=== PATIENT | female | born 1945 | race Caucasian/White ===

== ENCOUNTER → 2024-02-24 13:27 | Outpatient (REF) | payer MEDICARE, SELFPAY | LOC: RCS 13:27 | PROVIDERS: ATTENDING PHYSICIAN Internal Medicine Cardiovascular Disease | DX: I35.0 Nonrheumatic aortic (valve) stenosis (principal) | CPT/HCPCS: 93005; 93306 ==

== ENCOUNTER → 2024-02-24 15:52 | Outpatient (REF) | payer MEDICARE, SELFPAY ==
[2024-02-24 16:31] LABS: % Basophils 0.5 % (0-2); % Eosinophils 2.1 % (0-6); % Immature Granulocytes 0.3 % (0-0.5); % Lymphocytes 27.4 % (20.5-51.1); % Monocytes 7.3 % (1.7-9.3); % Neutrophils 62.4 % (42.2-75.2); Absolute Eosinophils 0.2 10^3/uL (0-0.7); Absolute Lymphocytes 2.1 10^3/uL (1.2-3.4); Absolute Monocytes 0.6 10^3/uL (0.1-0.6); Absolute Neutrophils 4.9 10^3/uL (1.4-6.5); Hematocrit 38.3 % (37.0-47.0); Hemoglobin 13.6 g/dL (12.0-16.0); Mean Corp Hgb Conc. 35.5 g/dL (33.0-37.0); Mean Corpuscular Hgb 34.7 pg (27.0-31.0); Mean Corpuscular Volume 97.7 fL (81.0-99.0); Mean Platelet Volume 11.4 fL (7.4-10.4); Nucleated Red Blood Cells % 0 %; Platelet Count 166 10^3/uL (130-400); Red Blood Cell Count 3.92 10^6/uL (4.20-5.40); Red Cell Dist. Width 12.4 % (11.5-14.5); White Blood Cell Count 7.8 10^3/uL (4.8-10.8)
[2024-02-24 16:46] LABS: Blood Urea Nitrogen 28 mg/dl (7-17); Calcium 10.5 mg/dl (8.4-10.2); Carbon Dioxide 25 mmol/L (22-30); Chloride 98 mmol/L (98-107); Glucose 109 mg/dl (70-99); Potassium 3.9 mmol/L (3.5-5.1); Sodium 135 mmol/L (135-145); eGFR 51.11
[2024-02-24 17:17] LABS: TSH Reflex To Free T4 2.92 uIU/ml (0.47-4.68)
== END ==
LOC: REG 15:52
PROVIDERS: ATTENDING PHYSICIAN Internal Medicine Cardiovascular Disease
DX: I49.9 Cardiac arrhythmia, unspecified (principal)
CPT/HCPCS: 80048; 84443; 85025

== ENCOUNTER → 2024-05-27 07:08 | Outpatient (REF) | payer MEDICARE, SELFPAY ==
[2024-05-27 09:55] LABS: Blood Urea Nitrogen 29 mg/dl (7-17); Calcium 9.7 mg/dl (8.4-10.2); Carbon Dioxide 29 mmol/L (22-30); Chloride 102 mmol/L (98-107); Glucose 92 mg/dl (70-99); HDL Cholesterol 84 mg/dl; LDL Cholesterol, Calculated 50 mg/dl; Potassium 3.7 mmol/L (3.5-5.1); Sodium 142 mmol/L (135-145); Total Cholesterol 157 mg/dl (50-199); Triglyceride 119 mg/dl (10-149); Very Low Density Lipoprotein 23 mg/dl (0-30); eGFR 51.11
== END ==
LOC: REG 07:08
PROVIDERS: ATTENDING PHYSICIAN Student in an Organized Health Care Education/Training Program; FAMILY PHYSICIAN Internal Medicine
DX: I25.10 Atherosclerotic heart disease of native coronary artery without angina pectoris (principal)
CPT/HCPCS: 36415; 80048; 80061

== ENCOUNTER 2025-01-24 17:16 | Inpatient (IN) | payer MEDICARE, SELFPAY ==
[2025-01-24] VITALS (12 sets, daily range): BP systolic 83–120; BP diastolic 59–90; BMI 20.2; BMI 22.1; BMI 21.9
[2025-01-24 14:35] LABS: COVID-19 Antigen Negative (Negative)
--- NOTE | 2025-01-24 15:32 | ED.GENMED ---
History of Present Illness
General
Chief Complaint: Breathing Problem
Source: patient and family
Exam Limitations: none
Time Seen by Provider: 01/24/25 15:16
Nursing documentation reviewed up to this point in time: agreed with
History of Present Illness
History of Present Illness:
Patient with history of paroxysmal atrial fibrillation on aspirin, presents to ED secondary to worsening shortness of breath, especially with exertion over the past 5 to 6 days. Denies chest pain. Denies nausea, vomiting, or diarrhea. Denies
headache. Denies dizziness. Denies recent change in medications or diet. Patient denies recent travel or surgery. However, patient does report increased leg swelling, L>R, without pain or discoloration. Patient unaware of any recent weight gain.
Past History
Past History
ED Past Medical History: HTN and Hypercholesterolemia
ED Past Surgical History: Orthopedic
Social History
Tobacco: Non-smoker
Alcohol: None
Drug: None
Living: alone
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
Review of Systems
Review of Systems
Allergies reviewed?: Yes
All Other Systems: ROS reviewed and negative except as documented in HPI and ROS
Constitutional: Reports no symptoms; Denies fever
EENT: Reports no symptoms
Respiratory: Reports trouble breathing; Denies cough
Cardiac: Reports no symptoms; Denies chest pain or palpitations
ABD/GI: Reports no symptoms; Denies vomiting or diarrhea
Musculoskeletal: Reports edema
Skin: Reports no symptoms
Neurological: Reports no symptoms; Denies dizzy or weakness
Phy Exam
Physical Exam
Physical Exam:
Physical Exam
General: mild respiratory distress, not acutely ill. afebrile
Head: nc/at. eomi
Neck: supple. normal range of motion. jvd present
Heart: irregular irregular, tachycardic. systolic ejection murmur
Lungs: mild respiratory distress. crackles bilaterally
Abdomen: normal bowel sounds. not tender.
Neuro: alert and oriented x 3. no focal neurological deficits
Skin: no rash
Psychiatric: well kept. interactive and cooperative
Extremities: LE b/l pitting edema, L>R. no calf tenderness.
Scores
Heart Failure Risk
Heart Failure Risk Score: Yes
History of Stroke or TIA: No
History of intubation for respiratory distress: No
Heart rate on ED arrival >/= 110: Yes
SaO2 <90% on arrival on room air: No
HR >/=110 during 3min walk test (or too ill to perform test): No
ECG has acute ischemic changes: No
Urea >/=12mmol/L (BUN 33.6mg/dL): No
Serum CO2>/=35mmol/L: No
Troponin I or T elevated to [place] Level (0.4mg/dL): No
NT-proBNP >/=5,000ng/L (5,000pg/ml): Yes
HF Risk Score: 1
Admission Status: MEDIUM RISK 5.1% Consider observation or discharge to home with homecare & f/u visit to PCP/Cephalometric Analyst, or SNF for treatment
Course
Orders/Labs/Results
Orders:
Orders
01/24/25 13:41
Electrocardiogram (*1) Urgent
Reason for Study: Chest Pain
EKG- Treatment ONCE
CXR2 [CR Chest - 2 Views ] Urgent
Comment:
Reason For Exam: cardiac
01/24/25 13:47
COVID-19 Antigen Urgent
Source: Nasal Swab
Influenza A+B Rapid Molecular Urgent
SHERRILL Source: Nasal Swab
Specimen Description:
01/24/25 Dinner
Cholesterol Lowering
At Your Request: Full Participation
Does patient need a safe tray?: No
Fluid Restriction: 1200 mL/day (40 oz)
Cholesterol Lowering: Sodium, 2 Gram
01/24/25 15:27
Add On- LAB Urgent
Tests Added?: magnesium, ProBNP, TSH to reflex free T4
01/24/25 15:28
Furosemide [Lasix] 20 mg IV NOW STA
US Legs, Left [US Periph Venous LOWER Ext LT] Urgent
Comment:
Reason For Exam: LLE swelling
01/24/25 15:31
Diltiazem HCl [Cardizem] 10 mg IV NOW STA
01/24/25 15:33
Complete Blood Count/With Diff Urgent
Comprehensive Metabolic Panel Urgent
Lactic Acid Urgent
Magnesium Urgent
Comment: ADD ON
NT-proBNP Urgent
Comment: ADD ON
Serum Osmolality Urgent
Comment: ADD ON
TSH Reflex To Free T4 Urgent
Comment: ADD ON
Troponin I Urgent
01/24/25 15:45
Diltiazem 125 mg/125 ml Nss [Cardizem] 125 mg in 125 ml IV PER PROTOCOL
Initial dose in mg/hr, then titrate:: 5
Titrate to keep:: Heart rate 80-100 bpm
Titrate by mg/hr:: 5 mg/hr
Frequency of titrations (minutes):: 15
Maximum dose in mg/hr:: 15
01/24/25 16:24
Add On- LAB Urgent
Tests Added?: serum osm
Urine Sodium Urgent
01/24/25 16:25
Osmolality, Random Urine Urgent
Diltiazem HCl [Cardizem] 5 mg IV NOW STA
Furosemide [Lasix] 20 mg IV NOW STA
Metoprolol [Lopressor] 5 mg IV Q6HPRN PRN
Nursing to Place Non Medication Order As Directed
Physician Order: PTT 6 hours after initial start of Heparin infusion
01/24/25 16:30
Heparin 03733 Units/250 ml 25,000 units in 250 ml IV PER PROTOCOL
Weight to be used for heparin protocol in kilograms (kg):: 58.513
Protocol:: DVT/PE
PTT Goal Range to be used:: PTT 73 to 111 seconds
Order type:: Initial
INITIAL Infusion Dose (UNITS/KG/hr) & then follow protocol:: 18 units/kg/hr
Infusion Dose in UNITS/hr & then follow protocol (UNITS/hr):: 1,100
INFUSION RATE in mL/hr & then follow protocol (mL/hr):: 11
For DVT/PE algorithm, re-bolus for low PTT?: Yes
PTT less than or equal to 64 seconds:: Re-bolus 80 units/kg (max 10,000units). Increase by 200 units/hr
(+ 2mL/hr)
PTT 64.1 to 72.9 seconds:: Re-bolus 40 units/kg (max 5,000 units). Increase by 100 units/hr
(+ 1mL/hr)
PTT 73 to 111 seconds:: Target Range. No change in rate.
PTT 111.1 to 130.9 seconds:: Decrease rate by 100 units/hr (- 1 mL/hr)
PTT 131 to 199.9 seconds:: HOLD for 1 hr. Then decrease by 200 units/hr (- 2mL/hr)
PTT greater than or equal to 200 seconds:: HOLD for 2 hrs & Notify Provider. Then decrease by 200 units/hr
(- 2mL/hr)
Lab follow-up:: Each change, PTT q6h until 2 consecutive are therapeutic. Then
PTT daily.
01/24/25 16:37
Admit/Transfer Patient As Directed
Co-Sign Provider:
Level of Care: Inpatient admission
Assign to:: IVU
Physician / Group: claudia chavez
Diagnosis: new onset CHf, rapid afib
Reason for Hospitalization: new onset CHf, rapid afib
Expected length of stay greater than two midnights?: Yes
ELOS- Estimated Length of Stay in days: 4
I certify the patient meets the requirements for IP care: Yes
Code Status As Directed
Resuscitation Status: Full Code
CARDIOLOGY CONSULT Routine
Consulting Provider: Curtis Bazan
Was physician already notified: Yes
Reason for consult: New CHF, rapid A-fib
01/24/25 16:44
PRN Pain Medication Management As Directed
May give lesser potent ordered pain med per pt: Yes
preference::
Protocol:: Medication orders for pain may be administered in a
manner that supports deferring to patient preference
when the pt is:
- Requesting an ordered lesser potent pain medication.
Least to most potent pain medications are defined
as: acetaminophen < NSAID < tramadol < opioids
(morphine, oxycodone, hydromorphone).
- Requesting a lesser dose of the same medication IF
ORDERED.
- Requesting a less intrusive route of administration
if both routes are prescribed by the provider (PO <
IV).
01/24/25 16:55
PTT Urgent
Comment: Obtain baseline before beginning heparin infusion if not already collected
01/24/25 16:58
Heparin 4,700 units IV PRN PRN
01/24/25 16:59
Heparin 2,300 units IV PRN PRN
01/24/25 18:08
Acetaminophen [Tylenol] 650 mg PO Q4HPRN PRN
Metoprolol Xl [Toprol Xl] 25 mg PO QPM
01/24/25 18:08
Add On- LAB Routine
Tests Added?: Body Fluid Triglycerides
IRAD CONSULT Routine
Consulting Provider: Tino Cowart
Was physician already notified: Yes
Procedure being ordered, including laterality if: mod left plueral eff needs THORACENTESIS LEFT SIDE
applicable:
Acknowledgement that appropriate orders are entered: Yes
VTE Contraindication Routine
VTE Mechanical Device Contraindication: Medical Contraindication
Pharmocologic Contraindication: Medical Contraindication
Comment: Patient on IV heparin drip
Acid Fast Culture & Smear Routine
SHERRILL Source: Pleural Fluid
Specimen Description:
Comment: post procedure
Body Fluid Amylase Routine
Fluid Source: Pleural
Body Fluid Cell Count Routine
What is the Body Fluid: pleural fluid
Comment: post procedure
Body Fluid Glucose Routine
Fluid Source: Pleural
Body Fluid LDH Routine
Fluid Source: Pleural
Body Fluid Protein Routine
Fluid Source: Pleural
Body Fluid Triglycerides Routine
Fluid Source: Pleural
Body Fluid pH Routine
Fluid Source: Pleural
Glucose Routine
Hematocrit Routine
LDH Routine
Comment: post procedure, add on to morning labs if already drawn
Total Protein Routine
Comment: post procedure, add on to morning labs if already drawn
Fluid Culture with Gram Stain Routine
SHERRILL Source: Pleural Fluid
Specimen Description:
Comment: post procedure
Fungus Culture Routine
SHERRILL Source: Pleural Fluid
Specimen Description:
Fungus Smear Routine
SHERRILL Source: Pleural Fluid
Specimen Description:
Gram Stain Routine
SHERRILL Source: Pleural Fluid
Specimen Description:
Comment: POST PROCEDURE
Activity As Directed
Activity Level: As Tolerated
Intake/ Output As Directed
Frequency: Per unit guidelines
Vital Signs As Directed
Frequency: Per unit guidelines
Weight As Directed
Frequency: Daily
IRAD Cytology Routine
Source: Pleural Fluid, Left
Clinical Impression: chf
O2 Therapy [RESP] Routine
Nasal Cannula Liter Flow: 2 LPM
Titrate/Wean O2 to maintain O2 sat greater than (%): 92
Pulse Ox/spot Check [RESP] Routine
Quantity: 1
Ot Eval And Treat Routine
Pt Eval And Treat Routine
Activity Level: As Tolerated
01/24/25 23:00
PTT Urgent
Comment: 6 hr repeat
01/25/25 06:00
Echo 2D MMode Color/Doppler IN AM
Reason for Study: CHF
Echo 2D MMode Color/Doppler IN AM
Reason for Study: chf
Cardiovascular Evaluation IN AM
Complete Blood Count/With Diff IN AM
Comprehensive Metabolic Panel IN AM
Magnesium IN AM
01/25/25 08:00
Aspirin Low Dose EC [Aspir Low (Enteric Coated)] 81 mg PO DAILY
Atorvastatin [Lipitor] 10 mg PO DAILY
Furosemide [Lasix] 40 mg IV DAILY
Multivitamin [Theragran] 1 tablet PO Q48H
01/26/25 06:00
Complete Blood Count/With Diff IN AM
Comprehensive Metabolic Panel IN AM
Magnesium IN AM
01/27/25 06:00
Complete Blood Count/With Diff IN AM
Comprehensive Metabolic Panel IN AM
Magnesium IN AM
01/28/25 06:00
Complete Blood Count/With Diff IN AM
Comprehensive Metabolic Panel IN AM
01/29/25 06:00
Complete Blood Count/With Diff IN AM
Comprehensive Metabolic Panel IN AM
Abnormal Lab Results
01/24/25
15:33
WBC 12.9 H 10^3/uL
(4.8-10.8)
MCH 34.1 H pg
(27.0-31.0)
MPV 11.3 H fL
(7.4-10.4)
Abs Immat Gran (auto) 0.1 H 10^3/uL
(0-0.05)
Absolute Neuts (auto) 9.9 H 10^3/uL
(1.4-6.5)
Absolute Monos (auto) 0.8 H 10^3/uL
(0.1-0.6)
Neutrophils % 76.4 H %
(42.2-75.2)
Lymphocytes % 16.4 L %
(20.5-51.1)
Sodium 130 L mmol/L
(135-145)
BUN 39 H mg/dl
(7-17)
Creatinine 1.1 H mg/dL
(0.6-1.0)
Glucose 118 H mg/dl
(70-99)
AST 43 H U/L
(14-36)
ALT 38 H U/L
(0-35)
Troponin I 0.072 H* ng/ml
01/24/25 15:33
01/24/25 15:33
Vital Signs
Initial and Last Documented VS:
Initial Vital Signs
Temp Pulse Resp BP Pulse Ox
97.6 F 131 22 112/68 96
01/24/25 13:39 01/24/25 13:39 01/24/25 13:39 01/24/25 13:39 01/24/25 13:39
Last Documented Vital Signs
Temp Pulse Resp BP Pulse Ox
97.6 F 95 20 104/64 97
01/24/25 19:56 01/24/25 19:42 01/24/25 19:56 01/24/25 19:42 01/24/25 19:56
MDM/Problems Addressed
MDM/Problems Addressed:
History and exam concerning for rapid atrial fibrillation with heart failure. Patient mildly hypoxic requiring supplemental oxygen. In light of patient's unknown duration of symptoms, off anticoagulation, along with evidence of heart failure,
patient will be admitted for further evaluation and treatment. Patient will be started on Cardizem infusion for rate control, along with Lasix and heparin protocol.
, cardiology, notified via [employer] text.
*Pulse Oximetry
SaO2: 91
Oxygen Mode of Delivery: Room air
Patient hypoxic: yes
*EKG
Interpreted by ED Provider?: Yes
EKG Intrepretation Date: 01/24/25
Heart Rate: 142
Rate: tachycardiac
Rhythm: a-fib
[place]: normal axis
Interval: normal interval
*Critical Care Note
Total Time (30-74mins, 75-104mins- exclusive of procedures): Not Applicable
ED Attending Note
-
Portions of this chart may have been created with voice recognition software.� Occasional wrong word or��sound alike� substitutions may have occurred due to the inherent limitations of voice recognition software.
Discharge Plan
Departure
Patient Disposition: Admit
Date of Disposition: 01/24/25
Time of Disposition: 16:26
Admit to: IMU
Presentation/result/management discussed w/ accepting MD/DO: Hospitalist
Discharge Problem:
Atrial fibrillation, rapid, Fluid overload
Interventions
Interventions:
*Risk Screen - Suicide Last Done: 01/24/25 13:39
*General Assessment Last Done: 01/24/25 17:28
*Neglect/Abuse Screening Last Done: 01/24/25 13:39
*ED- Fall Risk Assessment Last Done: 01/24/25 17:52
*ED COVID-19 Vaccine History Last Done: 01/24/25 17:28
*Nursing Disposition Last Done: 01/24/25 17:52
ED- Cardiac Assessment Last Done: 01/24/25 15:45
ED- Pulmonary Assessment Last Done: 01/24/25 15:45
Discharge Date and Time
Discharge Date/Time: 01/24/25 17:53
[2025-01-24 15:51] LABS: Hematocrit 42.9 % (37.0-47.0); Hemoglobin 15.0 g/dL (12.0-16.0); Mean Corp Hgb Conc. 35.0 g/dL (33.0-37.0); Mean Corpuscular Volume 97.5 fL (81.0-99.0); Nucleated Red Blood Cells % 0 %; Platelet Count 232 10^3/uL (130-400); Red Cell Dist. Width 13.2 % (11.5-14.5)
[2025-01-24 16:03] LABS: ALT (SGPT) 38 U/L (0-35); AST (SGOT) 43 U/L (14-36); Albumin 3.8 g/dl (3.5-5.0); Alkaline Phosphatase 115 U/L (38-126); Blood Urea Nitrogen 39 mg/dl (7-17); Calcium 9.4 mg/dl (8.4-10.2); Carbon Dioxide 22 mmol/L (22-30); Chloride 100 mmol/L (98-107); Estimated Creatinine Clearance 38 ml/min; Glucose 118 mg/dl (70-99); Magnesium 1.8 mg/dl (1.6-2.3); Potassium 3.6 mmol/L (3.5-5.1); Sodium 130 mmol/L (135-145); Total Protein 6.3 g/dl (6.3-8.2); eGFR 50.80
--- NOTE | 2025-01-24 16:06 | HPS.HSE ---
Family Physician
-
Family Physician: Analia Duron
Chief Complaint
-
Shortness of breath, dyspnea on exertion, bilateral leg edema
History of Present Illness
80-year-old female complaining of shortness of breath exacerbated with exertion over the past 5 to 6 days. She she has had bilateral leg edema to just above knee over the past week she feels her left leg is greater than right however it is
opposite. She denies any injury to the leg she has +2 edema bilateral lower legs with JVD and hypoxia 91% on room air. She takes hydrochlorothiazide had increased several months ago to 25 mg daily for lower extremity edema with no known history of
CHF. In the ER she was noted to be in rapid A-fib and CHF on ER presentation was given IV Lasix. Her current heart rate is 100 bpm manually we will give IV Cardizem 5 mg single dose and start IV heparin drip. She has history of A-fib currently
off anticoagulation Pradaxa due to vaginal bleeding 4 months ago she did not want to try any other anticoagulation therapy. She follows with [facility] cardiology. She denies recent travel, surgery, headache, blurred vision, fever, chills, sore throat,
chest pain, palpitations, cough, abdominal pain, nausea, vomiting, diarrhea, urinary symptoms. She has past medical history of Paroxysmal A-fib on current aspirin, HTN, HLD, valvular heart disease, peripheral edema, vaginal bleeding secondary to
Pradaxa.
Medical History
Past Medical History
Past Medical History: Reports Other
Additional Past Medical History:
Paroxysmal A-fib on current aspirin
HTN
HLD
valvular heart disease
peripheral edema
vaginal bleeding secondary to Pradaxa
Past Surgical History: Reports Other
Additional Past Surgical History:
Left wrist repair
Social History
Tobacco: Non-smoker
Alcohol: None
Drug: None
Personal: Single
Living: Alone
Employment: Retired
Family History
Family History: Not pertinent
Allergies / Home Medications
Allergies reflects when Allergies were last updated in [facility].
Home Medications with original date entered in [facility]
Allergy/Medication List:
Allergies
Allergy/AdvReac Type Severity Reaction Status Date / Time
No Known Allergies Allergy Verified 05/07/22 12:28
Home Medications
amlodipine 5 mg tablet 5 mg PO DAILY 01/24/25
aspirin 81 mg tablet,delayed release 81 mg PO DAILY 01/24/25
coenzyme Q10 100 mg capsule (CoQ-10) 200 mg PO DAILY 01/24/25
hydrochlorothiazide 25 mg tablet 25 mg PO DAILY 01/24/25
ibuprofen 200 mg tablet (Advil) 200 mg PO BIDPRN PRN mild pain 01/24/25
lisinopril 40 mg tablet 40 mg PO DAILY 01/24/25
lovastatin 40 mg tablet 40 mg PO QPM 01/24/25
metoprolol succinate 25 mg tablet,extended release 24 hr 25 mg PO QPM 01/24/25
therapeutic multivitamin 1 tab PO Q48H 01/24/25
Review of Systems
-
History Source: Patient and Family (Son at bedside)
A 12 point ROS was completed and negative except as noted: Yes
Constitutional: Reports Weight Gain; Denies Chills
EENT: Denies Sore Throat or Runny Nose
Respiratory: Reports Trouble Breathing (Dyspnea on exertion); Denies Cough
Cardiac: Denies Chest Pain, Diaphoresis, Palpitations or Syncope
Abdomen/GI: Denies Abdominal Pain, Nausea, Vomiting, Diarrhea, Constipated, Bloody Stools or Black Stools
: Denies Dysuria, Frequency, Flank Pain, Incontinence, Difficulty Voiding, Urgency or Bleeding
Musculoskeletal: Reports Edema (Bilateral legs +2 to just above knees); Denies Joint Pain
Skin: Denies Itching or Rash
Neurological: Denies Dizzy, Headache or Weakness
Endocrine: Reports No Symptoms
Hematologic/Lymphatic: Reports No Symptoms
Psych: Reports Calm
Physical Exam
Vital Signs
Vital Signs
Temp Pulse Resp BP Pulse Ox
97.6 F 145 21 119/90 91
01/24/25 13:39 01/24/25 15:30 01/24/25 15:30 01/24/25 15:14 01/24/25 15:42
Physical Exam
General: Comfortable and Conversant; No Pain, Fever or Chills
HEENT: NormoCephalic, Anicteric, Moist mucous membranes, PERRLA, [address] Conjunctivae, No Ptosis and Oxygen (2 L nasal cannula)
Respiratory: Other (Diminished breath sounds left lower lung to left mid base, diminished breath sounds right lower lung base); No Wheezes, Rales or Rhonchi
Cardiac: S1/S2, Irregular Rhythm (A-fib 100 bpm per palpation), Peripheral Edema (+2 bilateral lower leg edema to knee level) and JVD; No Murmur, Rub or Gallop
GI: Soft, Non Tender, Non Distended, Normal Bowel Sounds and No Hepatosplenomegaly
Rectal: Deferred by Provider
Genito-urinary: Deferred by me
Musculoskeletal: No Clubbing, No Cyanosis, Edema, Left Lower Extremity (+2 pitting leg edema to knee level) and Edema, Right Lower Extremity (+2 pitting leg edema to knee level); No Edema, Left Upper Extremity or Edema, Right Upper Extremity
Skin: Warm and Dry; No Rash
Neuro: AO x 3, No Motor Deficits, Nonfocal/grossly intact, Cranial Nerves Intact and No Sensory Deficits; No Slurred Speech, Facial Droop, Tremors or Sedated
Psych: Calm
Laboratory Results
-
01/24/25 15:33
01/24/25 15:33
Laboratory Results
Total Bilirubin 1.1 mg/dl (0.2-1.3) 01/24/25 15:33
AST 43 U/L (14-36) H 01/24/25 15:33
ALT 38 U/L (0-35) H 01/24/25 15:33
Alkaline Phosphatase 115 U/L (38-126) 01/24/25 15:33
Data Reviewed
-
Diagnostic Radiology: Report Reviewed by me
Ultrasound: Report Reviewed by me
Lab Data: Labs Reviewed by me
Impression/Plan
-
Impression/plan:
Admit to IVU
#Rapid A-fib/ Hx A-fib paroxysmal
History of vaginal bleeding on Pradaxa stopped 4 months ago did not want to try other AC therapy
- IV Cardizem 5 mg bolus now heart rate 100 bpm
-IV Lopressor 5 mg as needed HR> 120
- IV heparin drip
- Consult CBC cardiology
- Check TSH with free T4 reflex
- 2D echo
#Hypoxic respiratory insufficiency 2/2 Moderate left pleural effusion/new onset CHF
#Moderate left pleural effusion
+2 pitting leg edema to knee level with JVD
-Consult IR for thoracentesis with fluid analysis/cytology
- I/O, daily weight
- Lasix 20 mg given in ER will give additional IV Lasix 20 mg now
- Start IV Lasix 40 mg tomorrow, hold HCTZ, hold lisinopril
- Lipid-lowering, fluid restrict diet
- Check 2D echo
CXR:Mild pulmonary vascular congestion with a moderate left and small right pleural effusion with adjacent airspace opacities, likely compressive atelectasis
# Bilateral leg edema due to acute CHF
Ultrasound of left leg ordered in ER negative for DVT
#HTN�benign
BP 119/90
- Hold amlodipine due to leg edema
#HLD
Check lipid profile
- Continue lovastatin 10 mg daily
DVT prophylaxis
IV heparin drip
Full code
[2025-01-24 16:16] LABS: Troponin I 0.072 ng/ml
--- NOTE | 2025-01-24 16:36 | CON.CAR ---
Addendum entered and electronically signed by Curtis Bazan MD 01/24/25 19:17:
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 We are consulted for acute HF. Exam with irregular rhythm, III/ systolic murmur at RUSB, 1+ LE edema. EKG:
A fib with RVR.
Acute HF, suspect HFPEF. Severe. Continue IV lasix, which requires monitoring of labs/tele. Check echo.
A fib with RVR. Diltiazem drip.
Original Note:
Consultation
Consultation Request
Date/Time Consultation Requested: 01/24/258
Date/Time Consultation Performed: 01/24/25 1630
Requesting Provider: Dr. Herrera
Performing Provider: Margarita OLIVO for Dr. Bazan
Reason for Consultation: AFIB, CHF
Medical History
-
Chief Complaint: SOB
History of Present Illness:
80 y/o female (patient of Dr. Pinedo) with persistent AFIB (not on AC- had issues with dabigatran), CAD (LAD and RCA medically managed as she was asymptomatic at the time of [facility] in 2012), PAD (50-69% TRISTAN), hypertension, dyslipidemia, moderate MR,
moderate , and moderate to severe TR, and mod pulm HTN who is here for SOB since . She reports orthopnea and PND. She has had LE edema since 4 months ago. She is admitted for CHF. Her AFIB rates are elevated 120's in ER. She is in no
distress. Son at bedside.
Past Medical History
Past Medical History: Arrhythmias, CAD, HTN, Hypercholesterolemia and Valvular Disease
Social History
Tobacco: Non-Smoker
Family History
Family History: Reviewed & Not Pertinent
Allergies / Home Medications
Allergy/AdvReac Type Severity Reaction Status Date / Time
No Known Allergies Allergy Verified 05/07/22 12:28
also metoprolol 25 mg PO daily
�Medication �Instructions �Recorded �Confirmed �Type
amlodipine 5 mg tablet 5 mg PO DAILY 06/09/13 06/12/13 History
aspirin 81 mg tablet,delayed 81 mg PO DAILY 06/09/13 06/12/13 History
release (Aspir-Low)
hydrochlorothiazide 12.5 mg capsule 12.5 mg PO DAILY 06/09/13 06/12/13 History
lisinopril 40 mg tablet 40 mg PO DAILY 06/09/13 06/12/13 History
lovastatin 10 mg tablet 10 mg PO DAILY 06/09/13 06/12/13 History
iron 125 mg-iron 25 mg (asp 65 mg PO DAILY 06/12/13 06/12/13 History
gly)-folic acid 1 mg-mv-min no.38
tablet (iron)
ihmscctn-hzm-ufeap acid 0.4 1 ea PO DAILY 06/12/13 06/12/13 History
mg-lycopene 300 mcg-lutein 250 mcg
tablet (Centrum Silver)
Review of Systems
-
History Source: Patient
All other systems: Negative unless noted
Respiratory: Trouble Breathing
Musculoskeletal: Edema
Physical Exam
Vital Signs
Temp Pulse Resp BP Pulse Ox
97.6 F 145 21 119/90 91
01/24/25 13:39 01/24/25 15:30 01/24/25 15:30 01/24/25 15:14 01/24/25 15:42
Lab Results
01/24/25 15:33
01/24/25 15:33
Troponin I 0.072 ng/ml H* 01/24/25 15:33
Amm-U-Tmdhuegcbss Pept 03965 pg/ml 01/24/25 15:33
Physical Exam
General: Well Developed, Well Nourished and No Apparent Distress
HEENT: Normocephalic and Anicteric
Respiratory: Crackles (b/l bases) and Other (on O2 by NC)
Cardiac: Irregular Rhythm, Murmur (III/ sustolic) and Peripheral Edema (+1-2 BLE edema )
Musculoskeletal: Edema
Skin: Warm and Dry
Neuro: AO x 3
Psych: Calm
Impression / Plan
-
Acute HF (type unknown, last EF normal about 1 year ago):
-update echo
-valve disease with moderate MR, moderate , mod-severe TR
-agree with IV diuresis (40 IV BID), which requires intensive monitoring
-CHF consultation
-limit sodium/fluid
Persistent AFIB:
-continue her usual metoprolol
-IV diltiazem started in ER- okay to continue for now, requires intensive monitoring
-her [id number] score is 6 for age, female, HTN, CHF, and vascular disease. When I saw her last year, she declined OAC. However, since then she tells me she started Pradaxa, but then stopped when she noted vaginal bleeding. That is not normal
response to OAC, and will have to have w/u for that.
CAD:
-continue ASA, statin, BB
HTN:
-monitor with medicine adjustments
Abnormal troponin:
-trend to peak, obtain echo
-suspect acute, non-ischemic myocardial injury
Data Reviewed
-
EKG: Tracing Personally Visualized and interpreted (AFIB with RVR 142 BPM)
Radiology: Report Reviewed by me (CXR: Mild pulmonary vascular congestion with a moderate left and small right pleural effusion with adjacent airspace opacities, likely compressive atelectasis)
Ultrasound: Report Reviewed by me ( No evidence of deep venous thrombosis in the left lower extremity as described above.)
Medical Tests (Nuc Med, Echo etc): Report Reviewed by me (echoecho 02/24/24: Estimated ejection fraction 60 to 65%. Distal septal hypokinesis. Moderate aortic stenosis.Moderate aortic stenosis. Mild aortic regurgitation Without significant
stenosis based on half-time Moderate mitral regurgitation Moderate to severe tricuspid regurgitation.)
Labs: Labs Reviewed by me
[2025-01-24] MEDS: LASIX 20 MG IV ×2 (16:49→16:51)
[2025-01-24] MEDS: CARDIZEM 5 MG IV (16:53)
[2025-01-24] MEDS: CARDIZEM 125 IV (16:59)
--- NOTE | 2025-01-24 17:05 | W.PN.UPDATE ---
Update Note
Progress Note Update
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
She also c/o BL leg edema.
In the ER, she was noted to be in rapid A-fib and in acute CHF. She was given IV Lasix 20 mg and was started with IV heparin drip.
A/P:
# A-fib with RVR on admission
# H/o paroxysmal A-fib
Off Pradaxa 2/2 vaginal bleeding 4 months ago
IV Cardizem 5 mg x1 dose, IV Lopressor PRN for HR > 120
Agree with IV heparin drip
Follow TSH reflex FT4
Follow echo
Card consult
# Acute CHF, unknown type
# Moderate left pleural effusion likely due to above
# Acute hypoxic respiratory insufficiency, due to above
Cont IV Lasix 40 mg BID, follow I/O, daily weight
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
IR CS for L thoracentesis, follow fluid analysis/cytology
Card CS as above
# Bilateral leg edema due to acute CHF
Ultrasound of left leg from ER negative for DVT
# HTN�benign
BP 119/90
Hold amlodipine due to leg edema
Monitor BP, will likely add BB and ACEI with current CHF
# HLD
Check lipid profile
Continue lovastatin 10 mg daily
DVT prophylaxis: IV heparin drip
Full code
IVU
[2025-01-24] MEDS: HEPARIN 25000 UNITS/250 ML IV (17:09)
[2025-01-24 17:28] LABS: APTT 26.1 Sec (23.4-35.0)
--- NOTE | 2025-01-24 18:27 | PTCARENOTE ---
Rec'd pt from ED. Heparin gtt infusing at 11 ml/hr and Cardizem gtt infusing at 5 ml/hr. Tele- Afib. HR 100s. Pt states 'breathing feels much better.' Pt sating 91% on 2L O2 NC. BP 102/80. Oriented pt to room. Plan of care reviewed w/ pt and
verbalizes understanding. Currently in bed; call sánchez w/in reach.
[2025-01-24 23:12] LABS: Hematocrit 37.4 % (37.0-47.0)
[2025-01-24 23:14] LABS: APTT 96.7 Sec (23.4-35.0)
[2025-01-24 23:23] LABS: Glucose 108 mg/dl (70-99); LDH 305 U/L (120-246); Total Protein 5.6 g/dl (6.3-8.2)
[2025-01-24 23:33] LABS: Troponin I 0.104 ng/ml
[2025-01-25] VITALS (10 sets, daily range): BP systolic 98–124; BP diastolic 62–80; BMI 21.9
--- NOTE | 2025-01-25 00:55 | PTCARENOTE ---
Rec'd at change of shift. PT AAO*3, VSS, and Afib on TELE monitor. Cardizem and heparin infusing as ordered. Trending trops, however pt denies any chest pain or discomfort. See MAR and flowchart for full pt care and assessment. Pt resting with
call sánchez in reach.
[2025-01-25 05:31] LABS: Hematocrit 39.4 % (37.0-47.0); Hemoglobin 14.3 g/dL (12.0-16.0); Mean Corp Hgb Conc. 36.3 g/dL (33.0-37.0); Mean Corpuscular Volume 96.3 fL (81.0-99.0); Nucleated Red Blood Cells % 0 %; Platelet Count 202 10^3/uL (130-400); Red Cell Dist. Width 13.0 % (11.5-14.5)
[2025-01-25 05:53] LABS: APTT 167.4 Sec (23.4-35.0)
[2025-01-25 06:00] LABS: ALT (SGPT) 34 U/L (0-35); AST (SGOT) 40 U/L (14-36); Albumin 3.5 g/dl (3.5-5.0); Alkaline Phosphatase 95 U/L (38-126); Blood Urea Nitrogen 41 mg/dl (7-17); Calcium 9.1 mg/dl (8.4-10.2); Carbon Dioxide 21 mmol/L (22-30); Chloride 100 mmol/L (98-107); Estimated Creatinine Clearance 40 ml/min; Glucose 93 mg/dl (70-99); HDL Cholesterol 74 mg/dl; LDL Cholesterol, Calculated 75 mg/dl; Magnesium 1.6 mg/dl (1.6-2.3); Potassium 3.2 mmol/L (3.5-5.1); Sodium 129 mmol/L (135-145); Total Protein 5.8 g/dl (6.3-8.2); Very Low Density Lipoprotein 13 mg/dl (0-30); eGFR 50.80
[2025-01-25 06:28] LABS: Troponin I 0.094 ng/ml
--- NOTE | 2025-01-25 10:24 | W.PN.HOSP.TC ---
Today's Communication/Plan
-
see A/P
Assessment / Plan
Assessment / Plan
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
She also c/o BL leg edema.
In the ER, she was noted to be in rapid A-fib and in acute CHF. She was given IV Lasix 20 mg and was started with IV heparin drip.
A/P:
# A-fib with RVR on admission
# H/o paroxysmal A-fib
Off Pradaxa 2/2 vaginal bleeding 4 months PRINCIPAL SOLUTIONS ARCHITECT
Started Cardizem drip
Cont Toprol 25 mg changed to daily (not pm)
Cont heparin drip
Follow TSH reflex FT4
Follow echo
Card on board
# Acute CHF, unknown type
# Moderate left pleural effusion likely due to above
# Acute hypoxic respiratory insufficiency, due to above
Cont IV Lasix 40 mg daily, follow I/O, daily weight
Hold PRINCIPAL SOLUTIONS ARCHITECT ACEI with mildly elevated SCr and receiving IV lasix
IR CS for L thoracentesis, follow fluid analysis/cytology
Card on board
# Hypokalemia
# Hypomagnesemia
replete lytes
# Bilateral leg edema due to acute CHF
Ultrasound of left leg from ER negative for DVT
# HTN�benign
BP 119/90
Hold amlodipine due to leg edema
Cont PRINCIPAL SOLUTIONS ARCHITECT Toprol 25 mg changed to daily (not pm)
Monitor BP, will likely add BB and ACEI with current CHF
# HLD
LDL 75
Continue lovastatin 10 mg daily
DVT prophylaxis: IV heparin drip
Full code
DW RN
DW son at bedside
Anticipated Discharge: > 48 hours
Subjective/Interval History
-
Date of Service: January 25, 2025
Objective Data
-
Labs:
Laboratory Results
01/24/25 01/25/25 01/25/25
22:54 04:53 12:50
WBC 11.8 H
Hgb 14.3
Hct 37.4 39.4
Plt Count 202
APTT 96.7 H 167.4 H* Pending
Sodium 129 L
Potassium 3.2 L
Chloride 100
Carbon Dioxide 21 L
BUN 41 H
Creatinine 1.1 H
Glucose 108 H 93
Calcium 9.1
Total Bilirubin 1.2
AST 40 H
ALT 34
Alkaline Phosphatase 95
Vital Signs:
Vital Signs
Temp Pulse Resp BP Pulse Ox
36.6 C 75 20 105/63 93
01/25/25 09:05 01/25/25 09:42 01/25/25 09:42 01/25/25 09:42 01/25/25 09:42
I&O
01/24/25 01/25/25 01/26/25
06:59 06:59 06:59
Intake Total 480 / 480
Output Total 900 / 900
Balance -420 / -420
Review of Systems
-
History Source: Patient
All other systems: Reviewed and negative
Physical Exam
-
General: Well Developed, Well Nourished, No Apparent Distress, Comfortable and Conversant; Negative Respiratory Distress
HEENT: Normocephalic, Atraumatic, Nose Appears Normal and Ears Appear Normal; Negative Oxygen
Respiratory: Clear to Auscultation and Non Labored Respirations; Negative Accessory Resp Muscle Use
Cardiac: S1/S2 and Irregular Rhythm
GI: Soft, Nontender, Nondistended and Normal Bowel Sounds
Musculoskeletal: Edema, Right Lower Extrem and Edema, Left Lower Extrem
Skin: Warm and Dry
Neuro: Awake, Alert, Oriented and AO x 3
Psych: Calm and Intact Judgement/Insight
Data Reviewed
-
Diagnostic Radiology: Image personally visualized and interpreted and Report Reviewed by me
Labs: Labs Reviewed by me
[2025-01-25] MEDS: MAGNESIUM SULFATE 100 IV (10:59)
--- NOTE | 2025-01-25 11:27 | W.PN.CD ---
Addendum entered and electronically signed by Curtis Bazan MD 01/25/25 12:10:
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 Exam with irregular rhythm, III/ systolic murmur at RUSB, 1+ LE edema. Tele: A fib
70s-80s.
Acute HF, type unknown. Severe. Continue IV lasix, which requires monitoring of labs/tele. She she had thora today, and also hypokalemia, will do lasix once daily today, and assess for twice daily tomorrow. CKD3a is stable.
Echo today.
Pleural effusion s/p thoracentesis.
A fib with RVR. Stop diltiazem. Increase Toprol XL
We discussed AC, and she declines. Stop heparin.
Original Note:
Today's Communication / Plan
-
-echo from this AM with results pending
-s/p thoracentesis, so will leave Lasix as once daily for now
-replacement and monitoring of potassium
-increase metoprolol and stop diltiazem
-stop IV heparin- discussion as below
Impression / Plan
-
Acute HF (type unknown, last EF normal about 1 year ago):
-valve disease with moderate MR, moderate , mod-severe TR
-updated echo from today pending
-agree with IV diuresis, which requires intensive monitoring
-CHF consultation
-pleural effusion was noted and she is now s/p thoracentesis today (850 ml per RN)
Hyponatremia:
-management per primary team
Hypokalemia:
-she is in for replacement
-monitor
Persistent AFIB:
-increase metoprolol dose and come off of IV diltiazem- discussed with RN
-her [id number] score is 6 for age, female, HTN, CHF, and vascular disease. We reviewed stroke risk and anticoagulation. She had bleeding issue on anticoagulant and she does not want to retrial here, so we will stop heparin gtt.
CAD:
-continue ASA, statin, BB
HTN:
-stable
-monitor with medicine adjustments
Abnormal troponin:
-peak 0.1, echo pending
-suspect acute, non-ischemic myocardial injury in setting of CHF and tachycardia
She is feeling much better!
Physical Exam
Vital Signs/Labs
Vital Signs
Temp Pulse Resp BP Pulse Ox
97.8 F 75 20 105/63 93
01/25/25 09:05 01/25/25 09:42 01/25/25 09:42 01/25/25 09:42 01/25/25 09:42
01/24/25 01/25/25 01/26/25
06:59 06:59 06:59
Actual Weight 63.4 kg
01/25/25 04:53
01/25/25 04:53
APTT 167.4 Sec (23.4-35.0) H* 01/25/25 04:53
Magnesium 1.6 mg/dl (1.6-2.3) 01/25/25 04:53
Triglycerides 66 mg/dl (10-149) 01/25/25 04:53
LDL Cholesterol, Calc 75 mg/dl 01/25/25 04:53
VLDL Cholesterol, Calc 13 mg/dl (0-30) 01/25/25 04:53
HDL Cholesterol 74 mg/dl 01/25/25 04:53
01/24/25
15:33
Rjo-L-Rbjqowdwlyy Pept [id number]
LAB Results
01/24/25 01/24/25 01/25/25
15:33 22:54 04:53
Troponin I 0.072 H* 0.104 H* D 0.094 H*
01/25/25
11:00
Troponin I Cancelled
Physical Exam
Constitutional: No acute distress
EENT: Anicteric
Cardiovascular: Rhythm/rate is irregular
Respiratory: Respiratory effort normal and Crackles Present (left base)
Neuro/Psych: AO x 3
Data Reviewed
-
Date of Service: January 25, 2025
EKG: Other (AFIB, rate-controlled)
Labs: Labs Reviewed by me
[2025-01-25 12:01] LABS: Body Fluid Second Tech AMA
--- NOTE | 2025-01-25 12:32 | CM ---
Chart reviewed. Son at bedside, patient is independent of ADLS, lives in a apartment [address] floor , [address], ambulates occasional with a SPC, plan is for the patient to return home. CM to follow
[2025-01-25] MEDS: TOPROL XL 50 MG PO (13:11)
[2025-01-25] MEDS: KCL 40 MEQ PO (13:13)
[2025-01-25] MEDS: ASPIR LOW (ENTERIC COATED) 81 MG PO (13:13)
[2025-01-25] MEDS: LIPITOR 10 MG PO (13:13)
[2025-01-25] MEDS: THERAGRAN 1 TABLET PO (13:13)
[2025-01-25] MEDS: LASIX 40 MG IV (13:14)
[2025-01-25 14:33] LABS: APTT 44.9 Sec (23.4-35.0)
--- NOTE | 2025-01-25 15:38 | PTCARENOTE ---
Received pt post thorocentesis. VSS. Left posterior back w/ bandaide clean, dry and intact. Pt states that she is breathing alot better. Will monitor.
[2025-01-26] VITALS (19 sets, daily range): BP systolic 94–120; BP diastolic 54–83; PULSE 102–132; O2SAT 96; BMI 21.3
--- NOTE | 2025-01-26 01:03 | PTCARENOTE ---
assumed care of patient at the change of shift. AAOx3. patient states feeling much better. denies any cp/sob/palps. on assessment, patient noted to be 88% on RA- previously 93% on RA. unable to obtain above 90%- placed patient on 2L NC- 93%.
crackles noted LL base/diminished RL base. clear otherwise. edema noted/palpable pulse. Afib on tele 80s-90s. increased rates when oob-115s. patient denies symptoms with higher HR. reviewed plan of care and verbalized understanding. call sánchez within
reach. makes needs known.
[2025-01-26 04:16] LABS: Hematocrit 40.6 % (37.0-47.0); Hemoglobin 14.9 g/dL (12.0-16.0); Mean Corp Hgb Conc. 36.7 g/dL (33.0-37.0); Mean Corpuscular Volume 95.8 fL (81.0-99.0); Nucleated Red Blood Cells % 0 %; Platelet Count 209 10^3/uL (130-400); Red Cell Dist. Width 13.0 % (11.5-14.5)
--- NOTE | 2025-01-26 04:23 | PTCARENOTE ---
patient ambulated to the bathroom on her own. RNs heard a thud. went into room and patient was found sitting on the bathroom floor. two RNs assisted patient to standing. patient denies any lightheadedness/dizziness. denies hitting her head. states
only hitting her butt and she is not in any pain. patient was not wearing socks- took them off to sleep. patient was independent with ambulation prior to event. Fei LOMBARDO at the bedside. assessed patient. no new orders at this time. patient is
oriented. fall risk bracelet applied. socks placed on patient. educated patient to inform RN with assistance oob- verbalized understanding. Afib on tele 90s. bp 107/79. 93% on RA.
[2025-01-26 04:43] LABS: ALT (SGPT) 31 U/L (0-35); AST (SGOT) 37 U/L (14-36); Albumin 3.4 g/dl (3.5-5.0); Alkaline Phosphatase 91 U/L (38-126); Blood Urea Nitrogen 43 mg/dl (7-17); Calcium 9.6 mg/dl (8.4-10.2); Carbon Dioxide 22 mmol/L (22-30); Chloride 101 mmol/L (98-107); Estimated Creatinine Clearance 40 ml/min; Glucose 107 mg/dl (70-99); Magnesium 1.8 mg/dl (1.6-2.3); Potassium 3.7 mmol/L (3.5-5.1); Sodium 130 mmol/L (135-145); Total Protein 5.8 g/dl (6.3-8.2); eGFR 50.80
[2025-01-26] MEDS: LIPITOR 10 MG PO (08:41)
[2025-01-26] MEDS: ASPIR LOW (ENTERIC COATED) 81 MG PO (08:41)
[2025-01-26] MEDS: TOPROL XL 50 MG PO (08:42)
[2025-01-26] MEDS: LASIX 40 MG IV (08:42)
--- NOTE | 2025-01-26 09:19 | W.PN.CD ---
Today's Communication / Plan
-
- Transthoracic echocardiogram yesterday revealed a reduction in LVEF from 60-65% to 40-45% with more prominent septal wall motion abnormality, critical , moderate AR, and severe TR.
- A long discussion was had with the patient this morning regarding the severity of her cardiac condition and the need for cardiac intervention if she wants her condition to improve.
- The patient appears hesitant to want to undergo any cardiac procedures (R/LHC, TAVR, etc.), and it appears that she just wants to use medicines; however, it was expressed to the patient that medications will not cure her at this point.
- It was also expressed to the patient that she is fully functional, and her physical status will significantly decline over the next few months if she chooses to decline cardiac procedures.
- If the patient does not want to pursue aggressive cardiac intervention, it was expressed to her that we should have palliative care/hospice get involved now early in the process as the patient will otherwise have recurrent hospital admissions in
the next weeks/months due to her condition.
- Continue Lasix 40 mg IV daily.
- It will likely be difficult to perfectly regulate her heart rate given the severity of her valvular heart disease and blood pressure limitations.
- Continue current dose of Toprol-XL 50 mg daily.
Impression / Plan
-
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
- Transthoracic echocardiogram yesterday revealed a reduction in LVEF from 60-65% to 40-45% with more prominent septal wall motion abnormality, critical , moderate AR, and severe TR.
- A long discussion was had with the patient this morning regarding the severity of her cardiac condition and the need for cardiac intervention if she wants her condition to improve.
- The patient appears hesitant to want to undergo any cardiac procedures (R/LHC, TAVR, etc.), and it appears that she just wants to use medicines; however, it was expressed to the patient that medications will not cure her at this point.
- It was also expressed to the patient that she is fully functional, and her physical status will significantly decline over the next few months if she chooses to decline cardiac procedures.
- If the patient does not want to pursue aggressive cardiac interventions, it was expressed to her that we should have palliative care/hospice get involved now early in the process as the patient will otherwise have recurrent hospital admissions in
the next weeks/months due to her condition.
- The patient underwent a thoracentesis yesterday (850 ml per RN).
- Continue Lasix 40 mg IV daily.
- Further GDMT limited by renal dysfunction, blood pressure, and cost.
Hyponatremia:
- Likely secondary to a component of CHF.
- management per primary team
Persistent AFIB:
- It will likely be difficult to perfectly regulate her heart rate given the severity of her valvular heart disease and blood pressure limitations.
- Continue current dose of Toprol-XL 50 mg daily.
-her [id number] score is 6 for age, female, HTN, CHF, and vascular disease. We reviewed stroke risk and anticoagulation. She had bleeding issue on anticoagulant and she does not want to retrial here, so heparin drip discontinued.
CAD:
-continue ASA, statin, BB
HTN:
-stable
-monitor with diuresis.
Abnormal troponin:
-peak 0.1, echo pending
-suspect acute, non-ischemic myocardial injury in setting of CHF and tachycardia
Physical Exam
Vital Signs/Labs
Vital Signs
Temp Pulse Resp BP Pulse Ox
97.5 F 103 16 105/53 97
01/26/25 08:02 01/26/25 08:42 01/26/25 08:02 01/26/25 08:42 01/26/25 08:02
01/25/25 01/26/25 01/27/25
06:59 06:59 06:59
Actual Weight 63.4 kg 61.5 kg
01/26/25 04:05
01/26/25 04:05
APTT 44.9 Sec (23.4-35.0) H 01/25/25 13:59
Magnesium 1.8 mg/dl (1.6-2.3) 01/26/25 04:05
Triglycerides 66 mg/dl (10-149) 01/25/25 04:53
LDL Cholesterol, Calc 75 mg/dl 01/25/25 04:53
VLDL Cholesterol, Calc 13 mg/dl (0-30) 01/25/25 04:53
HDL Cholesterol 74 mg/dl 01/25/25 04:53
01/24/25
15:33
Inq-X-Cnodidrqreo Pept [id number]
LAB Results
01/24/25 01/24/25 01/25/25
15:33 22:54 04:53
Troponin I 0.072 H* 0.104 H* D 0.094 H*
01/25/25
11:00
Troponin I Cancelled
Physical Exam
Constitutional: No acute distress and Comfortable
EENT: Anicteric
Cardiovascular: Rhythm/rate is irregular, Pedal edema present (2-3+), Systolic murmur present (3/6) and S1S2 is normal (Soft, but present S2)
Respiratory: Respiratory effort normal and Crackles Present
GI: Soft
Neuro/Psych: AO x 3
Other: Skin (warm)
Data Reviewed
-
Date of Service: January 26, 2025
EKG: Tracing Personally Visualized and interpreted (Telemetry: A-fib)
Echo: Report Reviewed by me (40-45% with more prominent septal wall motion abnormality, critical , moderate AR, and severe TR. )
Medical Tests (PFT, Pathology etc): Discussed with Nurse and Discussed with Patient
Labs: Labs Reviewed by me
Total Time Spent with Patient (in minutes): 50
--- NOTE | 2025-01-26 10:18 | W.PN.HOSP.TC ---
Addendum entered and electronically signed by Nellie Maldonado MD 01/26/25 16:02:
Informed by tape machine tailer that patient is now willing to proceed with left heart cath
Addendum entered and electronically signed by Nellie Maldonado MD 01/26/25 10:48:
Addendum:
Per Card, TTE revealed a reduction in LVEF from 60-65% to 40-45% with more prominent septal wall motion abnormality, critical , moderate AR, and severe TR.
Cardiac intervention recc however pt reluctant for any cardiac procedures (R/LHC, TAVR, etc.), and it appears that she just wants to use medicines.
Card informed pt that medications will not cure her and that she will likely decline over the next few months.
Therapeutic approach TBD.
Original Note:
Today's Communication/Plan
-
see A/P
Assessment / Plan
Assessment / Plan
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
She also c/o BL leg edema.
In the ER, she was noted to be in rapid A-fib and in acute CHF. She was given IV Lasix 20 mg and was started with IV heparin drip.
A/P:
# A-fib with RVR on admission
# H/o paroxysmal A-fib
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
s/p Cardizem drip
Cont Toprol, increased to 50 mg daily
Off heparin drip (pt declined AC in setting of previous vaginal bleed)
TSH 3.05
echo noted EF 40-45%. Mid to apical septal hypokinesis. Mild mitral stenosis. Mild/moderate mitral regurgitation. Compared to 02/24/24: LVEF has declined from 60-65% to 40-45%, and septal wall motion abnormality is more prominent. AV mean gradient
has increased from 26 mmHg to 29 mmHg. AR has progressed from mild to moderate. TR has progressed from moderate/severe to severe, and PASP has increased from 35 mmHg to 41 mmHg.
Card on board
# Acute systolic CHF
# Moderate left pleural effusion due to above
# Acute hypoxic respiratory insufficiency, due to above, resolved
weaned back to RA
echo report as above
Cont IV Lasix 40 mg daily, follow I/O, daily weight
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
s/p IR L thora 01/25, result reviewed
Card on board
# Mild transaminitis due to hepatic congestion
LFT improving
cont to monitor LFT
# Hypokalemia
# Hypomagnesemia
repleted lytes
# ?leucocytosis 2/2 CAP
CXR 01/25 noted streaky opacity and peribronchial thickening within the left lower lobe, which may represent pneumonia or subsegmental atelectasis
Start empiric Abx ceftriaxone, Doxycycline
Check MRSA screen
monitor WBC
# Bilateral leg edema due to acute CHF
Ultrasound of left leg from ER negative for DVT
# HTN�benign
Hold amlodipine due to leg edema
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
# HLD
LDL 75
Continue lovastatin 10 mg daily
DVT prophylaxis: off heparin drip, cont Lovenox SQ ppx dose. Pt declined AC
Full code
DW RN
total time 51 min
Anticipated Discharge: > 48 hours
Subjective/Interval History
-
Date of Service: January 26, 2025
Objective Data
-
Labs:
Laboratory Results
01/26/25
04:05
WBC 12.8 H
Hgb 14.9
Hct 40.6
Plt Count 209
Sodium 130 L
Potassium 3.7
Chloride 101
Carbon Dioxide 22
BUN 43 H
Creatinine 1.1 H
Glucose 107 H
Calcium 9.6
Total Bilirubin 1.0
AST 37 H
ALT 31
Alkaline Phosphatase 91
Vital Signs:
Vital Signs
Temp Pulse Resp BP Pulse Ox
36.4 C 103 16 105/53 97
01/26/25 08:02 01/26/25 08:42 01/26/25 08:02 01/26/25 08:42 01/26/25 08:02
I&O
01/25/25 01/26/25 01/27/25
06:59 06:59 06:59
Intake Total 480 / 480 420 / 420
Output Total 900 / 900 850 / 850
Balance -420 / -420 -430 / -430
Review of Systems
-
History Source: Patient
All other systems: Reviewed and negative
Physical Exam
-
General: Well Developed, Well Nourished, No Apparent Distress, Comfortable and Conversant; Negative Respiratory Distress
HEENT: Normocephalic, Atraumatic, Nose Appears Normal and Ears Appear Normal; Negative Oxygen
Respiratory: Clear to Auscultation and Non Labored Respirations; Negative Accessory Resp Muscle Use
Cardiac: S1/S2 and Irregular Rhythm
GI: Soft, Nontender, Nondistended and Normal Bowel Sounds
Musculoskeletal: Edema, Right Lower Extrem and Edema, Left Lower Extrem
Skin: Warm and Dry
Neuro: Awake, Alert, Oriented and AO x 3
Psych: Calm and Intact Judgement/Insight
Data Reviewed
-
Diagnostic Radiology: Image personally visualized and interpreted and Report Reviewed by me
Ultrasound: Report Reviewed by me
Medical Tests (Nuc Med, Echo etc): Report Reviewed by me (echo)
Labs: Labs Reviewed by me
[2025-01-26] MEDS: VIBRAMYCIN 100 MG PO ×2 (11:33→20:08)
--- NOTE | 2025-01-26 12:22 | CM ---
Chart reviewed. Patient lives alone, 1st floor apartment, [address], occasionally ambulates with a SPC. PT evaluation recommending reassess depending on patient's decision on surgery. CM to follow.
[2025-01-26] MEDS: ROCEPHIN 1000 MG IV (12:45)
[2025-01-26] MEDS: STERILE WATER FOR INJECTION 10 ML IV (12:45)
--- NOTE | 2025-01-26 16:14 | PTCARENOTE ---
Received pt post cath. Right radial site w/ band intact, pt's hand dusky. Right brachial site w/ dressing clean and intact. VSS. Post cath orders noted. Will monitor.
[2025-01-26] MEDS: NSS 1000 IV (16:38)
--- NOTE | 2025-01-26 18:37 | PTCARENOTE ---
Pt remains in atrial fibrillation w/ heart rates up to 140 with ambulation. At rest, pt's heart rate 85-115. Will monitor
[2025-01-26] MEDS: LOVENOX SC (18:42)
--- NOTE | 2025-01-26 19:19 | ITS.CL.PN ---
Printed Circuit Boards Inspector - Procedure Note
Procedure
Procedure Note:
CARDIAC CATHETERIZATION REPORT
Date of Procedure: 01/26/2025
Referring: Dr. Pj Bazan MD
Indication: severe aortic stenosis, preoperative workup for consideration of TAVR/SAVR
PROCEDURE(S)
1. right heart catheterization
2. left heart catheterization
3. coronary angiography
ACCESS
1. 6F right radial artery (closure: radial band)
2. 5F right antecubital vein (closure: manual hemostasis)
CATHETERS
1. 5F [place]
2. 6F JR4
3. 6F JL3.5
4. 6F [place]
MODERATE SEDATION: 35 minutes of moderate sedation was utilized. An independent medical typist was present to assist with and help manage the patient's level of consciousness and physiologic status.
HEMODYNAMIC DATA
LV 120/12 (EDP 20) mmHg
AO 96/54 (mean 60) mmHg
RA 15 mmHg
RV 36/10 (EDP 16) mmHg
PA 41/27 (mean 33) mmHg
PCWP 23 mmHg
SaO2 92.2%
SvO2 55 point %
Hb 14.5 g/dL
CO/CI 2.97/1.73 L/min/m2
SVR 1887 dsc*-5
PVR 3.4 [place] units
Valve study: Mean gradient 19.35 with heart rate 81 (in A-fib) giving stroke-volume index of 21.4 mL/m2 and calculated valve area of 0.65 cm�.
CORONARY ANGIOGRAPHY
Dominance: Right
LM: Large with mild disease
LAD: Large vessel giving rise to a large S1, moderate caliber D1, and moderate caliber branching D2. There is an eccentric severe stenosis in the proximal vessel before S1. The D1 has a focal ostial stenosis. The vessel is totally occluded before
the takeoff of the D2 with a short segment, straight, non-calcified SALES ADVISOR with the proximal cap at the takeoff of a septal branch. The mid to distal LAD is fed via left to left collaterals. The D2 fills faintly and is an atretic vessel.
LCx: Moderate caliber vessel giving rise to a small OM1 and moderate caliber OM 2. There is mild disease.
RCA: Large vessel giving rise to an atretic chronically occluded RPDA fed via [id number] collaterals from septals and a large RPL branch. There is a calcified 80% ostial stenosis with mild pressure dampening and focal 90% stenosis in the distal
vessel at the RPDA RPL bifurcation.
RADIATION: dose 226 mGy; DAP 11.9 Gy*cm2; fluoroscopy time 5.0 min
CONCLUSIONS
1. 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
2. Severe low-flow low gradient aortic stenosis
3. Severe multivessel coronary artery disease as described
RECOMMENDATIONS
1. Diuresis and titration of GDMT for heart failure.
2. Outpatient workup for aortic valve replacement +/- coronary revascularization, surgical versus percutaneous. Patient needs TAVR CT protocol next and then heart team discussion to evaluate options. Percutaneous revascularization would involve
multisegment stenting of the RCA to address flow to the large RPL and multi segment stenting of the LAD including the proximal LAD, mid-LAD SALES ADVISOR, possibly necessitating rescue of D1. CABG would ideally involve grafts to the LAD, D1, and RPL. The D2
and RPDA are atretic and do not appear to be candidates for revascularization.
Copy to: Dr. Boo Pinedo MD (environmental protection forester); MUNIRA Oneill (PCP)
Signed: Sammy Daniel MD, PhD
[2025-01-26] MEDS: LOVENOX 40 MG SC (20:07)
[2025-01-27] VITALS (9 sets, daily range): BP systolic 99–109; BP diastolic 69–80; BMI 21.0
--- NOTE | 2025-01-27 02:06 | PTCARENOTE ---
Asuumed care on pt at 1900, pt aaox3 with some forgetfulness. Afib on the monitor, HR 90's, and 140's with ambulation. Denies cp, dizziness or SOB. R radial cath site CDI, no hematoma or swelling noted, slightly ecchymosis, good radial pulses. Pt
educated on right arm/site restrictions and does noted follw directions d/t forgetfulness. Poor safety awareness and weak/unsteady gait, does not call for assistance with ambulation, triggering bed alarm often, all fall precautions in place. Call
sánchez within reach, advised to christine for assistance.
[2025-01-27 04:01] LABS: Hematocrit 41.3 % (37.0-47.0); Hemoglobin 14.9 g/dL (12.0-16.0); Mean Corp Hgb Conc. 36.1 g/dL (33.0-37.0); Mean Corpuscular Volume 96.9 fL (81.0-99.0); Nucleated Red Blood Cells % 0 %; Platelet Count 190 10^3/uL (130-400); Red Cell Dist. Width 13.2 % (11.5-14.5)
[2025-01-27 04:27] LABS: ALT (SGPT) 28 U/L (0-35); AST (SGOT) 33 U/L (14-36); Albumin 3.2 g/dl (3.5-5.0); Alkaline Phosphatase 87 U/L (38-126); Blood Urea Nitrogen 41 mg/dl (7-17); Calcium 9.0 mg/dl (8.4-10.2); Carbon Dioxide 22 mmol/L (22-30); Chloride 103 mmol/L (98-107); Estimated Creatinine Clearance 40 ml/min; Glucose 88 mg/dl (70-99); Magnesium 1.6 mg/dl (1.6-2.3); Potassium 3.3 mmol/L (3.5-5.1); Sodium 132 mmol/L (135-145); Total Protein 5.5 g/dl (6.3-8.2); eGFR 50.80
[2025-01-27] MEDS: KCL 40 MEQ PO ×2 (05:32→11:55)
[2025-01-27] MEDS: TOPROL XL 50 MG PO (08:27)
[2025-01-27] MEDS: VIBRAMYCIN 100 MG PO ×2 (08:27→19:32)
[2025-01-27] MEDS: LASIX 40 MG IV ×2 (08:27→15:44)
[2025-01-27] MEDS: THERAGRAN 1 TABLET PO (08:27)
[2025-01-27] MEDS: LIPITOR 10 MG PO (08:27)
[2025-01-27] MEDS: ASPIR LOW (ENTERIC COATED) 81 MG PO (08:27)
--- NOTE | 2025-01-27 10:37 | PTCARENOTE ---
Pt is AOx3, no complaints of pain or discomfort. Afib on tele monitor, VSS. Assist x1 OOB, bed & chair alarm on and audible. Call sánchez within reach.
--- NOTE | 2025-01-27 10:55 | W.PN.HOSP.TC ---
Today's Communication/Plan
-
Stable. Replete K today. Check Mg levels in am.
Assessment / Plan
Assessment / Plan
HPI/initial presentation:
80-year-old female with PMH of:
Paroxysmal A-fib on aspirin,
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
HTN,
HLD,
valvular heart disease,
peripheral edema;
p/w shortness of breath, SOB for 5 to 6 days. She also c/o BL leg edema. In the ER, she was noted to be in rapid A-fib and in acute CHF. She was given IV Lasix 20 mg and was started with IV heparin drip.
A/P:
1. A-fib with RVR on admission
Complicated by
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
s/p Cardizem drip
She had a cath wich showed:
1. 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
2. Severe low-flow low gradient aortic stenosis
3. Severe multivessel coronary artery disease as described
RECOMMENDATIONS
1. Diuresis and titration of GDMT for heart failure.
2. Outpatient workup for aortic valve replacement +/- coronary revascularization, surgical versus percutaneous.
Patient needs TAVR CT protocol next and then heart team discussion to evaluate options.
Percutaneous revascularization would involve multisegment stenting of the RCA to address flow to the large RPL and multi segment stenting of the LAD,
including the proximal LAD, mid-LAD HAND ASSEMBLER, possibly necessitating rescue of D1.
CABG would ideally involve grafts to the LAD, D1, and RPL.
The D2 and RPDA are atretic and do not appear to be candidates for revascularization.
Adjust meds per cardiology recs today
Other notable info:
TSH 3.05
echo noted EF 40-45%. Mid to apical septal hypokinesis.
Mild mitral stenosis.
Mild/moderate mitral regurgitation. Compared to 02/24/24: LVEF has declined from 60-65% to 40-45%, and septal wall motion abnormality is more prominent.
AV mean gradient has increased from 26 mmHg to 29 mmHg.
AR has progressed from mild to moderate.
TR has progressed from moderate/severe to severe, and PASP has increased from 35 mmHg to 41 mmHg.
2. Acute systolic CHF - see above
3. Moderate left pleural effusion due to above
4. Acute hypoxic respiratory insufficiency, due to above, resolved
weaned back to RA
echo report as above
Cont IV Lasix 40 mg daily, follow I/O, daily weight and cardiology recs
Hold CASH TELLER ACEI with mildly elevated SCr and receiving IV lasix
s/p IR L thora 01/25, result reviewed
5. Mild transaminitis due to hepatic congestion
LFT improving
cont to monitor LFT
6. Hypokalemia - contiunes, replete daily as needed
7. Hypomagnesemia
Check again tomorrow
repleted lytes as needed
8. ?leucocytosis 2/2 CAP
CXR 01/25 noted streaky opacity and peribronchial thickening within the left lower lobe, which may represent pneumonia or subsegmental atelectasis
Started empiric Abx ceftriaxone, Doxycycline
Check MRSA screen
monitor WBC
9. Bilateral leg edema, likely due to acute CHF
Ultrasound of left leg from ER negative for DVT
10. HTN�benign
Hold amlodipine due to leg edema
Cont CASH TELLER Toprol increased to 50 mg daily
11. HLD, LDL 75
Continue lovastatin 10 mg daily
DVT prophylaxis: off heparin drip, cont Lovenox SQ ppx dose. Pt declined AC
Full code
DW RN, son at bedside
total time 51 min
Anticipated Discharge: 24 - 48 hours
Subjective/Interval History
-
Date of Service: January 27, 2025
Feels well this am. No complaints
Objective Data
-
Labs:
Laboratory Results
01/27/25
03:11
WBC 11.1 H
Hgb 14.9
Hct 41.3
Plt Count 190
Sodium 132 L
Potassium 3.3 L
Chloride 103
Carbon Dioxide 22
BUN 41 H
Creatinine 1.1 H
Glucose 88
Calcium 9.0
Total Bilirubin 0.8
AST 33
ALT 28
Alkaline Phosphatase 87
Vital Signs:
Vital Signs
Temp Pulse Resp BP Pulse Ox
97.8 F 88 16 109/77 98
01/27/25 07:46 01/27/25 10:00 01/27/25 07:46 01/27/25 08:27 01/27/25 07:47
I&O
01/26/25 01/27/25 01/28/25
06:59 06:59 06:59
Intake Total 420 / 420 994 / 994
Output Total 850 / 850 1450 / 1450 150 / 150
Balance -430 / -430 -456 / -456 -150 / -150
Review of Systems
-
History Source: Patient
All other systems: Reviewed and negative
Physical Exam
-
General: Well Developed, Well Nourished, No Apparent Distress and Comfortable
HEENT: Normocephalic, Atraumatic, Moist Mucous Membranes, Nose Appears Normal and Ears Appear Normal
Respiratory: Clear to Auscultation
Cardiac: Irregular Rhythm and Tachycardic
GI: Soft, Nontender and Nondistended
Musculoskeletal: No Clubbing, No Cyanosis, Edema, Right Lower Extrem and Edema, Left Lower Extrem
Skin: Warm and Dry; Negative Rash
Psych: Calm
Data Reviewed
-
Labs: Labs Reviewed by me
--- NOTE | 2025-01-27 11:50 | W.PN.CD ---
Today's Communication / Plan
-
increase IV lasix to 40mg bid; add aldactone 25mg daily for hypokalemia
Impression / Plan
-
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
- Transthoracic echocardiogram revealed a reduction in LVEF from 60-65% to 40-45% with more prominent septal wall motion abnormality, critical , moderate AR, and severe TR.
- increase IV lasix to 40mg bid; add aldactone 25mg daily for hypokalemia; close monitoring of labs/tele
- continue Toprol XL 50mg daily. Further GDMT limited by blood pressure, and cost.
CATH SHOWED:
1. 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
2. Severe low-flow low gradient aortic stenosis
3. Severe multivessel coronary artery disease as described
RECOMMENDATIONS
1. Diuresis and titration of GDMT for heart failure.
2. Outpatient workup for aortic valve replacement +/- coronary revascularization, surgical versus percutaneous. Patient needs TAVR CT protocol next and then heart team discussion to evaluate options. Percutaneous revascularization would involve
multisegment stenting of the RCA to address flow to the large RPL and multi segment stenting of the LAD including the proximal LAD, mid-LAD CERTIFIED ADAPTIVE PHYSICAL EDUCATOR, possibly necessitating rescue of D1. CABG would ideally involve grafts to the LAD, D1, and RPL. The D2
and RPDA are atretic and do not appear to be candidates for revascularization.
Pleural effusion
-s/p thoracentesis this admission
Hyponatremia:
- Likely secondary to a component of CHF.
- management per primary team
Persistent AFIB:
- It will likely be difficult to perfectly regulate her heart rate given the severity of her valvular heart disease and blood pressure limitations.
- Continue current dose of Toprol-XL 50 mg daily.
-her [id number] score is 6 for age, female, HTN, CHF, and vascular disease. We reviewed stroke risk and anticoagulation. She had bleeding issue on anticoagulant and she does not want to retrial here, so heparin drip discontinued.
CAD:
-continue ASA, statin, BB
HTN:
-stable
-monitor with diuresis.
Abnormal troponin:
-acute, non-ischemic myocardial injury in setting of CHF and tachycardia
Physical Exam
Vital Signs/Labs
Vital Signs
Temp Pulse Resp BP Pulse Ox
97.8 F 88 20 109/77 95
01/27/25 10:53 01/27/25 10:00 01/27/25 10:53 01/27/25 08:27 01/27/25 10:53
01/26/25 01/27/25 01/28/25
06:59 06:59 06:59
Actual Weight 61.5 kg 60.8 kg
01/27/25 03:11
01/27/25 03:11
APTT 44.9 Sec (23.4-35.0) H 01/25/25 13:59
Magnesium 1.6 mg/dl (1.6-2.3) 01/27/25 03:11
Triglycerides 66 mg/dl (10-149) 01/25/25 04:53
LDL Cholesterol, Calc 75 mg/dl 01/25/25 04:53
VLDL Cholesterol, Calc 13 mg/dl (0-30) 01/25/25 04:53
HDL Cholesterol 74 mg/dl 01/25/25 04:53
01/24/25
15:33
Cfz-X-Bfjmtfqliim Pept [id number]
LAB Results
01/24/25 01/24/25 01/25/25
15:33 22:54 04:53
Troponin I 0.072 H* 0.104 H* D 0.094 H*
01/25/25
11:00
Troponin I Cancelled
Physical Exam
Constitutional: No acute distress and Comfortable
EENT: Moist mucous membranes
Cardiovascular: Rhythm/rate is irregular, Pedal edema present, JVD present and Systolic murmur present
Respiratory: Respiratory effort normal and Lungs clear to auscul.
Neuro/Psych: AO x 3
Data Reviewed
-
Date of Service: January 27, 2025
EKG: Other (Tele: A fib 80s-90s)
Labs: Labs Reviewed by me
[2025-01-27] MEDS: ROCEPHIN 1000 MG IV (11:55)
[2025-01-27] MEDS: STERILE WATER FOR INJECTION 10 ML IV (11:55)
[2025-01-27] MEDS: ALDACTONE 25 MG PO (14:25)
[2025-01-27] MEDS: LOVENOX 40 MG SC (17:15)
--- NOTE | 2025-01-27 20:25 | PTCARENOTE ---
Received pt @ change of shift. AAOx3, but forgetful. VSS-- A-fib on monitor. Right radial and brachial sites both clean, dry, and intact. No swelling, little ecchymosis. Bed alarm in place. Discussed the need to call for assistance OOB, care plan
for evening. Pt verbalizes understanding. Call sánchez within reach.
--- NOTE | 2025-01-27 21:50 | PTCARENOTE ---
Pt continues to get OOB without calling for assistance. RN reinforced need to call care team, especially since pt has fallen since her admission. Pt verbalizes understanding. Bed alarm in place. Call sánchez within reach.
[2025-01-28] VITALS (9 sets, daily range): BP systolic 94–113; BP diastolic 64–87; PULSE 106–130; BMI 20.4
[2025-01-28 02:59] LABS: Hematocrit 42.2 % (37.0-47.0); Hemoglobin 15.0 g/dL (12.0-16.0); Mean Corp Hgb Conc. 35.5 g/dL (33.0-37.0); Mean Corpuscular Volume 97.7 fL (81.0-99.0); Nucleated Red Blood Cells % 0 %; Platelet Count 213 10^3/uL (130-400); Red Cell Dist. Width 13.2 % (11.5-14.5)
[2025-01-28 03:20] LABS: Albumin 3.4 g/dl (3.5-5.0); Alkaline Phosphatase 94 U/L (38-126); Blood Urea Nitrogen 38 mg/dl (7-17); Calcium 9.0 mg/dl (8.4-10.2); Carbon Dioxide 26 mmol/L (22-30); Chloride 102 mmol/L (98-107); Estimated Creatinine Clearance 38 ml/min; Glucose 90 mg/dl (70-99); Potassium 3.9 mmol/L (3.5-5.1); Sodium 134 mmol/L (135-145); Total Protein 5.8 g/dl (6.3-8.2); eGFR 50.80
[2025-01-28 03:21] LABS: ALT (SGPT) 30 U/L (0-35); AST (SGOT) 37 U/L (14-36); Magnesium 1.3 mg/dl (1.6-2.3)
[2025-01-28] MEDS: MAGNESIUM SULFATE 50 IV (03:36)
--- NOTE | 2025-01-28 03:46 | PTCARENOTE ---
Pt's magnesium came back 1.3 mg/dl. Informed Antonia Keith NP. Mag IV ordered and given-- see SEP.
[2025-01-28] MEDS: TOPROL XL 50 MG PO (08:07)
[2025-01-28] MEDS: VIBRAMYCIN 100 MG PO ×2 (08:07→19:37)
[2025-01-28] MEDS: ASPIR LOW (ENTERIC COATED) 81 MG PO (08:07)
[2025-01-28] MEDS: ALDACTONE 25 MG PO (08:08)
[2025-01-28] MEDS: LIPITOR 10 MG PO (08:08)
[2025-01-28] MEDS: LASIX 40 MG IV ×2 (08:08→15:57)
--- NOTE | 2025-01-28 08:59 | PTCARENOTE ---
Rec'd pt at handoff. Tele- afib. HR 100-120s. Assessment completed as documented. Pt has no complaints sob/discomfort/pain this morning. R radial and brachial site are c/d/i and slightly ecchymotic at both sites. Reviewed activity restrictions w/ pt
and verbalizes understanding but needs reinforcement d/t forgetfulness. Pt using call sánchez for assistance to ambulate. Bed/chair alarm activated for safety. Currently OOB in chair; call sánchez w/in reach.
[2025-01-28] MEDS: TYLENOL 650 MG PO (10:05)
--- NOTE | 2025-01-28 10:11 | W.PN.CD ---
Today's Communication / Plan
-
continue lasix 40mg IV bid
-she is responding well to twice daily dosing (increased yesterday)
Impression / Plan
-
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
- Transthoracic echocardiogram revealed a reduction in LVEF from 60-65% to 40-45% with more prominent septal wall motion abnormality, critical , moderate AR, and severe TR.
- increased IV lasix to 40mg bid 01/27; add aldactone 25mg daily for hypokalemia; close monitoring of labs/tele
- continue Toprol XL 50mg daily. Further GDMT limited by blood pressure, and cost.
CATH SHOWED:
1. 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
2. Severe low-flow low gradient aortic stenosis
3. Severe multivessel coronary artery disease as described
RECOMMENDATIONS
1. Diuresis and titration of GDMT for heart failure.
2. Outpatient workup for aortic valve replacement +/- coronary revascularization, surgical versus percutaneous. Patient needs TAVR CT protocol next and then heart team discussion to evaluate options. Percutaneous revascularization would involve
multisegment stenting of the RCA to address flow to the large RPL and multi segment stenting of the LAD including the proximal LAD, mid-LAD MATERIAL ASSEMBLER, possibly necessitating rescue of D1. CABG would ideally involve grafts to the LAD, D1, and RPL. The D2
and RPDA are atretic and do not appear to be candidates for revascularization.
Pleural effusion
-s/p thoracentesis this admission
Hyponatremia:
- Likely secondary to a component of CHF.
- management per primary team
Persistent AFIB:
- It will likely be difficult to perfectly regulate her heart rate given the severity of her valvular heart disease and blood pressure limitations.
- Continue current dose of Toprol-XL 50 mg daily.
-her [id number] score is 6 for age, female, HTN, CHF, and vascular disease. We reviewed stroke risk and anticoagulation. She had bleeding issue on anticoagulant and she does not want to retrial here, so heparin drip discontinued.
CAD:
-continue ASA, statin, BB
HTN:
-stable
-monitor with diuresis.
Abnormal troponin:
-acute, non-ischemic myocardial injury in setting of CHF and tachycardia
Physical Exam
Vital Signs/Labs
Vital Signs
Temp Pulse Resp BP Pulse Ox
97.7 F 129 20 104/72 97
01/28/25 07:54 01/28/25 08:00 01/28/25 07:54 01/28/25 07:55 01/28/25 07:54
01/27/25 01/28/25 01/29/25
06:59 06:59 06:59
Actual Weight 60.8 kg 59.1 kg
01/28/25 02:48
01/28/25 02:48
APTT 44.9 Sec (23.4-35.0) H 01/25/25 13:59
Magnesium 1.3 mg/dl (1.6-2.3) L 01/28/25 02:48
Triglycerides 66 mg/dl (10-149) 01/25/25 04:53
LDL Cholesterol, Calc 75 mg/dl 01/25/25 04:53
VLDL Cholesterol, Calc 13 mg/dl (0-30) 01/25/25 04:53
HDL Cholesterol 74 mg/dl 01/25/25 04:53
01/24/25
15:33
Zcp-R-Ixopbolfhwf Pept [id number]
LAB Results
01/25/25
11:00
Troponin I Cancelled
Physical Exam
Constitutional: No acute distress and Comfortable
EENT: Moist mucous membranes
Cardiovascular: Rhythm/rate is irregular, Pedal edema present, JVD present and Systolic murmur present
Respiratory: Respiratory effort normal and Lungs clear to auscul.
Neuro/Psych: AO x 3
Data Reviewed
-
Date of Service: January 28, 2025
EKG: Other (Tele: A fib s-100s)
Labs: Labs Reviewed by me
--- NOTE | 2025-01-28 10:37 | W.PN.HOSP.TC ---
Today's Communication/Plan
-
Continue diuresis. Replete mag.
Assessment / Plan
Assessment / Plan
HPI/initial presentation:
80-year-old female with PMH of:
Paroxysmal A-fib on aspirin,
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
HTN,
HLD,
valvular heart disease,
peripheral edema;
p/w shortness of breath, SOB for 5 to 6 days. She also c/o BL leg edema. In the ER, she was noted to be in rapid A-fib and in acute CHF. She was given IV Lasix 20 mg and was started with IV heparin drip.
A/P:
1. A-fib with RVR on admission
Complicated by
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
s/p Cardizem drip
She had a cath which showed:
1. 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
2. Severe low-flow low gradient aortic stenosis
3. Severe multivessel coronary artery disease as described
RECOMMENDATIONS
1. Diuresis and titration of GDMT for heart failure.
2. Outpatient workup for aortic valve replacement +/- coronary revascularization, surgical versus percutaneous.
Patient needs TAVR CT protocol next and then heart team discussion to evaluate options.
Percutaneous revascularization would involve multisegment stenting of the RCA to address flow to the large RPL and multi segment stenting of the LAD,
including the proximal LAD, mid-LAD PEDIATRIC NEPHROLOGIST, possibly necessitating rescue of D1.
CABG would ideally involve grafts to the LAD, D1, and RPL.
The D2 and RPDA are atretic and do not appear to be candidates for revascularization.
Adjust meds per cardiology recs today
IV lasix adjusted and diuresis underway.
Other notable info:
TSH 3.05
echo noted EF 40-45%. Mid to apical septal hypokinesis.
Mild mitral stenosis.
Mild/moderate mitral regurgitation. Compared to 02/24/24: LVEF has declined from 60-65% to 40-45%, and septal wall motion abnormality is more prominent.
AV mean gradient has increased from 26 mmHg to 29 mmHg.
AR has progressed from mild to moderate.
TR has progressed from moderate/severe to severe, and PASP has increased from 35 mmHg to 41 mmHg.
2. Acute systolic CHF - see above
3. Moderate left pleural effusion due to above
4. Acute hypoxic respiratory insufficiency, due to above, resolved
weaned back to RA
echo report as above
Cont IV Lasix, follow I/O, daily weight and cardiology recs
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
s/p IR L thora 01/25, result reviewed
5. Mild transaminitis due to hepatic congestion
LFT improving
cont to monitor LFT
6. Hypokalemia - continues, replete daily as needed
7. Hypomagnesemia - low today
Check again tomorrow
repleted lytes as needed
8. ?leucocytosis 2/2 CAP
CXR 01/25 noted streaky opacity and peribronchial thickening within the left lower lobe, which may represent pneumonia or subsegmental atelectasis
Started empiric Abx ceftriaxone, Doxycycline --> d/c after 3 days, on 01/29/25
Check MRSA screen
monitor WBC
9. Bilateral leg edema, likely due to acute CHF
Ultrasound of left leg from ER negative for DVT
10. HTN�benign
Hold amlodipine due to leg edema
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
11. HLD, LDL 75
Continue lovastatin 10 mg daily
DVT prophylaxis: off heparin drip, cont Lovenox SQ ppx dose. Pt declined AC
Full code
total time 51 min
Anticipated Discharge: 24 - 48 hours
Subjective/Interval History
-
Date of Service: January 28, 2025
Feels better
Objective Data
-
Labs:
Laboratory Results
01/28/25
02:48
WBC 11.0 H
Hgb 15.0
Hct 42.2
Plt Count 213
Sodium 134 L
Potassium 3.9
Chloride 102
Carbon Dioxide 26
BUN 38 H
Creatinine 1.1 H
Glucose 90
Calcium 9.0
Total Bilirubin 0.8
AST 37 H
ALT 30
Alkaline Phosphatase 94
Vital Signs:
Vital Signs
Temp Pulse Resp BP Pulse Ox
97.7 F 129 20 104/72 97
01/28/25 07:54 01/28/25 08:00 01/28/25 07:54 01/28/25 07:55 01/28/25 07:54
I&O
01/27/25 01/28/25 01/29/25
06:59 06:59 06:59
Intake Total 994 / 994 480 / 480 200 / 200
Output Total 1450 / 1450 150 / 150
Balance -456 / -456 330 / 330 200 / 200
Review of Systems
-
History Source: Patient
All other systems: Reviewed and negative
Physical Exam
-
General: Well Developed, Well Nourished, No Apparent Distress and Comfortable
HEENT: Normocephalic, Atraumatic, Nose Appears Normal and Ears Appear Normal
Respiratory: Clear to Auscultation and Decreased Breath Sounds
Cardiac: Irregular Rhythm and Tachycardic
GI: Soft, Nontender and Nondistended
Musculoskeletal: No Clubbing, Edema, Right Lower Extrem and Edema, Left Lower Extrem
Skin: Warm and Dry; Negative Rash
Neuro: Awake, Alert and Oriented
Psych: Calm
Data Reviewed
-
Labs: Labs Reviewed by me
[2025-01-28] MEDS: MAGNESIUM OXIDE 500 MG PO ×2 (10:59→19:37)
[2025-01-28] MEDS: ROCEPHIN 1000 MG IV (11:00)
[2025-01-28] MEDS: STERILE WATER FOR INJECTION 10 ML IV (11:00)
[2025-01-28] MEDS: LOVENOX 40 MG SC (17:08)
--- NOTE | 2025-01-28 23:59 | PTCARENOTE ---
Received pt @ change of shift. AAOx3, VSS-- A-fib on monitor. Rt radial and brachial sites are clean, dry, and intact. Ecchymotic @ both sites, soft to touch. Discussed activity restrictions with pt-- verbalizes understanding, but needs continued
reinforcement due to forgetfulness. Bed alarm in place for safety. Discussed plan of care for evening, understanding verbalized. Call sánchez within reach.
[2025-01-29] VITALS (7 sets, daily range): BP systolic 95–119; BP diastolic 64–82; BMI 19.9
[2025-01-29 04:37] LABS: Hematocrit 43.1 % (37.0-47.0); Hemoglobin 15.0 g/dL (12.0-16.0); Mean Corp Hgb Conc. 34.8 g/dL (33.0-37.0); Mean Corpuscular Volume 98.6 fL (81.0-99.0); Nucleated Red Blood Cells % 0 %; Platelet Count 211 10^3/uL (130-400); Red Cell Dist. Width 13.2 % (11.5-14.5)
[2025-01-29 05:04] LABS: ALT (SGPT) 28 U/L (0-35); AST (SGOT) 34 U/L (14-36); Albumin 3.4 g/dl (3.5-5.0); Alkaline Phosphatase 86 U/L (38-126); Blood Urea Nitrogen 37 mg/dl (7-17); Calcium 9.7 mg/dl (8.4-10.2); Carbon Dioxide 29 mmol/L (22-30); Chloride 101 mmol/L (98-107); Estimated Creatinine Clearance 37 ml/min; Glucose 86 mg/dl (70-99); Magnesium 1.7 mg/dl (1.6-2.3); Potassium 3.8 mmol/L (3.5-5.1); Sodium 136 mmol/L (135-145); Total Protein 5.8 g/dl (6.3-8.2); eGFR 50.80
--- NOTE | 2025-01-29 07:31 | W.PN.HOSP.TC ---
Today's Communication/Plan
-
Continue IV diuresis and GDMT as tolerated
Continue to monitor in IVU
Assessment / Plan
Assessment / Plan
Physical Exam
General: Well Developed, Well Nourished, No Apparent Distress and Comfortable
HEENT: Normocephalic, Atraumatic
Respiratory: Clear to Auscultation Bilaterally
Cardiac: Irregular Rhythm and Tachycardic
GI: Soft, Nontender and Nondistended. Positive bowel sounds.
Musculoskeletal: Edema, Right Lower Extremity. Edema, Left Lower Extremity.
Skin: Warm and Dry
Neuro: Awake, Alert and Oriented
Psych: Calm
Assessment/Plan
80-year-old female with PMH of:
Paroxysmal A-fib on aspirin,
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
HTN,
HLD,
valvular heart disease,
peripheral edema;
p/w shortness of breath, SOB for 5 to 6 days. She also c/o BL leg edema. In the ER, she was noted to be in rapid A-fib and in acute CHF. She was given IV Lasix 20 mg and was started with IV heparin drip.
1. A-fib with RVR on admission
Complicated by
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
s/p Cardizem drip
Continue beta jeannie -- likely will be difficult to perfectly regulate her heart rate given the severity of her valvular heart disease and blood pressure limitations
She had a cath which showed:
1. 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
2. Severe low-flow low gradient aortic stenosis
3. Severe multivessel coronary artery disease as described
RECOMMENDATIONS
1. Diuresis and titration of GDMT for heart failure.
2. Outpatient workup for aortic valve replacement +/- coronary revascularization, surgical versus percutaneous.
Patient needs TAVR CT protocol next and then heart team discussion to evaluate options.
Percutaneous revascularization would involve multisegment stenting of the RCA to address flow to the large RPL and multi segment stenting of the LAD,
including the proximal LAD, mid-LAD PAIRER ODDS, possibly necessitating rescue of D1.
CABG would ideally involve grafts to the LAD, D1, and RPL.
The D2 and RPDA are atretic and do not appear to be candidates for revascularization.
Other notable info:
TSH 3.05
echo noted EF 40-45%. Mid to apical septal hypokinesis.
Mild mitral stenosis.
Mild/moderate mitral regurgitation. Compared to 02/24/24: LVEF has declined from 60-65% to 40-45%, and septal wall motion abnormality is more prominent.
AV mean gradient has increased from 26 mmHg to 29 mmHg.
AR has progressed from mild to moderate.
TR has progressed from moderate/severe to severe, and PASP has increased from 35 mmHg to 41 mmHg.
2. ICM
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
-Continue Spironolactone 25 mg
-Continue Metoprolol succinate 50 mg daily
-Continue IV Lasix
3. Moderate left pleural effusion due to above
4. Acute hypoxic respiratory insufficiency, due to above, resolved
weaned back to RA
echo report as above
Cont IV Lasix, follow I/O, daily weight and cardiology recs
Hold HOOK PULLER ACEI with mildly elevated SCr and receiving IV lasix
s/p IR L thora 01/25/25 -- appears to be transudative
5. Mild transaminitis due to hepatic congestion
LFT improving
cont to monitor LFT
6. Hypokalemia - resolved
7. Hypomagnesemia
repleted lytes as needed
8. ?leucocytosis 2/2 CAP
CXR 01/25 noted streaky opacity and peribronchial thickening within the left lower lobe, which may represent pneumonia or subsegmental atelectasis
Started empiric Abx ceftriaxone, Doxycycline
MRSA screen negative
monitor WBC
9. Bilateral leg edema, likely due to acute CHF
Ultrasound of left leg from ER negative for DVT
10. HTN�benign
Hold amlodipine due to leg edema
Cont HOOK PULLER Toprol, increased to 50 mg daily
11. HLD, LDL 75
Continue high intensity statin
12. Critical Aortic Stenosis
-Outpatient TAVR evaluation
13. Aortic Regurgitation
14. Tricuspid Regurgitation
15. CAD
-Continue Aspirin and beta jeannie
DVT prophylaxis: off heparin drip, continue Lovenox SQ ppx dose. Pt declined AC
Code Status: Full code
Anticipated Discharge: > 48 hours
Subjective/Interval History
-
Date of Service: January 29, 2025
Patient was seen and examined. She reported feeling fine, denied any chest pain or shortness of breath.
Objective Data
-
Labs:
Laboratory Results
01/29/25
04:12
WBC 9.3
Hgb 15.0
Hct 43.1
Plt Count 211
Sodium 136
Potassium 3.8
Chloride 101
Carbon Dioxide 29
BUN 37 H
Creatinine 1.1 H
Glucose 86
Calcium 9.7
Total Bilirubin 0.7
AST 34
ALT 28
Alkaline Phosphatase 86
Vital Signs:
Vital Signs
Temp Pulse Resp BP Pulse Ox
97.8 F 95 20 113/76 98
01/29/25 07:14 01/29/25 05:00 01/29/25 07:14 01/29/25 04:05 01/29/25 07:14
I&O
01/28/25 01/29/25 01/30/25
06:59 06:59 06:59
Intake Total 480 / 480 350 / 350
Output Total 150 / 150
Balance 330 / 330 350 / 350
[2025-01-29] MEDS: LASIX 40 MG IV ×2 (08:05→16:30)
[2025-01-29] MEDS: MAGNESIUM OXIDE 500 MG PO ×2 (08:05→20:09)
[2025-01-29] MEDS: VIBRAMYCIN 100 MG PO ×2 (08:05→20:09)
[2025-01-29] MEDS: TOPROL XL 50 MG PO (08:05)
[2025-01-29] MEDS: ASPIR LOW (ENTERIC COATED) 81 MG PO (08:05)
[2025-01-29] MEDS: LIPITOR 10 MG PO (08:05)
[2025-01-29] MEDS: ALDACTONE 25 MG PO (08:05)
[2025-01-29] MEDS: THERAGRAN 1 TABLET PO (08:06)
[2025-01-29] MEDS: ROCEPHIN 1000 MG IV (11:08)
[2025-01-29] MEDS: STERILE WATER FOR INJECTION 10 ML IV (11:08)
--- NOTE | 2025-01-29 11:16 | CM ---
Chart reviewed. Patient is being worked up as outpatient for a TAVR. Patient is not interested in VN. Patient's son will be staying with her when she goes home. Patient is independent of ADLS, lives alone in a 1st floor apartment, [address],
ambulates with a SPC. Plan is for the patient to return home with son. CM to follow
--- NOTE | 2025-01-29 14:10 | W.PN.CD ---
Addendum entered and electronically signed by Av Landaverde MD 01/29/25 18:02:
Patient seen and examined with CASKET ASSEMBLER [employer]; agree with below.
- Patient with critical and multivessel CAD; has atrial fibrillation with difficult to control heart rates (RVR up to 170s with exertion).
- Unable to increase beta-jeannie secondary to blood pressure limitations.
- Amiodarone is not a great option as the patient declines systemic anticoagulation.
- Case discussed with Interventional Cardiology; it appears the patient should likely undergo SAVR/CABG vs TAVR/PCI as an inpatient this admission.
- Interventional Cardiology to discuss plan with CT Surgery.
- Continue IV diuresis.
Original Note:
Today's Communication / Plan
-
Continue diuresis with furosemide 40 mg IV twice daily
Impression / Plan
-
I/P: 80F with persistent atrial fibrillation (abnormal bleeding on dabigatran), CAD (LAD and RCA medically managed, 2012), PAD (50-60% R ICA), hypertension, dyslipidemia, moderate MR, moderate , moderate pulmonary hypertension, and moderate to
severe TR who presented with shortness of breath for several days.
Outpatient professor of vegetable science: Dr. Pinedo
ICM
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
- TTE: Reduction in LVEF from 60-65% to 40-45% with more prominent septal wall motion abnormality, critical , moderate AR, and severe TR.
- Dry weight to be determined, continue furosemide 40 mg IV twice daily
- LE edema on exam, she would benefit from compression, Tubigrips ordered
- GDMT as tolerated:
-LUCIA/ARB/ARNI: Limited by blood pressure
-SGLT2 inhibitor: No prescription coverage, cost prohibitive
-Aldosterone agonist: Spironolactone 25 mg
-Beta jeannie: Metoprolol succinate 50 mg daily
-Isosorbide/Hydralazine:�Not indicated
-ICD: Not indicated
- Trend daily weight, I/O, and BMP with diuresis
- Heart failure education
Aortic stenosis, critical
- The plan is for outpatient TAVR evaluation
- TAVR CT has already been arranged
- She will need dental clearance
Aortic regurgitation, moderate
Tricuspid regurgitation, severe
- Diuresis as above
Pleural effusion, left
- 850 mL clear yellow pleural fluid 01/25/2025
Hyponatremia:
- Likely secondary to a component of CHF.
- Management per primary team
Persistent atrial fibrillation
- It will likely be difficult to perfectly regulate her heart rate given the severity of her valvular heart disease and blood pressure limitations.
- Continue current dose of Toprol-XL 50 mg daily. May need to add digoxin.
- [id number] score is 6 for age, female, HTN, CHF, and vascular disease.
- Oral anticoagulation: We reviewed stroke risk and anticoagulation. She does not want to retrial here. She had vaginal bleeding on dabigatran.
CAD
- Stable without chest pain
- Continue ASA, BB
- Goal LDL <70, ideally < 55, transition lovastatin 40 mg to atorvastatin
CAP, on antibiotics per primary service, leukocytosis has resolved
HTN, chronic
- Stable, BP limiting furthering GDMT
Abnormal troponin, acute, non-ischemic myocardial injury in setting of CHF and tachycardia
- Peak troponin 0.104, no chest pain
DATA:
CARDIAC CATH 01/26/2025:
1. 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
2. Severe low-flow low gradient aortic stenosis
3. Severe multivessel coronary artery disease as described
RECOMMENDATIONS
1. Diuresis and titration of GDMT for heart failure.
2. Outpatient workup for aortic valve replacement +/- coronary revascularization, surgical versus percutaneous. Patient needs TAVR CT protocol next and then heart team discussion to evaluate options. Percutaneous revascularization would involve
multisegment stenting of the RCA to address flow to the large RPL and multi segment stenting of the LAD including the proximal LAD, mid-LAD COMMERCIAL CARPENTER, possibly necessitating rescue of D1. CABG would ideally involve grafts to the LAD, D1, and RPL. The D2
and RPDA are atretic and do not appear to be candidates for revascularization.
Physical Exam
Vital Signs/Labs
Vital Signs
Temp Pulse Resp BP Pulse Ox
97.9 F 107 16 99/67 94
01/29/25 11:21 01/29/25 13:00 01/29/25 11:21 01/29/25 11:23 01/29/25 11:21
01/28/25 01/29/25 01/30/25
06:59 06:59 06:59
Actual Weight 59.1 kg 57.6 kg
01/29/25 04:12
01/29/25 04:12
APTT 44.9 Sec (23.4-35.0) H 01/25/25 13:59
Magnesium 1.7 mg/dl (1.6-2.3) 01/29/25 04:12
Triglycerides 66 mg/dl (10-149) 01/25/25 04:53
LDL Cholesterol, Calc 75 mg/dl 01/25/25 04:53
VLDL Cholesterol, Calc 13 mg/dl (0-30) 01/25/25 04:53
HDL Cholesterol 74 mg/dl 01/25/25 04:53
01/24/25
15:33
Nad-L-Mbcvksoirmy Pept [id number]
Physical Exam
Constitutional: No acute distress and Comfortable
EENT: Anicteric and Moist mucous membranes
Cardiovascular: Rhythm/rate is irregular, Pedal edema present and Systolic murmur present
Respiratory: Respiratory effort normal and Lungs clear to auscul.
GI: Soft, Distention absent, Flat, Non tender and Normal bowel sounds
Neuro/Psych: AO x 3
Other: Skin (warm and dry)
Data Reviewed
-
Date of Service: January 29, 2025
Labs: Labs Reviewed by me
Old Records: Reviewed
--- NOTE | 2025-01-29 14:55 | CM ---
Pricing on Farxiga and Jardiance, patient does not have a prescription plan she only uses [facility]. Notified Zaira.
--- NOTE | 2025-01-29 17:08 | CONSULT.CT ---
Consultation
-
Date/Time Consultation Requested: 01/29/25
Date/Time Consultation Performed: 01/29/25
Requesting Provider: Curtis Bazan MD
Performing Provider: Erica OLIVO for Carson Crouch MD
Reason for Consultation: eval for staged PCI/TAVR
Patient History
Physicians
Family Physician: Analia Duron
Outpatient Short Filler Bunch Machine Operator: Curtis Bazan
Inpatient Short Filler Bunch Machine Operator: [facility] Cardiology
History of Present Illness
Marlin Witt is an 80-year-old female with past medical history significant for hypertension, bilateral carotid stenosis, atrial fibrillation off Pradaxa due to vaginal bleeding 4 months ago hyperlipidemia, coronary artery disease, peripheral
arterial disease, who presented to [facility] on 01/24/with exertional dyspnea x 5 to 6 days with lower extremity edema. Max troponin was 0.104. Patient was noted to have a pulse ox of 90% on room air and chest x-ray reported left pleural effusion with
increased vascular markings consistent with heart failure. Patient was aggressively diuresed with Lasix 40 mg twice daily and Aldactone 20.5 mg daily. Patient underwent a left thoracentesis on 01/25/2025 with resultant 850 cc of serous fluid a TTE
was completed on 01/25 which reported a newly reduced EF of 40-45% from 60-65% with critical aortic stenosis (AV gradients of 53/29 mmHg, CHARLY 0.5cm sq, LVOT of 1.8cm. , moderate AI, and severe TR. Patient underwent right and left heart cath on
01/26/2025 which reported severe LAD stenosis and chronic total occlusion of the RPDA. Cardiac surgery was consulted to evaluate patient for TAVR.
Past Medical History
Past Medical History: Arrhythmias, Atrial Fib (Atrial fibrillation off anticoagulation due to vaginal bleeding 4 months ago.), CAD, HTN, Hypercholesterolemia and Valvular Disease
Family History
Mother: N/A
Father: N/A
Social History
Alcohol: None
Drug: None
Tobacco: Non-Smoker
Personal: Single
Employment: Retired
Allergies
Allergy/AdvReac Type Severity Reaction Status Date / Time
No Known Allergies Allergy Verified 05/07/22 12:28
Home Medications
�Medication �Instructions �Recorded �Confirmed �Type
amlodipine 5 mg tablet 5 mg PO DAILY 01/24/25 01/24/25 History
aspirin 81 mg tablet,delayed 81 mg PO DAILY 01/24/25 01/24/25 History
release
coenzyme Q10 100 mg capsule 200 mg PO DAILY 01/24/25 01/24/25 History
(CoQ-10)
hydrochlorothiazide 25 mg tablet 25 mg PO DAILY 01/24/25 01/24/25 History
ibuprofen 200 mg tablet (Advil) 200 mg PO BIDPRN PRN mild pain 01/24/25 01/24/25 History
lisinopril 40 mg tablet 40 mg PO DAILY 01/24/25 01/24/25 History
lovastatin 40 mg tablet 40 mg PO QPM 01/24/25 01/24/25 History
metoprolol succinate 25 mg 25 mg PO QPM 01/24/25 01/24/25 History
tablet,extended release 24 hr
therapeutic multivitamin 1 tab PO Q48H 01/24/25 01/24/25 History
Review of Systems
-
History Source: Patient
General: Reports No Symptoms
HEENT: Reports No Symptoms
Respiratory: Reports JIMENEZ
Cardiac: Reports No Symptoms
Abdomen/GI: Reports No Symptoms
: Reports No Symptoms
Musculoskeletal: Reports No Symptoms
Skin: Reports No Symptoms
Neurological: Reports No Symptoms
Vascular: Reports PVD
Physical Exam
Vital Signs
Temp 97.8 F 01/29/25 15:05
Temp route: Oral 01/29/25 15:05
Pulse 124 01/29/25 16:32
Rhythm: Atrial fibrillation 01/29/25 07:30
With- Atrial flutter 01/25/25 00:21
Resp Rate 20 01/29/25 15:05
Blood pressure 100/69 01/29/25 16:32
Blood pressure extremity used: Left upper arm 01/29/25 15:05
Position: Lying 01/29/25 15:05
MAP (cuff-Per Monitor) 79 01/29/25 16:32
SaO2 97 01/29/25 15:05
Nasal Cannula flow liters per minute 2 01/25/25 23:05
Oxygen Mode of Delivery Room air 01/29/25 15:05
Pulse Ox at Rest 96 01/26/25 10:32
Can the patient verbally communicate their pain? Yes 01/28/25 11:05
Pain scale ratin 01/28/25 11:05
Actual Weight 57.6 kg 01/29/25 04:17
Body Mass Index (BMI) 19.9 01/29/25 04:17
Supine- Blood Pressure 101/78 01/28/25 16:19
Supine- Pulse 106 01/28/25 16:19
Sitting- Blood Pressure 100/62 01/26/25 10:32
Sitting- Pulse 107 01/26/25 10:32
Standing- Pulse 130 01/28/25 16:19
Labs
01/29/25 04:12
01/29/25 04:12
APTT 44.9 Sec (23.4-35.0) H 01/25/25 13:59
Troponin I Cancelled 01/25/25 11:00
Tif-L-Dzplchkjydg Pept 64990 pg/ml 01/24/25 15:33
Diagnostic Studies
TTE 01/25/25:
Newly reduced EF of 40-45% from 60-65% with critical aortic stenosis (AV gradients of 53/29 mmHg, CHARLY 0.5cm sq, LVOT of 1.8cm. , moderate AI, and severe TR
R/L Heart Cath 01/26/25:
RA 15; PA 41/, (33): PCW 23
LM: Large with mild disease
LAD: Large vessel giving rise to a large S1, moderate caliber D1, and moderate caliber branching D2. There is an eccentric severe stenosis in the proximal vessel before S1. The D1 has a focal ostial stenosis. The vessel is totally occluded before
the takeoff of the D2 with a short segment, straight, non-calcified DIRECTOR OF FINANCIAL PLANNING with the proximal cap at the takeoff of a septal branch. The mid to distal LAD is fed via left to left collaterals. The D2 fills faintly and is an atretic vessel.
LCx: Moderate caliber vessel giving rise to a small OM1 and moderate caliber OM 2. There is mild disease.
RCA: Large vessel giving rise to an atretic chronically occluded RPDA fed via eerk-mm-cskqw collaterals from septals and a large RPL branch. There is a calcified 80% ostial stenosis with mild pressure dampening and focal 90% stenosis in the distal
vessel at the RPDA RPL bifurcation.
Exam
General: Well Developed and Good Appetite
HEENT: Normocephalic, Anicteric and PERRLA
Neck: Trachea Midline
Respiratory: Clear
Cardiac: Irregular Rhythm and Murmur (II/ creschendo-decreshendo murmur right sternal border 2nd ICS>radiates throughout precordium)
GI: Soft, Non Tender and Non Distended
Rectal: Deferred by Provider
Skin: Warm and Dry
Neuro: AO x 3
Extremities: Lower Level Edema (+1 B/L tibial)
Lymph: No Lymphadenopathy
Psych: Calm
Assessment / Plan
-
80-year-old female admitted with new onset heart failure (HFrEF), chronic atrial fibrillation not on anticoagulation d/t vaginal bleeding, severe aortic stenosis (with moderate AI, mild to moderate MR, and severe TR) and two-vessel coronary disease
(severe LAD and DIRECTOR OF FINANCIAL PLANNING of RPDA)
- Surgeon to review imaging
� TAVR CT ordered
� Preop diagnostics ordered including Panelipse and cardotid US
Data Reviewed
-
EKG: Report Reviewed by me and Discussed with Physician
Community Health Specialist: Report Reviewed by me and Discussed with Physician
Radiology: Report Reviewed by me and Discussed with Physician
Labs: Labs Reviewed by me and Discussed with Physician
--- NOTE | 2025-01-29 17:21 | PTCARENOTE ---
Tele remains afib. HR 100-120s at rest and 140-160s on ambulation. Pt reports no sob/discomfort/pain. Assessment completed as documented. Plan of care reviewed w/ pt and son and verbalizes understanding.
[2025-01-29] MEDS: LOVENOX 40 MG SC (18:21)
[2025-01-29 18:36] LABS: Urine Character Clear (Clear)
--- NOTE | 2025-01-29 21:39 | PTCARENOTE ---
Received pt @ change of shift. AAOx3, HR 130s-110s, other VSS. A-Fib on monitor. Right radial site clean, dry, and intact-- little ecchymosis. Right brachial site open to air, little ecchymotic. Bed alarm in place for pt safety; reinforced
importance of calling when getting OOB-- pt verbalizes understanding, but still not calling when wanting to get up. Discussed the importance of safety, drew with fall during this admission. States she 'has it under control.' Discussed plan of care
for evening and US tomorrow-- understanding verbalized. Call sánchez within reach.
[2025-01-30] VITALS (7 sets, daily range): BP systolic 98–111; BP diastolic 56–83; BMI 19.5
[2025-01-30 02:14] LABS: INR 1.24; PT 15.9 Sec (11.4-14.6)
[2025-01-30 02:15] LABS: APTT 32.3 Sec (23.4-35.0)
[2025-01-30 02:30] LABS: ALT (SGPT) 28 U/L (0-35); AST (SGOT) 34 U/L (14-36); Albumin 3.4 g/dl (3.5-5.0); Alkaline Phosphatase 87 U/L (38-126); Blood Urea Nitrogen 35 mg/dl (7-17); Calcium 9.5 mg/dl (8.4-10.2); Carbon Dioxide 30 mmol/L (22-30); Chloride 101 mmol/L (98-107); Estimated Creatinine Clearance 36 ml/min; Glucose 96 mg/dl (70-99); Magnesium 1.6 mg/dl (1.6-2.3); Potassium 3.7 mmol/L (3.5-5.1); Sodium 137 mmol/L (135-145); Total Protein 5.7 g/dl (6.3-8.2); eGFR 50.80
[2025-01-30] MEDS: TOPROL XL 50 MG PO (07:33)
[2025-01-30] MEDS: ASPIR LOW (ENTERIC COATED) 81 MG PO (07:34)
[2025-01-30] MEDS: MAGNESIUM OXIDE 500 MG PO ×2 (07:34→20:33)
[2025-01-30] MEDS: LIPITOR 80 MG PO (07:34)
[2025-01-30] MEDS: ALDACTONE 25 MG PO (07:35)
[2025-01-30] MEDS: LASIX 40 MG IV ×2 (07:35→16:53)
[2025-01-30] MEDS: VIBRAMYCIN 100 MG PO ×2 (07:35→20:33)
[2025-01-30] MEDS: KCL 40 MEQ PO (07:43)
[2025-01-30 09:03] LABS: Glycohemoglobin (HgbA1c) 5.8 % (4.0-5.6)
--- NOTE | 2025-01-30 09:40 | W.PN.CD ---
Today's Communication / Plan
-
Patient being evaluated by CT surgery for CABG, SAVR and posssbile tricuspid repair. plan for surgery tomorrow
continue efforts to rate control afib.
Note patient had some issues with vaginal bleeding when on pradaxa and for this reason has not been on anticoagulation. will need to monitor for bleeding post op
Impression / Plan
-
I/P: 80F with persistent atrial fibrillation (abnormal bleeding on dabigatran), CAD (LAD and RCA medically managed, 2012), PAD (50-60% R ICA), hypertension, dyslipidemia, moderate MR, , moderate pulmonary hypertension, and moderate to severe TR
who presented with shortness of breath for several days.
Outpatient trencher driver: Dr. Pinedo. Jacki noted to have reduced LVF, severe . mod AR and severe TR and multivessel CAD
ICM
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
- TTE: Reduction in LVEF from 60-65% to 40-45% with more prominent septal wall motion abnormality, critical , moderate AR, and severe TR.
- Dry weight to be determined, continue furosemide 40 mg IV twice daily
- LE edema on exam, she would benefit from compression, Tubigrips ordered
- GDMT as tolerated:
-LUCIA/ARB/ARNI: Limited by blood pressure
-SGLT2 inhibitor: No prescription coverage, cost prohibitive
-Aldosterone agonist: Spironolactone 25 mg
-Beta jeannie: Metoprolol succinate 50 mg daily
-Isosorbide/Hydralazine:�Not indicated
-ICD: Not indicated
- Trend daily weight, I/O, and BMP with diuresis
- Heart failure education
- Pleural effusion, left
- 850 mL clear yellow pleural fluid 01/25/2025
Aortic valve disease - Severer Aortic stenosis, moderate AR
- The plan is for SAVR/CABG
CAD - multivessel CAD
-CATH - LAD severe proximal stenosis and mid vessel OIL DISTRIBUTOR TENDER with more distal vessel filling via left to left collaterals. Diagonal ostial stenosis.
RCA ostial 80% and distal 90%
= plan for CABG and SAVR
Tricuspid regurgitation, severe
Persistent atrial fibrillation
- suboptimal rate control. periodic accelerted rates > 150
- Continue current dose of Toprol-XL 50 mg daily.
- Digoxin doses ordered today. will reassess need post op.
- [id number] score is 6 for age, female, HTN, CHF, and vascular disease.
- Oral anticoagulation: We reviewed stroke risk and anticoagulation. She does not want to retrial here. She had vaginal bleeding on dabigatran.
Hyponatremia:improved
CAP, on antibiotics per primary service, leukocytosis has resolved
CARDIAC CATH 01/26/2025:
1. 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
2. Severe low-flow low gradient aortic stenosis
3. Severe multivessel coronary artery disease as described
RECOMMENDATIONS
1. Diuresis and titration of GDMT for heart failure.
2. Outpatient workup for aortic valve replacement +/- coronary revascularization, surgical versus percutaneous. Patient needs TAVR CT protocol next and then heart team discussion to evaluate options. Percutaneous revascularization would involve
multisegment stenting of the RCA to address flow to the large RPL and multi segment stenting of the LAD including the proximal LAD, mid-LAD OIL DISTRIBUTOR TENDER, possibly necessitating rescue of D1. CABG would ideally involve grafts to the LAD, D1, and RPL. The D2
and RPDA are atretic and do not appear to be candidates for revascularization.
Physical Exam
Vital Signs/Labs
Vital Signs
Temp Pulse Resp BP Pulse Ox
97.9 F 136 16 108/56 95
01/30/25 07:30 01/30/25 07:31 01/30/25 07:30 01/30/25 07:31 01/30/25 07:47
01/29/25 01/30/25 01/31/25
06:59 06:59 06:59
Actual Weight 57.6 kg 56.4 kg
01/29/25 04:12
01/30/25 01:55
PT 15.9 Sec (11.4-14.6) H 01/30/25 01:55
INR 1.24 01/30/25 01:55
APTT 32.3 Sec (23.4-35.0) 01/30/25 01:55
Magnesium 1.6 mg/dl (1.6-2.3) 01/30/25 01:55
Triglycerides 66 mg/dl (10-149) 01/25/25 04:53
LDL Cholesterol, Calc 75 mg/dl 01/25/25 04:53
VLDL Cholesterol, Calc 13 mg/dl (0-30) 01/25/25 04:53
HDL Cholesterol 74 mg/dl 01/25/25 04:53
01/24/25
15:33
Gja-K-Jqsrfefmqhp Pept [id number]
Physical Exam
Constitutional: No acute distress
EENT: Anicteric
Cardiovascular: Rhythm/rate is irregular and Systolic murmur present
Respiratory: Wheeze Absent and Rhonchi Absent
GI: Soft and Non tender
Neuro/Psych: Alert
Data Reviewed
-
Date of Service: January 30, 2025
Medical Decision Making: Reviewed Test Results
Echo: Report Reviewed by me
X-Ray/CT/US/MRI/NUC/PET: Report Reviewed by me
Medical Tests (PFT, Pathology etc): Report Reviewed by me
Labs: Labs Reviewed by me
[2025-01-30] MEDS: LANOXIN 250 MCG PO (10:22)
--- NOTE | 2025-01-30 10:40 | CM ---
Addendum entered by Tami Waddell RN 01/30/25 15:03:
Reviewed preoperative and postoperative instructions and restrictions, along with showering guidelines with the patient and son. Gave patient cardiac surgery book. Patients son is visiting from [place] and will stay for 1 month. Patient is
agreeable to CT Transitional RN. Patient will need PT/OT evaluation after surgery to determine plan of care. Plan is for patient to return home with son and CT Transitional RN vs Rehab.
Original Note:
Chart reviewed. Patient schedule for a SAVR/CABG tomorrow. Patient is independent of ADLS, lives alone in a apartment, 1st floor, [address], ambulates occasionally with a SPC. Plan is for the patient to return home with CT Transitional RN vs Rehab.
CM to follow
--- NOTE | 2025-01-30 11:06 | W.PN.UPDATE ---
Update Note
Progress Note Update
STS RISK SCORE (calculated for AVR/CABG)
Procedure Type:�CABG + AVR
Perioperative Outcome Estimate %
Operative Mortality 20.3%
Morbidity & Mortality 31.6%
Stroke 4.49%
Renal Failure 6.47%
Reoperation 7.22%
Prolonged Ventilation 20.7%
Deep Sternal Wound Infection 0.094%
Long Hospital Stay (>14 days) 30.7%
Short Hospital Stay (<6 days)* 8.09%
Clinical Summary
Planned Surgery: CABG + AVR, Urgent, First cardiovascular surgery
Demographics: 80 year old, female, 57.6kg, 170cm, BMI: 19.9 kg/m�
Lab Values: Creatinine: 1.1 mg/dL, Hematocrit: 43.1%, WBC Count: 9.3 10�/�L, Platelet Count: 759437 cells/�L
Substance Abuse: Never smoker
Risk Factors / Comorbidities: Hypertension
Cardiac Status: Acute heart failure, NYHA Class III, Ejection Fraction = 43%
Coronary Artery Disease: 2 vessels diseased, Proximal LAD Stenosis >=70%, Angina equivalent
Valve Disease: Aortic Stenosis, Moderate AR, Mitral Stenosis, Moderate MR, Severe TR
Arrhythmia: Recent A-fib
[2025-01-30] MEDS: ROCEPHIN 1000 MG IV (11:22)
[2025-01-30] MEDS: STERILE WATER FOR INJECTION 10 ML IV (11:22)
--- NOTE | 2025-01-30 12:21 | PTCARENOTE ---
Tele remains afib. HR 100-120s at rest and 140-160s on ambulation. Plan of care reviewed w/ pt and son and verbalizes understanding. Pt aware that she is NPO at midnight for surgery tomorrow. Pt has no complaints pain/discomfort/sob. Currently OOB
in chair. Bed/chair alarm activated for pt safety. Call sánchez is w/in reach.
--- NOTE | 2025-01-30 12:49 | W.PN.HOSP.TC ---
Today's Communication/Plan
-
CABG, SAVR and possible tricuspid repair with cardiothoracic surgery service tomorrow
Transfer from hospitalist service to Dr. Crouch's (cardiothoracic surgery service) tomorrow
Continue IV Lasix
See plan
Assessment / Plan
Assessment / Plan
Physical Exam
General: Well Developed, Well Nourished, No Apparent Distress and Comfortable
HEENT: Normocephalic, Atraumatic
Respiratory: Clear to Auscultation Bilaterally
Cardiac: Irregular Rhythm and Tachycardic
GI: Soft, Nontender and Nondistended. Positive bowel sounds.
Musculoskeletal: Edema, Right Lower Extremity. Edema, Left Lower Extremity.
Skin: Warm and Dry
Neuro: Awake, Alert and Oriented
Psych: Calm
Assessment/Plan
80-year-old female with PMH of:
Paroxysmal A-fib on aspirin,
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
HTN,
HLD,
valvular heart disease,
peripheral edema;
p/w shortness of breath, SOB for 5 to 6 days. She also c/o BL leg edema. In the ER, she was noted to be in rapid A-fib and in acute CHF. She was given IV Lasix 20 mg and was started with IV heparin drip.
1. A-fib with RVR on admission
Complicated by
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
s/p Cardizem drip
Continue beta jeannie -- likely will be difficult to perfectly regulate her heart rate given the severity of her valvular heart disease and blood pressure limitations
Digoxin given on 01/30/25
She had a cath which showed:
1. 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
2. Severe low-flow low gradient aortic stenosis
3. Severe multivessel coronary artery disease as described
RECOMMENDATIONS
1. Diuresis and titration of GDMT for heart failure.
2. Outpatient workup for aortic valve replacement +/- coronary revascularization, surgical versus percutaneous.
Patient needs TAVR CT protocol next and then heart team discussion to evaluate options.
Percutaneous revascularization would involve multisegment stenting of the RCA to address flow to the large RPL and multi segment stenting of the LAD,
including the proximal LAD, mid-LAD USED [employer], possibly necessitating rescue of D1.
CABG would ideally involve grafts to the LAD, D1, and RPL.
The D2 and RPDA are atretic and do not appear to be candidates for revascularization.
Other notable info:
TSH 3.05
echo noted EF 40-45%. Mid to apical septal hypokinesis.
Mild mitral stenosis.
Mild/moderate mitral regurgitation. Compared to 02/24/24: LVEF has declined from 60-65% to 40-45%, and septal wall motion abnormality is more prominent.
AV mean gradient has increased from 26 mmHg to 29 mmHg.
AR has progressed from mild to moderate.
TR has progressed from moderate/severe to severe, and PASP has increased from 35 mmHg to 41 mmHg.
2. ICM
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
-Continue Spironolactone 25 mg
-Continue Metoprolol succinate 50 mg daily
-Continue IV Lasix 40 mg twice daily
3. Moderate left pleural effusion due to above
4. Acute hypoxic respiratory insufficiency, due to above, resolved
weaned back to RA
echo report as above
Cont IV Lasix, follow I/O, daily weight and cardiology recs
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
s/p IR L thora 01/25/25 -- appears to be transudative
5. Mild transaminitis due to hepatic congestion
LFT improving
cont to monitor LFT
6. Hypokalemia - resolved
7. Hypomagnesemia
repleted lytes as needed
8. ?leucocytosis 2/2 CAP
CXR 01/25 noted streaky opacity and peribronchial thickening within the left lower lobe, which may represent pneumonia or subsegmental atelectasis
Started empiric Abx ceftriaxone, Doxycycline
MRSA screen negative
monitor WBC
9. Bilateral leg edema, likely due to acute CHF
Ultrasound of left leg from ER negative for DVT
10. HTN�benign
Hold amlodipine due to leg edema
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
11. HLD, LDL 75
Continue high intensity statin
12. Critical Aortic Stenosis
-Patient being evaluated by CT surgery for CABG, SAVR and posssbile tricuspid repair -- plan for surgery tomorrow
13. Aortic Regurgitation
14. Tricuspid Regurgitation
15. CAD
-Continue Aspirin and beta jeannie
DVT prophylaxis: off heparin drip, continue Lovenox SQ ppx dose. Pt declined AC
Code Status: Full code
Anticipated Discharge: > 48 hours
Subjective/Interval History
-
Date of Service: January 30, 2025
Patient was seen and examined. She denied any chest pain or shortness of breath.
Objective Data
-
Labs:
Laboratory Results
01/30/25
01:55
PT 15.9 H
INR 1.24
APTT 32.3
Sodium 137
Potassium 3.7
Chloride 101
Carbon Dioxide 30
BUN 35 H
Creatinine 1.1 H
Glucose 96
Calcium 9.5
Total Bilirubin 0.7
AST 34
ALT 28
Alkaline Phosphatase 87
Vital Signs:
Vital Signs
Temp Pulse Resp BP Pulse Ox
97.7 F 106 18 111/83 98
01/30/25 11:25 01/30/25 11:26 01/30/25 11:25 01/30/25 11:26 01/30/25 11:26
I&O
01/29/25 01/30/25 01/31/25
06:59 06:59 06:59
Intake Total 350 / 350 300 / 300 200 / 200
Output Total 350 / 350
Balance 350 / 350 -50 / -50 200 / 200
[2025-01-30] MEDS: LOVENOX 40 MG SC (16:53)
--- NOTE | 2025-01-30 20:08 | PTCARENOTE ---
received pt from previous rn. pt AAOx4. VSS, A fib per tele monitor HR 130s. +1 LE edema, weak DP pulses, +murmur, pox 98% on RA lungs diminished at the bases, +bs, voids appropriately in the bathroom. R radial puncture site intact. piv intact. plan
of care discussed questions encouraged. call sánchez within reach
--- NOTE | 2025-01-30 21:38 | PTCARENOTE ---
pt clipped, CHG shower completed.
[2025-01-31] VITALS (10 sets, daily range): BP systolic 60–119; BP diastolic 46–90; BMI 18.8
--- NOTE | 2025-01-31 00:13 | PTCARENOTE ---
pt resting comfortably in bed, VSS, A-fib per tele monitor, pt ambulating to bathroom, assessment remains unchanged.
--- NOTE | 2025-01-31 03:30 | PTCARENOTE ---
pt wiped w/ CHG wipes, VS obtained,
[2025-01-31 04:16] LABS: Blood Urea Nitrogen 35 mg/dl (7-17); Calcium 9.7 mg/dl (8.4-10.2); Carbon Dioxide 33 mmol/L (22-30); Chloride 100 mmol/L (98-107); Estimated Creatinine Clearance 35 ml/min; Glucose 100 mg/dl (70-99); Magnesium 1.6 mg/dl (1.6-2.3); Potassium 4.0 mmol/L (3.5-5.1); Sodium 137 mmol/L (135-145); eGFR 50.80
[2025-01-31] MEDS: ALDACTONE PO (08:50)
[2025-01-31] MEDS: LASIX IV (08:50)
[2025-01-31] MEDS: TOPROL XL PO (08:51)
[2025-01-31] MEDS: LOPRESSOR 25 MG PO (09:10)
[2025-01-31] MEDS: MAGNESIUM OXIDE 500 MG PO (09:10)
[2025-01-31] MEDS: ASPIR LOW (ENTERIC COATED) 81 MG PO (09:10)
[2025-01-31] MEDS: THERAGRAN 1 TABLET PO (09:10)
[2025-01-31] MEDS: VIBRAMYCIN 100 MG PO (09:10)
[2025-01-31] MEDS: LIPITOR 80 MG PO (09:10)
[2025-01-31] MEDS: PROTONIX 40 MG PO (09:10)
--- NOTE | 2025-01-31 09:31 | W.PN.UPDATE ---
Update Note
Progress Note Update
Radial arterial line placement
A time-out was completed verifying correct patient, procedure, site, patient positioning, and special equipment. Patient was monitored with continuous bedside EKG, blood pressure, pulse ox readings.
Jacoby's test was performed to ensure adequate perfusion. The patient's right wrist was prepped and draped in sterile fashion.
1% Lidocaine was used to anesthetize the area. Ultrasound was used in real time to localize the radial artery and guide introducer needle into the arterial lumen. The catheter was threaded over the guide wire and the needle was removed with
appropriate pulsatile blood return. The catheter was then secured in place to the skin and a biopatch and sterile dressing applied.
Perfusion to the extremity distal to the point of catheter insertion was checked and found to be unchanged.
Estimated Blood Loss: 0 mL
The patient tolerated the procedure well and there were no complications.
[2025-01-31] MEDS: BACTROBAN 2% OINTMENT 1 APPLIC NASAL ×2 (09:32→21:28)
[2025-01-31] MEDS: MAGNESIUM OXIDE PO (09:32)
[2025-01-31] MEDS: XYLOCAINE 1% 3 ML INFIL (09:32)
--- NOTE | 2025-01-31 09:40 | PTCARENOTE ---
Assumed care of patient at 0700. Pt is awake, alert, and oriented. Pt prepped for OR overnight. Pt remains Afib with HR 107. BP 119/76 MAP 91. Pulse oximetry 93% on room air. Pt NPO since midnight. Pre-op medications administered. CT LATRICE, Erica,
placed Barby at bedside. Pt sent to [facility].
--- NOTE | 2025-01-31 09:49 | W.[facility]OR.SURPR ---
[facility] Surgeon Immed Pre Op
-
I have examined this patient prior to performance of the scheduled procedure.
The patient's condition is unchanged from the time of the dictated/written History and
Physical and the patient is able to undergo the scheduled procedure.
Complex and high risk AVR TVr CABG MAZE LAAE
[2025-01-31 10:27] LABS: Urine Character Clear (Clear)
--- NOTE | 2025-01-31 10:41 | CM ---
Reviewed chart. Mrs. Witt is in the operating room today. Prior to admission she resides alone in a first floor apartment with two steps to enter. Prior to admission she ambulates with a single point cane. She has a single point cane at home.
He son from [place] is here for a month. Will need to see her current functional level to see if she will have any skilled care needs. May benefit from Physical Therapy and Occupational Therapy evaluations when medically indicated. Medical
work-up in progress. The discharge plan is for some level of inpatient rehab. acute versus SNF pending on her functional level when medically stable.
[2025-01-31 10:50] LABS: ACT+ - POC 115 Seconds (82-134)
[2025-01-31 10:55] LABS: Urine Squamous Cell 0-2 /LPF (Few)
[2025-01-31 10:56] LABS: Urine Urothelial Cell 0-2 /LPF (FEW)
[2025-01-31 10:57] LABS: Urine Red Blood Cell 0-2 /HPF (0-2)
[2025-01-31 11:31] LABS: ACT+ - POC 527 Seconds (82-134)
[2025-01-31 12:03] LABS: B.E. - POC 0.7 mmol/L; Glucose - POC 71 mg/dl (70-99); HCO3 - POC 23 mmol/L (21-28); Hematocrit - POC 29 % PCV (37-47); Hemodilution- POC No; Hemoglobin Calculated - POC 9.8; Ionized Calcium - POC 1.02 mmol/L (1.15-1.33); Lactate - POC 0.65 mmol/L (0.36-0.75); O2 Saturation %Calculated-POC 99.8 % (94-98); PCO2 - POC 29 mmHg (35-48); PO2 - POC 202 mmHg (83-108); POC Comment PRE; Potassium - POC 2.8 mmol/L (3.5-5.1); Sodium - POC 140 mmol/L (136-145); Specimen Type - POC Arterial; pH - POC 7.51 (7.35-7.45)
[2025-01-31 12:16] LABS: ACT+ - POC 827 Seconds (82-134)
[2025-01-31 12:51] LABS: ACT+ - POC 593 Seconds (82-134)
[2025-01-31 13:12] LABS: B.E. - POC 9.1 mmol/L; Glucose - POC 99 mg/dl (70-99); HCO3 - POC 32 mmol/L (21-28); Hematocrit - POC 30 % PCV (37-47); Hemodilution- POC Yes; Hemoglobin Calculated - POC 10.2; Ionized Calcium - POC 0.99 mmol/L (1.15-1.33); Lactate - POC < 0.30 mmol/L (0.36-0.75); O2 Saturation %Calculated-POC 100.0 % (94-98); PCO2 - POC 36 mmHg (35-48); PO2 - POC 516 mmHg (83-108); POC Comment CPB; Potassium - POC 4.9 mmol/L (3.5-5.1); Sodium - POC 138 mmol/L (136-145); Specimen Type - POC Arterial; pH - POC 7.56 (7.35-7.45)
[2025-01-31 13:31] LABS: ACT+ - POC 523 Seconds (82-134)
[2025-01-31 13:49] LABS: B.E. - POC 8.8 mmol/L; Glucose - POC 127 mg/dl (70-99); HCO3 - POC 30 mmol/L (21-28); Hematocrit - POC 26 % PCV (37-47); Hemodilution- POC Yes; Hemoglobin Calculated - POC 8.8; Ionized Calcium - POC 1.01 mmol/L (1.15-1.33); Lactate - POC 0.52 mmol/L (0.36-0.75); O2 Saturation %Calculated-POC 100.0 % (94-98); PCO2 - POC 30 mmHg (35-48); PO2 - POC 387 mmHg (83-108); POC Comment CPB; Potassium - POC 4.5 mmol/L (3.5-5.1); Sodium - POC 139 mmol/L (136-145); Specimen Type - POC Arterial; pH - POC 7.62 (7.35-7.45)
[2025-01-31] MEDS: ANCEF 10 IV ×2 (13:54)
[2025-01-31 14:00] LABS: ACT+ - POC 504 Seconds (82-134)
[2025-01-31 14:27] LABS: B.E. - POC 5.7 mmol/L; Glucose - POC 143 mg/dl (70-99); HCO3 - POC 28 mmol/L (21-28); Hematocrit - POC 27 % PCV (37-47); Hemodilution- POC Yes; Hemoglobin Calculated - POC 9.1; Ionized Calcium - POC 0.94 mmol/L (1.15-1.33); Lactate - POC 1.13 mmol/L (0.36-0.75); O2 Saturation %Calculated-POC 100.0 % (94-98); PCO2 - POC 31 mmHg (35-48); PO2 - POC 445 mmHg (83-108); POC Comment WARM; Potassium - POC 4.6 mmol/L (3.5-5.1); Sodium - POC 141 mmol/L (136-145); Specimen Type - POC Arterial; pH - POC 7.57 (7.35-7.45)
--- NOTE | 2025-01-31 14:38 | CON.INTV ---
Consultation
Consultation Request
Date/Time Consultation Requested: 02/01/2025-7 PM
Date/Time Consultation Performed: 02/01/2025-8 PM
Requesting Provider: cardiothoracic surgery
Performing Provider: Dr. Valentine
Reason for Consultation: postop ventilator/critical care management
Medical History
-
Chief Complaint: shortness of breath/CAD
History of Present Illness:
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 The
patient was sedated on the ventilator and successfully extubated at 4 AM. Operative records were reviewed. Pressors, chest tube output, pulmonary artery catheter parameters were all reviewed.. The patient is somewhat groggy but denies any
shortness of breath, pain controlled, no abdominal pain, or focal weakness
Past Medical History
Past Medical History: None ( Hypertension. Hyperlipidemia. Carotid stenosis. PAD.PAF on aspirin. Vaginal bleeding on Pradaxa. Left wrist repair.)
Social History
Tobacco: Non-smoker
Alcohol: None
Drug: None
Personal: Single
Living: With Family
Employment: Retired
Occupational Exposures: No known asbestos exposure
Environmental Exposures: no known tuberculosis exposure
Family History
Family History: Reviewed & Not Pertinent
Allergies / Home Medications
Allergies
Allergy/AdvReac Type Severity Reaction Status Date / Time
No Known Allergies Allergy Verified 05/07/22 12:28
Home Medications
�Medication �Instructions �Recorded �Confirmed �Last Taken �Type
amlodipine 5 mg tablet 5 mg PO DAILY 01/24/25 01/24/25 01/24/25 History
aspirin 81 mg tablet,delayed 81 mg PO DAILY 01/24/25 01/24/25 01/24/25 History
release
coenzyme Q10 100 mg capsule 200 mg PO DAILY 01/24/25 01/24/25 01/24/25 History
(CoQ-10)
hydrochlorothiazide 25 mg tablet 25 mg PO DAILY 01/24/25 01/24/25 01/24/25 History
ibuprofen 200 mg tablet (Advil) 200 mg PO BIDPRN PRN mild pain 01/24/25 01/24/25 01/24/25 History
lisinopril 40 mg tablet 40 mg PO DAILY 01/24/25 01/24/25 01/24/25 History
lovastatin 40 mg tablet 40 mg PO QPM 01/24/25 01/24/25 01/23/25 History
metoprolol succinate 25 mg 25 mg PO QPM 01/24/25 01/24/25 01/23/25 History
tablet,extended release 24 hr
therapeutic multivitamin 1 tab PO Q48H 01/24/25 01/24/25 01/23/25 History
Review of Systems
-
Unable to Obtain full review of systems at this time due to: Other ( per HPI)
Vitals / Labs / Diagnostic Testing
Vital Signs
Temp Pulse Resp BP Pulse Ox
98.0 F 132 18 119/76 93
01/31/25 09:10 01/31/25 09:07 01/31/25 09:10 01/31/25 09:07 01/31/25 09:10
Lab Data
01/29/25 04:12
01/31/25 03:25
Microbiology
01/25/25 09:33 Pleural Fluid Fungal Culture - Preliminary
Culture in progress.
Positive cultures are reported as soon as detected.
Final report to follow in four to five weeks.
01/25/25 09:33 Pleural Fluid Body Fluid Culture - Final
No Growth After 72 Hours
01/25/25 09:33 Pleural Fluid Gram Stain - Final
Diagnostic Testing:
Physical Exam
-
Exam:
Well-nourished and well-developed in no apparent distress
HEENT-atraumatic, normocephalic, oral tracheal intubation
Heart-regular rate and rhythm-no murmurs, rubs or gallops
Chest-clear to auscultation, no wheezes, crackles, median sternotomy bandage is not removed
Abdomen soft nondistended
Extremities-no cyanosis, clubbing, edema and good peripheral pulses
Integument-intact, no rashes, lesions or ecchymosis
Neurologically not alert, not oriented, not moving any of his extremities sedated on a ventilator
Assessment
-
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
Valvular disease and CAD
Status post AVR--23 mm bioprosthesis, CABG times x 2--ALMANZAR-LAD, RSVG - RPDA, tricuspid valve repair, maze procedure, reopening sternotomy-Impella device placement-Dr. Crouch 01/31/2025
CHF reduced EF
Left greater than right pleural effusion
Status post left thoracentesis 01/25/25--850 mL of clear pleural fluid
Atrial fibrillation with rapid ventricular response
Brief nonsustained ventricular tachycardia postop
Postop anemia status post 4 units PRBC
Postop coagulopathy/thrombocytopenia-status post 3 units platelets, 2 units FFP, 2 units cryoprecipitate's, vitamin K and DDAVP
Postoperative cardiogenic shock requiring inotropes and pressors as well as left ventricular assist device
Mild transaminitis
Hypokalemia
Hypomagnesemia
Leukocytosis
Conditions present prior to admission:
Hypertension.
Hyperlipidemia.
Carotid stenosis.
PAD.
PAF on aspirin.
Vaginal bleeding on Pradaxa.
Left wrist repair.
Plan
Ventilator settings reviewed-successfully extubated at 4 AM
FiO2 will be weaned
Nebulizers if needed-currently not bronchospastic
Pulmonary artery catheter parameters will be followed
Pressors/antihypertensive/inotropes/diuretics will be provided as needed
Impella continues-P4
Monitor chest tube output
Monitor hemoglobin-received a total of 4 units packed red blood cells
Monitor platelet count and coags
Transfuse blood product if needed
CT surgery following chest tubes
Cardiology following-correspondence reviewed
Atrial fibrillation rate control
Amiodarone drip briefly for NSVT and subsequently stopped due to hypotension
Preoperative echocardiogram and cardiac catheterization summarized below
Diuresis as tolerated
Monitor renal function, electrolytes, intake/output, lower extremity edema and weight
Replace electrolytes as needed
Monitor blood sugar
Insulin drip per protocol
DVT prophylaxis
Early nutrition
Early mobilization after Impella removed
Critical care statement: A total of 55 minutes of critical care time was provided for this patient today. This includes management of ventilator, spontaneous breathing trial, arterial blood gases, pressors, of unstable vital signs, evaluation of the
patient at bedside, reviewing the patient's pertinent medical records including radiographs, microbiology, laboratory evaluations, and discussion with primary team and critical care nursing.
Diagnostic data:
Chest x-ray 01/24/2025-mild pulmonary vascular congestion and moderate left
Lower extremity ultrasound 01/24/2025-no evidence for left lower extremity DVT
Thoracentesis-left side 01/25/01/25/2025-01/25/25-850 mL liter Clear pleural fluid
CT chest TAVR 01/29/2025-small bilateral pleural effusions, thyroid gland unremarkable, compressive atelectasis pulm basilar segments, no focal consolidation or pneumothorax, no pulmonary mass or nodule
Echocardiogram 01/25/2025-EF 40-45%, apical septal hypokinesis, mild mitral stenosis, moderate mitral regurgitation, severe aortic stenosis with CHARLY 0.5 cm, moderate aortic regurgitation, severe tricuspid regurgitation estimated PA systolic 41
Cardiac catheterization right and left 01/24/2025-RA 15, RV 36/10, PA 41/27, PCWP-23, cardiac output 2.97, cardiac index 1.7, SVR 1887, severe multivessel CAD noted as well
Data Reviewed
-
EKG: Report reviewed by me
Radiology: Image personally visualized and interpreted and Report reviewed by me
CT Scan: Report reviewed by me
Ultrasound: Report reviewed by me
Medical Tests (Nuc Med, Echo etc): Report reviewed by me
Labs: Labs reviewed by me
Old Records: Reviewed
Critical Care Time (in minutes): 55
[2025-01-31 14:39] LABS: ACT+ - POC 285 Seconds (82-134)
[2025-01-31 14:49] LABS: B.E. - POC 7.4 mmol/L; Glucose - POC 129 mg/dl (70-99); HCO3 - POC 31 mmol/L (21-28); Hematocrit - POC 26 % PCV (37-47); Hemodilution- POC Yes; Hemoglobin Calculated - POC 8.9; Ionized Calcium - POC 1.30 mmol/L (1.15-1.33); Lactate - POC 1.55 mmol/L (0.36-0.75); O2 Saturation %Calculated-POC 99.9 % (94-98); PCO2 - POC 37 mmHg (35-48); PO2 - POC 293 mmHg (83-108); POC Comment POST; Potassium - POC 3.8 mmol/L (3.5-5.1); Sodium - POC 140 mmol/L (136-145); Specimen Type - POC Arterial; pH - POC 7.53 (7.35-7.45)
[2025-01-31 14:53] LABS: ACT+ - POC 148 Seconds (82-134)
[2025-01-31 14:54] LABS: B.E. - POC 9.5 mmol/L; Glucose - POC 110 mg/dl (70-99); HCO3 - POC 31 mmol/L (21-28); Hematocrit - POC 26 % PCV (37-47); Hemodilution- POC Yes; Hemoglobin Calculated - POC 8.7; Ionized Calcium - POC 1.00 mmol/L (1.15-1.33); Lactate - POC < 0.30 mmol/L (0.36-0.75); O2 Saturation %Calculated-POC 100.0 % (94-98); PCO2 - POC 31 mmHg (35-48); PO2 - POC 352 mmHg (83-108); POC Comment CPB; Potassium - POC 4.5 mmol/L (3.5-5.1); Sodium - POC 139 mmol/L (136-145); Specimen Type - POC Arterial; pH - POC 7.61 (7.35-7.45)
[2025-01-31 15:23] LABS: B.E. - POC 3.8 mmol/L; Glucose - POC 122 mg/dl (70-99); HCO3 - POC 27 mmol/L (21-28); Hematocrit - POC 24 % PCV (37-47); Hemodilution- POC Yes; Hemoglobin Calculated - POC 8.1; Ionized Calcium - POC 1.08 mmol/L (1.15-1.33); Lactate - POC 1.72 mmol/L (0.36-0.75); O2 Saturation %Calculated-POC 99.9 % (94-98); PCO2 - POC 33 mmHg (35-48); PO2 - POC 283 mmHg (83-108); POC Comment POST; Potassium - POC 3.4 mmol/L (3.5-5.1); Sodium - POC 142 mmol/L (136-145); Specimen Type - POC Arterial; pH - POC 7.52 (7.35-7.45)
--- NOTE | 2025-01-31 15:33 | W.PN.CT.SURG ---
CT Surgery Operative Note
-
CARDIAC SURGERY OPERATIVE REPORT
Preoperative Diagnosis: Acute heart failure with cardiogenic shock, aortic valve stenosis and insufficiency, severe tricuspid valve insufficiency, A-fib with RVR and multivessel coronary disease
Postoperative Diagnosis: Same
Procedure(s) Performed:
1. Standard sternotomy with aortic and bicaval cannulation
2. Surgical aortic valve replacement [23 mm bioprosthesis]
3. Coronary artery bypass grafting x 2 [ALMANZAR to LAD, RSVG to RPDA]
4. Simple tricuspid valve repair [32 mm band annuloplasty]
5. Full left and right atrial maze [combination of RF and cryoablation] plus left atrial appendage exclusion [40 mm device]
6. Placement of temporary atrial and ventricular pacing wires
7. Transesophageal echocardiography
8. Modifier 22, dense pulmonary lesions requiring adhesiolysis adding approximately 30 minutes to the case
9. Drainage of bilateral pleural effusions, approximately 250 cc in each chest
Date of Surgery: 01/31/2025
Comorbidities:
1. Severe aortic valve stenosis
2. 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
3. Atrial fibrillation with rapid ventricular response
4. Acute respiratory insufficiency
5. Significant volume overload requiring diuresis
Attending Surgeon: Carson Crouch MD, MS
Assistants: Alma Rosa Pride PA-C (present and necessary to nurse first assist, retraction, suction, exposure, suture management, and wound closure under my direction), Johanna Maldonado PA-C (endo vein harvest) and Lv Gibson, PGY 2 Cardiac Surgery Resident
Anesthesiology: Edd Constantino MD and Analia Snyder CRNA
Scrub and Circulating RNs: Kenneth Sandoval, JESSICA, Sandhya Juarez, JESSICA
Clinical Esthetician: Rudi Dos Santos CCP
Anesthesia: GETA
EBL: per perfusion records
Products: 2 prbcs 2 plts
CPB Time: 144 minutes
Aortic Cross Clamp Time: 117 minutes
Indication(s) for Procedures: This is an 80-year-old female who is being worked up initially for TAVR given her aortic valve stenosis. She ultimately was admitted to the hospital in heart failure with A-fib and RVR and hemodynamically was not
tolerant of medication loading. She underwent left heart cath which found multivessel coronary artery disease that was difficult for PCI intervention given the MANAGER SYSTEMS of the proximal to mid LAD. With this in mind, surgical consultation was requested
and I discussed this with her and her son at the bedside. She understood that her risk for surgery for mortality was higher than the average patient given her age of 80 and that she needed multiple things done. Ultimately after thinking about the
risks and benefits she opted to move forward I felt it was reasonable. She was ultimately offered AVR, TV repair, maze, clip, CABG x 2.
Aortic Valve Description: Heavily calcified with partial fusion of the right left coronary cusp, most of the calcification was on the noncoronary cusp. Left and right coronary ostia in the normal anatomic positions. Large boulders of calcium above
the right and left coronary ostia.
Tricuspid Valve Description: Thickened leaflets, dilated annulus, large right atrium with thickened right atrial tissue.
Findings: Left ventricular ejection fraction starting at the surgery was approximately 40% with some regional wall motion abnormalities toward the inferior septal and anterior septal portions of the wall. Following surgery EF did struggle to
approximately 20 to 25% and she was loaded on 5 dobutamine but had escalating requirements for Levophed. RV function was normal as was RV size and there was only a trace residual amount of tricuspid valve insufficiency. Her aortic valve was
replaced with a 23 mm bioprosthesis (BSA of 1.6 and BMI of 18) using a total of 12 nonpledgeted 2 Ethibond sutures secured with core knots. The tricuspid valve was repaired with a 32 mm band annuloplasty secured to place using eleven 2-0 Ethibond
nonpledgeted sutures and tied. A full left and right atrial maze was performed, see the ablation lines listed below. The left atrial appendage was verified to be free of any thrombus or debris preoperatively and found to be totally occlusive
postoperatively. There is no paravalvular leak of the aortic valve prosthesis and the mean gradient across the valve was 3 mmHg. There is essentially no mean gradient across the tricuspid valve. At the conclusion of the case, she did respond to
volume loading with blood however given her depressed EF, depressed index and high systemic vascular resistance, I did discuss with interventional cardiology about preemptively placing a Impella CP from the groins as her LV appeared to be dilated
and likely would benefit from decompression especially in the setting of arrhythmias. Cardiac index did improve from 1.4 initially coming off cardiopulmonary bypass to 1.78 again on dobutamine at 5 and some Levophed at 12. She was initially in
A-fib rhythm with RVR which sagged her hemodynamics significantly. I did shock her twice using synchronized cardioversion and at that point loaded her with amiodarone x 2 as well as lidocaine intraoperatively. I was able to achieve a sinus
bradycardic rhythm and so we started to pace her at DDD and ultimately switched her over to DDI at which point she regained a sinus rhythm and looked much better. Despite this, I have concerns that she will decompensate overnight if she were to
progress into an arrhythmia. Of note she was coagulopathic postoperatively with an elevated ACT despite giving almost double her protamine dose. I opted to stop giving additional protamine when her ACT reached 140 and allowed to drift down.
Ablation Lines:
1. Box lesion to posterior LA wall
2. ANNETTE lesion + ANNETTE Exclusion + Division of Ligament of Yakov
3. Connection of ANNETTE base to the posterior box lesions
4. Box lesion to the anterolateral trigone at the base aortic atrial junction
5. Tricuspid annular line
6. RAA line
7. SVC and IVC lines
Specimen(s): Aortic valve leaflet.
Prosthesis:
1. 23 mm Andrews Inspira's Resilia aortic valve, serial #[id number]
2. 32 mm Medtronic triad band, serial number [id number]
3. 40 mm left atrial appendage clip, serial #[id number]
Description of Procedure: The patient was taken to the operating room. Their identity and procedure to be performed were verified and they were positioned supine on the operating table. Induction via general anesthesia with endotracheal intubation
was performed and central venous access and arterial monitoring were inserted. A preoperative transesophageal echocardiogram was performed to assess cardiac function and valvular function. The patient was then prepped and draped from chin to feet in
a sterile fashion. A preoperative time-out was performed with all members of the team present. A midline chest incision was performed along with median sternotomy. Simultaneous access to the right lower extremity for vein harvesting was performed
and Rultract was placed in order to elevate the left hemisternum. 5000 heparin was given at this time. The left internal mammary artery was harvested in the usual fashion in a skeletonized method double clipped at the end and placed back the left
hemithorax. She did have a significant degree of pulmonary lesions on the left chest that required adhesiolysis. There was an intermittent lung injury that required sealant placed over top in order to prevent any air leak. There is excellent flow
in the mammary artery. Once satisfied, exchanged will check retractor for median sternotomy retractor. The innominate vein was isolated. Full heparinization was given (a total of 25,000 units). We created a pericardial well. The aortic cannulation
site was chosen where it was soft, pliable, and free of calcium. Cannulation was performed with an arterial cannula in the ascending aorta, angled metal tip cannular in the superior vena cava and straight bendable cannula in the inferior vena cava.
The arterial cannula line had an appropriate bounce and correlating pressures. Next, a root vent/antegrade cannula was inserted into the ascending aorta. The ACT was confirmed to be over 400 and retrograde autologous priming was performed before
commencing cardiopulmonary bypass. The SVC was then away from the RPA and the oblique sinus was developed. The encompass ablation clamp was then placed underneath the SVC IVC across the transverse and oblique sinuses respectively and 3
successful pairs ablation were performed. At this point volume was given into the chest and a retrograde coronary sinus catheter was placed under both manual and FRANCISCO JAVIER guidance. The pulmonary artery was away from the aorta to facilitate a
clamp site. The aortic cross-clamp was placed after decreasing the flow on the bypass and mean arterial pressure. A total of 1.2L initial dose of antegrade Del-Nido cardioplegia solution was given and planned for re-dosing every 45-60 minutes as
necessary. There was rapid electro-mechanical arrest of the heart at 250-300 cc of cardioplegia. The left ventricle was observed for distention on echocardiogram and manual palpation. Cold slush was placed into a lap on the RV and we systemically
cooled to 34 degrees centigrade. Once the heart was fully arrested and rotated medially and the tip the left atrial appendage was excised, the encompass clamp is then placed down this left atrial appendage opening into the left superior pulmonary
vein completing the box lesion to left atrial appendage line. An additional cryo line was then performed from the base left atrial appendage to the isthmus at the anterior lateral trigone at the base of the aorta mitral junction externally. The
appendage was then clipped with a 40 mm device flush to the base.
Since I had the heart ready rotated medially, the LAD was then identified and prepared using a [place] blade and a small coronary tree artery was created. This was large with Long scissors and the mammary artery was brought back into the chest and
the underbelly of it was incised. There is excellent flow down the mammary artery. A [id number] anastomosis was created with the ALMANZAR to LAD using 7-0 Prolene and secured with hand tied sutures. The bulldog was then released demonstrating
excellent flow into the LAD down towards the apex and back towards the diagonal vessels. The heart had a visual pinking up and warming up the touch. The bulldog was then replaced back on the mammary. Next the RPDA was identified and found to be
heavily calcified. A small coronary teary-eyed was created the vein was grafted to this distal with 7-0 Prolene in a running fashion. Test dosing of antegrade cardioplegia down the vein graft revealed a mean flow approximately 30 cc a minute at a
pressure 80 mmHg. There was good hemostasis here. I then transected the vein graft and headed towards performing my aortic valve replacement.
Carbon dioxide was used to flood the field. We manually identified the location of the right coronary take off. An aortotomy was made approximately 2cm above the sinotubular junction. The location of both left and right coronary vessels were
visualized in the root.The leaflets were excised and sent for pathological assessment. The annulus was debrided of any calcium being mindful of the annulus and membranous septum. The root and left ventricular outflow tract were thoroughly irrigated
to remove any debris. A total of 12 Non-pledgeted 2-0 ethibond inverted annular sutures were placed [id number] circumferentially. These were brought through the sewing cuff of the prosthetic valve which as then parachuted into place. The left and
right coronary ostia were visualized and were unobstructed by the valve. A Cor-Knot device was used to secure the annular sutures. The valve was inspected and was well seated. The aortotomy was approximated with 4-0 prolene in two layers. The
proximal anastomosis of the vein graft then performed with 6-0 Prolene after creating a small aortotomy and punching it a 4.0 mm punch.
While the heart was still arrested, I opened the right atrium vertically and cut down towards the lindsay terminalis. Stay sutures were placed and then using cryo I performed the tricuspid annular line followed by the right atrial appendage and SVC
IVC lines using RF ablation. Annular sutures were placed starting at the mid-portion of the septal leaflet avoiding the AV node and working counter-clockwise toward the anteroseptal leaflet commissure. The tricuspid valve was repaired as described
above and the swan was manually replaced into the RVOT. At this point with the heart snared at the SVC and IVC, we lowered the head down to a steep Trendelenburg position and pump flows were lowered and the clamp was removed. The pump flows then
slowly brought back up again. While the heart was reperfusing the RA suture line was closed in two layers with 5-0 prolene in a running fashion. The snares were then removed sequentially.
De-airing maneuvers were performed and temporary atrial and ventricular pacing wires were placed at the SVC/RA junction and base of the right ventricle, respectively. The AV prosthesis was well seated without PVL or AI. Once de-airing was
satisfactory the root vent were removed. After verifying acceptable parameters, we initiated weaning from cardiopulmonary bypass. Once we were off cardiopulmonary bypass, the venous cannulas was clamped and removed sequentially. A test dose of
protamine was administered and the patient was monitored for any adverse reaction before resuming protamine. Once half of the protamine dose was delivered, pump suckers were turned off and the systolic blood pressure was lowered for aortic
decannulation. The aortic cannula was removed and purse strings were tied down. All cannulation sites were oversewn with a 4-0 prolene. The left atrial suture line was inspected and hemostasis was confirmed. Mediastinal hemostasis was obtained. Two
#24 Harsha drains were placed within the pericardium with 2 #19 Harsha drains placed into each hemithorax. The sternum was approximated with 4 #7 single and 3 #8 double stainless steel wires. Fascia was approximated with #1 vicryl suture. The
subcutaneous, dermis and epidermis were closed in layers in a running fashion. The skin wound was cleansed and dressed.
All instrument, sponge, and needle counts were confirmed to be correct x 2 at the end of the operation. The patient was transferred to the cardiac intensive care unit in critical but stable condition.
I, Dr. Carson Crouch, was present, scrubbed for, and performed all critical elements of this procedure.
Carson Crouch MD, MS
Cardiothoracic Surgeon
[facility]
This dictation was created using the [employer] dictation system. Please excuse any grammatical, typographical, or 'sound alike' errors
[2025-01-31] MEDS: PACERONE PO ×2 (15:42→20:06)
[2025-01-31] MEDS: TYLENOL PO ×2 (15:42→20:06)
[2025-01-31] MEDS: NEURONTIN PO ×2 (15:42→20:06)
[2025-01-31] MEDS: NSS 500 IV (15:42)
--- NOTE | 2025-01-31 16:46 | ITS.CL.CATH ---
[employer] - Catheterization
Cardiac Catheterization
Procedure Report:
PERIPHERAL ANGIOGRAPHY AND ANGIOPLASTY REPORT
DATE OF PROCEDURE: January 31, 2025
REFERRING: Dr. Carson Crouch
PROCEDURES PERFORMED:
1. Abdominal aortography with iliofemoral runoff
INDICATIONS: Postop CABG, AVR, tricuspid valve repair and left atrial appendage clip with hypotension. The initial plan was to insert a Impella CP.
ACCESS: Left common femoral, 5 Vietnamese sheath
DETAILS OF THE PROCEDURE: Arterial access was obtained using ultrasound guidance and micropuncture technique. Significant plaque was noted in the right common femoral artery and femoral pulse was reduced. The pulse in the left femoral artery was
better than that noted on the right and ultrasound showed moderate plaque. Arterial access was obtained using ultrasound guidance with placement of a 5 Vietnamese sheath. Angiography was in the appropriate spot for preclosure with 2 Perclose devices.
Plaque was noted in the left proximal external iliac. The decision was made to perform abdominal aortography with iliofemoral runoff
ABDOMINAL AORTOGRAPHY: Abdominal aortography with iliofemoral runoff was performed. There was mild plaque noted in the distal abdominal aorta
RIGHT LOWER EXTREMITY: The right common iliac artery is widely patent. The proximal right external iliac artery has a focal 40% stenosis with diffuse luminal irregularities through the common femoral artery. There is a calcified plaque in the
distal right common femoral artery extending into the profundus and superficial femoral artery with poor flow noted in the SFA distally.
LEFT LOWER EXTREMITY: The left common femoral artery is widely patent. The external iliac artery has a 50% stenosis near its origin. There is diffuse noncritical luminal irregularities noted throughout the common femoral artery.
After review of the angiogram with Dr. Carson Crouch the decision was made not to place an Impella. The patient will return to the operating suite and undergo minithoracotomy with placement of a 5.5 Impella via direct aortic puncture
Fluoroscopy time: 3.1 minutes, Dose: 337 mGy, DAP: 25.3 Gy.cm2
CONCLUSIONS
1. Post operative hypotension with moderate peripheral vascular disease. Peripheral vessels are of small caliber with significant atherosclerosis in the right distal common femoral artery and left external iliac artery.
RECOMMENDATIONS:
1. Discussed with Dr. Crouch. The left external iliac is small with risk of possible limb ischemia with placement of Impella. After discussion it was decided that the patient would go back to the OR for direct aortic placement of an Impella 5.5
device
[2025-01-31 17:22] LABS: ACT+ - POC 145 Seconds (82-134)
[2025-01-31 18:30] LABS: B.E. - POC 2.7 mmol/L; Glucose - POC 147 mg/dl (70-99); HCO3 - POC 27 mmol/L (21-28); Hematocrit - POC 32 % PCV (37-47); Hemodilution- POC Yes; Hemoglobin Calculated - POC 11.0; Ionized Calcium - POC 1.10 mmol/L (1.15-1.33); Lactate - POC 1.71 mmol/L (0.36-0.75); O2 Saturation %Calculated-POC 99.9 % (94-98); PCO2 - POC 37 mmHg (35-48); PO2 - POC 318 mmHg (83-108); POC Comment PRE; Potassium - POC 3.5 mmol/L (3.5-5.1); Sodium - POC 140 mmol/L (136-145); Specimen Type - POC Arterial; pH - POC 7.46 (7.35-7.45)
--- NOTE | 2025-01-31 18:48 | W.PN.CT.SURG ---
CT Surgery Operative Note
-
CARDIAC SURGERY OPERATIVE REPORT
Preoperative Diagnosis: Post cardiotomy cardiogenic shock with escalating inotropic support and vasoactive medication
Postoperative Diagnosis: Same
Procedure(s) Performed:
1. Reopening of sternotomy
2. Hemostasis
3. Anastomosis of a 10 mm direct aortic graft from the distal ascending aorta tunneled to the left supraclavicular fossa
4. Placement of a direct aortic 5.5 Impella left ventricular assist device
5. Positioning and management of the 5.5 Impella left ventricular assist device
6. Closure of chest
Date of Surgery: 01/31/2025
Comorbidities:
1. Post cardiotomy cardiogenic shock
Attending Surgeon: Carson Crouch MD, MS
Assistants: Alma Rosa Pride PA-C (present and necessary to ophthalmology assistant, retraction, suction, exposure, suture management, and wound closure under my direction)
Anesthesiology: Talha Santana MD and Caesar Calderon CRNA
Scrub and Circulating RNs: Kenneth Sandoval, RN, Sandyha Juarez RN
Apartment House Manager: Rudi Dos Santos CCP
Anesthesia: GETA
EBL: 200cc
Products: 1 plt
Implants: 5.5 direct aortic Impella, ventricular assist device, serial #[id number]
Indication(s) for Procedures: This is an 80-year-old female who is status post complex cardiothoracic surgery. She was initially brought to the Publication Editor 1 with the intention of placing a CP Impella via the groin. Angiogram demonstrated unusable
peripheral vessels and so she was brought back to the operating room for direct aortic 5.5 Impella implantation.
Findings & Description: Her left ventricular ejection fraction was approximately 20 to 25%. She was requiring multiple epi boluses essentially chemically coding. The sternotomy was reopened and all wires extracted. I sewed a 10 mm beveled graft
onto the ascending thoracic aorta using a side-biting clamp. BioGlue was used to reinforce the suture line. I then tunneled this graft to the left supraclavicular fossa and placed a temporary sheath. Under echo guidance I reflexed a pigtail
catheter across the bioprosthetic valve under FRANCISCO JAVIER guidance. I then placed the steel core wire through the pigtail and removed the pigtail. Then under FRANCISCO JAVIER, I wired the impella and guided it across the aortic valve and rotated the Impella until it
was pointing toward the LV apex. I did have to pull back approximately 2cm under FRANCISCO JAVIER guidance for positioning. We initially started at P5 and then slowly decreased it to P3 where she had appropriate LV decompression and still some pulsatility. The
device was care approximate 33 cm. At this point he seemed to be more hemodynamically stable and so we performed hemostasis of the mediastinum and closed the chest in the usual fashion using 4 #7 single and 3 #8 double stainless steel wires. The
same drains were used as previous but the pleural vacs were exchanged for new ones. Fascia was approximated with #1 vicryl suture. The subcutaneous, dermis and epidermis were closed in layers in a running fashion. The skin wound was cleansed and
dressed. A Biopatch was placed across the graft exposed at the left supraclavicular fossa and the area was dressed sterilely. Additional securing devices were placed along the driveline.
All instrument, sponge, and needle counts were confirmed to be correct x 2 at the end of the operation. The patient was transferred to the cardiac intensive care unit in critical but stable condition.
I, Dr. Carson Crouch, was present, scrubbed for, and performed all critical elements of this procedure.
Carson Crouch MD, MS
Cardiothoracic Surgeon
[facility]
This operative dictation was created using the [email or web address] dictation system. Please excuse any grammatical, typographical, or 'sound alike' errors
[2025-01-31] MEDS: CALCIUM CHLORIDE 10% SYRINGE 500 MG IV ×2 (18:53→18:59)
--- NOTE | 2025-01-31 19:00 | PTCARENOTE ---
Addendum entered by Hilary Willams RN 02/01/25 04:29:
Robert castellanos applied for hypothermia, core temp 92.2 on admit to CVICU, see worklist.
Original Note:
Received patient from [facility] at 1845. Patient intubated and sedated, RASS -5. SR on CM, rates 80's, no edema appreciated, heart tones audible, rub auscultated, Impella 5.[address] set to P3 then P4 via LCW ascending aorta @ 33, dressing intact but
site bleeding; AV wires in place, see work list for settings - no pacing noted on telemetry; radial pulses palpable, DP pulses present via Doppler; patient initially hypotensive, CaCl IVP given x2. CTx4 to -20 cm wall suction; L/R pleural CT
initially dumped 160 in 15 minutes - CT team aware; no air leak, tidaling, or crepitus noted, dressing CDI, lungs dim at the bases, SIMV vent settings available via worklist; 8.0 ETT 22 @ the R lip, SpO2 100%. Hypoactive B/S, abdomen SNT. Chery
catheter in place draining clear, yellow urine. MS red, SHAAN CDI, R groin SHAAN CDI with Dermabond, RSVG CDI ecchymotic SHAAN with kimi wrap on her RLE. RIJ Cordis/swan at 48, R radial art line, RAC PIV INT; all applicable lines leveled and calibrated. On
Levo, Dobutamine, Precedex, insulin. See nursing worklist and paper chart for additional nursing interventions, med titrations, and care.
--- NOTE | 2025-01-31 19:00 | PTCARENOTE ---
Receieved patient from [facility] at 1845. Patient intubated and sedated, RASS -5. SR on CM, rates 80's, no edema appreciated, heart tones audible, rub auscultated, Impella 5.[address] set to P3 via LCW ascending aorta @ 3, dressing intact but site
bleeding; AV wires in place, see work list for settings - no pacing noted on telemetry; radial pulses palpable, DP pulses present via Doppler; patient initially hypotensive, CaCl IVP given x2. CTx4 to -20 cm wall suction; L/R pleural CT initially
dumped 160 in 15 minutes - CT team aware; no air leak, tidaling, or crepitus noted, dressing CDI, lungs dim at the bases, SIMV vent settings available via worklist; 8.0 ETT 22 @ the R lip, SpO2 100%. Hypoactive B/S, abdomen SNT. Chery catheter in
place draining clear, yellow urine. MS red, CAMP HEAD COUNSELOR CDI, R groin SHAAN CDI with dermabond, RSVG CDI CAMP HEAD COUNSELOR with kimi wrap on her RLE. RIJ Cordis/swan at 48, R radial art line, RAC PIV INT; all applicable lines leveled and calibrated. See nursing worklist and
paper chart for additional nursing interventions and care.
[2025-01-31 19:04] LABS: Glucose - Point of Care 178 mg/dl (70-99)
[2025-01-31] MEDS: KCL 50 IV ×2 (19:06→21:42)
[2025-01-31 19:10] LABS: B.E. 1.1 mmol/L; HCO3 25.0 mmol/L (21-28); O2 Saturation % 100.0 % (94-98); PCO2 36 mmHg (32-35); PO2 141 mmHg (83-108); Potassium 3.1 mMOL/L (3.5-5.1); Sodium 135 mMOL/L (136-145)
[2025-01-31 19:14] LABS: Hematocrit 25.6 % (37.0-47.0); Hemoglobin 9.2 g/dL (12.0-16.0); Platelet Count 137 10^3/uL (130-400)
[2025-01-31 19:23] LABS: Fibrinogen 154 MG/DL (199-459)
[2025-01-31 19:24] LABS: LDH 455 U/L (120-246)
[2025-01-31 19:24] LABS: INR 2.43; PT 26.8 Sec (11.4-14.6)
[2025-01-31 19:25] LABS: APTT 41.4 Sec (23.4-35.0)
[2025-01-31 19:26] LABS: Blood Urea Nitrogen 23 mg/dl (7-17); D-Dimer 1.48 ug/mlFEU (0.00-0.50); Estimated Creatinine Clearance 48 ml/min; Glucose 159 mg/dl (70-99); Magnesium 2.4 mg/dl (1.6-2.3)
--- NOTE | 2025-01-31 19:26 | W.PN.UPDATE ---
Update Note
Progress Note Update
8-year-old female was admitted on 01/24/2025 with a 4 to 5-day history of exertional dyspnea and lower extremity edema. She underwent a left thoracentesis with 850 cc bloody fluid. She was treated with empiric doxycycline and Rocephin for patchy
x-ray. A left heart catheterization revealed two-vessel coronary disease. She had severe aortic stenosis and tricuspid regurgitation. Preoperatively she was in atrial fibrillation not on anticoagulant due to history of vaginal bleeding
approximately 4 months prior to admission. She had new HF R EF (40-45% from 60-65%).
IV fluids: 1500
U.O.:� 500
Blood:� 3Plts/2PRBC
Wires:� 2 atrial and 1 bipolar ventricular wire
Drips: Levo @ 16, Dobut @ 5, Precedex @ 0.3, Insulin
�
NEURO: sedated, pupils pinpoint B/L
RESP: #8OT @23cm> 450/40%/12/5. Lungs clear B/L. 2 mediastinal (40cc on arrival) and R/L pleural (160cc on arrival) chest tubes to -20cm suction. Sanguineous drainage
CV: RRR +S1, S2, no S3, no�rub, no murmur. Dermabond to median sternotomy. RIJ w/Brainard locked @ XXcm. PA 24/7; CVP 3; C.O XX/CI XX . Central Impella @ P3, Flow 1.6, NICKEL OPERATOR 0.2
ABD: round, soft, no BS
EXT: no edema, +1/4 DP pulses B/L, no femoral bruit, right radial A-line intact
: Chery with clear yellow urine
�
A/P: POD #0 s/p AVR #23mm Resilia, TV repair #32 mm band, CABG x 2 (ALMANZAR to LAD, SVG to RPDA), RF/cryo maze, ANNETTE #40 mm clip, drainage of bilateral pleural effusions.
FRANCISCO JAVIER: EF�25-30%
Brought to chemical laboratory tester for attempted Impella CP placement. Stenosis of femoral vessels precluded insertion. Patient brought back to operating room for insertion of Impella 5.5
# Acute cardiogenic shock requiring MCS with central Impella 5.5
- trend ACT
- q6h labs per protocol
- wean Levophed to maintain MAP>70TORR
- keep Dobutamine
- Calcium 150mg to support BP
# CAD
- will require ASA, plavix, statin, beta-jeannie when off MCS/inotropes
# AVR/TV repair
- will need instruction regarding antibiotic prophylaxis for dental and invasive procedures
�
# acute surgical blood loss anemia w/coagulopathy
- transfuse 2FFP/1PRBC in CVICU
- 2 cryo/Vit K+ IV 0.5mg for elevated INR/low fibrinogen
- trend CBC
�
�# Atrial fibrillation s/p ANNETTE clip
- currently SR
�
# PAD
- vasc checks during high dose pressors
[2025-01-31] MEDS: SENOKOT-S PO (20:06)
[2025-01-31 20:16] LABS: Glucose - Point of Care 186 mg/dl (70-99)
[2025-01-31 20:23] LABS: ALT (SGPT) 18 U/L (0-35); AST (SGOT) 100 U/L (14-36); Albumin 1.9 g/dl (3.5-5.0); Alkaline Phosphatase 37 U/L (38-126); Total Protein 3.4 g/dl (6.3-8.2)
[2025-01-31] MEDS: AQUAMEPHYTON 50.25 MG IV (20:25)
[2025-01-31] MEDS: STERILE WATER FOR INJECTION IV (20:28)
[2025-01-31] MEDS: ROCEPHIN IV (20:28)
[2025-01-31 21:12] LABS: Glucose - Point of Care 188 mg/dl (70-99)
[2025-01-31 21:16] LABS: B.E. -1.7 mmol/L; HCO3 22.9 mmol/L (21-28); O2 Saturation % 99.5 % (94-98); PCO2 37 mmHg (32-35); PO2 156 mmHg (83-108)
[2025-01-31 21:28] LABS: Hematocrit 23.9 % (37.0-47.0); Hemoglobin 8.5 g/dL (12.0-16.0); Platelet Count 119 10^3/uL (130-400)
[2025-01-31 21:31] LABS: APTT 39.0 Sec (23.4-35.0); Fibrinogen 307 MG/DL (199-459); INR 1.68; PT 20.3 Sec (11.4-14.6)
[2025-01-31 21:39] LABS: LDH 409 U/L (120-246)
[2025-01-31] MEDS: LEVOPHED 250 IV (21:43)
[2025-01-31] MEDS: CALCIUM GLUCONATE 100 IV (21:51)
[2025-01-31 22:08] LABS: Glucose - Point of Care 170 mg/dl (70-99)
[2025-01-31 23:06] LABS: Glucose - Point of Care 169 mg/dl (70-99)
[2025-01-31] MEDS: DDAVP 54.075 MCG IV (23:25)
[2025-01-31] MEDS: FLEXBUMIN 100 IV (23:56)
[2025-01-31 23:57] LABS: Glucose - Point of Care 143 mg/dl (70-99)
[2025-02-01] VITALS (44 sets, daily range): BP systolic 81–111; BP diastolic 60–80; PULSE 83; O2SAT 100; BMI 20.9
--- NOTE | 2025-02-01 | PTCARENOTE ---
Please see MAR and paper chart for the timing of the administration of the following medication/blood products. Patient received Vitamin K, 2 u PRBCs, 2u FFP, 2 Cryo, 2 K+ 20 mEq IV, Amio restarted at 2140 for ectopy after a nonsustained run of
vtach, calcium gluconate x1, DDAVP, Albumin 25% per orders. Patient's pressure mostly 90-100's systolic with sufficient MAP, however around 2355, pressure dropped to 70-80's systolic with a MAP in the lower 60's. Levo titrated, CVPA at bedside to
assess, Vasopressin added and pending initiation on receipt from pharmacy. CVPA adjusted pacer to A pace at a rate of 80. Patient awake, following commands, RASS -2, denies pain, therapeutic communication utilized. Care plan ongoing.
[2025-02-01 00:27] LABS: B.E. -2.7 mmol/L; HCO3 21.8 mmol/L (21-28); O2 Saturation % 100.0 % (94-98); PCO2 36 mmHg (32-35); PO2 161 mmHg (83-108); Potassium 4.3 mMOL/L (3.5-5.1)
[2025-02-01 00:31] LABS: INR 1.44; PT 18.0 Sec (11.4-14.6)
[2025-02-01 00:32] LABS: APTT 34.9 Sec (23.4-35.0); Fibrinogen 305 MG/DL (199-459)
[2025-02-01 00:40] LABS: LDH 416 U/L (120-246); Magnesium 2.2 mg/dl (1.6-2.3)
[2025-02-01] MEDS: PITRESSIN 100 IV ×2 (00:49→12:53)
[2025-02-01 01:08] LABS: Hematocrit 29.7 % (37.0-47.0); Hemoglobin 10.6 g/dL (12.0-16.0); Platelet Count 144 10^3/uL (130-400)
[2025-02-01] MEDS: ASPIRIN 300 MG RECTAL (01:27)
[2025-02-01] MEDS: ANCEF 5 IV ×3 (01:27→17:54)
[2025-02-01 02:05] LABS: Glucose - Point of Care 141 mg/dl (70-99)
[2025-02-01] MEDS: LEVOPHED 258 MG IV ×2 (02:15→12:58)
[2025-02-01] MEDS: DOBUTREX 250 MG IV (02:19)
[2025-02-01] MEDS: TYLENOL PO (02:36)
[2025-02-01] MEDS: NITRO-BID 1 INCH TOPICAL ×4 (02:53→17:53)
[2025-02-01] MEDS: ALBUMIN 5% 250 IV ×2 (03:36→05:42)
[2025-02-01 03:52] LABS: B.E. -0.1 mmol/L; HCO3 23.8 mmol/L (21-28); O2 Saturation % 100.0 % (94-98); PCO2 35 mmHg (32-35); PO2 165 mmHg (83-108); Potassium 4.1 mMOL/L (3.5-5.1)
[2025-02-01 04:05] LABS: Hematocrit 25.5 % (37.0-47.0); Hemoglobin 9.2 g/dL (12.0-16.0); Mean Corp Hgb Conc. 36.1 g/dL (33.0-37.0); Mean Corpuscular Volume 88.2 fL (81.0-99.0); Platelet Count 117 10^3/uL (130-400); Red Cell Dist. Width 17.0 % (11.5-14.5)
[2025-02-01 04:09] LABS: Fibrinogen 292 MG/DL (199-459)
--- NOTE | 2025-02-01 04:10 | PTCARENOTE ---
Patient CPAPed at 0300, had previously been spontaneously initiating breaths. Albumin 5% administered after patient became hypotensive, amio held at 0345 per CVPA. A pacing on the monitor continues. The patient was suctioned for moderate amounts of
bloody respiratory secretions prior to extubation. CXR performed just before ETT removal. Patient extubated to 6LNC at 0409 without incident. Answered questions appropriately after ETT removal. Patient denies pain at this time. Levo titrated per
protocol, CVPA at bedside to assess.
[2025-02-01 04:12] LABS: D-Dimer 0.93 ug/mlFEU (0.00-0.50)
[2025-02-01 04:13] LABS: Glucose - Point of Care 116 mg/dl (70-99)
[2025-02-01 04:25] LABS: ALT (SGPT) 17 U/L (0-35); AST (SGOT) 75 U/L (14-36); Albumin 2.9 g/dl (3.5-5.0); Alkaline Phosphatase 37 U/L (38-126); Blood Urea Nitrogen 23 mg/dl (7-17); Calcium 9.5 mg/dl (8.4-10.2); Carbon Dioxide 25 mmol/L (22-30); Chloride 108 mmol/L (98-107); Estimated Creatinine Clearance 43 ml/min; Glucose 111 mg/dl (70-99); LDH 370 U/L (120-246); Magnesium 2.2 mg/dl (1.6-2.3); Potassium 4.1 mmol/L (3.5-5.1); Sodium 138 mmol/L (135-145); Total Protein 4.5 g/dl (6.3-8.2); eGFR > 60.00
[2025-02-01 05:07] LABS: Glucose - Point of Care 98 mg/dl (70-99)
[2025-02-01 06:03] LABS: Glucose - Point of Care 89 mg/dl (70-99)
--- NOTE | 2025-02-01 06:12 | W.PN.CT ---
Today's Communication / Plan
-
-pod #1
-extubated uneventfully @ 4:10 am
-mVO2 68.9. CI 1.86, CO 3.03, SVR 1557. Drips: Dobut 5, Levo 7, Vaso 0.02, Insulin
-was on Amio drip overnight for brief NSVT, stopped Amio d/t hypotension
-got 500 Albumin and started on 25% Albumin x3
-paced AAI @ 80 (underlying rhythm is nsr with PACs, PVCs)
-Impella is at P4
-CT outputs: 2 meds 305/360, 2 pleur 750/840 (serosang) in 12/24 hrs
-maintain swan, pw, a-line, Cordis, Chery
-encourage IS
Assessment / Plan
-
- Acute heart failure with cardiogenic shock, aortic valve stenosis and insufficiency, severe tricuspid valve insufficiency, A-fib with RVR and multivessel coronary disease- s/p Surgical aortic valve replacement [23 mm Andrews Inspira's Resilia
bioprosthesis]; CABG x 2 [ALMANZAR to LAD, RSVG to RPDA]; Simple tricuspid valve repair [32 mm band annuloplasty]; Full left and right atrial maze [combination of RF and cryoablation] plus left atrial appendage exclusion [40 mm device]; Drainage of
bilateral pleural effusions, approximately 250 cc in each chest by Dr. Crouch on 01/31/25, pod #1
- Post cardiotomy cardiogenic shock with escalating inotropic support and vasoactive medication- s/p Reopening of sternotomy; Placement of a direct aortic 5.5 Impella left ventricular assist device
by Dr. Crouch on 01/31/25
- Intraop FRANCISCO JAVIER: LVEF at the start of the surgery was approximately 40% with some regional wall motion abnormalities toward the inferior septal and anterior septal portions of the wall. Following surgery, EF did struggle to approximately 20 to 25%
and she was loaded on 5 dobutamine but had escalating requirements for Levophed. RV function was normal as was RV size and there was only a trace residual amount of tricuspid valve insufficiency.
The left atrial appendage was verified to be free of any thrombus or debris preoperatively and found to be totally occlusive postoperatively. There is no paravalvular leak of the aortic valve prosthesis and the mean gradient across the valve was 3
mmHg. There is essentially no mean gradient across the tricuspid valve. At the conclusion of the case, she did respond to volume loading with blood. Of note she was coagulopathic postoperatively with an elevated ACT despite giving almost double
her protamine dose.
- Severe aortic valve stenosis
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
- Atrial fibrillation with rapid ventricular response- didn't tolerate Pradaxa in the past d/t vaginal bleed
- Acute respiratory insufficiency
- Significant volume overload requiring diuresis
- HTN/HLD
- PAD
- Nonsmoker
- Acute postop blood loss anemia - s/p total 4 pRBCs
- Acute postop coagulopathy/ thrombocytopenia - s/p 3 unit platelets, 2 FFPs, 2 cryo, 0.5 iv Vit K, DDAVP
- Acute postop 10 beat NSVT on 01/31
- Acute postop atelectasis
- Acute postop cardiogenic shock, requiring inotrops and pressors
- Acute postop hypovolemia with subsequent hypervolemia
Discussed patient care with: Nursing and Care Team
Subjective
-
Date of Service: February 01, 2025
Objective Data
-
Lab Results
02/01/25 03:42
02/01/25 03:42
PT 18.0 Sec (11.4-14.6) H 02/01/25 00:06
INR 1.44 02/01/25 00:06
APTT 34.9 Sec (23.4-35.0) 02/01/25 00:06
Vital Signs
Vital Signs
Temp Pulse Resp BP Pulse Ox
97.5 F 80 14 102/76 100
02/01/25 05:00 02/01/25 04:50 02/01/25 04:40 02/01/25 04:11 02/01/25 04:50
CT Intake/Output/Weight
01/31/25 01/31/25 02/01/25
06:59 18:59 06:59
Intake Total 3142.9 / 3142.9
Output Total 145 / 1665 1520 / 1665
Balance -145 / 1477.9 1622.9 / 1477.9
SaO2: 100
Physical Exam
-
General: Awake and AOx3
Cardiovascular: Regular rate & rhythm, No Murmurs and No Rub
Respiratory: Decreased Breath Sounds
Sternum: Stable
Incision: Clean, Dry and Dressing Intact
Extremities: No Edema (DPs are by Doppler only, L is easier to find than R)
Abdomen: soft, nontender, nondistended, + decreased bowel sounds
Data Reviewed
-
Lab Results: Results Reviewed
Medications: Active Meds Reviewed
Chest X-Ray: Report Reviewed and Image Reviewed
ECG: Report Reviewed and Image Reviewed
[2025-02-01 07:04] LABS: Glucose - Point of Care 105 mg/dl (70-99)
--- NOTE | 2025-02-01 07:45 | W.PN.ANS.POP ---
Anesthesia Post Operative
- Anesthesia Post Op Note
Vital Signs Stable-See Nursing Note: Yes (Patient is on vasoactive support with Impella in place. )
Airway Patent: Yes (Extubated this am to 5LNC)
Adequate Pain Control: Yes
Change in Mental Status: No
Current Postoperative Nausea & Vomiting: No
Anesthesia Complications: No
General Anesthetic Recall: No
Unplanned Admission: No
Post Op Hydration Adequate: Yes
[2025-02-01 08:01] LABS: Glucose - Point of Care 89 mg/dl (70-99)
[2025-02-01] MEDS: LIDOCAINE 4% PATCH TOPICAL (08:13)
[2025-02-01] MEDS: FLEXBUMIN 100 IV ×2 (08:45→16:07)
[2025-02-01] MEDS: LOW STRENGTH ASPIRIN 81 MG PO (08:45)
[2025-02-01] MEDS: BACTROBAN 2% OINTMENT 1 APPLIC NASAL ×2 (08:45→20:59)
[2025-02-01] MEDS: PACERONE 200 MG PO (08:46)
[2025-02-01] MEDS: PROTONIX 40 MG PO (08:46)
[2025-02-01] MEDS: ZOFRAN 4 MG IV (09:47)
[2025-02-01 10:07] LABS: Glucose - Point of Care 109 mg/dl (70-99)
[2025-02-01] MEDS: LIPITOR PO (10:19)
[2025-02-01] MEDS: MAGNESIUM OXIDE PO (10:19)
[2025-02-01] MEDS: VITAMIN C PO (10:26)
[2025-02-01] MEDS: NEURONTIN PO ×2 (10:26→15:53)
[2025-02-01] MEDS: SENOKOT-S PO (10:26)
--- NOTE | 2025-02-01 10:30 | W.PN.CD ---
Today's Communication / Plan
-
Continue Impella and vasoactive support. Wean as tolerated.
Postoperative care per CT surgery.
We will continue to follow along and add GDMT as tolerated.
Impression / Plan
-
I/P: 80F with persistent atrial fibrillation (abnormal bleeding on dabigatran), CAD (LAD and RCA medically managed, 2012), PAD (50-60% R ICA), hypertension, dyslipidemia, moderate MR, , moderate pulmonary hypertension, and moderate to severe TR
who presented with shortness of breath for several days found to have reduced LVEF, severe . mod AR and severe TR and multivessel CAD.
Outpatient cable television installer: Dr. Pinedo
Acute heart failure with cardiogenic shock
-Likely due to CAD and mixed valvular disease
-s/p Surgical aortic valve replacement [23 mm Andrews Inspira's Resilia bioprosthesis]; CABG x 2 [ALMANZAR to LAD, RSVG to RPDA]; Simple tricuspid valve repair [32 mm band annuloplasty]; Full left and right atrial maze [combination of RF and
cryoablation] plus left atrial appendage exclusion ()
-Post cardiotomy cardiogenic shock with escalating inotropic support and vasoactive medication- s/p Reopening of sternotomy; Placement of a direct aortic 5.5 Impella left ventricular assist device
-Continue Impella at P4, wean as tolerated
-Continue Levo, dobutamine, and Vaso for goal MAP >65, CI >2
ICM
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
- TTE: Reduction in LVEF from 60-65% to 40-45% with more prominent septal wall motion abnormality, critical , moderate AR, and severe TR.
- Dry weight to be determined, Lasix currently held for cardiogenic shock
- LE edema on exam, she would benefit from compression, Tubigrips ordered
- GDMT as tolerated:
-LUCIA/ARB/ARNI: Limited by blood pressure
-SGLT2 inhibitor: No prescription coverage, cost prohibitive
-Aldosterone agonist: Spironolactone 25 mg held
-Beta jeannie: Metoprolol succinate 50 mg daily held
-Isosorbide/Hydralazine:�Not indicated
-ICD: Not indicated
- Trend daily weight, I/O, and BMP
- Heart failure education
- Pleural effusion, left
- 850 mL clear yellow pleural fluid 01/25/2025
Persistent atrial fibrillation
- currently paced
- BB held due to shock
- Continue amiodarone
- [id number] score is 6 for age, female, HTN, CHF, and vascular disease.
- Oral anticoagulation: We reviewed stroke risk and anticoagulation. She does not want to retrial here. She had vaginal bleeding on dabigatran.
Aortic valve disease - Severe Aortic stenosis, moderate AR
-s/p Surgical aortic valve replacement [23 mm Andrews Inspira's Resilia bioprosthesis]; CABG x 2 [ALMANZAR to LAD, RSVG to RPDA]; Simple tricuspid valve repair [32 mm band annuloplasty]; Full left and right atrial maze [combination of RF and
cryoablation] plus left atrial appendage exclusion (01/31, Tra
CAD - multivessel CAD
-CATH - LAD severe proximal stenosis and mid vessel MANAGEMENT COORDINATOR with more distal vessel filling via left to left collaterals. Diagonal ostial stenosis. RCA ostial 80% and distal 90%
-s/p revascularization as above
-continue ASA and statin
Tricuspid regurgitation, severe
-s/p repair
Hyponatremia:improved
CAP, on antibiotics per primary service, leukocytosis has resolved
Subjective: Patient awake and talking to me. Says she feels fine and denies any pain.
CARDIAC CATH 01/26/2025:
1. 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
2. Severe low-flow low gradient aortic stenosis
3. Severe multivessel coronary artery disease as described
RECOMMENDATIONS
1. Diuresis and titration of GDMT for heart failure.
2. Outpatient workup for aortic valve replacement +/- coronary revascularization, surgical versus percutaneous. Patient needs TAVR CT protocol next and then heart team discussion to evaluate options. Percutaneous revascularization would involve
multisegment stenting of the RCA to address flow to the large RPL and multi segment stenting of the LAD including the proximal LAD, mid-LAD MANAGEMENT COORDINATOR, possibly necessitating rescue of D1. CABG would ideally involve grafts to the LAD, D1, and RPL. The D2
and RPDA are atretic and do not appear to be candidates for revascularization.
Physical Exam
Vital Signs/Labs
Vital Signs
Temp Pulse Resp BP Pulse Ox
95.9 F L 83 13 108/77 100
02/01/25 10:00 02/01/25 10:10 02/01/25 10:10 02/01/25 10:00 02/01/25 10:10
01/31/25 02/01/25 02/02/25
06:59 06:59 06:59
Actual Weight 120 lb 2.431 oz 133 lb 9.602 oz
02/01/25 03:42
02/01/25 03:42
PT 18.0 Sec (11.4-14.6) H 02/01/25 00:06
INR 1.44 02/01/25 00:06
APTT 34.9 Sec (23.4-35.0) 02/01/25 00:06
Magnesium 2.2 mg/dl (1.6-2.3) 02/01/25 03:42
Triglycerides 66 mg/dl (10-149) 01/25/25 04:53
LDL Cholesterol, Calc 75 mg/dl 01/25/25 04:53
VLDL Cholesterol, Calc 13 mg/dl (0-30) 01/25/25 04:53
HDL Cholesterol 74 mg/dl 01/25/25 04:53
01/24/25
15:33
[id number] Pept [id number]
Physical Exam
Constitutional: No acute distress and Comfortable
Cardiovascular: Pedal edema is absent and Other (Impella hum heard over precordium)
Respiratory: Respiratory effort normal and Lungs clear to auscul.
Neuro/Psych: AO x 3
Other: Cardiac Device Site (Impella in L supraclavicular fossa, sternal wound)
Data Reviewed
-
Date of Service: February 01, 2025
Medical Decision Making: Reviewed Test Results, Independent Historian Assessment, Test Interpretation and Review of Case with other Provider
EKG: Tracing Personally Visualized and interpreted
Echo: Report Reviewed by me
Labs: Labs Reviewed by me
Critical Care Time (in minutes): 41
[2025-02-01] MEDS: PLAVIX PO (10:38)
--- NOTE | 2025-02-01 10:45 | PTCARENOTE ---
Patient received from field automobile adjuster resting in bed, sleepy but AAO x 3. RIJ Cordis w/[place] catheter, R radial arterial lines present - leveled, flushed, and calibrated w/good waveforms returned.NSR via cm, SaO2 @ 100% on 6lnc, titrating as able.
Epicardial A+V wires to pulse generator - A-wire connected w/intermittent pacing noted, V-wire tied to box. MUNIRA Maldonado to bedside, pacer settings adjusted. Impella 5.5 @ P4 setting via LCW @ 33cm - dressing w/old drainage noted, stable. Radial
pulses palp, DP pulses obtainable via doppler. Mediastinal chest tubes x 2 to pleurevac, L and R pleural chest tubes to separate pleurevac - both placed to -20cm suction w/no air leaks noted. Chery catheter to gravity. Surgical procedural sites
stable. See work list for full assessment, interventions performed, and intravenous infusions and titrations.
[2025-02-01 11:08] LABS: LDH 314 U/L (120-246)
[2025-02-01] MEDS: HEPARIN 25000 UNITS/250 ML IV (11:23)
[2025-02-01 11:35] LABS: APTT 37.1 Sec (23.4-35.0)
--- NOTE | 2025-02-01 12:00 | PTCARENOTE ---
VS, hemodynamics remain stable. Weaning pressors as able. Patient tolerating clear liquid diet. Denies pain. Heparin gtt initiated as ordered, chest tube drainage and procedural sites remain stable. MUNIRA Maldonado updated t/o shift.
--- NOTE | 2025-02-01 12:03 | CM ---
Reviewed chart. Met with Mrs. Witt and her son to review discharge plans. She states prior to admission she resides alone in a first floor apartment with two steps to enter. Prior to admission she ambulates with a single point cane. Her son is
in from [place] and is planning on staying a month. Will need to she her functional level to see if she will have any skilled care needs. Will need physical and occupational therapy evaluation when medically indicated. Medical work-up in
progress. The discharge plan is some level of inpatient rehab. Acute versus SNF when medically stable.
[2025-02-01 12:11] LABS: Glucose - Point of Care 100 mg/dl (70-99)
[2025-02-01] MEDS: PLAVIX 75 MG PO (13:17)
[2025-02-01] MEDS: TYLENOL 1000 MG PO ×2 (14:00→20:58)
[2025-02-01] MEDS: FERRLECIT 110 MG IV (14:00)
[2025-02-01] MEDS: NSS IV (14:15)
[2025-02-01] MEDS: SODIUM BICARBONATE 1025 MEQ INF CATH (14:23)
[2025-02-01 16:37] LABS: APTT > 200 Sec (23.4-35.0)
[2025-02-01 16:41] LABS: LDH 307 U/L (120-246)
[2025-02-01 17:03] LABS: Glucose - Point of Care 101 mg/dl (70-99)
[2025-02-01 17:03] LABS: Glucose - Point of Care 106 mg/dl (70-99)
[2025-02-01 17:03] LABS: Glucose - Point of Care 108 mg/dl (70-99)
[2025-02-01 17:05] LABS: Glucose - Point of Care 97 mg/dl (70-99)
[2025-02-01 18:02] LABS: Glucose - Point of Care 98 mg/dl (70-99)
[2025-02-01 18:50] LABS: APTT 68.5 Sec (23.4-35.0)
[2025-02-01 19:07] LABS: Glucose - Point of Care 109 mg/dl (70-99)
--- NOTE | 2025-02-01 20:21 | PTCARENOTE ---
assumed care of patient @ 1900. received pt laying in bed, Aox3. flat affect but appropriate. SR with occasional pvcs, occasional A pacing. AV wires set to AAI 70,10,.7. + 1 edema to uppers and lowers. BP 110s/60s, PAP 30s/10s, cvp ~12. C.I >2. 5.5
impella present at 33 through left chest wall in the ascending aorta, on p4 no issues. impella waveform good. Lungs clear, diminished on 2L satting high 90s. taking shallow breaths. 2 meds and L and R pleural CTs to wall suction, no air leak,
tidaling or crepitus noted. Belly round, hypoactive, poor appetite reportedly. CTPA notified of low UO ~ 15 /hr, will give 20 IV lasix. Urine clear anita. Sternum LACROSSE PLAYER CDI, impella secured with 3 points of fixation however left chest wall dressing
saturated with old blood, recommended by dayshift ctpa to not change and just observe if any extra drainage, none noted so far. R groin site wrapped with pressure dressing, was apparently very swollen but soft still. R lower leg wrapped with kimi. R
IJ cordis with swan at 48, R radial a line, R ac, L wrist PIV all intact. central lines flushed and zeroed. received on levo at 3, vaso at .02, heparin off for an additional 2 hours untill 2100 per ctpa, and dobut at 5. pt resting comfortably
without complaints with call sánchez within reach.
[2025-02-01] MEDS: MAGNESIUM OXIDE 500 MG PO (20:58)
[2025-02-01] MEDS: SENOKOT-S 1 TABLET PO (20:59)
[2025-02-01] MEDS: NEURONTIN 100 MG PO (20:59)
[2025-02-01] MEDS: LASIX 20 MG IV (20:59)
[2025-02-01] MEDS: REMOVE LIDOCAINE PATCH 1 PATCH REMOVE (20:59)
[2025-02-01 22:35] LABS: LDH 285 U/L (120-246)
[2025-02-02] VITALS (33 sets, daily range): BP systolic 92–129; BP diastolic 54–91; BMI 21.3
--- NOTE | 2025-02-02 | PTCARENOTE ---
pt resting comfortably, no change in assessment .
[2025-02-02] MEDS: NITRO-BID 1 INCH TOPICAL ×4 (02:02→23:54)
[2025-02-02 03:36] LABS: Hematocrit 21.3 % (37.0-47.0); Hemoglobin 7.4 g/dL (12.0-16.0); Mean Corp Hgb Conc. 34.7 g/dL (33.0-37.0); Mean Corpuscular Volume 90.6 fL (81.0-99.0); Platelet Count 65 10^3/uL (130-400); Red Cell Dist. Width 17.4 % (11.5-14.5)
--- NOTE | 2025-02-02 03:39 | W.PN.CT ---
Today's Communication / Plan
-
pod#2
- Levophed off last night, Vasopressin @ 0.01>wean as BP tolerates
- continue Dobutamine
- Impella @ P4 w/systemic Heparin (goal PTT 40-60)
- SR w/ occasional atrial pacing (back-up AAI @ 70)
- low dose diuretic as tolerated
- plan for bedside removal of Impella 24-48h
Assessment / Plan
-
- Acute heart failure with cardiogenic shock, aortic valve stenosis and insufficiency, severe tricuspid valve insufficiency, A-fib with RVR and multivessel coronary disease- s/p Surgical aortic valve replacement [23 mm Andrews Inspira's Resilia
bioprosthesis]; CABG x 2 [ALMANZAR to LAD, RSVG to RPDA]; Simple tricuspid valve repair [32 mm band annuloplasty]; Full left and right atrial maze [combination of RF and cryoablation] plus left atrial appendage exclusion [40 mm device]; Drainage of
bilateral pleural effusions, approximately 250 cc in each chest by Dr. Crouch on 01/31/25, pod #2
- Post cardiotomy cardiogenic shock with escalating inotropic support and vasoactive medication- s/p Reopening of sternotomy; Placement of a direct aortic 5.5 Impella left ventricular assist device
by Dr. Crouch on 01/31/25
- Intraop FRANCISCO JAVIER: LVEF at the start of the surgery was approximately 40% with some regional wall motion abnormalities toward the inferior septal and anterior septal portions of the wall. Following surgery, EF did struggle to approximately 20 to 25%
and she was loaded on 5 dobutamine but had escalating requirements for Levophed. RV function was normal as was RV size and there was only a trace residual amount of tricuspid valve insufficiency.
The left atrial appendage was verified to be free of any thrombus or debris preoperatively and found to be totally occlusive postoperatively. There is no paravalvular leak of the aortic valve prosthesis and the mean gradient across the valve was 3
mmHg. There is essentially no mean gradient across the tricuspid valve. At the conclusion of the case, she did respond to volume loading with blood. Of note she was coagulopathic postoperatively with an elevated ACT despite giving almost double
her protamine dose.
- Severe aortic valve stenosis
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
- Atrial fibrillation with rapid ventricular response- didn't tolerate Pradaxa in the past d/t vaginal bleed
- Acute respiratory insufficiency
- Significant volume overload requiring diuresis
- HTN/HLD
- PAD
- Nonsmoker
- Acute postop blood loss anemia - s/p total 4 pRBCs
- Acute postop coagulopathy/ thrombocytopenia - s/p 3 unit platelets, 2 FFPs, 2 cryo, 0.5 iv Vit K, DDAVP
- Acute postop 10 beat NSVT on 01/31
- Acute postop atelectasis
- Acute postop cardiogenic shock, requiring mechanical cardiac support (Impella 5.5), inotrops and pressors
- Acute postop hypovolemia with subsequent hypervolemia
Discussed patient care with: Nursing and Care Team
Subjective
Procedure
Aortic valve replacement [23 mm Andrews Inspira's Resilia bioprosthesis]; CABG x 2 [ALMANZAR to LAD, RSVG to RPDA]; Simple tricuspid valve repair [32 mm band annuloplasty]; Full left and right atrial maze [combination of RF and cryoablation] plus left
atrial appendage exclusion [40 mm device]; Drainage of bilateral pleural effusions, approximately 250 cc in each chest by Dr. Crouch on 01/31/25
-
Date of Service: February 02, 2025
Objective Data
-
Lab Results
02/02/25 03:07
PT 18.0 Sec (11.4-14.6) H 02/01/25 00:06
INR 1.44 02/01/25 00:06
APTT 68.5 Sec (23.4-35.0) H 02/01/25 18:32
Vital Signs
Vital Signs
Temp Pulse Resp BP Pulse Ox
97.8 F 84 14 98/63 100
02/02/25 03:00 02/02/25 03:10 02/02/25 03:10 02/02/25 03:00 02/02/25 03:10
CT Intake/Output/Weight
02/01/25 02/01/25 02/02/25
06:59 18:59 06:59
Intake Total 3465.0 / 3513.1 1017.0 / 1370.1 353.1 / 1370.1
Output Total 1600 / 1790 670 / 1135 465 / 1135
Balance 1865.0 / 1723.1 347.0 / 235.1 -111.9 / 235.1
SaO2: 100
Physical Exam
-
General: AOx3
Cardiovascular: Regular rate & rhythm
Respiratory: Clear and Equal
Sternum: Stable
Incision: Dressing Intact and Other (central Impella @ P4, Flow 2.4, EXHAUST WORKER 0.6-no suction events. RIJ w/[place] )
Extremities: Edema +1 (generalized), No Erythema and Other (RLE SVG intact)
Data Reviewed
-
Lab Results: Results Reviewed
Medications: Active Meds Reviewed
Chest X-Ray: Image Reviewed
ECG: Image Reviewed
[2025-02-02 03:42] LABS: Fibrinogen 267 MG/DL (199-459)
[2025-02-02 03:43] LABS: APTT 60.2 Sec (23.4-35.0)
[2025-02-02 03:45] LABS: D-Dimer 0.42 ug/mlFEU (0.00-0.50)
[2025-02-02 03:54] LABS: ALT (SGPT) < 10 U/L (0-35); AST (SGOT) 55 U/L (14-36); Albumin 3.4 g/dl (3.5-5.0); Alkaline Phosphatase 38 U/L (38-126); Blood Urea Nitrogen 30 mg/dl (7-17); Calcium 9.3 mg/dl (8.4-10.2); Carbon Dioxide 25 mmol/L (22-30); Chloride 106 mmol/L (98-107); Estimated Creatinine Clearance 33 ml/min; Glucose 121 mg/dl (70-99); LDH 276 U/L (120-246); Magnesium 2.1 mg/dl (1.6-2.3); Potassium 4.1 mmol/L (3.5-5.1); Sodium 138 mmol/L (135-145); Total Protein 4.7 g/dl (6.3-8.2); eGFR 41.57
--- NOTE | 2025-02-02 04:00 | PTCARENOTE ---
labs resulted, ptt 60.2, will keep heparin at 300 per ctnp. no other change in assessment .
--- NOTE | 2025-02-02 05:12 | PTCARENOTE ---
levo titrated off, BP stable, pt resting comfortably, no change in assessment .
[2025-02-02] MEDS: TYLENOL 1000 MG PO ×3 (06:10→23:25)
[2025-02-02] MEDS: NOVOLOG FLEXPEN-LOW RESISTANCE SC (07:38)
--- NOTE | 2025-02-02 07:46 | W.PN.INTV ---
Today's Communication / Plan
Recommendations
Impella and inotropes-dobutamine continues
Gentle diuresis
Wean FiO2
Wean pressors
Assessment
-
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
Valvular disease and CAD
Status post AVR--23 mm bioprosthesis, CABG times x 2--ALMANZAR-LAD, RSVG - RPDA, tricuspid valve repair, maze procedure, reopening sternotomy-Impella device placement-Dr. Crouch 01/31/2025
CHF reduced EF
Left greater than right pleural effusion
Status post left thoracentesis 01/25/25--850 mL of clear pleural fluid
Atrial fibrillation with rapid ventricular response
Brief nonsustained ventricular tachycardia postop
Postop anemia status post 4 units PRBC
Postop coagulopathy/thrombocytopenia-status post 3 units platelets, 2 units FFP, 2 units cryoprecipitate's, vitamin K and DDAVP
Postoperative cardiogenic shock requiring inotropes and pressors as well as left ventricular assist device
Mild transaminitis
Hypokalemia
Hypomagnesemia
Leukocytosis
Conditions present prior to admission:
Hypertension.
Hyperlipidemia.
Carotid stenosis.
PAD.
PAF on aspirin.
Vaginal bleeding on Pradaxa.
Left wrist repair.
Plan
Tolerated extubation
Wean FiO2
Incentive spirometry
Aspiration precautions
Nebulizers if needed-currently not bronchospastic
Pulmonary artery catheter parameters will continue to be followed
Pressors/antihypertensive/inotropes/diuretics will be provided as needed
Dobutamine continues
Impella [id number] 24-48 hours
Diuretics as tolerated
Diuretic note
Monitor chest tube output
Monitor hemoglobin-received a total of 4 units packed red blood cells
Monitor platelet count and coags
Transfuse blood product if needed
CT surgery following chest tubes
Cardiology following-correspondence reviewed
Atrial fibrillation rate control
Amiodarone drip briefly for NSVT and subsequently stopped due to hypotension
Preoperative echocardiogram and cardiac catheterization summarized below
Monitor blood sugar
Insulin drip per protocol
DVT prophylaxis
Early nutrition
Early mobilization after Impella removed
Critical care statement: A total of 40 minutes of critical care time was provided for this patient today. This includes management of ventilator, spontaneous breathing trial, arterial blood gases, pressors, of unstable vital signs, evaluation of the
patient at bedside, reviewing the patient's pertinent medical records including radiographs, microbiology, laboratory evaluations, and discussion with primary team and critical care nursing.
Diagnostic data:
Chest x-ray 01/24/2025-mild pulmonary vascular congestion and moderate left
Lower extremity ultrasound 01/24/2025-no evidence for left lower extremity DVT
Thoracentesis-left side 01/25/01/25/2025-01/25/25-850 mL liter Clear pleural fluid
CT chest TAVR 01/29/2025-small bilateral pleural effusions, thyroid gland unremarkable, compressive atelectasis pulm basilar segments, no focal consolidation or pneumothorax, no pulmonary mass or nodule
Echocardiogram 01/25/2025-EF 40-45%, apical septal hypokinesis, mild mitral stenosis, moderate mitral regurgitation, severe aortic stenosis with CHARLY 0.5 cm, moderate aortic regurgitation, severe tricuspid regurgitation estimated PA systolic 41
Cardiac catheterization right and left 01/24/2025-RA 15, RV 36/10, PA 41/27, PCWP-23, cardiac output 2.97, cardiac index 1.7, SVR 1887, severe multivessel CAD noted as well
Subjective Dataa
Subjective Data
Date of Service:
Date of Service: February 02, 2025
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
Subjective:
tolerated extubation, Impella still in place, FiO2 weaned, no complaints of shortness of breath, chest congestion, abdominal pain
Review of Systems
General: Other ( Per HPI)
Objective Data
Data Reviewed
Vital Signs / I&O / Oxygen:
Vital Signs
Temp Pulse Resp BP Pulse Ox
97.7 F 88 13 104/68 100
02/02/25 07:00 02/02/25 07:00 02/02/25 07:00 02/02/25 07:00 02/02/25 07:00
Intake and Output
02/01/25 02/02/25 02/03/25
06:59 06:59 06:59
Intake Total 3465.0 / 3513.1 1442.4 / 1466.5 24.1 / 24.1
Output Total 1745 / 1790 1310 / 1365 55 / 55
Balance 1720.0 / 1723.1 132.4 / 101.5 -30.9 / -30.9
SaO2 [CPAP/PSV] 100
SaO2 [SIMV] 100
SaO2 100
Nasal Cannula flow liters per 2
minute
Physical Exam
General: Respiratory Distress (n) and Comfortable
HEENT: Normocephalic, Anicteric and Moist Mucous Membranes
Cardiovascular: Regular Rhythm and Murmur
Respiratory: Wheeze (n), Crackles, Rhonchi (n), Non-Labored Respirations, Accessory Resp Muscle Use (n) and Stridor (n)
GI: Soft, Non Distended and Non Tender
Neurology: Awake, Alert and No Motor Deficits
Skin: Warm, Good Color, Cyanosis (n) and Jaundice (n)
Labs/Micro/Reports
Lab Data
02/02/25 03:07
02/02/25 03:07
Laboratory Results
02/01/25 02/01/25 02/01/25
11:16 16:01 18:32
APTT 37.1 H > 200 H* 68.5 H
02/02/25
03:07
APTT 60.2 H
Microbiology
01/31/25 10:05 Urine Urine Culture - Final
NO GROWTH
--- NOTE | 2025-02-02 08:00 | PTCARENOTE ---
resumed care of patient from previous RN. Walking rounds completed. Laying in bed at time of assessment. AAOx3. very flat. NSR with PACS and A pacing. AV wires set to AAI 70/10/.7. + 2 edema to uppers and lowers. VSS. 5.5 impella present left chest
wall. p4. tolerating well. Lungs diminished 98% on RA. CTx4 2 meds and L and R pleural CTs to suction. no air leak or crepitus noted. poor appetite. Urine clear anita draining from dozier. All surgical sites CDI, impella secured x3 points. left chest
wall dressing saturated with old blood. stable. R groin site wrapped with pressure dressing, stable. R lower leg wrapped with kimi. R IJ cordis with swan. R radial a line. PIV x2. vaso at .01, heparin gtt infusing per glycemic protocol. dobut at 5.
will continue to monitor.
[2025-02-02] MEDS: BACTROBAN 2% OINTMENT 1 APPLIC NASAL ×2 (08:14→21:22)
[2025-02-02] MEDS: LIDOCAINE 4% PATCH TOPICAL (08:16)
[2025-02-02] MEDS: SENOKOT-S 1 TABLET PO (08:51)
[2025-02-02] MEDS: PLAVIX 75 MG PO (08:51)
[2025-02-02] MEDS: PROTONIX 40 MG PO (08:51)
[2025-02-02] MEDS: LOW STRENGTH ASPIRIN 81 MG PO (08:51)
[2025-02-02] MEDS: LIPITOR 80 MG PO (08:51)
[2025-02-02] MEDS: VITAMIN C 500 MG PO (08:51)
[2025-02-02] MEDS: NEURONTIN 100 MG PO ×2 (08:51→23:25)
[2025-02-02] MEDS: MAGNESIUM OXIDE 500 MG PO (08:51)
--- NOTE | 2025-02-02 10:00 | PTCARENOTE ---
1 unit PRBCs infused as well as 1 unit plts as ordered.
[2025-02-02] MEDS: LASIX 40 MG IV (10:01)
[2025-02-02 10:13] LABS: APTT 47.5 Sec (23.4-35.0)
[2025-02-02 10:52] LABS: LDH 292 U/L (120-246)
[2025-02-02] MEDS: NSS 500 IV (12:20)
[2025-02-02] MEDS: ALBUMIN 5% 250 IV (12:34)
[2025-02-02 13:06] LABS: Glucose - Point of Care 174 mg/dl (70-99)
[2025-02-02] MEDS: FERRLECIT 110 MG IV (14:04)
[2025-02-02] MEDS: NOVOLOG FLEXPEN-LOW RESISTANCE 1 UNITS SC (14:04)
[2025-02-02 14:42] LABS: LDH 284 U/L (120-246)
[2025-02-02] MEDS: NEURONTIN PO (15:11)
[2025-02-02 15:33] LABS: B.E. -2.0 mmol/L; HCO3 21.7 mmol/L (21-28); O2 Saturation % 99.8 % (94-98); PCO2 32 mmHg (32-35); PO2 137 mmHg (83-108)
[2025-02-02] MEDS: LR 1000 IV (15:34)
[2025-02-02] MEDS: PITRESSIN 100 IV (15:40)
[2025-02-02 15:46] LABS: APTT 86.7 Sec (23.4-35.0)
--- NOTE | 2025-02-02 16:40 | PTCARENOTE ---
2nd unit PRBCs infused without issue.
[2025-02-02] MEDS: NITRO-BID TOPICAL (17:23)
[2025-02-02 17:28] LABS: Glucose - Point of Care 218 mg/dl (70-99)
[2025-02-02] MEDS: NOVOLOG FLEXPEN-LOW RESISTANCE 2 UNITS SC (17:28)
[2025-02-02 17:31] LABS: Hematocrit 27.6 % (37.0-47.0); Hemoglobin 9.8 g/dL (12.0-16.0); Mean Corp Hgb Conc. 35.5 g/dL (33.0-37.0); Mean Corpuscular Volume 87.3 fL (81.0-99.0); Platelet Count 76 10^3/uL (130-400); Red Cell Dist. Width 17.1 % (11.5-14.5)
[2025-02-02 17:38] LABS: INR 2.17; PT 24.3 Sec (11.4-14.6)
[2025-02-02 17:40] LABS: APTT 72.5 Sec (23.4-35.0)
[2025-02-02] MEDS: CORDARONE 518 MG IV (18:19)
[2025-02-02] MEDS: CORDARONE 103 MG IV (18:19)
[2025-02-02] MEDS: MAGNESIUM SULFATE 50 IV (18:19)
[2025-02-02] MEDS: MEPHYTON 10 MG PO (18:39)
[2025-02-02 18:44] LABS: ALT (SGPT) 11 U/L (0-35); AST (SGOT) 50 U/L (14-36); Albumin 3.7 g/dl (3.5-5.0); Alkaline Phosphatase 43 U/L (38-126); Blood Urea Nitrogen 39 mg/dl (7-17); Calcium 9.1 mg/dl (8.4-10.2); Carbon Dioxide 21 mmol/L (22-30); Chloride 103 mmol/L (98-107); Estimated Creatinine Clearance 29 ml/min; Glucose 200 mg/dl (70-99); Potassium 4.1 mmol/L (3.5-5.1); Sodium 132 mmol/L (135-145); Total Protein 5.3 g/dl (6.3-8.2); eGFR 35.01
[2025-02-02] MEDS: SODIUM BICARBONATE 50 MEQ IV (20:08)
--- NOTE | 2025-02-02 21:00 | PTCARENOTE ---
Report received from JESSICA Peña. Walking rounds done. During walking rounds, pt converted from AF to a junctional rhythm, rate 58-60's. BP 87-90's/50's, MAP 60's. Amio gtt turned off. Pt A paced at 74 with good capture (mA 10, sens 0.4) with
subsequent increase in BP. BP 90-100's/50's. V wire remains insulated. CI done: 2.11. Impella at P4. Vasopressin gtt at 0.02 units/min. Dobutamine gtt at 5 mcg/kg/min. LR at 75 mls/hr, Heparin at 300 units/hr. Amio gtt remains off. Ed, PA notified
and aware of all gtts and hemodynamics. Pt noted to have more sinus beats. PA at bedside at ~ 2100. Back up rate to A pacing decreased to 50, mA 10, sens. 0.4. PA aware of Pleural CT output and R groin site. R groin site with increased bruising.
Firm to site. marked via PA and monitored. R DP and PT pulse found via doppler. L DP and PT pulse also found via doppler.
Pt oriented to person, place, purpose, time. Speech clear. Follows simple commands with equal strength. Flat affect. Pt on room air. Moist, nonproductive cough. BBS present. Shallow breathing at times. Denies dyspnea. CDB and IS encouraged. IS peak
500 mls. Bilateral pleural and mediastinal CTs to -20 cm suction. Q1h and prn CT outputs monitored. Belly soft, nontender. Normoactive bs x 4. Chery to drain, anita urine. Q1 hr UO monitored. Accuchecks ACHS. Turned q 2 hr. Ongoing plan of care.
[2025-02-02] MEDS: REMOVE LIDOCAINE PATCH 1 PATCH REMOVE (21:22)
[2025-02-02] MEDS: SENOKOT-S PO (21:22)
[2025-02-02 22:27] LABS: Glucose - Point of Care 222 mg/dl (70-99)
[2025-02-02 22:35] LABS: Hematocrit 29.2 % (37.0-47.0); Hemoglobin 10.3 g/dL (12.0-16.0); Mean Corp Hgb Conc. 35.3 g/dL (33.0-37.0); Mean Corpuscular Volume 86.4 fL (81.0-99.0); Platelet Count 77 10^3/uL (130-400); Red Cell Dist. Width 17.8 % (11.5-14.5)
[2025-02-02 22:36] LABS: INR 2.12; PT 23.8 Sec (11.4-14.6)
[2025-02-02 22:53] LABS: Blood Urea Nitrogen 43 mg/dl (7-17); Calcium 8.8 mg/dl (8.4-10.2); Carbon Dioxide 24 mmol/L (22-30); Chloride 102 mmol/L (98-107); Estimated Creatinine Clearance 29 ml/min; Glucose 193 mg/dl (70-99); LDH 310 U/L (120-246); Magnesium 3.0 mg/dl (1.6-2.3); Potassium 3.7 mmol/L (3.5-5.1); Sodium 133 mmol/L (135-145); eGFR 35.01
[2025-02-02] MEDS: PACERONE PO (23:24)
[2025-02-02] MEDS: MAGNESIUM OXIDE PO (23:24)
[2025-02-02] MEDS: KCL PO (23:53)
[2025-02-02] MEDS: CALCIUM GLUCONATE 130 MG IV (23:53)
[2025-02-03] VITALS (51 sets, daily range): BP systolic 83–130; BP diastolic 47–89; PULSE 80; O2SAT 96; BMI 22.6
--- NOTE | 2025-02-03 00:15 | PTCARENOTE ---
Labs drawn and sent per order. PA aware of results. Ca and K repleted as ordered. Repeat CI 1.94. Dobut at 5 mcg. Impella remains at P4. Pt in SR with PVCs at times. PA aware. Vaso off at 2054, then restarted at 2154 for MAP 60's. UO 10-30/hr. PA
aware.
[2025-02-03] MEDS: KCL 10 MEQ PO (00:28)
[2025-02-03] MEDS: NOVOLOG FLEXPEN 6 UNITS SC (00:44)
[2025-02-03] MEDS: KCL ELIXIR 40 MEQ PO (00:55)
--- NOTE | 2025-02-03 02:46 | PTCARENOTE ---
CI done while pt mainly in junctional rhythm, rate 60's, occasional sinus beats. CI 1.66. BP with MAPs >70. Dobutamine 5 mcg/kg/min. Vasopressin 0.02 units/min. UO for 0200 30 mls. Sats 96% on room air. PA called and notified.
--- NOTE | 2025-02-03 02:50 | PTCARENOTE ---
Pt noted to be in junctional rhythm, rate 60's. MAP 70 +. CI down to 1.6 at 0230. PA called and notified. Dobut at 5, Vaso at 0.02. Impella at P4. Repeat CI done at 0315 as pt having more sinus beats. CI 1.8. Will obtain am labs. Ongoing plan of
care.
--- NOTE | 2025-02-03 04:15 | W.PN.CT ---
Today's Communication / Plan
-
Plan:
-No major issues overnight. Neurologically intact
-Requiring Dobutamine @ 5, did not tolerate decrease to 4 yesterday. Also noted to be on Heparin gtt and Vasopressin 0.01. Amiodarone d/c'd, 1LR @ 75 ml/hr completed
-Went into A-fib with RVR requiring Amiodarone gtt, converted to junctional rhythm 50's requiring temporary pacing @ 70 bpm
-Intrinsic rhythm of NSR returned last night @ 1923. Currently NSR with intermittent PAC's @ 60 to 70's
-BP dropped last night with attempts to wean off Vasopressin
-Impella @ P4 w/systemic Heparin (goal PTT 40-60)
-Last CI 1.97, MVO2 63.7%, 24hr U/O 530 mL
-Lactic acidosis has resolved with fluids
-Transfused 2u PRBC's yesterday 02/02, h/h 10.4/29.2 today
-Transfuses 1{5 pks} plts yesterday 02/02, plts 72 today, was 76/77 yesterday
-Chest tube output: 2meds 50/145, R/L pleurals 335/465. CxR looks clear on my assessment, f/u official report
-INR noted to be elevated @ 2.15, consider 2u FFP
-Liver enzymes are normalizing, only elevated AST @ 47
-Monitor TALIB, 1.5, cr 0.8-1.1 preop
-Holding Mag oxide, mg 2.6
-Maintain dozier catheter for accurate I/O's
-Maintain swan and a-line
-Maintain temporary A/V wires, currently @ backup AAI of 50 bpm
-Will discuss oral anticoagulation in the future for hx A-fib, pt did not tolerate Pradaxa in the past d/t vaginal bleed
-Eventual repeat echo
Assessment / Plan
-
- Acute heart failure with cardiogenic shock, aortic valve stenosis and insufficiency, severe tricuspid valve insufficiency, A-fib with RVR and multivessel coronary disease- s/p Surgical aortic valve replacement [23 mm [employer] Inspira's Resilia
bioprosthesis]; CABG x 2 [ALMANZAR to LAD, RSVG to RPDA]; Simple tricuspid valve repair [32 mm band annuloplasty]; Full left and right atrial maze [combination of RF and cryoablation] plus left atrial appendage exclusion [40 mm device]; Drainage of
bilateral pleural effusions, approximately 250 cc in each chest by Dr. Crouch on 01/31/25, pod #3
- Post cardiotomy cardiogenic shock with escalating inotropic support and vasoactive medication- s/p Reopening of sternotomy; Placement of a direct aortic 5.5 Impella left ventricular assist device
by Dr. Crouch on 01/31/25
- Intraop FRANCISCO JAVIER: LVEF at the start of the surgery was approximately 40% with some regional wall motion abnormalities toward the inferior septal and anterior septal portions of the wall. Following surgery, EF did struggle to approximately 20 to 25%
and she was loaded on 5 dobutamine but had escalating requirements for Levophed. RV function was normal as was RV size and there was only a trace residual amount of tricuspid valve insufficiency.
The left atrial appendage was verified to be free of any thrombus or debris preoperatively and found to be totally occlusive postoperatively. There is no paravalvular leak of the aortic valve prosthesis and the mean gradient across the valve was 3
mmHg. There is essentially no mean gradient across the tricuspid valve. At the conclusion of the case, she did respond to volume loading with blood. Of note she was coagulopathic postoperatively with an elevated ACT despite giving almost double
her protamine dose.
- Severe aortic valve stenosis
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
- Atrial fibrillation with rapid ventricular response- didn't tolerate Pradaxa in the past d/t vaginal bleed
- Acute respiratory insufficiency
- Significant volume overload requiring diuresis
- HTN/HLD
- PAD
- Nonsmoker
- Acute postop blood loss anemia - s/p total 4 pRBCs
- Acute postop coagulopathy/ thrombocytopenia - s/p 3 unit platelets, 2 FFPs, 2 cryo, 0.5 iv Vit K, DDAVP
- Acute postop 10 beat NSVT on 01/31
- Acute postop atelectasis
- Acute postop cardiogenic shock, requiring mechanical cardiac support (Impella 5.5), inotrops and pressors
- Acute postop hypovolemia with subsequent hypervolemia
- Acute postop hypokalemia
- Acute postop Lactic acidosis
- Acute postop TALIB
Discussed patient care with: Cardiology, Nursing, Respiratory Therapy, Pharmacy and Care Team
Subjective
Procedure
Aortic valve replacement [23 mm Andrews Inspira's Resilia bioprosthesis]; CABG x 2 [ALMANZAR to LAD, RSVG to RPDA]; Simple tricuspid valve repair [32 mm band annuloplasty]; Full left and right atrial maze [combination of RF and cryoablation] plus left
atrial appendage exclusion [40 mm device]; Drainage of bilateral pleural effusions, approximately 250 cc in each chest by Dr. Crouch on 01/31/25
-
Date of Service: February 03, 2025
Pt c/o mild incisional pain, otherwise feels well
Objective Data
-
PT 23.8 Sec (11.4-14.6) H 02/02/25 21:54
INR 2.12 02/02/25 21:54
APTT 72.5 Sec (23.4-35.0) H 02/02/25 17:18
Vital Signs
Vital Signs
Temp Pulse Resp BP Pulse Ox
97.5 F 65 11 130/80 97
02/03/25 03:00 02/03/25 04:05 02/03/25 04:05 02/03/25 04:00 02/03/25 04:05
CT Intake/Output/Weight
02/02/25 02/02/25 02/03/25
06:59 18:59 06:59
Intake Total 425.4 / 1466.5 1801.3 / 3048.9 1247.6 / 3048.9
Output Total 640 / 1365 510 / 1065 555 / 1065
Balance -214.6 / 101.5 1291.3 / 1982.9 692.6 / 1982.9
SaO2: 97 (RA)
Physical Exam
-
General: Awake, Oriented and AOx3
Cardiovascular: Regular rate & rhythm, No Murmurs, No Rub and No Gallop
Respiratory: Decreased Breath Sounds (at bases, otherwise clear)
Sternum: Stable
Incision: Clean, Dry, Intact and Dressing Intact
Extremities: Other (+trace edema, dopplerable DP pulses bilaterally, not palpable)
Data Reviewed
-
Lab Results: Results Reviewed
Medications: Active Meds Reviewed
Chest X-Ray: Report Reviewed and Image Reviewed
ECG: Report Reviewed and Image Reviewed
[2025-02-03 05:11] LABS: Hematocrit 29.2 % (37.0-47.0); Hemoglobin 10.4 g/dL (12.0-16.0); Mean Corp Hgb Conc. 35.6 g/dL (33.0-37.0); Mean Corpuscular Volume 87.2 fL (81.0-99.0); Platelet Count 72 10^3/uL (130-400); Red Cell Dist. Width 18.0 % (11.5-14.5)
[2025-02-03 05:20] LABS: Fibrinogen 283 MG/DL (199-459); INR 2.15; PT 24.1 Sec (11.4-14.6)
[2025-02-03 05:21] LABS: APTT 56.6 Sec (23.4-35.0)
[2025-02-03 05:23] LABS: D-Dimer 0.95 ug/mlFEU (0.00-0.50)
[2025-02-03 05:37] LABS: ALT (SGPT) < 10 U/L (0-35); AST (SGOT) 47 U/L (14-36); Albumin 3.3 g/dl (3.5-5.0); Alkaline Phosphatase 57 U/L (38-126); Blood Urea Nitrogen 45 mg/dl (7-17); Calcium 9.8 mg/dl (8.4-10.2); Carbon Dioxide 25 mmol/L (22-30); Chloride 104 mmol/L (98-107); Estimated Creatinine Clearance 29 ml/min; Glucose 125 mg/dl (70-99); Magnesium 2.6 mg/dl (1.6-2.3); Potassium 4.7 mmol/L (3.5-5.1); Sodium 132 mmol/L (135-145); Total Protein 4.9 g/dl (6.3-8.2); eGFR 35.01
[2025-02-03] MEDS: LR IV (05:44)
[2025-02-03] MEDS: SOLU-CORTEF 100 MG IV (06:00)
[2025-02-03 06:01] LABS: LDH 315 U/L (120-246)
[2025-02-03] MEDS: TYLENOL 1000 MG PO ×3 (06:01→21:52)
[2025-02-03] MEDS: NITRO-BID 1 INCH TOPICAL (06:01)
[2025-02-03] MEDS: DOBUTREX 500 MG 250 IV (06:02)
[2025-02-03] MEDS: SODIUM BICARBONATE 1025 MEQ INF CATH (06:02)
[2025-02-03] MEDS: HEPARIN 25000 UNITS/250 ML IV (06:05)
--- NOTE | 2025-02-03 06:15 | PTCARENOTE ---
Labs drawn and sent this am. EKG done and given to PA. CXR done. Repeat CI at 0600 was 1.97. Order for Solucortef 100 mg IV placed via PA and given. (see MAR). AM bed weight done. Vasopressin down to 0.01 units/hr at 0615 per provider order. Heparin
gtt increased to 350 units/hr per provider order. PA aware of all labs this am. Pt slept overnight. Awake at present time. Remains neuro intact (no change from prior assessments).
[2025-02-03 06:20] LABS: Prealbumin (Transthyretin) 10.2 mg/dl (17.6-36.0)
--- NOTE | 2025-02-03 07:15 | PTCARENOTE ---
Report to JESSICA Peña. Walking rounds done.
--- NOTE | 2025-02-03 07:50 | W.PN.INTV ---
Today's Communication / Plan
Recommendations
Continue Impella
Heparin continues
Transfuse as needed
Monitor chest tube output
LFTs normalizing
Follow renal function
Assessment
-
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
Valvular disease and CAD
Status post AVR--23 mm bioprosthesis, CABG times x 2--ALMANZAR-LAD, RSVG - RPDA, tricuspid valve repair, maze procedure, reopening sternotomy-Impella device placement-Dr. Crouch 01/31/2025
CHF reduced EF
Left greater than right pleural effusion
Status post left thoracentesis 01/25/25--850 mL of clear pleural fluid
Atrial fibrillation with rapid ventricular response
Brief nonsustained ventricular tachycardia postop
Postop anemia status post 4 units PRBC
Postop coagulopathy/thrombocytopenia-status post 3 units platelets, 2 units FFP, 2 units cryoprecipitate's, vitamin K and DDAVP
Postoperative cardiogenic shock requiring inotropes and pressors as well as left ventricular assist device
Mild transaminitis
Hypokalemia
Hypomagnesemia
Leukocytosis
Conditions present prior to admission:
Hypertension.
Hyperlipidemia.
Carotid stenosis.
PAD.
PAF on aspirin.
Vaginal bleeding on Pradaxa.
Left wrist repair.
Plan
Respiratory status stable
Wean FiO2
Incentive spirometry encouraged
Aspiration precautions continues
Nebulizers if needed-currently not bronchospastic
Pulmonary artery catheter parameters will continue to be followed
Pressors/antihypertensive/inotropes/diuretics will be provided as needed
Dobutamine continues
Impella continues-P4- through the weekend-probably discontinue Wednesday
Diuretics as tolerated
Monitor renal function, electrolytes, intake/output, lower extremity edema and weight
Replace electrolytes as needed
Monitor chest tube output
Monitor hemoglobin-received a total of 4 units packed red blood cells
Monitor platelet count and coags
Transfuse blood product if needed
CT surgery following chest tubes
Albumin infusion
Follow LFTs-improved
Low-grade hemolysis suspected
Cardiology following-correspondence reviewed
Atrial fibrillation rate control
Amiodarone drip briefly for NSVT and subsequently stopped due to hypotension
Preoperative echocardiogram and cardiac catheterization summarized below
Monitor blood sugar
Insulin drip per protocol
DVT prophylaxis
Continue nutrition
Eventual physical therapy
Early mobilization after Impella removed
Critical care statement: A total of 35 minutes of critical care time was provided for this patient today. This includes management of ventilator, spontaneous breathing trial, arterial blood gases, pressors, of unstable vital signs, evaluation of
the patient at bedside, reviewing the patient's pertinent medical records including radiographs, microbiology, laboratory evaluations, and discussion with primary team and critical care nursing.
Diagnostic data:
Chest x-ray 01/24/2025-mild pulmonary vascular congestion and moderate left
Lower extremity ultrasound 01/24/2025-no evidence for left lower extremity DVT
Thoracentesis-left side 01/25/01/25/2025-01/25/25-850 mL liter Clear pleural fluid
CT chest TAVR 01/29/2025-small bilateral pleural effusions, thyroid gland unremarkable, compressive atelectasis pulm basilar segments, no focal consolidation or pneumothorax, no pulmonary mass or nodule
Echocardiogram 01/25/2025-EF 40-45%, apical septal hypokinesis, mild mitral stenosis, moderate mitral regurgitation, severe aortic stenosis with CHARLY 0.5 cm, moderate aortic regurgitation, severe tricuspid regurgitation estimated PA systolic 41
Cardiac catheterization right and left 01/24/2025-RA 15, RV 36/10, PA 41/27, PCWP-23, cardiac output 2.97, cardiac index 1.7, SVR 1887, severe multivessel CAD noted as well
Subjective Dataa
Subjective Data
Date of Service:
Date of Service: February 03, 2025
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
Subjective:
denies any shortness of breath, pain controlled, no abdominal pain
Review of Systems
General: Other ( Per HPI)
Objective Data
Data Reviewed
Vital Signs / I&O / Oxygen:
Vital Signs
Temp Pulse Resp BP Pulse Ox
96.9 F L 66 15 125/63 96
02/03/25 07:00 02/03/25 07:20 02/03/25 07:20 02/03/25 07:00 02/03/25 07:20
Intake and Output
02/02/25 02/03/25 02/04/25
06:59 06:59 06:59
Intake Total 1442.4 / 1466.5 3260.7 / 3297.0 36.3 / 36.3
Output Total 1310 / 1365 1175 / 1245 70 / 70
Balance 132.4 / 101.5 2085.7 / 2052.0 -33.7 / -33.7
SaO2 [CPAP/PSV] 100
SaO2 [SIMV] 100
SaO2 96
Nasal Cannula flow liters per 2
minute
Physical Exam
General: Respiratory Distress (n) and Comfortable
HEENT: Normocephalic, Anicteric and Moist Mucous Membranes
Cardiovascular: Regular Rhythm and Murmur
Respiratory: Wheeze (n), Crackles, Rhonchi (n), Non-Labored Respirations, Accessory Resp Muscle Use (n) and Stridor (n)
GI: Soft, Non Distended and Non Tender
Neurology: Awake, Alert and No Motor Deficits
Skin: Warm, Good Color, Cyanosis (n) and Jaundice (n)
Labs/Micro/Reports
Lab Data
02/03/25 04:36
02/03/25 04:36
Laboratory Results
02/02/25 02/02/2525
09:50 15:17 17:18
PT 24.3 H
INR 2.17
APTT 47.5 H 86.7 H 72.5 H
pH 7.44
pCO2 32
pO2 137 H
HCO3 21.7
O2 Delivery Level
02/02/25 02/03/25 02/03/25
21:54 04:36 04:36
PT 23.8 H 24.1 H
INR 2.12 2.15
APTT 56.6 H Cancelled
pH
pCO2
pO2
HCO3
O2 Delivery Level
Microbiology
01/31/25 10:05 Urine Urine Culture - Final
NO GROWTH
[2025-02-03] MEDS: PLAVIX PO (07:52)
[2025-02-03] MEDS: SENOKOT-S PO (07:52)
--- NOTE | 2025-02-03 08:00 | PTCARENOTE ---
Assumed care of patient. Walking rounds completed with previous RN. Pt assessed while she was lying in bed. Pt alert and oriented x4. Denies pain, shortness of breath, nausea. ASTORGA with equal strength, weak throughout. NSR on tele with occasional
PACs and PVCs with rates in the 70s. BP 136/68, supported with vaso gtt at 0.01. Bilateral radial pulses palpable. Bilateral DPPT pulses present via doppler. Bilateral hand +2 edema. Epicardial AV wires to box AAI 50/10/0.4 no pacing noted. Heart
tones audible. CI 2.19. PA pressures 43/17, CVP 12. Impella at P4. POX 96% on RA. Lungs diminished in the bases. IS encouraged-750mL achieved. Frequent moist nonproductive cough, CDB encouraged. Right and Left pleural chest tubes y-sited to 1 atrium
to -20cm suction draining dark red fluid. Mediastinal chest tubes x2 y-sited to 1 atrium to -20cm suction draining dark red fluid. No air leaks, tidaling, crepitus noted. Abdomen soft, nontender. +BS. Last BM yesterday. Tolerating diet, encouraging
Ensure. Chery intact draining clear anita urine. Sternal incision approximated, SHAAN, ecchymotic. 4 chest tube sites covered, drainage, dressing changed. Right groin ecchymotic, firm, area outlined, not increased any. Left groin puncture site with
4x4, CDI. Right SVG harvest site approximated with skin glue, SHAAN. Left chest impella site bloody, orders per Dr. Crouch not to change, no active bleeding noted. Right IJ cordis with swan floated 48cm. Right radial steve intact with appropriate
waveform. All lines flushed, leveled, zeroed. Right AC PIV, Left wrist PIV intact. Gtts: Dobutamine 5mcg/kg/min, vaso 0.01units/min. Heparin 350units/hour. NSS KVO. See MAR for medication administration. See worklist for complete nursing assessment.
Plan of care reviewed and patient in agreement.
[2025-02-03] MEDS: NOVOLOG FLEXPEN-MODERATE RESISTANCE SC (08:10)
[2025-02-03 08:15] LABS: Glucose - Point of Care 121 mg/dl (70-99)
[2025-02-03] MEDS: LIPITOR 80 MG PO (08:22)
[2025-02-03] MEDS: PROTONIX 40 MG PO (08:22)
[2025-02-03] MEDS: VITAMIN C 500 MG PO (08:22)
[2025-02-03] MEDS: LIDOCAINE 4% PATCH 1 PATCH TOPICAL (08:22)
[2025-02-03] MEDS: LOW STRENGTH ASPIRIN 81 MG PO (08:22)
[2025-02-03] MEDS: BACTROBAN 2% OINTMENT 1 APPLIC NASAL ×2 (08:22→19:46)
[2025-02-03] MEDS: NEURONTIN 100 MG PO ×3 (08:22→21:51)
[2025-02-03] MEDS: FLEXBUMIN 50 IV ×2 (08:23→16:06)
[2025-02-03] MEDS: PITRESSIN 100 IV (08:23)
[2025-02-03] MEDS: PACERONE 200 MG PO ×3 (08:45→21:52)
[2025-02-03] MEDS: MUCINEX 600 MG PO ×2 (09:24→19:46)
--- NOTE | 2025-02-03 10:00 | PTCARENOTE ---
CT PA notified of continued decreased UO.
[2025-02-03] MEDS: NSS IV (10:39)
[2025-02-03 10:52] LABS: LDH 307 U/L (120-246)
[2025-02-03] MEDS: LASIX 60 MG IV (11:10)
[2025-02-03] MEDS: KCL ELIXIR 20 MEQ TUBE (11:10)
--- NOTE | 2025-02-03 11:42 | W.PN.CD ---
Today's Communication / Plan
-
-Continue Impella at P4 throughout the weekend.
-Continue dobutamine, goal MAP >65, CI >2.
-Went into A-fib overnight; now back in sinus rhythm.
Impression / Plan
-
I/P: 80F with persistent atrial fibrillation (abnormal bleeding on dabigatran), CAD (LAD and RCA medically managed, 2012), PAD (50-60% R ICA), hypertension, dyslipidemia, moderate MR, , moderate pulmonary hypertension, and moderate to severe TR
who presented with shortness of breath for several days found to have reduced LVEF, severe . mod AR and severe TR and multivessel CAD.
Outpatient x ray electronics wireman: Dr. Pinedo
Acute heart failure with cardiogenic shock
-Likely due to CAD and mixed valvular disease
-s/p Surgical aortic valve replacement [23 mm [employer]'s Resilia bioprosthesis]; CABG x 2 [ALMANZAR to LAD, RSVG to RPDA]; Simple tricuspid valve repair [32 mm band annuloplasty]; Full left and right atrial maze [combination of RF and
cryoablation] plus left atrial appendage exclusion ()
-Post cardiotomy cardiogenic shock with escalating inotropic support and vasoactive medication- s/p Reopening of sternotomy; Placement of a direct aortic 5.5 Impella left ventricular assist device
-Continue aspirin and you can see him at all high-dose atorvastatin.
-Continue Impella at P4 throughout the weekend.
-Continue dobutamine, goal MAP >65, CI >2.
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
- TTE: Reduction in LVEF from 60-65% to 40-45% with more prominent septal wall motion abnormality, critical , moderate AR, and severe TR.
- Dry weight to be determined, Lasix currently held for cardiogenic shock
- LE edema on exam, she would benefit from compression, Tubigrips ordered
- GDMT as tolerated:
-LUCIA/ARB/ARNI: Limited by blood pressure
-SGLT2 inhibitor: No prescription coverage, cost prohibitive
-Aldosterone agonist: Spironolactone 25 mg held
-Beta jeannie: Metoprolol succinate 50 mg daily held
-Isosorbide/Hydralazine:�Not indicated
-ICD: Not indicated
- Continue to trend daily weight, I/O, and BMP
- Pleural effusion, left status-post thoracentesis of 850 mL clear yellow pleural fluid on 01/25/2025
Paroxysmal atrial fibrillation
- Went into A-fib overnight; now back in sinus rhythm.
- BB held due to shock
- Continue amiodarone
- [id number] score is 6 for age, female, HTN, CHF, and vascular disease.
- Oral anticoagulation: We reviewed stroke risk and anticoagulation. She does not want to retrial here. She had vaginal bleeding on dabigatran.
Aortic valve disease - Severe Aortic stenosis, moderate AR
-s/p Surgical aortic valve replacement [23 mm [employer]'s Resilia bioprosthesis]; CABG x 2 [ALMANZAR to LAD, RSVG to RPDA]; Simple tricuspid valve repair [32 mm band annuloplasty]; Full left and right atrial maze [combination of RF and
cryoablation] plus left atrial appendage exclusion (01/31, Tra
Tricuspid regurgitation, severe
-s/p repair
Hyponatremia:improved
CAP, on antibiotics per primary service, leukocytosis has resolved
CARDIAC CATH 01/26/2025:
1. 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
2. Severe low-flow low gradient aortic stenosis
3. Severe multivessel coronary artery disease as described
RECOMMENDATIONS
1. Diuresis and titration of GDMT for heart failure.
2. Outpatient workup for aortic valve replacement +/- coronary revascularization, surgical versus percutaneous. Patient needs TAVR CT protocol next and then heart team discussion to evaluate options. Percutaneous revascularization would involve
multisegment stenting of the RCA to address flow to the large RPL and multi segment stenting of the LAD including the proximal LAD, mid-LAD FBI FIELD AGENT, possibly necessitating rescue of D1. CABG would ideally involve grafts to the LAD, D1, and RPL. The D2
and RPDA are atretic and do not appear to be candidates for revascularization.
Physical Exam
Vital Signs/Labs
Vital Signs
Temp Pulse Resp BP Pulse Ox
97.2 F 82 17 113/58 96
02/03/25 11:00 02/03/25 11:15 02/03/25 11:15 02/03/25 11:00 02/03/25 11:15
02/02/25 02/03/25 02/04/25
06:59 06:59 06:59
Actual Weight 61.6 kg 65.5 kg
02/03/25 04:36
02/03/25 04:36
PT 24.1 Sec (11.4-14.6) H 02/03/25 04:36
INR 2.15 02/03/25 04:36
APTT 56.6 Sec (23.4-35.0) H 02/03/25 04:36
APTT Cancelled 02/03/25 04:36
Magnesium 2.6 mg/dl (1.6-2.3) H 02/03/25 04:36
Triglycerides 66 mg/dl (10-149) 01/25/25 04:53
LDL Cholesterol, Calc 75 mg/dl 01/25/25 04:53
VLDL Cholesterol, Calc 13 mg/dl (0-30) 01/25/25 04:53
HDL Cholesterol 74 mg/dl 01/25/25 04:53
01/24/25
15:33
[id number] Pept [id number]
Physical Exam
Constitutional: No acute distress and Comfortable
EENT: Anicteric
Cardiovascular: Rhythm & rate is regular, Pedal edema present (trace; SCDs in place), Systolic murmur present (soft 2/6 (Impella)) and S1S2 is normal
Respiratory: Respiratory effort normal, Wheeze Absent and Crackles Absent
GI: Soft
Neuro/Psych: AO x 3
Other: Skin
Data Reviewed
-
Date of Service: February 03, 2025
EKG: Tracing Personally Visualized and interpreted (Telemetry: PAF/sinus rhythm)
Labs: Labs Reviewed by me
Critical Care Time (in minutes): 38
--- NOTE | 2025-02-03 12:00 | PTCARENOTE ---
Pt reassessed. SR with PAC and PVCs with rates in the 80s. BP 110/50-60s. POX 97% on RA. Surgical sites stable. Impella remains at P4. UO up from lasix administration. CT output WNL. PT/OT at bedside to assist pt to get OOB. Pt tolerated. CI 2.9. No
other acute changes from previous assessment.
[2025-02-03] MEDS: NOVOLOG FLEXPEN-MODERATE RESISTANCE 3 UNITS SC ×2 (12:29→17:03)
[2025-02-03 12:31] LABS: Glucose - Point of Care 240 mg/dl (70-99)
[2025-02-03 12:51] LABS: APTT 55.5 Sec (23.4-35.0)
[2025-02-03] MEDS: FERRLECIT 110 MG IV (14:05)
[2025-02-03] MEDS: SOLU-CORTEF 50 MG IV ×2 (14:06→21:52)
[2025-02-03 14:11] LABS: LDH 315 U/L (120-246)
--- NOTE | 2025-02-03 16:00 | PTCARENOTE ---
Pt reassessed. Tolerating sitting in the chair. CT PA notified of MAPs 65-70, orders not to restart vaso at this time and continue to monitor. UO dipped to 25ml last hour, CT PA notified. CI 2.8. Surgical sites stable. Impella remains at P4. CT
output WNL. Pt tolerating sitting up in the chair. Family at bedside.
[2025-02-03 16:43] LABS: LDH 326 U/L (120-246)
--- NOTE | 2025-02-03 17:00 | PTCARENOTE ---
Pt had small nosebleed. CT PA notified. Orders to send PTT early as well as other labs. Notified of UO last hour and BP with MAPs 62-65. Midodrine ordered and administered.
[2025-02-03 17:05] LABS: Glucose - Point of Care 226 mg/dl (70-99)
[2025-02-03 17:30] LABS: Hematocrit 26.4 % (37.0-47.0); Hemoglobin 9.3 g/dL (12.0-16.0); Mean Corp Hgb Conc. 35.2 g/dL (33.0-37.0); Mean Corpuscular Volume 89.2 fL (81.0-99.0); Platelet Count 65 10^3/uL (130-400); Red Cell Dist. Width 17.9 % (11.5-14.5)
[2025-02-03 17:41] LABS: INR 2.38; PT 26.0 Sec (11.4-14.6)
[2025-02-03 17:43] LABS: APTT 101.3 Sec (23.4-35.0)
[2025-02-03 17:46] LABS: ALT (SGPT) 11 U/L (0-35); AST (SGOT) 47 U/L (14-36); Albumin 3.7 g/dl (3.5-5.0); Alkaline Phosphatase 83 U/L (38-126); Blood Urea Nitrogen 52 mg/dl (7-17); Calcium 9.5 mg/dl (8.4-10.2); Carbon Dioxide 21 mmol/L (22-30); Chloride 102 mmol/L (98-107); Estimated Creatinine Clearance 26 ml/min; Glucose 230 mg/dl (70-99); Potassium 4.5 mmol/L (3.5-5.1); Sodium 130 mmol/L (135-145); Total Protein 5.2 g/dl (6.3-8.2); eGFR 30.13
--- NOTE | 2025-02-03 18:00 | PTCARENOTE ---
Pt assisted back to bed with 2 assist. Pt tolerated. Orders for 2 FFP, 1 plt. Per blood bank, platelets need to be ordered and will not be here for a few hours and FFP needs at least [address] PA notified of PTT, orders to hold for 1
hour and drop heparin to 350units/hour. Surgical sites stable.
[2025-02-03 18:42] LABS: B.E. -3.1 mmol/L; HCO3 20.6 mmol/L (21-28); O2 Saturation % 99.3 % (94-98); PCO2 31 mmHg (32-35); PO2 100 mmHg (83-108)
[2025-02-03] MEDS: SODIUM BICARBONATE 50 MEQ IV (19:12)
[2025-02-03] MEDS: SENOKOT-S 1 TABLET PO (19:46)
[2025-02-03] MEDS: REMOVE LIDOCAINE PATCH 1 PATCH REMOVE (19:46)
--- NOTE | 2025-02-03 20:25 | PTCARENOTE ---
Assumed care of pt from dayshift RN. Walking rounds completed. Pt is AAOx3. Follows commands appropriately. SR w/ occasional PVCs/PACs. HR 80-90s. Temporary A/V wires intact. Pacer set to backup AAI 50/10/0.4. Impella 5.[address] and set to P-4.
Impella secured at 3 points. See worklist for full Impella intervention. BP 90-100s/50-60s. MAP goal >70. CVP ~ 19. PAPs 40-50s/20s. Last CI: 3.28. B/L radial pulses palpable. B/L DP pulses present via Doppler. B/L UE edema +2. B/L LE edema +1. Pt
on RA. POX 96%. Lung sounds diminished and coarse B/L. Deep breathing and IS encouraged. Mediastinal CTx2 and R/L pleural CT to -20 suction, no airleaks noted at this time, and output WNL. R/L pleural CT chamber changed at shift change because it
was almost full. Abdomen soft/nontender. +BSx4. No nausea. Chery catheter intact and draining yellow urine. UO slightly low - PAs aware. Sternal incision approximated and SHAAN. Right groin / SVG site ENVIRONMENTAL SCIENTIST and ecchymotic. Left groin site intact w/ 4x4
dressing. Left upper chest Impella site intact - old bloody drainage on the dressing present. Right IJ cordis w/ SWAN @ 48 intact. Right radial a-line intact. R AC and L wrist PIV intact. All lines leveled, zeroed, and flushed. 1 unit FFP infusion
complete at shift change. Second unit FFP hung ~1914. Heparin infusion restarted @1914. Dobutamine infusing. Pt denies pain at this time. See worklist for full nursing assessment and interventions. Call sánchez within reach.
[2025-02-03] MEDS: BUMEX 2 MG IV (20:59)
--- NOTE | 2025-02-03 22:44 | PTCARENOTE ---
Second unit of FFP complete. 1 unit of platelets infused w/o issue. VSS.
[2025-02-03 23:03] LABS: Glucose - Point of Care 168 mg/dl (70-99)
[2025-02-03 23:19] LABS: Hematocrit 23.8 % (37.0-47.0); Hemoglobin 8.4 g/dL (12.0-16.0); Mean Corp Hgb Conc. 35.3 g/dL (33.0-37.0); Mean Corpuscular Volume 87.8 fL (81.0-99.0); Platelet Count 70 10^3/uL (130-400); Red Cell Dist. Width 17.9 % (11.5-14.5)
[2025-02-03 23:25] LABS: Blood Urea Nitrogen 55 mg/dl (7-17); Calcium 9.0 mg/dl (8.4-10.2); Carbon Dioxide 25 mmol/L (22-30); Chloride 101 mmol/L (98-107); Estimated Creatinine Clearance 27 ml/min; Glucose 142 mg/dl (70-99); LDH 351 U/L (120-246); Magnesium 2.4 mg/dl (1.6-2.3); Potassium 4.1 mmol/L (3.5-5.1); Sodium 131 mmol/L (135-145); eGFR 32.40
[2025-02-04] VITALS (25 sets, daily range): BP systolic 91–127; BP diastolic 52–73; BMI 24.2
[2025-02-04] MEDS: FLEXBUMIN 50 IV (00:17)
[2025-02-04] MEDS: CALCIUM GLUCONATE 130 MG IV (00:24)
--- NOTE | 2025-02-04 00:41 | PTCARENOTE ---
Pt reassessed. No acute changes in assessment. Pt remains SR w/ occasional PVCs/PACs on the tele monitor. HR 70-80s. Temporary pacing wires unchanged. No pacing spikes. BP 100s/60s. CVP~18. PAPs 40s/20s. Last CI: 2.56. Impella remains at P-4, see
worklist. Pt on 2 L NC. POX 98%. CTx4 assessment unchanged. Chery catheter intact and draining clear/yellow urine. UO remains low. 2 g bumex given. All surgical sites stable. [place] and a-line maintained. All lines leveled, zeroed, and flushed.
Dobutamine infusing as ordered. Heparin infusing. 3g calcium gluconate. Ordered lab work sent. Call sánchez within reach.
[2025-02-04 00:55] LABS: INR 1.97; PT 22.6 Sec (11.4-14.6)
[2025-02-04 00:56] LABS: APTT 60.9 Sec (23.4-35.0)
[2025-02-04] MEDS: DOBUTREX 500 MG 250 IV (04:13)
--- NOTE | 2025-02-04 04:25 | W.PN.CT ---
Today's Communication / Plan
-
Plan:
-No major issues overnight. Neurologically intact
-Requiring Dobutamine @ 5, did not tolerate decrease to 4 on 02/02. Also on Heparin gtt, Vasopressin and Amiodarone gtt have been weaned off
-Impella @ P4 w/systemic Heparin (goal PTT 40-60)
-Last CI 2.86, MVO2 75.2%, 24hr U/O 695 mL
-Had some epistaxis yesterday which has since resolved
-Monitor h/h 8.0/23.3, was 10.4/29.2 in the AM yesterday. Received Albumin yesterday
-Transfused 2u FFPs for INR 2.38, down to 1.97 this AM
-Transfuses 1{5 pks} plts yesterday 02/03, plts 61 today, was 70/65/72 yesterday. Will discuss d/c of Heparin given elevated INR, epistaxis
-No further a-fib since POD#2
-Currently NSR with intermittent PAC's @ 82
-Chest tube output: 2meds 40/120, R/L pleurals 175/575. CxR looks clear on my assessment, f/u official report
-Monitor TALIB, 1.7, was 1.6/1.7 yesterday. Cr 0.8-1.1 preop
-Holding Mag oxide, mg 2.4
-Maintain dozier catheter for accurate I/O's
-Maintain swan and a-line
-Maintain temporary A/V wires, currently @ backup AAI of 50 bpm
-Will discuss oral anticoagulation in the future for hx A-fib, pt did not tolerate Pradaxa in the past d/t vaginal bleed
-Eventual repeat echo
Assessment / Plan
-
- Acute heart failure with cardiogenic shock, aortic valve stenosis and insufficiency, severe tricuspid valve insufficiency, A-fib with RVR and multivessel coronary disease- s/p Surgical aortic valve replacement [23 mm [employer]'s Resilia
bioprosthesis]; CABG x 2 [ALMANZAR to LAD, RSVG to RPDA]; Simple tricuspid valve repair [32 mm band annuloplasty]; Full left and right atrial maze [combination of RF and cryoablation] plus left atrial appendage exclusion [40 mm device]; Drainage of
bilateral pleural effusions, approximately 250 cc in each chest by Dr. Crouch on 01/31/25, pod #4
- Post cardiotomy cardiogenic shock with escalating inotropic support and vasoactive medication- s/p Reopening of sternotomy; Placement of a direct aortic 5.5 Impella left ventricular assist device
by Dr. Crouch on 01/31/25
- Intraop FRANCISCO JAVIER: LVEF at the start of the surgery was approximately 40% with some regional wall motion abnormalities toward the inferior septal and anterior septal portions of the wall. Following surgery, EF did struggle to approximately 20 to 25%
and she was loaded on 5 dobutamine but had escalating requirements for Levophed. RV function was normal as was RV size and there was only a trace residual amount of tricuspid valve insufficiency.
The left atrial appendage was verified to be free of any thrombus or debris preoperatively and found to be totally occlusive postoperatively. There is no paravalvular leak of the aortic valve prosthesis and the mean gradient across the valve was 3
mmHg. There is essentially no mean gradient across the tricuspid valve. At the conclusion of the case, she did respond to volume loading with blood. Of note she was coagulopathic postoperatively with an elevated ACT despite giving almost double
her protamine dose.
- Severe aortic valve stenosis
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
- Atrial fibrillation with rapid ventricular response- didn't tolerate Pradaxa in the past d/t vaginal bleed
- Acute respiratory insufficiency
- Significant volume overload requiring diuresis
- HTN/HLD
- PAD
- Nonsmoker
- Acute postop blood loss anemia - s/p total 4 pRBCs
- Acute postop coagulopathy/ thrombocytopenia - s/p 3 unit platelets, 2 FFPs, 2 cryo, 0.5 iv Vit K, DDAVP
- Acute postop 10 beat NSVT on 01/31
- Acute postop junctional rhythm/bradycardia
- Acute postop atelectasis
- Acute postop cardiogenic shock, requiring mechanical cardiac support (Impella 5.5), inotrops and pressors
- Acute postop hypovolemia with subsequent hypervolemia
- Acute postop hypokalemia
- Acute postop Lactic acidosis
- Acute postop TALIB
- Acute postop Epistaxis
- Acute postop hyponatremia
Discussed patient care with: Cardiology, Nursing, Respiratory Therapy, Pharmacy and Care Team
Subjective
Procedure
Aortic valve replacement [23 mm [employer]'s Resilia bioprosthesis]; CABG x 2 [ALMANZAR to LAD, RSVG to RPDA]; Simple tricuspid valve repair [32 mm band annuloplasty]; Full left and right atrial maze [combination of RF and cryoablation] plus left
atrial appendage exclusion [40 mm device]; Drainage of bilateral pleural effusions, approximately 250 cc in each chest by Dr. Crouch on 01/31/25
-
Date of Service: February 04, 2025
Pt c/o mild incisional pain, epistaxis from yesterday has resolved
Objective Data
-
PT 22.6 Sec (11.4-14.6) H 02/04/25 00:37
INR 1.97 02/04/25 00:37
APTT 60.9 Sec (23.4-35.0) H 02/04/25 00:37
Vital Signs
Vital Signs
Temp Pulse Resp BP Pulse Ox
98.1 F 87 15 113/60 95
02/04/25 04:00 02/04/25 04:10 02/04/25 04:10 02/04/25 04:00 02/04/25 04:10
CT Intake/Output/Weight
02/03/25 02/03/25 02/04/25
06:59 18:59 06:59
Intake Total 1459.4 / 3297.0 801.1 / 2257.6 1456.5 / 2257.6
Output Total 665 / 1245 795 / 1250 455 / 1250
Balance 794.4 / 2052.0 6.1 / 1007.6 1001.5 / 1007.6
SaO2: 95 (RA)
Physical Exam
-
General: Awake, Oriented and AOx3
Cardiovascular: Regular rate & rhythm, No Murmurs, No Rub and No Gallop
Respiratory: Decreased Breath Sounds (at bases, otherwise clear)
Sternum: Stable
Incision: Clean, Dry, Intact and Dressing Intact
Extremities: Edema +1
Data Reviewed
-
Lab Results: Results Reviewed
Medications: Active Meds Reviewed
Chest X-Ray: Report Reviewed and Image Reviewed
ECG: Report Reviewed and Image Reviewed
--- NOTE | 2025-02-04 04:51 | PTCARENOTE ---
Pt reassessed. No change in assessment. Pt SR w/ PACs and PVCs on the monitor. HR 80s. Pacing wires unchanged. BP 100s/50s. CVP~17. PAPs 40s/teens-20s. Last CI: 2.86. Impella secured at 3 points and at P-4. Pt remains on 2 L NC. POX 97%. CTx4
assessment unchanged. All surgical sites stable. [place] and a-line intact. All lines leveled, zeroed, and flushed. Heparin and dobutamine infusing as ordered. Pt repositioned in bed. Ordered labs drawn and sent. Call sánchez within reach.
[2025-02-04] MEDS: TYLENOL 1000 MG PO ×2 (05:20→22:00)
[2025-02-04] MEDS: SOLU-CORTEF 50 MG IV (05:21)
[2025-02-04 05:26] LABS: Hematocrit 23.3 % (37.0-47.0); Hemoglobin 8.0 g/dL (12.0-16.0); Mean Corp Hgb Conc. 34.3 g/dL (33.0-37.0); Mean Corpuscular Volume 89.3 fL (81.0-99.0); Platelet Count 61 10^3/uL (130-400); Red Cell Dist. Width 17.9 % (11.5-14.5)
[2025-02-04 05:32] LABS: LDH 320 U/L (120-246)
[2025-02-04 05:33] LABS: ALT (SGPT) 15 U/L (0-35); AST (SGOT) 52 U/L (14-36); Albumin 3.6 g/dl (3.5-5.0); Alkaline Phosphatase 79 U/L (38-126); Blood Urea Nitrogen 54 mg/dl (7-17); Calcium 9.6 mg/dl (8.4-10.2); Carbon Dioxide 25 mmol/L (22-30); Chloride 101 mmol/L (98-107); Estimated Creatinine Clearance 26 ml/min; Glucose 125 mg/dl (70-99); Magnesium 2.4 mg/dl (1.6-2.3); Potassium 4.2 mmol/L (3.5-5.1); Sodium 132 mmol/L (135-145); Total Protein 5.3 g/dl (6.3-8.2); eGFR 30.13
[2025-02-04] MEDS: BUMEX 2 MG IV ×2 (06:03→17:46)
[2025-02-04 07:00] LABS: INR 1.89; PT 21.9 Sec (11.4-14.6)
[2025-02-04 07:01] LABS: APTT 65.2 Sec (23.4-35.0)
[2025-02-04] MEDS: NOVOLOG FLEXPEN-MODERATE RESISTANCE SC ×3 (07:28→16:20)
[2025-02-04] MEDS: LIDOCAINE 4% PATCH TOPICAL (07:35)
--- NOTE | 2025-02-04 07:55 | W.PN.INTV ---
Today's Communication / Plan
Recommendations
Reduce Impella and possible removal later
Consumptive coagulopathy-transfuse as needed
Pressors and inotropes as needed
Assessment
-
80-year-old non-smoking female with history of hypertension, hyperlipidemia, PAF and CAD/valvular disease underwent valve replacement and bypass surgery-reimbursement coordinator consulted for postoperative ventilator/critical care management 01/31/2025.
Valvular disease and CAD
Status post AVR--23 mm bioprosthesis, CABG times x 2--ALMANZAR-LAD, RSVG - RPDA, tricuspid valve repair, maze procedure, reopening sternotomy-Impella device placement-Dr. Crouch 01/31/2025
Consumptive coagulopathy postop from Impella device
CHF reduced EF
Left greater than right pleural effusion
Status post left thoracentesis 01/25/25--850 mL of clear pleural fluid
Atrial fibrillation with rapid ventricular response
Brief nonsustained ventricular tachycardia postop
Postop anemia status post 4 units PRBC
Postop coagulopathy/thrombocytopenia-status post 3 units platelets, 2 units FFP, 2 units cryoprecipitate's, vitamin K and DDAVP
Postoperative cardiogenic shock requiring inotropes and pressors as well as left ventricular assist device
Mild transaminitis
Hypokalemia
Hypomagnesemia
Leukocytosis
Conditions present prior to admission:
Hypertension.
Hyperlipidemia.
Carotid stenosis.
PAD.
PAF on aspirin.
Vaginal bleeding on Pradaxa.
Left wrist repair.
Plan
Respiratory status continues to be stable
Wean FiO2
Incentive spirometry encouraged
Aspiration precautions continues
Nebulizers if needed-currently not bronchospastic
Pulmonary artery catheter parameters will continue to be followed
Pressors/antihypertensive/inotropes/diuretics will be provided as needed
Dobutamine continues
Impella continues-P4- -reduced this morning to P3 with possible removal later due to consumptive coagulopathy
Diuretics as tolerated
Monitor renal function, electrolytes, intake/output, lower extremity edema and weight
Replace electrolytes as needed
Monitor chest tube output
Monitor hemoglobin-received a total of 4 units packed red blood cells
Monitor platelet count and coags
Transfuse blood product if needed-receiving vitamin K and FFP for consumptive coagulopathy
CT surgery following chest tubes
Albumin infusion
Follow LFTs-improved
Low-grade hemolysis suspected
Cardiology following-correspondence reviewed
Atrial fibrillation rate control
Amiodarone drip briefly for NSVT and subsequently stopped due to hypotension
Preoperative echocardiogram and cardiac catheterization summarized below
Monitor blood sugar
Insulin drip per protocol
DVT prophylaxis
Continue nutrition
Eventual physical therapy
Early mobilization after Impella removed
Critical care statement: A total of 36 minutes of critical care time was provided for this patient today. This includes management of ventilator, spontaneous breathing trial, arterial blood gases, pressors, of unstable vital signs, evaluation of
the patient at bedside, reviewing the patient's pertinent medical records including radiographs, microbiology, laboratory evaluations, and discussion with primary team and critical care nursing.
Diagnostic data:
Chest x-ray 01/24/2025-mild pulmonary vascular congestion and moderate left
Lower extremity ultrasound 01/24/2025-no evidence for left lower extremity DVT
Thoracentesis-left side 01/25/01/25/2025-01/25/25-850 mL liter Clear pleural fluid
CT chest TAVR 01/29/2025-small bilateral pleural effusions, thyroid gland unremarkable, compressive atelectasis pulm basilar segments, no focal consolidation or pneumothorax, no pulmonary mass or nodule
Echocardiogram 01/25/2025-EF 40-45%, apical septal hypokinesis, mild mitral stenosis, moderate mitral regurgitation, severe aortic stenosis with CHARLY 0.5 cm, moderate aortic regurgitation, severe tricuspid regurgitation estimated PA systolic 41
Cardiac catheterization right and left 01/24/2025-RA 15, RV 36/10, PA 41/27, PCWP-23, cardiac output 2.97, cardiac index 1.7, SVR 1887, severe multivessel CAD noted as well
Subjective Dataa
Subjective Data
Date of Service:
Date of Service: February 04, 2025
Chief Complaint: Big Data Developer Follow Up and Pulmonary Follow Up
Subjective:
Feels well, no complaints of shortness of breath, pain controlled, no abdominal pain
Review of Systems
General: Other ( Per HPI)
Objective Data
Data Reviewed
Vital Signs / I&O / Oxygen:
Vital Signs
Temp Pulse Resp BP Pulse Ox
97.4 F 84 18 96/63 93
02/04/25 07:00 02/04/25 07:10 02/04/25 07:10 02/04/25 07:00 02/04/25 07:33
Intake and Output
02/03/25 02/04/25 02/05/25
06:59 06:59 06:59
Intake Total 3260.7 / 3297.0 2354.2 / 2387.5 33.3 / 33.3
Output Total 1175 / 1245 1390 / 1560 170 / 170
Balance 2085.7 / 2052.0 964.2 / 827.5 -136.7 / -136.7
SaO2 [CPAP/PSV] 100
SaO2 [SIMV] 100
SaO2 93
Nasal Cannula flow liters per 2
minute
Physical Exam
General: Respiratory Distress (n) and Comfortable
HEENT: Normocephalic, Anicteric and Moist Mucous Membranes
Cardiovascular: Regular Rhythm and Murmur
Respiratory: Wheeze (n), Crackles, Rhonchi (n), Non-Labored Respirations, Accessory Resp Muscle Use (n) and Stridor (n)
GI: Soft, Non Distended and Non Tender
Neurology: Awake, Alert and No Motor Deficits
Skin: Warm, Good Color, Cyanosis (n) and Jaundice (n)
Labs/Micro/Reports
Lab Data
02/04/25 04:45
02/04/25 04:45
Laboratory Results
02/03/25 02/03/25 02/03/25
12:03 17:21 18:16
PT 26.0 H
INR 2.38
APTT 55.5 H 101.3 H
pH Cancelled
pCO2 Cancelled
pO2 Cancelled
HCO3 Cancelled
O2 Delivery Level Cancelled
02/03/25 02/04/25 02/04/25
18:30 00:37 06:45
PT 22.6 H 21.9 H
INR 1.97 1.89
APTT 60.9 H 65.2 H
pH 7.43
pCO2 31 L
pO2 100
HCO3 20.6 L
O2 Delivery Level
Microbiology
01/31/25 10:05 Urine Urine Culture - Final
NO GROWTH
--- NOTE | 2025-02-04 08:00 | PTCARENOTE ---
Patient received from principal ios developer resting in bed, sleepy but arousable and AAO x 3, denies pain, ASTORGA. NSR via cm w/PAC/PVC's noted, SaO2 @ 94% on RA. RIJ Cordis/[place] catheter, R radial arterial lines present - leveled, flushed, and calibrated
w/good waveforms returned. Impella 5.5 w/LCW aortic implantation @ P4 - Dr. Crouch to bedside, reduced to P3. Epicardial A+V wires to pulse generator set to back up rate 50bpm, no spikes noted. Radial pulses weakly palp, DP obtainable via doppler. +2
edema t/o. Mediastinal chest tubes x 2 to pleurevac, L and R pleural chest tubes to separate pleurevac chamber - both placed to -20cm suction w/no air leaks noted. Surgeon updated to recent drainage. Chery catheter to gravity. All procedural sites
stable. Patient updated to plan of care for the shift, in agreement. See work list for full assessment, interventions performed, and intravenous infusion rates and titrations.
[2025-02-04] MEDS: MUCINEX 600 MG PO ×2 (08:21→20:11)
[2025-02-04] MEDS: LOW STRENGTH ASPIRIN 81 MG PO (08:21)
[2025-02-04] MEDS: PROTONIX 40 MG PO (08:21)
[2025-02-04] MEDS: NEURONTIN 100 MG PO ×3 (08:21→22:02)
[2025-02-04] MEDS: SENOKOT-S 1 TABLET PO ×2 (08:21→20:11)
[2025-02-04] MEDS: VITAMIN C 500 MG PO (08:21)
[2025-02-04] MEDS: LIPITOR 80 MG PO (08:21)
[2025-02-04] MEDS: FEOSOL 325 MG PO (08:21)
[2025-02-04] MEDS: PACERONE 200 MG PO ×3 (08:21→22:00)
[2025-02-04] MEDS: BACTROBAN 2% OINTMENT 1 APPLIC NASAL (08:22)
[2025-02-04] MEDS: DOBUTREX 250 MG IV (08:25)
[2025-02-04] MEDS: FLEXBUMIN IV (08:57)
[2025-02-04 10:22] LABS: LDH 360 U/L (120-246)
[2025-02-04 10:55] LABS: B.E. 1.2 mmol/L; HCO3 24.9 mmol/L (21-28); O2 Saturation % 99.2 % (94-98); PCO2 35 mmHg (32-35); PO2 101 mmHg (83-108)
[2025-02-04 11:10] LABS: ALT (SGPT) 15 U/L (0-35); AST (SGOT) 51 U/L (14-36); Albumin 3.7 g/dl (3.5-5.0); Alkaline Phosphatase 72 U/L (38-126); Blood Urea Nitrogen 55 mg/dl (7-17); Calcium 9.4 mg/dl (8.4-10.2); Carbon Dioxide 25 mmol/L (22-30); Chloride 102 mmol/L (98-107); Estimated Creatinine Clearance 27 ml/min; Glucose 115 mg/dl (70-99); Potassium 4.0 mmol/L (3.5-5.1); Sodium 132 mmol/L (135-145); Total Protein 5.5 g/dl (6.3-8.2); eGFR 32.40
[2025-02-04 11:12] LABS: Hematocrit 27.3 % (37.0-47.0); Hemoglobin 9.6 g/dL (12.0-16.0); Mean Corp Hgb Conc. 35.2 g/dL (33.0-37.0); Mean Corpuscular Volume 88.1 fL (81.0-99.0); Platelet Count 75 10^3/uL (130-400); Red Cell Dist. Width 17.4 % (11.5-14.5)
[2025-02-04] MEDS: VERSED 0.5 MG IV (12:23)
[2025-02-04] MEDS: SUBLIMAZE 25 MCG IV (12:24)
[2025-02-04] MEDS: XYLOCAINE 1% WITH EPINEPHRINE 10 ML INFIL (12:27)
--- NOTE | 2025-02-04 12:41 | W.PN.CT.SURG ---
CT Surgery Operative Note
-
CARDIAC SURGERY OPERATIVE REPORT
Preoperative Diagnosis: Status post placement of direct aortic 5.5 Impella ventricular assist device for cardiogenic shock
Postoperative Diagnosis: Improvement of left ventricular function me
Procedure(s) Performed:
1. Stepwise weaning of 5.5 Impella ventricular assist device
2. Extraction/removal of 5.5 Impella ventricular assist device
3. Ligation of sterile portion of 10 mm Hemashield graft using 8 large clips with coverage of the remaining graft with overlying strap muscles
4. Local analgesia for pain control
Date of Surgery: 02/04/2025
Comorbidities:
1. Status post cardiotomy cardiogenic shock requiring emergent 5.5 Impella ventricular assist device
2. Aortic valve stenosis and regurgitation with mixed pathology cardiomyopathy
3. NSVT and atrial relation
4. Acute kidney injury
5. Low-grade hemolysis
6. Hypertension
7. Hyperlipidemia
8. Consumptive coagulopathy with normal cytopenia and elevated INR
Attending Surgeon: Carson Crouch MD, MS
Assistants: Raul Eagle PA-C (present and necessary to carpenter's assistant, retraction, suction, exposure, suture management, and wound closure under my direction)
Anesthesiology: None, very light sedation/pain management performed under my direction
EBL: 50cc, graft allowed to bleed to remove clot
Products: 2FFP and 2Plts pre-emptively
Indication(s) for Procedures: This is an 80-year-old female who underwent an AVR, TV repair, maze, clip, CABG x 2 who had post cardiotomy cardiogenic shock. She required emergent placement of direct aortic 5.5 Impella ventricular assist device. Is
been approximately 6 days with ventricular assist device in place. She has developed some low-grade hemolysis but fortunately today her cardiac output power had increased to above 0.7 and her [place] cardiac output also increased. Indices also
improved overall. In order to avoid further endorgan damage from hemolysis, plan was to remove the Impella at bedside.
Findings: Early this morning we had commenced weaning on the Impella device down to P3, she tolerated this well with no significant rise in lactates or drop in mixed venous gases. Her indices also remained above 2.5. There was no escalation or
requirement of additional inotropic support. She is also mentating appropriately and clinically appears to be well. I do not wean any further down to P2 as this would likely cause some retrograde flow/aortic valve insufficiency. Blood products
were ordered preemptively as she is thrombocytopenic at baseline with an elevated INR which is likely iatrogenic from the device. The area was prepped in a sterile fashion and draped out accordingly. A preoperative timeout was performed by the
team with a 'incision time ' of 12:35 PM. Local analgesia was injected around the graft site for pain control and additional 25 mcg of fentanyl was given. Given that there is no worsening hemodynamics or clinical markers, I then began to pull the
device until I met resistance, this indicated that the Impella housing was at the level of the cuff, as my assistant dean turned the device down to P0. We sat here for approximately 30 seconds to 1 minute and she appeared to be clinically unchanged with
no shift in blood pressures or PA pressures. There was no significant bleeding from her drains or through the graft insertion site. A new cardiac index was 2.02 at this point which was down from 2.8 (understandable as the device provided 1.5 L of
flow support. I then cut the sutures around the cuff of the device after placing 2 hemostatic clips on the graft at the level of the skin. The device was then pulled out of the graft and the graft was allowed to bleed forward extracting any clots.
Another hemostat was then placed below the 2 hemostats that I initially placed at the level of the skin after pulling the graft out a little bit further to expose the sterile portion. Multiple clips were then placed, total of 8 large clips
alternating from either side, the graft was then trimmed accordingly to the sterile portion and then buried below the strap muscle. A 2-0 Vicryl was placed over the strap muscle in an interrupted fashion in order to provide muscle coverage over the
graft. Skin was then closed over top in an interrupted fashion. The skin was also cleansed 1 more time. At this point she remained hemodynamically stable. Dermabond was then placed over top of the suture line. The device itself was extracted in
once piece with no missing parts on my inspection. End time was 12:42 PM.
All instrument, sponge, and needle counts were confirmed to be correct x 2 at the end of the operation. The patient remained in cardiac intensive care unit in critical but stable condition.
I, Dr. Carson Crouch, was present, scrubbed for, and performed all critical elements of this procedure.
Carson Crouch MD, MS
Cardiothoracic Surgeon
[facility]
This operative dictation was created using the [employer] dictation system. Please excuse any grammatical, typographical, or 'sound alike' errors
--- NOTE | 2025-02-04 13:00 | PTCARENOTE ---
Dr. Crouch to bedside for Impella extraction. Blood products infusing as ordered. After weaning and removal, patient hemodynamics unchanged and patient resting comfortably.
[2025-02-04] MEDS: ANCEF 10 IV ×2 (13:18→22:00)
[2025-02-04] MEDS: BUMEX 50 IV (13:21)
[2025-02-04] MEDS: TYLENOL PO (13:42)
--- NOTE | 2025-02-04 15:10 | PTCARENOTE ---
Patient assisted oob to chair x 2 assist. Tolerated well. Son at bedside.
[2025-02-04 15:26] LABS: APTT 36.4 Sec (23.4-35.0)
[2025-02-04 16:04] LABS: Glucose - Point of Care 145 mg/dl (70-99)
[2025-02-04] MEDS: NSS 500 IV (16:11)
[2025-02-04] MEDS: HEPARIN 25000 UNITS/250 ML IV (16:14)
--- NOTE | 2025-02-04 16:48 | W.PN.CD ---
Today's Communication / Plan
-
-Patient weaned off of Impella; removed today.
-Remains on dobutamine @5.
-Patient with recurrent PAF; continue amiodarone.
Impression / Plan
-
I/P: 80F with persistent atrial fibrillation (abnormal bleeding on dabigatran), CAD (LAD and RCA medically managed, 2012), PAD (50-60% R ICA), hypertension, dyslipidemia, moderate MR, , moderate pulmonary hypertension, and moderate to severe TR
who presented with shortness of breath for several days found to have reduced LVEF, severe . mod AR and severe TR and multivessel CAD.
Outpatient tuberculosis specialist: Dr. Pinedo
Acute heart failure with cardiogenic shock
-Likely due to CAD and mixed valvular disease
-s/p Surgical aortic valve replacement [23 mm Andrews Inspira's Resilia bioprosthesis]; CABG x 2 [ALMANZAR to LAD, RSVG to RPDA]; Simple tricuspid valve repair [32 mm band annuloplasty]; Full left and right atrial maze [combination of RF and
cryoablation] plus left atrial appendage exclusion ()
-Post cardiotomy cardiogenic shock with escalating inotropic support and vasoactive medication- s/p Reopening of sternotomy; Placement of a direct aortic 5.5 Impella left ventricular assist device
-Continue aspirin and high-dose atorvastatin.
-Patient weaned off of Impella; removed today.
-Remains on dobutamine @5.
Aortic valve disease - Severe Aortic stenosis, moderate AR
-s/p Surgical aortic valve replacement [23 mm Andrews Inspira's Resilia bioprosthesis]; CABG x 2 [ALMANZAR to LAD, RSVG to RPDA]; Simple tricuspid valve repair [32 mm band annuloplasty]; Full left and right atrial maze [combination of RF and
cryoablation] plus left atrial appendage exclusion
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
- TTE: Reduction in LVEF from 60-65% to 40-45% with more prominent septal wall motion abnormality, critical , moderate AR, and severe TR.
- Dry weight to be determined, Lasix currently held for cardiogenic shock
- LE edema on exam, she would benefit from compression, Tubigrips ordered
- GDMT as tolerated:
-LUCIA/ARB/ARNI: Limited by blood pressure
-SGLT2 inhibitor: No prescription coverage, cost prohibitive
-Aldosterone agonist: Spironolactone 25 mg held
-Beta jeannie: Metoprolol succinate 50 mg daily held
-Isosorbide/Hydralazine:�Not indicated
-ICD: Not indicated
- Continue to trend daily weight, I/O, and BMP
- Pleural effusion, left status-post thoracentesis of 850 mL clear yellow pleural fluid on 01/25/2025
Paroxysmal atrial fibrillation
- Patient with recurrent PAF; continue amiodarone.
- BB held due to shock
- [id number] score is 6 for age, female, HTN, CHF, and vascular disease.
- Oral anticoagulation: We reviewed stroke risk and anticoagulation. She does not want to retrial here. She had vaginal bleeding on dabigatran.
Tricuspid regurgitation, severe
-s/p surgical repair
Hyponatremia:improved
CARDIAC CATH 01/26/2025:
1. 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
2. Severe low-flow low gradient aortic stenosis
3. Severe multivessel coronary artery disease as described
RECOMMENDATIONS
1. Diuresis and titration of GDMT for heart failure.
2. Outpatient workup for aortic valve replacement +/- coronary revascularization, surgical versus percutaneous. Patient needs TAVR CT protocol next and then heart team discussion to evaluate options. Percutaneous revascularization would involve
multisegment stenting of the RCA to address flow to the large RPL and multi segment stenting of the LAD including the proximal LAD, mid-LAD [employer], possibly necessitating rescue of D1. CABG would ideally involve grafts to the LAD, D1, and RPL. The D2
and RPDA are atretic and do not appear to be candidates for revascularization.
Physical Exam
Vital Signs/Labs
Vital Signs
Temp Pulse Resp BP Pulse Ox
96.6 F L 111 18 132/53 96
02/04/25 15:00 02/04/25 16:12 02/04/25 16:00 02/04/25 16:12 02/04/25 16:00
02/03/25 02/04/25 02/05/25
06:59 06:59 06:59
Actual Weight 65.5 kg 70 kg
PT 21.9 Sec (11.4-14.6) H 02/04/25 06:45
INR 1.89 02/04/25 06:45
APTT 36.4 Sec (23.4-35.0) H 02/04/25 14:59
Magnesium 2.4 mg/dl (1.6-2.3) H 02/04/25 04:45
Triglycerides 66 mg/dl (10-149) 01/25/25 04:53
LDL Cholesterol, Calc 75 mg/dl 01/25/25 04:53
VLDL Cholesterol, Calc 13 mg/dl (0-30) 01/25/25 04:53
HDL Cholesterol 74 mg/dl 01/25/25 04:53
01/24/25
15:33
Lbm-I-Jovlpijifpo Pept [id number]
Physical Exam
Constitutional: No acute distress and Comfortable
EENT: Anicteric
Cardiovascular: Systolic murmur absent, Rhythm/rate is irregular, Pedal edema present (Trace) and S1S2 is normal
Respiratory: Respiratory effort normal and Rhonchi Present (Basilar)
GI: Soft
Neuro/Psych: AO x 3
Other: Skin (Warm, dry)
Data Reviewed
-
Date of Service: February 04, 2025
EKG: Tracing Personally Visualized and interpreted (Telemetry: PAF)
Medical Tests (PFT, Pathology etc): Discussed with Physician (CT Surgery) and Discussed with Nurse
Labs: Labs Reviewed by me
Critical Care Time (in minutes): 37
[2025-02-04 17:12] LABS: B.E. 1.7 mmol/L; HCO3 25.7 mmol/L (21-28); O2 Saturation % 99.4 % (94-98); PCO2 37 mmHg (32-35); PO2 103 mmHg (83-108)
[2025-02-04 17:16] LABS: Hematocrit 26.8 % (37.0-47.0); Hemoglobin 9.2 g/dL (12.0-16.0); Mean Corp Hgb Conc. 34.3 g/dL (33.0-37.0); Mean Corpuscular Volume 88.7 fL (81.0-99.0); Platelet Count 101 10^3/uL (130-400); Red Cell Dist. Width 17.4 % (11.5-14.5)
[2025-02-04 17:27] LABS: ALT (SGPT) 17 U/L (0-35); AST (SGOT) 50 U/L (14-36); Albumin 4.0 g/dl (3.5-5.0); Alkaline Phosphatase 69 U/L (38-126); Blood Urea Nitrogen 55 mg/dl (7-17); Calcium 9.2 mg/dl (8.4-10.2); Carbon Dioxide 25 mmol/L (22-30); Chloride 100 mmol/L (98-107); Estimated Creatinine Clearance 26 ml/min; Glucose 171 mg/dl (70-99); Potassium 3.7 mmol/L (3.5-5.1); Sodium 132 mmol/L (135-145); Total Protein 5.8 g/dl (6.3-8.2); eGFR 30.13
[2025-02-04] MEDS: KCL 50 IV (17:46)
[2025-02-04 18:13] LABS: INR 1.45; PT 17.9 Sec (11.4-14.6)
--- NOTE | 2025-02-04 20:00 | PTCARENOTE ---
Assumed care of patient at 1900. Patient found resting in bed at time of assessment. Patient is AOx4, follows commands appropriately, moves all extremities. Lung sounds are diminished with crackles in the bases and LML. saO2 93% on RA. Patient has
CTx4: Medsx2 draining to one atrium and R/L pleural draining to another atrium serosanguineous. Heart sounds are audible, irregular apical rate, patient is afib with PVCs on the monitor. Patient has +2 BUE and BLE edema. Normal palpable radial
pulses and dorsalis pedis pulses are present with doppler. Patient has A+V wires with AAI settings 50/10/0.4. Patient has active BS reports +BM yesterday and has indwelling dozier catheter with clear yellow urine. Patient has sternal incision approx
with surg adhesive SHAAN, ABD dressing over CT wounds that is CDI, R groin puncture approx with surg adhesive [employer] ecchymotic and tender around site, and R knee incision approx with surg adhesive SHAAN. Patient has R IJ cordis with swan at 48cm, R
radial steve, R AC PIV and L wrist PIV. Patient has the following gtts: Cordis/VIP KVO, Bumex@0.25, Dobut@5.
[2025-02-04] MEDS: REMOVE LIDOCAINE PATCH REMOVE (20:11)
[2025-02-04 21:20] LABS: Hematocrit 26.8 % (37.0-47.0); Hemoglobin 9.3 g/dL (12.0-16.0); Mean Corp Hgb Conc. 34.7 g/dL (33.0-37.0); Mean Corpuscular Volume 88.7 fL (81.0-99.0); Platelet Count 98 10^3/uL (130-400); Red Cell Dist. Width 17.6 % (11.5-14.5)
[2025-02-04 21:29] LABS: INR 1.74; PT 20.5 Sec (11.4-14.6)
[2025-02-04 21:30] LABS: APTT 51.6 Sec (23.4-35.0)
[2025-02-04 21:36] LABS: Blood Urea Nitrogen 58 mg/dl (7-17); Calcium 9.3 mg/dl (8.4-10.2); Carbon Dioxide 26 mmol/L (22-30); Chloride 100 mmol/L (98-107); Estimated Creatinine Clearance 24 ml/min; Glucose 120 mg/dl (70-99); Magnesium 2.2 mg/dl (1.6-2.3); Potassium 4.2 mmol/L (3.5-5.1); Sodium 132 mmol/L (135-145); eGFR 28.13
[2025-02-04 22:12] LABS: Glucose - Point of Care 120 mg/dl (70-99)
[2025-02-05] VITALS (23 sets, daily range): BP systolic 87–151; BP diastolic 51–101; PULSE 103; O2SAT 93; BMI 24.8
--- NOTE | 2025-02-05 | PTCARENOTE ---
Patient reassessed. VSS. Bumex gtt temporarily shut off before being reinitiated by PA at 0.5 mg/hr to maintain diuresis over night. Remains afib on the monitor. Call sánchez within reach.
[2025-02-05 03:37] LABS: INR 1.72; PT 20.4 Sec (11.4-14.6)
[2025-02-05 03:38] LABS: APTT 55.3 Sec (23.4-35.0)
[2025-02-05 03:47] LABS: Hematocrit 26.4 % (37.0-47.0); Hemoglobin 9.2 g/dL (12.0-16.0); Mean Corp Hgb Conc. 34.8 g/dL (33.0-37.0); Mean Corpuscular Volume 88.9 fL (81.0-99.0); Platelet Count 98 10^3/uL (130-400); Red Cell Dist. Width 17.5 % (11.5-14.5)
--- NOTE | 2025-02-05 04:07 | W.PN.CT ---
Today's Communication / Plan
-
Plan:
-No major issues overnight. Neurologically and hemodynamically intact
-Underwent weaning of Impella and removal yesterday 02/04/25. Received 1PRBC, 2FFPs and 3 Plts prior to removal
-Dobutamine remains @ 5 mcg/kg/min, Bumex gtt @ 0.5 mg/hr, also on Heparin gtt (goal PTT 40-60) for PAF, Vasopressin and Amiodarone gtt have been weaned off
-Had some epistaxis on 02/03/25 which has since resolved. INR 1.72 today, PTT 55.3 (heparin gtt @ 400 units/hr)
-H/H 9.2/26.4, plts 98K
-Last CI 2.77, MVO2 70.3%, 24hr U/O 1280 mL
-Monitor chest tubes for possible d/c: 2meds 10/100, R/L pleurals 235/705. F/U official cxr report
-Encourage use of IS
-OOB into chair/Ambulate/will consult PT/OT
-Monitor TALIB, 1.7, was 1.6-1.8 yesterday. Cr 0.8-1.1 preop
-Holding Mag oxide, mg 2.2
-Maintain dozier catheter for accurate I/O's
-Maintain swan and a-line while on dobutamine gtt. BB on hold
-Maintain temporary A/V wires, currently @ backup AAI of 50 bpm, will cut before d/c
-Will discuss oral anticoagulation in the future for hx A-fib, pt did not tolerate Pradaxa in the past d/t vaginal bleed
-Eventual repeat echo
Assessment / Plan
-
- Acute heart failure with cardiogenic shock, aortic valve stenosis and insufficiency, severe tricuspid valve insufficiency, A-fib with RVR and multivessel coronary disease- s/p Surgical aortic valve replacement [23 mm Andrews Inspira's Resilia
bioprosthesis]; CABG x 2 [ALMANZAR to LAD, RSVG to RPDA]; Simple tricuspid valve repair [32 mm band annuloplasty]; Full left and right atrial maze [combination of RF and cryoablation] plus left atrial appendage exclusion [40 mm device]; Drainage of
bilateral pleural effusions, approximately 250 cc in each chest by Dr. Crouch on 01/31/25, pod #5
- Post cardiotomy cardiogenic shock with escalating inotropic support and vasoactive medication- s/p Reopening of sternotomy; Placement of a direct aortic 5.5 Impella left ventricular assist device
by Dr. Crouch on 01/31/25
- Intraop FRANCISCO JAVIER: LVEF at the start of the surgery was approximately 40% with some regional wall motion abnormalities toward the inferior septal and anterior septal portions of the wall. Following surgery, EF did struggle to approximately 20 to 25%
and she was loaded on 5 dobutamine but had escalating requirements for Levophed. RV function was normal as was RV size and there was only a trace residual amount of tricuspid valve insufficiency.
The left atrial appendage was verified to be free of any thrombus or debris preoperatively and found to be totally occlusive postoperatively. There is no paravalvular leak of the aortic valve prosthesis and the mean gradient across the valve was 3
mmHg. There is essentially no mean gradient across the tricuspid valve. At the conclusion of the case, she did respond to volume loading with blood. Of note she was coagulopathic postoperatively with an elevated ACT despite giving almost double
her protamine dose.
-S/P Stepwise weaning of 5.5 Impella ventricular assist device/Extraction/removal of 5.5 Impella ventricular assist device/ Ligation of sterile portion of 10 mm Hemashield graft using 8 large clips with coverage of the remaining graft with overlying
strap muscles/Local analgesia for pain control, by Dr. Crouch 02/04/25
- Severe aortic valve stenosis
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
- Atrial fibrillation with rapid ventricular response- didn't tolerate Pradaxa in the past d/t vaginal bleed
- Acute respiratory insufficiency
- Significant volume overload requiring diuresis
- HTN/HLD
- PAD
- Nonsmoker
- Acute postop blood loss anemia - s/p total 5 pRBCs
- Acute postop coagulopathy/ thrombocytopenia - s/p 6 unit platelets, 5 FFPs, 2 cryo, 0.5 iv Vit K, DDAVP
- Acute postop 10 beat NSVT on 01/31
- Acute postop junctional rhythm/bradycardia
- Acute postop atelectasis
- Acute postop cardiogenic shock, requiring mechanical cardiac support (Impella 5.5), inotrops and pressors
- Acute postop hypovolemia with subsequent hypervolemia
- Acute postop hypokalemia
- Acute postop Lactic acidosis
- Acute postop TALIB
- Acute postop Epistaxis
- Acute postop hyponatremia
- Acute postop transaminitis
Discussed patient care with: Cardiology, Nursing, Respiratory Therapy, Pharmacy and Care Team
Subjective
Procedure
Aortic valve replacement [23 mm Andrews Inspira's Resilia bioprosthesis]; CABG x 2 [ALMANZAR to LAD, RSVG to RPDA]; Simple tricuspid valve repair [32 mm band annuloplasty]; Full left and right atrial maze [combination of RF and cryoablation] plus left
atrial appendage exclusion [40 mm device]; Drainage of bilateral pleural effusions, approximately 250 cc in each chest by Dr. Crouch on 01/31/25
-
Date of Service: February 05, 2025
Pt c/o mild incisional pain, otherwise feels well
Objective Data
-
Lab Results
02/05/25 03:16
PT 20.4 Sec (11.4-14.6) H 02/05/25 03:16
INR 1.72 02/05/25 03:16
APTT 55.3 Sec (23.4-35.0) H 02/05/25 03:16
Vital Signs
Vital Signs
Temp Pulse Resp BP Pulse Ox
96.7 F L 111 15 112/67 98
02/05/25 04:00 02/05/25 03:30 02/05/25 04:00 02/05/25 03:00 02/05/25 04:00
CT Intake/Output/Weight
02/04/25 02/04/25 02/05/25
06:59 18:59 06:59
Intake Total 1553.1 / 2387.5 1789.1 / 2188.1 399.0 / 2188.1
Output Total 595 / 1560 1210 / 1935 725 / 1935
Balance 958.1 / 827.5 579.1 / 253.1 -326.0 / 253.1
SaO2: 98 (RA)
Physical Exam
-
General: Awake, Oriented and AOx3
Cardiovascular: Irregular rate & rhythm, No Murmurs, No Rub and No Gallop
Respiratory: Decreased Breath Sounds (at bases, otherwise clear)
Sternum: Stable
Incision: Clean, Dry, Intact and Dressing Intact
Extremities: Edema +1
Data Reviewed
-
Lab Results: Results Reviewed
Medications: Active Meds Reviewed
Chest X-Ray: Report Reviewed and Image Reviewed
ECG: Report Reviewed and Image Reviewed
[2025-02-05 04:10] LABS: ALT (SGPT) 18 U/L (0-35); AST (SGOT) 58 U/L (14-36); Albumin 3.5 g/dl (3.5-5.0); Alkaline Phosphatase 88 U/L (38-126); Blood Urea Nitrogen 64 mg/dl (7-17); Calcium 9.3 mg/dl (8.4-10.2); Carbon Dioxide 28 mmol/L (22-30); Chloride 102 mmol/L (98-107); Estimated Creatinine Clearance 26 ml/min; Glucose 101 mg/dl (70-99); LDH 334 U/L (120-246); Magnesium 2.2 mg/dl (1.6-2.3); Potassium 4.0 mmol/L (3.5-5.1); Sodium 134 mmol/L (135-145); Total Protein 5.5 g/dl (6.3-8.2); eGFR 30.13
--- NOTE | 2025-02-05 06:00 | PTCARENOTE ---
Patient reassessed. Patient with low temps ~96.5 degrees warm blanket applied patient appears asymptomatic. All other VSS. Pressure tubing changed. AM labs obtained. AM hygiene care provided. OOB to chair. Bumex to remain on.
[2025-02-05] MEDS: ANCEF 10 IV ×2 (06:03→13:53)
[2025-02-05] MEDS: TYLENOL 1000 MG PO ×3 (06:03→21:41)
[2025-02-05 07:29] LABS: Glucose - Point of Care 105 mg/dl (70-99)
[2025-02-05] MEDS: NOVOLOG FLEXPEN-MODERATE RESISTANCE SC (07:31)
--- NOTE | 2025-02-05 07:36 | W.PN.INTV ---
Today's Communication / Plan
Recommendations
Diuresis continues per CT surgery
Remains on amiodarone
Follow chest x-ray, creatinine, urine output
Incentive spirometry
Assessment
-
80-year-old non-smoking female with history of hypertension, hyperlipidemia, PAF and CAD/valvular disease underwent valve replacement and bypass surgery-can reconditioner consulted for postoperative ventilator/critical care management 01/31/2025.
Valvular disease and CAD
Status post AVR--23 mm bioprosthesis, CABG times x 2--ALMANZAR-LAD, RSVG - RPDA, tricuspid valve repair, maze procedure, reopening sternotomy-Impella device placement-Dr. Crouch 01/31/2025
Consumptive coagulopathy postop from Impella device
CHF reduced EF
Left greater than right pleural effusion
Status post left thoracentesis 01/25/25--850 mL of clear pleural fluid
Atrial fibrillation with rapid ventricular response
Brief nonsustained ventricular tachycardia postop
Postop anemia status post 4 units PRBC
Postop coagulopathy/thrombocytopenia-status post 3 units platelets, 2 units FFP, 2 units cryoprecipitate's, vitamin K and DDAVP
Postoperative cardiogenic shock requiring inotropes and pressors as well as left ventricular assist device
Mild transaminitis
Hypokalemia
Hypomagnesemia
Leukocytosis
Conditions present prior to admission:
Hypertension.
Hyperlipidemia.
Carotid stenosis.
PAD.
PAF on aspirin.
Vaginal bleeding on Pradaxa.
Left wrist repair.
Plan/recommendations
At this time, patient appears to be comfortable but remains critically ill on dobutamine
Echocardiogram at bedside completed, possibly improved per nursing
Diuresis continues, on Bumex
Chest x-ray with bilateral pleural parenchymal disease, pleural effusion, pulmonary edema
Chest tube output stable
SGC removed
Moving forward
Continue with diuresis per CT surgery
Follow urine output, electrolytes
Monitor chest tube output, stable
Multiple blood products provided
Albumin infusion
Follow LFTs-improved
Cardiology following-correspondence reviewed
Atrial fibrillation rate control
Amiodarone continues
Preoperative echocardiogram and cardiac catheterization summarized below, repeat echocardiogram today pending
Monitor blood sugar
Insulin drip per protocol
DVT prophylaxis
Continue nutrition
Eventual physical therapy
Early mobilization after Impella removed
Diagnostic data:
Chest x-ray 01/24/2025-mild pulmonary vascular congestion and moderate left
Lower extremity ultrasound 01/24/2025-no evidence for left lower extremity DVT
Thoracentesis-left side 01/25/01/25/2025-01/25/25-850 mL liter Clear pleural fluid
CT chest TAVR 01/29/2025-small bilateral pleural effusions, thyroid gland unremarkable, compressive atelectasis pulm basilar segments, no focal consolidation or pneumothorax, no pulmonary mass or nodule
Echocardiogram 01/25/2025-EF 40-45%, apical septal hypokinesis, mild mitral stenosis, moderate mitral regurgitation, severe aortic stenosis with CHARLY 0.5 cm, moderate aortic regurgitation, severe tricuspid regurgitation estimated PA systolic 41
Cardiac catheterization right and left 01/24/2025-RA 15, RV 36/10, PA 41/27, PCWP-23, cardiac output 2.97, cardiac index 1.7, SVR 1887, severe multivessel CAD noted as well
Subjective Dataa
Subjective Data
Date of Service:
Date of Service: February 05, 2025
Chief Complaint: [employer] Assistant Follow Up and Pulmonary Follow Up
Subjective:
Overall, patient appears to be comfortable. Shortness of breath persist, no worse. Impella device has been removed. Bedside echocardiogram being completed at this time. Appears improved. Denies nausea, abdominal pain, significant cough
Objective Data
Data Reviewed
Vital Signs / I&O / Oxygen:
Vital Signs
Temp Pulse Resp BP Pulse Ox
96.3 F L 106 14 113/61 96
02/05/25 06:00 02/05/25 07:20 02/05/25 07:20 02/05/25 07:00 02/05/25 07:20
Intake and Output
02/04/25 02/05/25 02/06/25
06:59 06:59 06:59
Intake Total 2354.2 / 2387.5 2250.7 / 2282.0 31.3 / 31.3
Output Total 1390 / 1560 2145 / 2230 85 / 85
Balance 964.2 / 827.5 105.7 / 52.0 -53.7 / -53.7
SaO2 [CPAP/PSV] 100
SaO2 [SIMV] 100
SaO2 96
Nasal Cannula flow liters per 2
minute
Physical Exam
General: Comfortable and Other (Right IJ, right upper extremity)
HEENT: Normocephalic, Anicteric and Moist Mucous Membranes
Cardiovascular: Regular Rhythm and Murmur
Respiratory: Wheeze (n), Crackles (Few right base), Rhonchi (n), Non-Labored Respirations, Accessory Resp Muscle Use (n), Stridor (n), Chest Tube and Other (Decreased right base)
GI: Soft, Non Distended and Non Tender
Neurology: Awake, Alert and No Motor Deficits
Skin: Warm, Good Color, Cyanosis (n) and Jaundice (n)
Labs/Micro/Reports
Lab Data
02/05/25 03:16
02/05/25 03:16
Laboratory Results
02/04/25 02/04/25 02/04/25
10:48 14:59 17:03
PT 17.9 H
INR 1.45
APTT 36.4 H
pH 7.46 H 7.45
pCO2 35 37 H
pO2 101 103
HCO3 24.9 25.7
O2 Delivery Level
02/04/25 02/05/25
21:10 03:16
PT 20.5 H 20.4 H
INR 1.74 1.72
APTT 51.6 H 55.3 H
pH
pCO2
pO2
HCO3
O2 Delivery Level
[2025-02-05] MEDS: LIDOCAINE 4% PATCH TOPICAL (07:49)
[2025-02-05 08:07] LABS: ACT-LR - POC > 397 Seconds (116-155)
[2025-02-05 08:07] LABS: ACT-LR - POC > 397 Seconds (116-155)
[2025-02-05] MEDS: SENOKOT-S 1 TABLET PO (08:23)
[2025-02-05] MEDS: NEURONTIN 100 MG PO ×3 (08:23→21:41)
[2025-02-05] MEDS: FEOSOL 325 MG PO (08:23)
[2025-02-05] MEDS: LIPITOR 80 MG PO (08:23)
[2025-02-05] MEDS: PACERONE 200 MG PO ×3 (08:23→21:41)
[2025-02-05] MEDS: LOW STRENGTH ASPIRIN 81 MG PO (08:23)
[2025-02-05] MEDS: MUCINEX 600 MG PO ×2 (08:23→20:12)
[2025-02-05] MEDS: VITAMIN C 500 MG PO (08:23)
[2025-02-05] MEDS: PROTONIX 40 MG PO (08:23)
[2025-02-05] MEDS: BUMEX 50 IV (09:17)
--- NOTE | 2025-02-05 10:04 | W.PN.CD ---
Today's Communication / Plan
-
Continue dobutamine and Bumex drip
CVP is high
If she is not putting out adequately to drip, she may need Bumex boluses on top of that
Continue amiodarone for AF
Impression / Plan
-
I/P: 80F with persistent atrial fibrillation (abnormal bleeding on dabigatran), CAD (LAD and RCA medically managed, 2012), PAD (50-60% R ICA), hypertension, dyslipidemia, moderate MR, , moderate pulmonary hypertension, and moderate to severe TR
who presented with shortness of breath for several days found to have reduced LVEF, severe . mod AR and severe TR and multivessel CAD.
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 Pinedo
Acute heart failure with cardiogenic shock
-Likely due to CAD and mixed valvular disease
-s/p Surgical aortic valve replacement [23 mm [employer]'s Resilia bioprosthesis]; CABG x 2 [ALMANZAR to LAD, RSVG to RPDA]; Simple tricuspid valve repair [32 mm band annuloplasty]; Full left and right atrial maze [combination of RF and
cryoablation] plus left atrial appendage exclusion ()
-Post cardiotomy cardiogenic shock with escalating inotropic support and vasoactive medication- s/p Reopening of sternotomy; Placement of a direct aortic 5.5 Impella left ventricular assist device
-Continue aspirin and high-dose atorvastatin.
-Remains on dobutamine @5 and Bumex drip. Impella removed 02/04
Aortic valve disease - Severe Aortic stenosis, moderate AR
-s/p Surgical aortic valve replacement [23 mm Andrews [employer]'s Resilia bioprosthesis]; CABG x 2 [ALMANZAR to LAD, RSVG to RPDA]; Simple tricuspid valve repair [32 mm band annuloplasty]; Full left and right atrial maze [combination of RF and
cryoablation] plus left atrial appendage exclusion
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
- GDMT as tolerated:
-LUCIA/ARB/ARNI: Limited by blood pressure
-SGLT2 inhibitor: No prescription coverage, cost prohibitive
-Aldosterone agonist: Spironolactone 25 mg held
-Beta jeannie: Metoprolol succinate 50 mg daily held
-Isosorbide/Hydralazine:�Not indicated
-ICD: Not indicated
- Continue Bumex gtt for volume management
- Continue to trend daily weight, I/O, and BMP
- Pleural effusion, left status-post thoracentesis of 850 mL clear yellow pleural fluid on 01/25/2025
Paroxysmal atrial fibrillation
- Patient with recurrent PAF; continue amiodarone.
- BB held due to shock
- [id number] score is 6 for age, female, HTN, CHF, and vascular disease.
- Oral anticoagulation: We reviewed stroke risk and anticoagulation. She does not want to retrial here. She had vaginal bleeding on dabigatran.
Tricuspid regurgitation, severe
-s/p surgical repair
Hyponatremia:improved
Subjective: Feels fairly well. No CV complaints.
This AM: CVP 15 PA 48/25 (35) BP 136/57 (81) HR 122 CI 2.37
CARDIAC CATH 01/26/2025:
1. 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
2. Severe low-flow low gradient aortic stenosis
3. Severe multivessel coronary artery disease as described
RECOMMENDATIONS
1. Diuresis and titration of GDMT for heart failure.
2. Outpatient workup for aortic valve replacement +/- coronary revascularization, surgical versus percutaneous. Patient needs TAVR CT protocol next and then heart team discussion to evaluate options. Percutaneous revascularization would involve
multisegment stenting of the RCA to address flow to the large RPL and multi segment stenting of the LAD including the proximal LAD, mid-LAD CARD SORTER, possibly necessitating rescue of D1. CABG would ideally involve grafts to the LAD, D1, and RPL. The D2
and RPDA are atretic and do not appear to be candidates for revascularization.
Physical Exam
Vital Signs/Labs
Vital Signs
Temp Pulse Resp BP Pulse Ox
97.7 F 115 17 102/54 94
02/05/25 08:00 02/05/25 09:00 02/05/25 09:00 02/05/25 08:00 02/05/25 09:33
02/04/25 02/05/25 02/06/25
06:59 06:59 06:59
Actual Weight 154 lb 5.177 oz 158 lb 8.198 oz
02/05/25 03:16
02/05/25 03:16
PT 20.4 Sec (11.4-14.6) H 02/05/25 03:16
INR 1.72 02/05/25 03:16
APTT 55.3 Sec (23.4-35.0) H 02/05/25 03:16
Magnesium 2.2 mg/dl (1.6-2.3) 02/05/25 03:16
Triglycerides 66 mg/dl (10-149) 01/25/25 04:53
LDL Cholesterol, Calc 75 mg/dl 01/25/25 04:53
VLDL Cholesterol, Calc 13 mg/dl (0-30) 01/25/25 04:53
HDL Cholesterol 74 mg/dl 01/25/25 04:53
01/24/25
15:33
Wbt-X-Ontcwumhrso Pept [id number]
Physical Exam
Constitutional: No acute distress and Comfortable
Cardiovascular: Rhythm/rate is irregular, Pedal edema present, S1S2 is normal and Murmur/rub/gallop absent
Respiratory: Respiratory effort normal and Crackles Present
Neuro/Psych: AO x 3
Data Reviewed
-
Date of Service: February 05, 2025
Medical Decision Making: Reviewed Test Results, Independent Historian Assessment, Test Interpretation and Review of Case with other Provider
EKG: Tracing Personally Visualized and interpreted
Echo: Report Reviewed by me
Labs: Labs Reviewed by me
--- NOTE | 2025-02-05 10:53 | CM ---
Chart reviewed. Patient lying in bed. Patient is independent of ADLS, currently working here at , lives alone in a 1st floor apartment, [address], occasionally ambulates with a SPC. Patient will need PT/OT evaluations when medically stable to see
functional assessment. Patient's son is here visiting from [place] and is staying for 1 month. Plan is for the patient to return home with CT Transitional RN vs Rehab. CM to follow
--- NOTE | 2025-02-05 12:54 | PTCARENOTE ---
Assessment unchanged; A-fib on monitor and VSS; pt resting comfortably eating lunch; Dobutamine and Bumex infusing see flow sheet for details.
[2025-02-05] MEDS: DOBUTREX 250 MG IV (13:03)
[2025-02-05] MEDS: NSS IV (13:50)
[2025-02-05] MEDS: BUMEX 1 MG IV (16:08)
--- NOTE | 2025-02-05 16:27 | PTCARENOTE ---
A-fib on monitor and VSS: Bumex and Dobutamine infusing see flow sheet for details; pt resting comfortably in chair with family at bedside; assessment unchanged.
--- NOTE | 2025-02-05 18:00 | PTCARENOTE ---
Mediastinal CT x2 removed per CTNP order.
[2025-02-05] MEDS: BUMEX IV (19:15)
[2025-02-05] MEDS: REMOVE LIDOCAINE PATCH REMOVE (20:13)
[2025-02-05] MEDS: SENOKOT-S PO (20:13)
--- NOTE | 2025-02-05 21:00 | PTCARENOTE ---
Assumed care of pt from dayshift RN. Walking rounds completed. Pt is AAOx3. Follows commands appropriately. A-fib on the tele monitor. HR 100-110s. Temporary A/V wires intact and set to backup AAI 40/10/0.4. BP 110s-130s/50s. CVP ~ 11. PAP
40s/teens-20s. CI >2. B/L radial pulses palpable. B/L DP pulses present via doppler. B/L UE and LE edema +2. Pt on 2 L NC. POX 98-99%. R/L pleural CT to -20 suction, and no airleak noted at this time. Deep breathing and IS encouraged. Abdomen
nontender. +BS x4. Chery catheter intact and draining clear/yellow urine. Bumex drip turned off @1999 as ordered. All surgical sites stable. Right groin / leg bruise present. Right IJ cordis w/ swan @ 48 intact. Right radial a-line and PIV x2
intact. All lines leveled, zeroed, and flushed. Dobutamine infusing as ordered. See worklist for full nursing assessment and interventions. Call sánchez within reach.
[2025-02-05 21:38] LABS: Blood Urea Nitrogen 70 mg/dl (7-17); Calcium 8.9 mg/dl (8.4-10.2); Carbon Dioxide 27 mmol/L (22-30); Chloride 100 mmol/L (98-107); Estimated Creatinine Clearance 26 ml/min; Glucose 109 mg/dl (70-99); Magnesium 2.1 mg/dl (1.6-2.3); Potassium 3.5 mmol/L (3.5-5.1); Sodium 132 mmol/L (135-145); eGFR 30.13
[2025-02-05] MEDS: KCL 40 MEQ PO (21:55)
[2025-02-05] MEDS: MAGNESIUM OXIDE 500 MG PO (22:04)
[2025-02-06] VITALS (17 sets, daily range): BP systolic 97–139; BP diastolic 53–79; PULSE 101–104; O2SAT 95; BMI 24.9
--- NOTE | 2025-02-06 00:23 | PTCARENOTE ---
Pt reassessed. Pt remains in a-fib on the tele monitor. HR 100-120s. BP stable. CVP ~11. PAP 40s/teens. CI >2. Pt on 2 L NC. POX 98%. R/L pleural CT assessment unchanged. Chery catheter intact and draining clear/yellow urine. All surgical sites
stable. [place] and a-line maintained. All lines leveled, zeroed, and flushed. Dobutamine infusing as ordered. Call sánchez within reach.
[2025-02-06 03:36] LABS: Hematocrit 27.9 % (37.0-47.0); Hemoglobin 9.4 g/dL (12.0-16.0); Mean Corp Hgb Conc. 33.7 g/dL (33.0-37.0); Mean Corpuscular Volume 90.6 fL (81.0-99.0); Platelet Count 107 10^3/uL (130-400); Red Cell Dist. Width 17.4 % (11.5-14.5)
[2025-02-06 03:39] LABS: APTT 34.8 Sec (23.4-35.0); INR 1.93; PT 22.3 Sec (11.4-14.6)
--- NOTE | 2025-02-06 03:40 | PTCARENOTE ---
Pt reassessed. No acute changes in assessment. Pt in a-fib on the tele monitor. HR 100-120s. BP stable. CVP ~10-14. PAPs 40s/20s. CI>2. Pt on 2 L NC. POX 97-99%. CT assessment unchanged. Chery catheter draining clear/yellow urine appropriately. All
surgical sites stable. [place] and a-line remain - lines leveled, zeroed, and flushed. Labs drawn and sent. Dobutamine infusing as ordered. Pt repositioned in bed. No pain at this time. Call sánchez within reach.
[2025-02-06 03:56] LABS: ALT (SGPT) < 10 U/L (0-35); AST (SGOT) 51 U/L (14-36); Albumin 3.2 g/dl (3.5-5.0); Alkaline Phosphatase 89 U/L (38-126); Blood Urea Nitrogen 68 mg/dl (7-17); Calcium 9.0 mg/dl (8.4-10.2); Carbon Dioxide 27 mmol/L (22-30); Chloride 101 mmol/L (98-107); Estimated Creatinine Clearance 24 ml/min; Glucose 90 mg/dl (70-99); Magnesium 2.1 mg/dl (1.6-2.3); Potassium 3.8 mmol/L (3.5-5.1); Sodium 134 mmol/L (135-145); Total Protein 5.2 g/dl (6.3-8.2); eGFR 28.13
--- NOTE | 2025-02-06 04:07 | W.PN.CT ---
Today's Communication / Plan
-
Plan:
-No major issues overnight. Neurologically and hemodynamically intact
-Underwent weaning of Impella and removal on 02/04/25. Received 1PRBC, 2FFPs and 3 Plts prior to removal
-Dobutamine gtt weaned from @ 4 to 3 mcg/kg/min this AM @ 0600, Bumex gtt @ was held @ 2000 yesterday, resumed @ 1mg/hr this AM @ 0600
-Had some epistaxis on 02/03/25 which has since resolved. INR 1.93, was 1.72 yesterday
-H/H 9.4/27.9, plts 98K->107K
-Last CI 2.73, MVO2 71.8%, 24hr U/O 1850 mL
-Monitor chest tubes for possible d/c: R/L pleurals 130/390, mediastinal chest tube was d/c'd yesterday 02/05/25. F/U official cxr report
-Encourage use of IS
-OOB into chair/Ambulate/ PT/OT following
-Monitor TALIB, 1.8, was 1.7 yesterday. Cr 0.8-1.1 preop
-Maintain dozier catheter for accurate I/O's
-Maintain swan and a-line while on dobutamine gtt. BB on hold
-Maintain temporary A/V wires, currently @ backup AAI of 50 bpm, will cut before d/c
-Will discuss oral anticoagulation in the future for hx A-fib, pt did not tolerate Pradaxa in the past d/t vaginal bleed
-Repeat echo yesterday 02/05/25 with dobutamine @ 5 showed and intact bioprosthetic AVR with PG/MG of , no AI, intact MV repair with mild-moderate TR, LVEF 60-65%
Assessment / Plan
-
- Acute heart failure with cardiogenic shock, aortic valve stenosis and insufficiency, severe tricuspid valve insufficiency, A-fib with RVR and multivessel coronary disease- s/p Surgical aortic valve replacement [23 mm [employer]'s Resilia
bioprosthesis]; CABG x 2 [ALMANZAR to LAD, RSVG to RPDA]; Simple tricuspid valve repair [32 mm band annuloplasty]; Full left and right atrial maze [combination of RF and cryoablation] plus left atrial appendage exclusion [40 mm device]; Drainage of
bilateral pleural effusions, approximately 250 cc in each chest by Dr. Crouch on 01/31/25, pod #6
- Post cardiotomy cardiogenic shock with escalating inotropic support and vasoactive medication- s/p Reopening of sternotomy; Placement of a direct aortic 5.5 Impella left ventricular assist device
by Dr. Crouch on 01/31/25
- Intraop FRANCISCO JAVIER: LVEF at the start of the surgery was approximately 40% with some regional wall motion abnormalities toward the inferior septal and anterior septal portions of the wall. Following surgery, EF did struggle to approximately 20 to 25%
and she was loaded on 5 dobutamine but had escalating requirements for Levophed. RV function was normal as was RV size and there was only a trace residual amount of tricuspid valve insufficiency.
The left atrial appendage was verified to be free of any thrombus or debris preoperatively and found to be totally occlusive postoperatively. There is no paravalvular leak of the aortic valve prosthesis and the mean gradient across the valve was 3
mmHg. There is essentially no mean gradient across the tricuspid valve. At the conclusion of the case, she did respond to volume loading with blood. Of note she was coagulopathic postoperatively with an elevated ACT despite giving almost double
her protamine dose.
-S/P Stepwise weaning of 5.5 Impella ventricular assist device/Extraction/removal of 5.5 Impella ventricular assist device/ Ligation of sterile portion of 10 mm Hemashield graft using 8 large clips with coverage of the remaining graft with overlying
strap muscles/Local analgesia for pain control, by Dr. Crouch 02/04/25
- Severe aortic valve stenosis
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
- Atrial fibrillation with rapid ventricular response- didn't tolerate Pradaxa in the past d/t vaginal bleed
- Acute respiratory insufficiency
- Significant volume overload requiring diuresis
- HTN/HLD
- PAD
- Nonsmoker
- Acute postop blood loss anemia - s/p total 5 pRBCs
- Acute postop coagulopathy/ thrombocytopenia - s/p 6 unit platelets, 5 FFPs, 2 cryo, 0.5 iv Vit K, DDAVP
- Acute postop 10 beat NSVT on 01/31
- Acute postop junctional rhythm/bradycardia
- Acute postop atelectasis
- Acute postop cardiogenic shock, requiring mechanical cardiac support (Impella 5.5), inotrops and pressors
- Acute postop hypovolemia with subsequent hypervolemia
- Acute postop hypokalemia
- Acute postop Lactic acidosis
- Acute postop TALIB
- Acute postop Epistaxis
- Acute postop hyponatremia
- Acute postop transaminitis
Discussed patient care with: Cardiology, Nursing, Respiratory Therapy, Pharmacy and Care Team
Subjective
Procedure
Aortic valve replacement [23 mm Andrews [employer]'s Resilia bioprosthesis]; CABG x 2 [ALMANZAR to LAD, RSVG to RPDA]; Simple tricuspid valve repair [32 mm band annuloplasty]; Full left and right atrial maze [combination of RF and cryoablation] plus left
atrial appendage exclusion [40 mm device]; Drainage of bilateral pleural effusions, approximately 250 cc in each chest by Dr. Crouch on 01/31/25
-
Date of Service: February 06, 2025
Pt c/o mild incisional pain, otherwise feels well
Objective Data
-
Lab Results
02/06/25 03:18
02/06/25 03:18
PT 22.3 Sec (11.4-14.6) H 02/06/25 03:18
INR 1.93 02/06/25 03:18
APTT 34.8 Sec (23.4-35.0) 02/06/25 03:18
Vital Signs
Vital Signs
Temp Pulse Resp BP Pulse Ox
98.3 F 137 14 107/71 98
02/06/25 03:00 02/06/25 03:00 02/06/25 03:00 02/06/25 03:00 02/06/25 03:00
CT Intake/Output/Weight
02/05/25 02/05/25 02/06/25
06:59 18:59 06:59
Intake Total 461.6 / 2282.0 443.5 / 780.3 336.8 / 780.3
Output Total 935 / 2230 900 / 1950 1050 / 1950
Balance -473.4 / 52.0 -456.5 / -1169.7 -713.2 / -1169.7
SaO2: 98 (2L)
Physical Exam
-
General: Awake, Oriented and AOx3
Cardiovascular: Regular rate & rhythm, No Murmurs, No Rub and No Gallop
Respiratory: Decreased Breath Sounds (at bases, otherwise clear)
Sternum: Stable
Incision: Clean, Dry, Intact and Dressing Intact
Extremities: Other (+trace edema )
Data Reviewed
-
Lab Results: Results Reviewed
Medications: Active Meds Reviewed
Chest X-Ray: Report Reviewed and Image Reviewed
ECG: Report Reviewed and Image Reviewed
[2025-02-06] MEDS: KCL 40 MEQ PO ×2 (04:52→21:58)
[2025-02-06] MEDS: TYLENOL 1000 MG PO ×3 (05:02→21:58)
[2025-02-06] MEDS: BUMEX 50 IV ×2 (06:08→15:06)
[2025-02-06] MEDS: LOW STRENGTH ASPIRIN 81 MG PO (07:35)
[2025-02-06] MEDS: MAGNESIUM OXIDE 500 MG PO ×2 (07:35→20:10)
[2025-02-06] MEDS: PROTONIX 40 MG PO (07:35)
[2025-02-06] MEDS: NEURONTIN 100 MG PO ×3 (07:35→21:58)
[2025-02-06] MEDS: VITAMIN C 500 MG PO (07:35)
[2025-02-06] MEDS: PACERONE 200 MG PO ×3 (07:35→21:58)
[2025-02-06] MEDS: FEOSOL 325 MG PO (07:35)
[2025-02-06] MEDS: MUCINEX 600 MG PO ×2 (07:35→20:10)
[2025-02-06] MEDS: LIPITOR 80 MG PO (07:35)
[2025-02-06] MEDS: LIDOCAINE 4% PATCH TOPICAL (07:42)
[2025-02-06] MEDS: SENOKOT-S PO (07:42)
--- NOTE | 2025-02-06 07:42 | PTCARENOTE ---
Received pt from cook night RN; pt AAOx3, pt ambulated to chair with 2 RNs; A-fib on monitor and VSS; Epicardial A/V wires in place and no pacing noted; RITemitope [place], [place] floated to 48, Right A-line and PIV x2 all lines leveled and zeroed;
Dobutamine and Bumex infusing see flow sheet for details; Lungs diminished with crackles throughout; CT x2 to -20 wall suction no air leak and no crepitus noted; positive bowel sounds; Chery catheter draining yellow urine; +2 generalized edema
noted; palpable radial pulses, B/L lower extremity DP present by Doppler; all surgical sites C/D/I; see nursing documentation for further details.
CI 2.36
CO 3.84
SVR 1333
--- NOTE | 2025-02-06 07:47 | W.PN.INTV ---
Today's Communication / Plan
Recommendations
Seems to be responding to diuresis
Chest x-ray, exam improved
Remains on dobutamine, being weaned
Once transferred to telemetry, we will sign off. Please call with questions
Assessment
-
80-year-old non-smoking female with history of hypertension, hyperlipidemia, PAF and CAD/valvular disease underwent valve replacement and bypass surgery-finish opener consulted for postoperative ventilator/critical care management 01/31/2025.
Valvular disease and CAD
Status post AVR--23 mm bioprosthesis, CABG times x 2--ALMANZAR-LAD, RSVG - RPDA, tricuspid valve repair, maze procedure, reopening sternotomy-Impella device placement-Dr. Crouch 01/31/2025
Consumptive coagulopathy postop from Impella device
CHF reduced EF
Left greater than right pleural effusion
Status post left thoracentesis 01/25/25--850 mL of clear pleural fluid
Atrial fibrillation with rapid ventricular response
Brief nonsustained ventricular tachycardia postop
Postop anemia status post 4 units PRBC
Postop coagulopathy/thrombocytopenia-status post 3 units platelets, 2 units FFP, 2 units cryoprecipitate's, vitamin K and DDAVP
Postoperative cardiogenic shock requiring inotropes and pressors as well as left ventricular assist device
Mild transaminitis
Hypokalemia
Hypomagnesemia
Leukocytosis
Conditions present prior to admission:
Hypertension.
Hyperlipidemia.
Carotid stenosis.
PAD.
PAF on aspirin.
Vaginal bleeding on Pradaxa.
Left wrist repair.
Plan/recommendations
At this time, patient appears to be comfortable but remains critically ill on dobutamine
Echocardiogram 02/05 with normal EF, bioprosthetic aortic valve, tricuspid valve repair and moderate TR
Diuresis continues, on Bumex
Chest x-ray with bilateral pleural parenchymal disease, pleural effusion, pulmonary edema, improved 02/06
Chest tube output stable
Right IJ remains in place
Moving forward
Continue with diuresis per CT surgery
Follow urine output, electrolytes
Monitor chest tube output, stable
Multiple blood products provided
Albumin infusion
Follow LFTs-improved
General Anasarca noted
Cardiology following-correspondence reviewed
Atrial fibrillation rate control
Amiodarone continues
Monitor blood sugar
DVT prophylaxis
Continue nutrition
Eventual physical therapy
Early mobilization after Impella removed
Once transferred to telemetry, we will sign off. Please call with questions
Diagnostic data:
Chest x-ray 01/24/2025-mild pulmonary vascular congestion and moderate left
Lower extremity ultrasound 01/24/2025-no evidence for left lower extremity DVT
Thoracentesis-left side 01/25/01/25/2025-01/25/25-850 mL liter Clear pleural fluid
CT chest TAVR 01/29/2025-small bilateral pleural effusions, thyroid gland unremarkable, compressive atelectasis pulm basilar segments, no focal consolidation or pneumothorax, no pulmonary mass or nodule
Echocardiogram 01/25/2025-EF 40-45%, apical septal hypokinesis, mild mitral stenosis, moderate mitral regurgitation, severe aortic stenosis with CHARLY 0.5 cm, moderate aortic regurgitation, severe tricuspid regurgitation estimated PA systolic 41
Cardiac catheterization right and left 01/24/2025-RA 15, RV 36/10, PA 41/27, PCWP-23, cardiac output 2.97, cardiac index 1.7, SVR 1887, severe multivessel CAD noted as well
Subjective Dataa
Subjective Data
Date of Service:
Date of Service: February 06, 2025
Chief Complaint: Materials Tech Follow Up and Pulmonary Follow Up
Subjective:
Patient examined while sitting in the chair, appears to be comfortable, denies significant chest pain, nausea, abdominal pain. Feels breathing has improved.
Objective Data
Data Reviewed
Vital Signs / I&O / Oxygen:
Vital Signs
Temp Pulse Resp BP Pulse Ox
97.7 F 119 16 119/62 92
02/06/25 07:00 02/06/25 07:10 02/06/25 07:00 02/06/25 06:00 02/06/25 07:10
Intake and Output
02/05/25 02/06/25 02/07/25
06:59 06:59 06:59
Intake Total 2250.7 / 2282.0 920.9 / 974.1 53.2 / 53.2
Output Total 2145 / 2230 2350 / 2490 140 / 140
Balance 105.7 / 52.0 -1429.1 / -1515.9 -86.8 / -86.8
SaO2 [CPAP/PSV] 100
SaO2 [SIMV] 100
SaO2 92
Nasal Cannula flow liters per 2
minute
Physical Exam
General: Comfortable and Other (Right IJ, right upper extremity A-line)
HEENT: Normocephalic, Anicteric and Moist Mucous Membranes
Cardiovascular: Regular Rhythm and Murmur
Respiratory: Wheeze (n), Crackles (Few right base), Rhonchi (n), Non-Labored Respirations, Stridor (n) and Chest Tube
GI: Soft, Non Distended and Non Tender
Neurology: Awake, Alert and No Motor Deficits
Skin: Warm, Good Color, Cyanosis (n) and Jaundice (n)
Labs/Micro/Reports
Lab Data
02/06/25 03:18
02/06/25 03:18
Laboratory Results
02/06/25
03:18
PT 22.3 H
INR 1.93
APTT 34.8
Microbiology
01/25/25 09:33 Pleural Fluid Fungal Smear - Final
No yeast or fungal elements seen.
01/25/25 09:33 Pleural Fluid Fungal Culture - Preliminary
Culture in progress.
Positive cultures are reported as soon as detected.
Final report to follow in four to five weeks.
--- NOTE | 2025-02-06 10:27 | W.PN.CD ---
Today's Communication / Plan
-
Continue dobutamine and Bumex drip. Wean dobutamine as tolerated.
Goal net -1.5 L today
Continue amiodarone for A-fib rates
Impression / Plan
-
I/P: 80F with persistent atrial fibrillation (abnormal bleeding on dabigatran), CAD (LAD and RCA medically managed, 2012), PAD (50-60% R ICA), hypertension, dyslipidemia, moderate MR, , moderate pulmonary hypertension, and moderate to severe TR
who presented with shortness of breath for several days found to have reduced LVEF, severe . mod AR and severe TR and multivessel CAD.
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
Acute heart failure with cardiogenic shock
-Likely due to CAD and mixed valvular disease
-s/p Surgical aortic valve replacement [23 mm Andrews [employer]'s Resilia bioprosthesis]; CABG x 2 [ALMANZAR to LAD, RSVG to RPDA]; Simple tricuspid valve repair [32 mm band annuloplasty]; Full left and right atrial maze [combination of RF and
cryoablation] plus left atrial appendage exclusion ()
-Post cardiotomy cardiogenic shock with escalating inotropic support and vasoactive medication- s/p Reopening of sternotomy; Placement of a direct aortic 5.5 Impella left ventricular assist device
-Continue aspirin and high-dose atorvastatin.
- Dobutamine down to 3 and Bumex drip at 1. Impella removed 02/04
Aortic valve disease - Severe Aortic stenosis, moderate AR
-s/p Surgical aortic valve replacement [23 mm Andrews Insp[employer]'s Resilia bioprosthesis]; CABG x 2 [ALMANZAR to LAD, RSVG to RPDA]; Simple tricuspid valve repair [32 mm band annuloplasty]; Full left and right atrial maze [combination of RF and
cryoablation] plus left atrial appendage exclusion
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
- GDMT as tolerated:
-LUCIA/ARB/ARNI: Limited by blood pressure
-SGLT2 inhibitor: No prescription coverage, cost prohibitive
-Aldosterone agonist: Spironolactone 25 mg held
-Beta jeannie: Metoprolol succinate 50 mg daily held
-Isosorbide/Hydralazine:�Not indicated
-ICD: Not indicated
- Continue Bumex gtt for volume management
- Continue to trend daily weight, I/O, and BMP
- Pleural effusion, left status-post thoracentesis of 850 mL clear yellow pleural fluid on 01/25/2025
Paroxysmal atrial fibrillation
- Patient with recurrent PAF; continue amiodarone.
- BB held due to shock
- [id number] score is 6 for age, female, HTN, CHF, and vascular disease.
- Oral anticoagulation: We reviewed stroke risk and anticoagulation. She does not want to retrial here. She had vaginal bleeding on dabigatran.
Tricuspid regurgitation, severe
-s/p surgical repair
Hyponatremia:improved
Subjective: Feels fairly well. No CV complaints.
CARDIAC CATH 01/26/2025:
1. 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
2. Severe low-flow low gradient aortic stenosis
3. Severe multivessel coronary artery disease as described
RECOMMENDATIONS
1. Diuresis and titration of GDMT for heart failure.
2. Outpatient workup for aortic valve replacement +/- coronary revascularization, surgical versus percutaneous. Patient needs TAVR CT protocol next and then heart team discussion to evaluate options. Percutaneous revascularization would involve
multisegment stenting of the RCA to address flow to the large RPL and multi segment stenting of the LAD including the proximal LAD, mid-LAD FACILITY MANAGER HISTOLOGY, possibly necessitating rescue of D1. CABG would ideally involve grafts to the LAD, D1, and RPL. The D2
and RPDA are atretic and do not appear to be candidates for revascularization.
Physical Exam
Vital Signs/Labs
Vital Signs
Temp Pulse Resp BP Pulse Ox
97.8 F 111 18 119/62 95
02/06/25 08:00 02/06/25 10:20 02/06/25 10:00 02/06/25 06:00 02/06/25 10:20
02/05/25 02/06/25 02/07/25
06:59 06:59 06:59
Actual Weight 158 lb 8.198 oz 158 lb 11.725 oz
02/06/25 03:18
02/06/25 03:18
PT 22.3 Sec (11.4-14.6) H 02/06/25 03:18
INR 1.93 02/06/25 03:18
APTT 34.8 Sec (23.4-35.0) 02/06/25 03:18
Magnesium 2.1 mg/dl (1.6-2.3) 02/06/25 03:18
Triglycerides 66 mg/dl (10-149) 01/25/25 04:53
LDL Cholesterol, Calc 75 mg/dl 01/25/25 04:53
VLDL Cholesterol, Calc 13 mg/dl (0-30) 01/25/25 04:53
HDL Cholesterol 74 mg/dl 01/25/25 04:53
01/24/25
15:33
Qdx-J-Ecryolhwsbp Pept 92113
Physical Exam
Constitutional: No acute distress and Comfortable
Cardiovascular: Rhythm & rate is regular, Pedal edema present, S1S2 is normal and Murmur/rub/gallop absent
Respiratory: Respiratory effort normal and Crackles Present
Neuro/Psych: AO x 3
Data Reviewed
-
Date of Service: February 06, 2025
Medical Decision Making: Reviewed Test Results, Independent Historian Assessment, Test Interpretation and Review of Case with other Provider
EKG: Tracing Personally Visualized and interpreted
Echo: Report Reviewed by me
Labs: Labs Reviewed by me
[2025-02-06] MEDS: FLEXBUMIN 50 IV (10:49)
--- NOTE | 2025-02-06 12:44 | PTCARENOTE ---
A-fib on monitor and VSS; assessment unchanged and pt resting comfortably in chair.
[2025-02-06] MEDS: NSS 500 IV (14:01)
[2025-02-06] MEDS: DOBUTREX 250 MG IV (15:06)
--- NOTE | 2025-02-06 15:16 | CM ---
Chart reviewed. Patient lying in bed with son at bedside. Patient is independent of ADLS, lives alone in a 1st floor apartment, [address], ambulates with a SPC. Patient works at . Patient's son is visiting from [place] and staying for a
month. PT/OT evaluation recommending Acute Rehab. Referral sent to [facility]. Plan is for the patient to go to Acute Rehab vs Home with CT Transitional RN. CM to follow
--- NOTE | 2025-02-06 16:44 | PTCARENOTE ---
Assessment unchanged; A-fib on monitor and VSS; pt worked with PT/OT, pt resting comfortably in bed with family at bedside.
[2025-02-06] MEDS: SENOKOT-S 1 TABLET PO (20:10)
[2025-02-06] MEDS: REMOVE LIDOCAINE PATCH REMOVE (20:10)
--- NOTE | 2025-02-06 21:15 | PTCARENOTE ---
Assumed care of pt from dayshift RN. Walking rounds completed. Pt AAOx3. ASTORGA. Follows commands appropriately. A-fib on the tele monitor. HR 100s. Temporary epicardial A/V wires intact. BP stable. 120s/50s. CVP ~13. PAPs 40s/20s. CI>2. B/L upper and
lower extremity edema +2. B/L radial pulses palpable. B/L DP pulses present via doppler. Pt on RA. POX 92-93%. R/L pleural CT to -20 suction, no airleak noted at this time. Deep breathing and IS encouraged. Abdomen nontender. +BSx4. Chery catheter
intact and draining clear/yellow urine. All surgical sites stable at this time. Right IJ cordis w/ swan intact. Right radial a-line intact. PIV x2 intact. All lines leveled, zeroed, and flushed. See worklist for full nursing and interventions.
Ordered labs sent. Pt repositioned. Call sánchez within reach.
[2025-02-06 21:33] LABS: Blood Urea Nitrogen 76 mg/dl (7-17); Calcium 8.9 mg/dl (8.4-10.2); Carbon Dioxide 29 mmol/L (22-30); Chloride 100 mmol/L (98-107); Estimated Creatinine Clearance 24 ml/min; Glucose 123 mg/dl (70-99); Magnesium 2.2 mg/dl (1.6-2.3); Potassium 3.9 mmol/L (3.5-5.1); Sodium 133 mmol/L (135-145); eGFR 28.13
[2025-02-07] VITALS (17 sets, daily range): BP systolic 93–127; BP diastolic 55–76; PULSE 106; O2SAT 94; BMI 24.8
--- NOTE | 2025-02-07 00:55 | PTCARENOTE ---
No acute change in assessment. Pt in a-fib on the tele monitor. HR 100s. CVP~11. PAPs 40s/teens-20s. CI>2. BP stable. Pt placed on 2 L NC. POX 98%. CTx2 assessment unchanged. [place] and a-line maintained. All surgical sites stable. Pt repositioned in
bed. No pain at this time. Dobutamine infusing. Call sánchez within reach.
--- NOTE | 2025-02-07 03:31 | PTCARENOTE ---
No change in assessment. VSS. A-fib on the tele monitor. CI>2. CTx2 assessment unchanged. Chery catheter intact and draining yellow urine. Pt repositioned in bed. Labs drawn and sent. Denies pain at this time. Dobutamine infusing as ordered. Call
sánchez within reach.
[2025-02-07 03:34] LABS: Hematocrit 29.2 % (37.0-47.0); Hemoglobin 9.8 g/dL (12.0-16.0); Mean Corp Hgb Conc. 33.6 g/dL (33.0-37.0); Mean Corpuscular Volume 90.7 fL (81.0-99.0); Platelet Count 108 10^3/uL (130-400); Red Cell Dist. Width 17.8 % (11.5-14.5)
[2025-02-07 03:38] LABS: INR 1.99; PT 22.7 Sec (11.4-14.6)
[2025-02-07 03:57] LABS: Blood Urea Nitrogen 72 mg/dl (7-17); Calcium 9.1 mg/dl (8.4-10.2); Carbon Dioxide 27 mmol/L (22-30); Chloride 101 mmol/L (98-107); Estimated Creatinine Clearance 24 ml/min; Glucose 103 mg/dl (70-99); Magnesium 2.2 mg/dl (1.6-2.3); Potassium 4.3 mmol/L (3.5-5.1); Sodium 134 mmol/L (135-145); eGFR 28.13
--- NOTE | 2025-02-07 04:30 | W.PN.CT ---
Today's Communication / Plan
-
Plan:
-No major issues overnight. Neurologically and hemodynamically intact
-Underwent weaning of Impella and removal on 02/04/25. Received 1PRBC, 2FFPs and 3 Plts prior to removal
-Dobutamine gtt weaned from 4 to 3 to 2mc/kg/min yesterday, Bumex gtt @ was held @ 2000 yesterday, resumed @ 1mg/hr this AM @ 0600
-Had some epistaxis on 02/03/25 which has since resolved. INR 1.99, was 1.93 yesterday
-H/H 9.8/29.2, plts 98K->107K->108K
-Hyponatremia is improving with diuresis, 132->134->133->134
-Last CI 2.44, MVO2 71.5%, 24hr U/O 2735 mL
-Monitor chest tubes for possible d/c: R/L pleurals 35/150, mediastinal chest tube was d/c'd on 02/05/25. F/U official cxr report
-Encourage use of IS
-OOB into chair/Ambulate/ PT/OT following
-Monitor TALIB, 1.8, was 1.8 yesterday. Cr 0.8-1.1 preop
-Maintain dozier catheter for accurate I/O's
-Maintain swan and a-line while on dobutamine gtt. BB on hold
-Maintain temporary A/V wires, currently @ backup AAI of 50 bpm, will cut before d/c
-Will discuss oral anticoagulation in the future for hx A-fib, pt did not tolerate Pradaxa in the past d/t vaginal bleed
-Repeat echo on 02/05/25 with dobutamine @ 5 showed and intact bioprosthetic AVR with PG/MG of 26/14, no AI, intact MV repair with mild-moderate TR, LVEF 60-65%
Assessment / Plan
-
- Acute heart failure with cardiogenic shock, aortic valve stenosis and insufficiency, severe tricuspid valve insufficiency, A-fib with RVR and multivessel coronary disease- s/p Surgical aortic valve replacement [23 mm Andrews [employer]'s Resilia
bioprosthesis]; CABG x 2 [ALMANZAR to LAD, RSVG to RPDA]; Simple tricuspid valve repair [32 mm band annuloplasty]; Full left and right atrial maze [combination of RF and cryoablation] plus left atrial appendage exclusion [40 mm device]; Drainage of
bilateral pleural effusions, approximately 250 cc in each chest by Dr. Crouch on 01/31/25, pod #7
- Post cardiotomy cardiogenic shock with escalating inotropic support and vasoactive medication- s/p Reopening of sternotomy; Placement of a direct aortic 5.5 Impella left ventricular assist device
by Dr. Crouch on 01/31/25
- Intraop FRANCISCO JAVIER: LVEF at the start of the surgery was approximately 40% with some regional wall motion abnormalities toward the inferior septal and anterior septal portions of the wall. Following surgery, EF did struggle to approximately 20 to 25%
and she was loaded on 5 dobutamine but had escalating requirements for Levophed. RV function was normal as was RV size and there was only a trace residual amount of tricuspid valve insufficiency.
The left atrial appendage was verified to be free of any thrombus or debris preoperatively and found to be totally occlusive postoperatively. There is no paravalvular leak of the aortic valve prosthesis and the mean gradient across the valve was 3
mmHg. There is essentially no mean gradient across the tricuspid valve. At the conclusion of the case, she did respond to volume loading with blood. Of note she was coagulopathic postoperatively with an elevated ACT despite giving almost double
her protamine dose.
-S/P Stepwise weaning of 5.5 Impella ventricular assist device/Extraction/removal of 5.5 Impella ventricular assist device/ Ligation of sterile portion of 10 mm Hemashield graft using 8 large clips with coverage of the remaining graft with overlying
strap muscles/Local analgesia for pain control, by Dr. Crouch 02/04/25
- Severe aortic valve stenosis
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
- Atrial fibrillation with rapid ventricular response- didn't tolerate Pradaxa in the past d/t vaginal bleed
- Acute respiratory insufficiency
- Significant volume overload requiring diuresis
- HTN/HLD
- PAD
- Nonsmoker
- Acute postop blood loss anemia - s/p total 5 pRBCs
- Acute postop coagulopathy/ thrombocytopenia - s/p 6 unit platelets, 5 FFPs, 2 cryo, 0.5 iv Vit K, DDAVP
- Acute postop 10 beat NSVT on 01/31
- Acute postop junctional rhythm/bradycardia
- Acute postop atelectasis
- Acute postop cardiogenic shock, requiring mechanical cardiac support (Impella 5.5), inotrops and pressors
- Acute postop hypovolemia with subsequent hypervolemia
- Acute postop hypokalemia
- Acute postop Lactic acidosis
- Acute postop TALIB
- Acute postop Epistaxis
- Acute postop hyponatremia
- Acute postop transaminitis
Discussed patient care with: Cardiology, Nursing, Respiratory Therapy, Pharmacy and Care Team
Subjective
Procedure
Aortic valve replacement [23 mm Andrews Insp[employer]'s Resilia bioprosthesis]; CABG x 2 [ALMANZAR to LAD, RSVG to RPDA]; Simple tricuspid valve repair [32 mm band annuloplasty]; Full left and right atrial maze [combination of RF and cryoablation] plus left
atrial appendage exclusion [40 mm device]; Drainage of bilateral pleural effusions, approximately 250 cc in each chest by Dr. Crouch on 01/31/25
-
Date of Service: February 07, 2025
Pt c/o mild incisional pain, states ambulating halls with Physical therapy team
Objective Data
-
Lab Results
02/07/25 03:16
02/07/25 03:16
PT 22.7 Sec (11.4-14.6) H 02/07/25 03:16
INR 1.99 02/07/25 03:16
APTT 34.8 Sec (23.4-35.0) 02/06/25 03:18
Vital Signs
Vital Signs
Temp Pulse Resp BP Pulse Ox
97.4 F 103 13 113/66 99
02/07/25 04:00 02/07/25 04:20 02/07/25 04:18 02/07/25 04:00 02/07/25 04:00
CT Intake/Output/Weight
02/06/25 02/06/25 02/07/25
06:59 18:59 06:59
Intake Total 477.4 / 974.1 489.1 / 868.1 379.0 / 868.1
Output Total 1450 / 2490 1100 / 2660 1560 / 2660
Balance -972.6 / -1515.9 -610.9 / -1791.9 -1181.0 / -1791.9
SaO2: 99
Physical Exam
-
General: Awake, Oriented and AOx3
Cardiovascular: Irregular rate & rhythm, No Murmurs, No Rub and No Gallop
Respiratory: Decreased Breath Sounds (at bases, otherwise clear)
Sternum: Stable
Incision: Clean, Dry, Intact and Dressing Intact
Extremities: No Edema
Data Reviewed
-
Lab Results: Results Reviewed
Medications: Active Meds Reviewed
Chest X-Ray: Report Reviewed and Image Reviewed
ECG: Report Reviewed and Image Reviewed
[2025-02-07] MEDS: TYLENOL 1000 MG PO ×3 (06:01→21:24)
[2025-02-07 06:07] LABS: ALT (SGPT) < 10 U/L (0-35); AST (SGOT) 46 U/L (14-36); Albumin 3.3 g/dl (3.5-5.0); Alkaline Phosphatase 91 U/L (38-126); Total Protein 5.2 g/dl (6.3-8.2)
--- NOTE | 2025-02-07 06:27 | W.PN.INTV ---
Today's Communication / Plan
Recommendations
Diuresis and dobutamine per CT surgery
Remains on room air
Creatinine stable at 1.8
Chest tube remains in place
Assessment
-
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
Valvular disease and CAD
Status post AVR--23 mm bioprosthesis, CABG times x 2--ALMANZAR-LAD, RSVG - RPDA, tricuspid valve repair, maze procedure, reopening sternotomy-Impella device placement-Dr. Crouch 01/31/2025
Consumptive coagulopathy postop from Impella device
CHF reduced EF
Left greater than right pleural effusion
Status post left thoracentesis 01/25/25--850 mL of clear pleural fluid
Atrial fibrillation with rapid ventricular response
Brief nonsustained ventricular tachycardia postop
Postop anemia status post 4 units PRBC
Postop coagulopathy/thrombocytopenia-status post 3 units platelets, 2 units FFP, 2 units cryoprecipitate's, vitamin K and DDAVP
Postoperative cardiogenic shock requiring inotropes and pressors as well as left ventricular assist device
Mild transaminitis
Hypokalemia
Hypomagnesemia
Leukocytosis
Conditions present prior to admission:
Hypertension.
Hyperlipidemia.
Carotid stenosis.
PAD.
PAF on aspirin.
Vaginal bleeding on Pradaxa.
Left wrist repair.
Plan/recommendations
At this time, patient appears to be comfortable but remains critically ill on dobutamine
Echocardiogram 02/05 with normal EF, bioprosthetic aortic valve, tricuspid valve repair and moderate TR
Diuresis continues, on Bumex, -2 L overnight
Chest x-ray with bilateral pleural parenchymal disease, pleural effusion, pulmonary edema, improved 02/06
Chest tube output stable
Right IJ remains in place
Moving forward
Continue with diuresis per CT surgery
Follow urine output, electrolytes
creatinine stable at 1.8
Monitor chest tube output, stable
Multiple blood products provided
Albumin infusion
Follow LFTs-improved
General Anasarca noted
Cardiology following-correspondence reviewed
Atrial fibrillation rate control
Amiodarone continues
Monitor blood sugar
DVT prophylaxis
Continue nutrition
Encourage ambulation
Once transferred to telemetry, we will sign off. Please call with questions
Diagnostic data:
Chest x-ray 01/24/2025-mild pulmonary vascular congestion and moderate left
Lower extremity ultrasound 01/24/2025-no evidence for left lower extremity DVT
Thoracentesis-left side 01/25/01/25/2025-01/25/25-850 mL liter Clear pleural fluid
CT chest TAVR 01/29/2025-small bilateral pleural effusions, thyroid gland unremarkable, compressive atelectasis pulm basilar segments, no focal consolidation or pneumothorax, no pulmonary mass or nodule
Echocardiogram 01/25/2025-EF 40-45%, apical septal hypokinesis, mild mitral stenosis, moderate mitral regurgitation, severe aortic stenosis with CHARLY 0.5 cm, moderate aortic regurgitation, severe tricuspid regurgitation estimated PA systolic 41
Cardiac catheterization right and left 01/24/2025-RA 15, RV 36/10, PA 41/27, PCWP-23, cardiac output 2.97, cardiac index 1.7, SVR 1887, severe multivessel CAD noted as well
Subjective Dataa
Subjective Data
Date of Service:
Date of Service: February 07, 2025
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
Subjective:
Patient sitting in chair, feeling well. Feels shortness of breath has improved. Denies significant chest pain, nausea, abdominal pain. Presently on room air. Chest tube remains in place. Negative fluid balance noted. Creatinine 1.8. Remains
on dobutamine
Objective Data
Data Reviewed
Vital Signs / I&O / Oxygen:
Vital Signs
Temp Pulse Resp BP Pulse Ox
97.7 F 104 14 118/63 98
02/07/25 06:00 02/07/25 06:20 02/07/25 06:20 02/07/25 06:00 02/07/25 06:20
Intake and Output
02/05/25 02/06/25 02/07/25
06:59 06:59 06:59
Intake Total 2250.7 / 2282.0 920.9 / 974.1 942.3 / 942.3
Output Total 2145 / 2230 2350 / 2490 2935 / 2935
Balance 105.7 / 52.0 -1429.1 / -1515.9 -1992.7 / -1992.7
SaO2 [CPAP/PSV] 100
SaO2 [SIMV] 100
SaO2 98
Nasal Cannula flow liters per 2
minute
Physical Exam
General: Comfortable and Other (Right IJ, right upper extremity A-line)
HEENT: Normocephalic, Anicteric and Moist Mucous Membranes
Cardiovascular: Regular Rhythm and Murmur
Respiratory: Wheeze (n), Crackles (Few right base), Rhonchi (n), Non-Labored Respirations, Stridor (n) and Chest Tube
GI: Soft, Non Distended and Non Tender
Neurology: Awake, Alert and No Motor Deficits
Skin: Warm, Good Color, Cyanosis (n) and Jaundice (n)
Labs/Micro/Reports
Lab Data
02/07/25 03:16
02/07/25 03:16
Laboratory Results
02/07/25
03:16
PT 22.7 H
INR 1.99
Microbiology
01/25/25 09:33 Pleural Fluid Fungal Smear - Final
No yeast or fungal elements seen.
01/25/25 09:33 Pleural Fluid Fungal Culture - Preliminary
Culture in progress.
Positive cultures are reported as soon as detected.
Final report to follow in four to five weeks.
--- NOTE | 2025-02-07 08:27 | W.PN.CD ---
Addendum entered and electronically signed by Av Landaverde MD 02/08/25 09:13:
Atrial fibrillation classification clarification, per CDI:
- The patient was admitted with persistent atrial fibrillation, but was converted during surgery which then reverts her status back to paroxysmal atrial fibrillation--which is her current status.
- The patient currently has paroxysmal atrial fibrillation, but if it persists beyond 7 days, it could progress to persistent atrial fibrillation again.
Original Note:
Today's Communication / Plan
-
- Dobutamine down to 1 and Bumex drip at 1.
- Continue management as per CT Surgery.
Impression / Plan
-
I/P: 80F with persistent atrial fibrillation (abnormal bleeding on dabigatran), CAD (LAD and RCA medically managed, 2012), PAD (50-60% R ICA), hypertension, dyslipidemia, moderate MR, , moderate pulmonary hypertension, and moderate to severe TR
who presented with shortness of breath for several days found to have reduced LVEF, severe . mod AR and severe TR and multivessel CAD.
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
Acute heart failure with cardiogenic shock
-Likely due to CAD and mixed valvular disease
-s/p Surgical aortic valve replacement [23 mm [employer]'s Resilia bioprosthesis]; CABG x 2 [ALMANZAR to LAD, RSVG to RPDA]; Simple tricuspid valve repair [32 mm band annuloplasty]; Full left and right atrial maze [combination of RF and
cryoablation] plus left atrial appendage exclusion (01/31, Crouch)
-Post cardiotomy cardiogenic shock with escalating inotropic support and vasoactive medication- s/p Reopening of sternotomy; Placement of a direct aortic 5.5 Impella left ventricular assist device
-Continue aspirin and high-dose atorvastatin.
- Dobutamine down to 1 and Bumex drip at 1.
- Impella removed 02/04.
- Continue management as per CT Surgery.
Aortic valve disease - Severe Aortic stenosis, moderate AR
-s/p Surgical aortic valve replacement [23 mm [employer]'s Resilia bioprosthesis]; CABG x 2 [ALMANZAR to LAD, RSVG to RPDA]; Simple tricuspid valve repair [32 mm band annuloplasty]; Full left and right atrial maze [combination of RF and
cryoablation] plus left atrial appendage exclusion
- Relatively stable.
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
- GDMT as tolerated:
-LUCIA/ARB/ARNI: Limited by blood pressure
-SGLT2 inhibitor: No prescription coverage, cost prohibitive
-Aldosterone agonist: Spironolactone 25 mg held
-Beta jeannie: Metoprolol succinate 50 mg daily held
-Isosorbide/Hydralazine:�Not indicated
-ICD: Not indicated
- Continue Bumex gtt .
- Continue to trend daily weight, I/O, and BMP
- Pleural effusion, left status-post thoracentesis of 850 mL clear yellow pleural fluid on 01/25/2025
Paroxysmal atrial fibrillation
- Patient with recurrent PAF; continue amiodarone.
- BB held due to shock
- [id number] score is 6 for age, female, HTN, CHF, and vascular disease.
- Oral anticoagulation: We reviewed stroke risk and anticoagulation. She does not want to retrial here. She had vaginal bleeding on dabigatran.
- Heart rate is mildly elevated at times, but fairly controlled overall.
Tricuspid regurgitation, severe
-s/p surgical repair
Hyponatremia:improved
CARDIAC CATH 01/26/2025:
1. 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
2. Severe low-flow low gradient aortic stenosis
3. Severe multivessel coronary artery disease as described
RECOMMENDATIONS
1. Diuresis and titration of GDMT for heart failure.
2. Outpatient workup for aortic valve replacement +/- coronary revascularization, surgical versus percutaneous. Patient needs TAVR CT protocol next and then heart team discussion to evaluate options. Percutaneous revascularization would involve
multisegment stenting of the RCA to address flow to the large RPL and multi segment stenting of the LAD including the proximal LAD, mid-LAD CIVIL RIGHTS INVESTIGATOR, possibly necessitating rescue of D1. CABG would ideally involve grafts to the LAD, D1, and RPL. The D2
and RPDA are atretic and do not appear to be candidates for revascularization.
Physical Exam
Vital Signs/Labs
Vital Signs
Temp Pulse Resp BP Pulse Ox
97.8 F 113 18 100/55 94
02/07/25 08:00 02/07/25 08:00 02/07/25 08:00 02/07/25 08:00 02/07/25 08:00
02/06/25 02/07/25 02/08/25
06:59 06:59 06:59
Actual Weight 72 kg 71.8 kg
02/07/25 03:16
02/07/25 03:16
PT 22.7 Sec (11.4-14.6) H 02/07/25 03:16
INR 1.99 02/07/25 03:16
APTT 34.8 Sec (23.4-35.0) 02/06/25 03:18
Magnesium 2.2 mg/dl (1.6-2.3) 02/07/25 03:16
Triglycerides 66 mg/dl (10-149) 01/25/25 04:53
LDL Cholesterol, Calc 75 mg/dl 01/25/25 04:53
VLDL Cholesterol, Calc 13 mg/dl (0-30) 01/25/25 04:53
HDL Cholesterol 74 mg/dl 01/25/25 04:53
01/24/25
15:33
Ams-C-[id number] Pept [id number]
Physical Exam
Constitutional: No acute distress and Comfortable
EENT: Anicteric
Cardiovascular: Systolic murmur absent, Rhythm/rate is irregular, Pedal edema present (1-2+) and S1S2 is normal
Respiratory: Respiratory effort normal and Rhonchi Present (Bibasilar)
GI: Soft
Neuro/Psych: AO x 3
Other: Skin (Warm, dry)
Data Reviewed
-
Date of Service: February 07, 2025
EKG: Tracing Personally Visualized and interpreted (Telemetry: A-fib)
Medical Tests (PFT, Pathology etc): Discussed with Nurse and Discussed with Patient
Labs: Labs Reviewed by me
Critical Care Time (in minutes): 37
--- NOTE | 2025-02-07 08:30 | PTCARENOTE ---
Assumed care of patient at 0700. Pt is awake, alert, and oriented. No complaints of pain at this time. Pt remains Afib with HR 113. BP 113/59 MAP 77. PA 45/23, CVP 14, CO 3.53, CI 2.17, SVR 1382. AV wire in place set to AAI 50/10/0.4. Pt continues
to have +2 edema in upper and lower extremities. Pulse oximetry 94% on room air. Left and right pleural chest tubes in place to -20 suction, no sign of air leak or crepitus. Pt tolerating PO diet. Chery catheter in place draining yellow urine.
Midsternal incision approximated and SHAAN. Left upper chest with 4x4 in dressing in place. 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 Left groin puncture intact with 4x4 intact. Right IJ
cordis and [place] at 48cm. Right radial [place] intact. Dobutamine decreased to 1mcg/kg/min per order. Bumex gtt resumed at 1mg/hr per order.
[2025-02-07] MEDS: MAGNESIUM OXIDE 500 MG PO ×2 (08:50→20:04)
[2025-02-07] MEDS: LOW STRENGTH ASPIRIN 81 MG PO (08:50)
[2025-02-07] MEDS: PROTONIX 40 MG PO (08:50)
[2025-02-07] MEDS: NEURONTIN 100 MG PO ×3 (08:50→21:24)
[2025-02-07] MEDS: FEOSOL 325 MG PO (08:50)
[2025-02-07] MEDS: VITAMIN C 500 MG PO (08:50)
[2025-02-07] MEDS: LIPITOR 80 MG PO (08:51)
[2025-02-07] MEDS: PACERONE 200 MG PO ×3 (08:51→21:24)
[2025-02-07] MEDS: SENOKOT-S 1 TABLET PO ×2 (08:51→20:04)
[2025-02-07] MEDS: LIDOCAINE 4% PATCH TOPICAL (08:51)
[2025-02-07] MEDS: MUCINEX 600 MG PO ×2 (08:51→20:04)
--- NOTE | 2025-02-07 10:29 | CM ---
Chart reviewed. Patient is independent of ADLS, lives alone in a 1st floor apartment, [address], ambulates with SPC. Patient works at . Patient's son is visiting from [place] and will be staying for 1 month. PT/OT evaluation recommending
Acute Rehab. Referral sent to [facility]. Plan is for the patient to go to [facility] when medically stable. CM to follow
--- NOTE | 2025-02-07 11:15 | PTCARENOTE ---
Pt worked with PT, tolerated well. Assisted back to bed. Left and right pleural chest tubes d/c'd per order. AV wires cut by CT LATRICE, Erica. Remains on Dobutamine and Bumex gtts. Remains Afib with HR 110. BP 127/57 MAP 79. PA 45/23, CVP 14. CO
3.59. CI 2.20. SVR 1158.
--- NOTE | 2025-02-07 11:55 | PN.CDI ---
CDI
- -
CDI:
Physician Documentation Request
Admit Date: 01/24/25 17:16
Dear Doctor Saima,
Patient is s/p surgical aortic valve replacement, CABG x 2, TV repair, maze and left atrial appendage exclusion.
History of atrial fibrillation.
Cardiology consultation refers to the atrial fibrillation as persistent.
02/07 cardiology progress note as paroxysmal .
In an attempt to clarify potentially conflicting documentation, please clarify the type of atrial fibrillation:
Paroxysmal atrial fibrillation - terminates spontaneously or with intervention within 7 days of onset
Persistent atrial fibrillation - episodes of continuous AF that last more than 7 days and do not self-terminate
Other - please specify
Use of terms such as suspected, likely, concern for, or probable (associated with a specific diagnosis that is being evaluated, monitored, or treated as if it exists) are acceptable and can be coded in the inpatient setting, when documented at the
time of discharge.
Thank you,
Kenia Eaton RN, BSN
CDI Specialist
tiger text
Please use your independent medical judgment in providing your response.
[2025-02-07] MEDS: BUMEX 50 IV (13:00)
[2025-02-07] MEDS: NSS IV (13:01)
--- NOTE | 2025-02-07 17:00 | PTCARENOTE ---
Pt remains AFib with HR 105. BP 119/51 MAP 70. PA 41/20, CVP 11, CO 4.00, CI 2.45, SVR 1179. Pulse oximetry 96% on room air. Chest tube site changed due to large amount of serosanguineous drainage. Pt remains on Dobutamine and Bumex gtts per order.
[2025-02-07] MEDS: DOBUTREX 500 MG 250 IV (18:05)
[2025-02-07] MEDS: REMOVE LIDOCAINE PATCH REMOVE (20:04)
--- NOTE | 2025-02-07 20:38 | PTCARENOTE ---
Assumed care of pt from ria RN. Walking rounds completed. Pt AAOx3. ASTORGA. Follows commands appropriately. A-fib on the tele monitor. HR 100s. BP stable. 120s/50s. CVP ~15-17. PAPs 40s/20s. CI>2. B/L upper and lower extremity +2 pitting edema.
B/L radial pulses palpable. B/L DP pulses present via doppler. Pt on RA. POX 97%. Deep breathing and IS encouraged. Abdomen nontender. +BSx4. Chery catheter intact and draining yellow urine. All surgical sites stable at this time. Right IJ cordis w/
swan intact. Right radial a-line intact. PIV x2 intact. All lines leveled, zeroed, and flushed. See worklist for full nursing and interventions. Pt assisted from the chair to the bed w/ assist x2. Call sánchez within reach.
[2025-02-08] VITALS (10 sets, daily range): BP systolic 94–128; BP diastolic 50–66; PULSE 102–106; O2SAT 95; BMI 24.7
--- NOTE | 2025-02-08 00:26 | PTCARENOTE ---
Pt reassessed. Pt converted out of a-fib and into a sinus or a-flutter w/ PVCs ~2145. HR 90s. BP stable. CI>2. PAPs 40s/20s. CVP ~13-16. Pt on RA. POX 96-99%. CT dressing intact. Chery catheter intact and draining yellow urine. [place] and a-line
maintained. All lines leveled, zeroed, and flushed. Pt repositioned in bed. No pain at this time. Dobutamine infusing as ordered. Call sánchez within reach.
[2025-02-08 03:56] LABS: Hematocrit 29.3 % (37.0-47.0); Hemoglobin 9.8 g/dL (12.0-16.0); Mean Corp Hgb Conc. 33.4 g/dL (33.0-37.0); Mean Corpuscular Volume 91.3 fL (81.0-99.0); Platelet Count 111 10^3/uL (130-400); Red Cell Dist. Width 17.6 % (11.5-14.5)
[2025-02-08 04:00] LABS: INR 1.89; PT 22.2 Sec (11.4-14.6)
[2025-02-08 04:20] LABS: ALT (SGPT) 11 U/L (0-35); AST (SGOT) 52 U/L (14-36); Albumin 3.2 g/dl (3.5-5.0); Alkaline Phosphatase 125 U/L (38-126); Blood Urea Nitrogen 76 mg/dl (7-17); Calcium 8.8 mg/dl (8.4-10.2); Carbon Dioxide 27 mmol/L (22-30); Chloride 101 mmol/L (98-107); Estimated Creatinine Clearance 24 ml/min; Glucose 111 mg/dl (70-99); Potassium 3.6 mmol/L (3.5-5.1); Sodium 135 mmol/L (135-145); Total Protein 5.1 g/dl (6.3-8.2); eGFR 28.13
--- NOTE | 2025-02-08 04:45 | PTCARENOTE ---
No change in assessment. Pt a-fib on the tele monitor. HR 90s. BP stable. CI>2. PAPs 40s/teens-20s. CVP~11-13. Pt on RA. POX 97%. CT dressing intact. Chery catheter intact and draining yellow urine. [place] and a-line maintained. Labs drawn and sent.
Call sánchez within reach.
[2025-02-08] MEDS: TYLENOL 1000 MG PO ×3 (06:06→22:12)
[2025-02-08] MEDS: KCL 40 MEQ PO (06:38)
--- NOTE | 2025-02-08 06:40 | W.PN.CT ---
Today's Communication / Plan
-
-pod #8
-no issues overnight. Neurologically and hemodynamically intact
-drips: Dobut 1. CI 2.23, CO 3.64, SVR 1318
-remains in a-fib 80s-90s
-INR today 1.89 (1.99 on 02/07)- not on anticoagulation. Had some epistaxis on 02/03/25 which has since resolved. Plavix is held
-Hg is stable - 9.8 today (9.8 on 02/07)
-on Bumex drip on 02/07- currently off. UO 1050/1975 in 12/24 hrs
-hyponatremia has been improving with diuresis - Na 135 today
-CT were dcd and pw were cut on 02/07
-Cr remains at 1.8 (1.8 on 02/06 and 02/07, Cr was 1.1 preop)
-Maintain Chery catheter for accurate I/O's
-Maintain swan and a-line while on dobutamine gtt. BB on hold
-Will discuss oral anticoagulation in the future for hx A-fib, pt did not tolerate Pradaxa in the past d/t vaginal bleed
-Repeat echo on 02/05/25 with dobutamine @ 5 showed and intact bioprosthetic AVR with PG/MG of 26/14, no AI, intact MV repair with mild-moderate TR, LVEF 60-65%
-will need acute rehab. Await Physiatry eval
-appreciate everyone's input
-continue PT/OT
Assessment / Plan
-
- Acute heart failure with cardiogenic shock, aortic valve stenosis and insufficiency, severe tricuspid valve insufficiency, A-fib with RVR and multivessel coronary disease- s/p Surgical aortic valve replacement [23 mm Andrews Inspira's Resilia
bioprosthesis]; CABG x 2 [ALMANZAR to LAD, RSVG to RPDA]; Simple tricuspid valve repair [32 mm band annuloplasty]; Full left and right atrial maze [combination of RF and cryoablation] plus left atrial appendage exclusion [40 mm device]; Drainage of
bilateral pleural effusions, approximately 250 cc in each chest by Dr. Cruoch on 01/31/25, pod #8
- Post cardiotomy cardiogenic shock with escalating inotropic support and vasoactive medication- s/p Reopening of sternotomy; Placement of a direct aortic 5.5 Impella left ventricular assist device
by Dr. Crouch on 01/31/25
- Intraop FRANCISCO JAVIER: LVEF at the start of the surgery was approximately 40% with some regional wall motion abnormalities toward the inferior septal and anterior septal portions of the wall. Following surgery, EF did struggle to approximately 20 to 25%
and she was loaded on 5 dobutamine but had escalating requirements for Levophed. RV function was normal as was RV size and there was only a trace residual amount of tricuspid valve insufficiency.
The left atrial appendage was verified to be free of any thrombus or debris preoperatively and found to be totally occlusive postoperatively. There is no paravalvular leak of the aortic valve prosthesis and the mean gradient across the valve was 3
mmHg. There is essentially no mean gradient across the tricuspid valve. At the conclusion of the case, she did respond to volume loading with blood. Of note she was coagulopathic postoperatively with an elevated ACT despite giving almost double
her protamine dose.
-S/P Stepwise weaning of 5.5 Impella ventricular assist device/Extraction/removal of 5.5 Impella ventricular assist device/ Ligation of sterile portion of 10 mm Hemashield graft using 8 large clips with coverage of the remaining graft with overlying
strap muscles/Local analgesia for pain control, by Dr. Crouch 02/04/25
- Severe aortic valve stenosis
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
- Atrial fibrillation with rapid ventricular response- didn't tolerate Pradaxa in the past d/t vaginal bleed
- Acute respiratory insufficiency
- Significant volume overload requiring diuresis
- HTN/HLD
- PAD
- Nonsmoker
- Acute postop blood loss anemia - s/p total 5 pRBCs
- Acute postop coagulopathy/ thrombocytopenia - s/p 6 unit platelets, 5 FFPs, 2 cryo, 0.5 iv Vit K, DDAVP
- Acute postop 10 beat NSVT on 01/31
- Acute postop junctional rhythm/bradycardia
- Acute postop atelectasis
- Acute postop cardiogenic shock, requiring mechanical cardiac support (Impella 5.5), inotrops and pressors
- Acute postop hypovolemia with subsequent hypervolemia
- Acute postop hypokalemia
- Acute postop Lactic acidosis
- Acute postop TALIB
- Acute postop Epistaxis
- Acute postop hyponatremia
- Acute postop transaminitis
Discussed patient care with: Nursing and Care Team
Subjective
Procedure
Aortic valve replacement [23 mm Andrews Inspira's Resilia bioprosthesis]; CABG x 2 [ALMANZAR to LAD, RSVG to RPDA]; Simple tricuspid valve repair [32 mm band annuloplasty]; Full left and right atrial maze [combination of RF and cryoablation] plus left
atrial appendage exclusion [40 mm device]; Drainage of bilateral pleural effusions, approximately 250 cc in each chest by Dr. Crouch on 01/31/25
-
Date of Service: February 08, 2025
Objective Data
-
Lab Results
02/08/25 03:41
02/08/25 03:41
PT 22.2 Sec (11.4-14.6) H 02/08/25 03:41
INR 1.89 02/08/25 03:41
APTT 34.8 Sec (23.4-35.0) 02/06/25 03:18
Vital Signs
Vital Signs
Temp Pulse Resp BP Pulse Ox
97.3 F 93 16 106/60 97
02/08/25 04:00 02/08/25 06:08 02/08/25 06:00 02/08/25 04:00 02/08/25 06:00
CT Intake/Output/Weight
02/07/25 02/07/25 02/08/25
06:59 18:59 06:59
Intake Total 453.2 / 984.4 469.3 / 863.7 394.4 / 863.7
Output Total 1835 / 3120 960 / 2260 1300 / 2260
Balance -1381.8 / -2135.6 -490.7 / -1396.3 -905.6 / -1396.3
SaO2: 97
Physical Exam
-
General: Awake, Oriented and AOx3
Cardiovascular: Irregular rate & rhythm, No Murmurs, No Rub and No Gallop
Respiratory: Decreased Breath Sounds (at bases, otherwise clear)
Sternum: Stable
Incision: Clean, Dry, Intact and Dressing Intact
Abdomen: soft, nontender, nondistended, no nausea
Extremities: 1+ Edema b/l
Data Reviewed
-
Lab Results: Results Reviewed
Medications: Active Meds Reviewed
Chest X-Ray: Report Reviewed and Image Reviewed
ECG: Report Reviewed and Image Reviewed
--- NOTE | 2025-02-08 07:47 | W.PN.CD ---
Today's Communication / Plan
-
cont. diuresis for goal negative 1-2L daily
monitor daily CXR for pleural effusion
consider weaning dobutamine to off
Impression / Plan
-
I/P: 80F with persistent atrial fibrillation (abnormal bleeding on dabigatran), CAD (LAD and RCA medically managed, 2012), PAD (50-60% R ICA), hypertension, dyslipidemia, moderate MR, , moderate pulmonary hypertension, and moderate to severe TR
who presented with shortness of breath for several days found to have reduced LVEF, severe . mod AR and severe TR and multivessel CAD.
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 Pinedo
Acute heart failure with cardiogenic shock
-Likely due to CAD and mixed valvular disease
-s/p Surgical aortic valve replacement [23 mm Andrews Inspira's Resilia bioprosthesis]; CABG x 2 [ALMANZAR to LAD, RSVG to RPDA]; Simple tricuspid valve repair [32 mm band annuloplasty]; Full left and right atrial maze [combination of RF and
cryoablation] plus left atrial appendage exclusion (01/31, )
-Post cardiotomy cardiogenic shock with escalating inotropic support and vasoactive medication- s/p Reopening of sternotomy; Placement of a direct aortic 5.5 Impella left ventricular assist device
-Continue aspirin and high-dose atorvastatin.
- Dobutamine @ 1 and Bumex drip at 1. Consider dobutamine off at this point, examines warm. Goal 1-2L negative daily.
- Impella removed 02/04.
- Continue management as per CT Surgery.
Aortic valve disease - Severe Aortic stenosis, moderate AR
-s/p Surgical aortic valve replacement [23 mm Andrews Inspira's Resilia bioprosthesis]; CABG x 2 [ALMANZAR to LAD, RSVG to RPDA]; Simple tricuspid valve repair [32 mm band annuloplasty]; Full left and right atrial maze [combination of RF and
cryoablation] plus left atrial appendage exclusion
- Relatively stable.
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
- GDMT as tolerated:
-LUCIA/ARB/ARNI: Limited by blood pressure
-SGLT2 inhibitor: No prescription coverage, cost prohibitive
-Aldosterone agonist: Spironolactone 25 mg held
-Beta jeannie: Metoprolol succinate 50 mg daily held
-Isosorbide/Hydralazine:�Not indicated
-ICD: Not indicated
- Continue Bumex gtt .
- Continue to trend daily weight, I/O, and BMP
- Pleural effusion, left status-post thoracentesis of 850 mL clear yellow pleural fluid on 01/25/2025
- CXR w/ suggestion of small L pleural effusion and decreased breath sounds at bases...cont. to monitor and target more aggressive diuresis
Paroxysmal atrial fibrillation
- Patient with recurrent PAF; continue amiodarone.
- BB held due to shock; hopefully resume once dobutamine off x 24 hours
- PAVVE0EGAQ score is 6 for age, female, HTN, CHF, and vascular disease.
- Oral anticoagulation: We reviewed stroke risk and anticoagulation. She does not want to retrial here. She had vaginal bleeding on dabigatran.
- Heart rate is mildly elevated at times, but fairly controlled overall.
Tricuspid regurgitation, severe
-s/p surgical repair
Hyponatremia:improved
CARDIAC CATH 01/26/2025:
1. 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
2. Severe low-flow low gradient aortic stenosis
3. Severe multivessel coronary artery disease as described
RECOMMENDATIONS
1. Diuresis and titration of GDMT for heart failure.
2. Outpatient workup for aortic valve replacement +/- coronary revascularization, surgical versus percutaneous. Patient needs TAVR CT protocol next and then heart team discussion to evaluate options. Percutaneous revascularization would involve
multisegment stenting of the RCA to address flow to the large RPL and multi segment stenting of the LAD including the proximal LAD, mid-LAD CONSTRUCTION PLANT OPERATOR, possibly necessitating rescue of D1. CABG would ideally involve grafts to the LAD, D1, and RPL. The D2
and RPDA are atretic and do not appear to be candidates for revascularization.
Physical Exam
Vital Signs/Labs
Vital Signs
Temp Pulse Resp BP Pulse Ox
36.3 C 99 16 106/60 98
02/08/25 04:00 02/08/25 07:00 02/08/25 06:00 02/08/25 04:00 02/08/25 07:00
02/07/25 02/08/25 02/09/25
06:59 06:59 06:59
Actual Weight 71.8 kg 71.4 kg
02/08/25 03:41
02/08/25 03:41
PT 22.2 Sec (11.4-14.6) H 02/08/25 03:41
INR 1.89 02/08/25 03:41
APTT 34.8 Sec (23.4-35.0) 02/06/25 03:18
Magnesium 2.2 mg/dl (1.6-2.3) 02/07/25 03:16
Triglycerides 66 mg/dl (10-149) 01/25/25 04:53
LDL Cholesterol, Calc 75 mg/dl 01/25/25 04:53
VLDL Cholesterol, Calc 13 mg/dl (0-30) 01/25/25 04:53
HDL Cholesterol 74 mg/dl 01/25/25 04:53
01/24/25
15:33
[id number] Pept [id number]
Physical Exam
Constitutional: Comfortable
Cardiovascular: Rhythm/rate is irregular
Respiratory: Respiratory effort normal and Other (dec bs at bases)
Neuro/Psych: AO x 3
Other: Other (warm)
Data Reviewed
-
Date of Service: February 08, 2025
Medical Decision Making: Reviewed Test Results
EKG: Tracing Personally Visualized and interpreted
X-Ray/CT/US/MRI/NUC/PET: Image Personally Visualized and interpreted
Labs: Labs Reviewed by me
--- NOTE | 2025-02-08 07:48 | W.PN.INTV ---
Today's Communication / Plan
Recommendations
Dobutamine being weaned
Bumex continues, negative fluid status noted
Chest x-ray continues to improve
Assessment
-
80-year-old non-smoking female with history of hypertension, hyperlipidemia, PAF and CAD/valvular disease underwent valve replacement and bypass surgery-director instructional material consulted for postoperative ventilator/critical care management 01/31/2025.
Valvular disease and CAD
Status post AVR--23 mm bioprosthesis, CABG times x 2--ALMANZAR-LAD, RSVG - RPDA, tricuspid valve repair, maze procedure, reopening sternotomy-Impella device placement-Dr. Crouch 01/31/2025
Consumptive coagulopathy postop from Impella device
CHF reduced EF
Left greater than right pleural effusion
Status post left thoracentesis 01/25/25--850 mL of clear pleural fluid
Atrial fibrillation with rapid ventricular response
Brief nonsustained ventricular tachycardia postop
Postop anemia status post 4 units PRBC
Postop coagulopathy/thrombocytopenia-status post 3 units platelets, 2 units FFP, 2 units cryoprecipitate's, vitamin K and DDAVP
Postoperative cardiogenic shock requiring inotropes and pressors as well as left ventricular assist device
Mild transaminitis
Hypokalemia
Hypomagnesemia
Leukocytosis
Conditions present prior to admission:
Hypertension.
Hyperlipidemia.
Carotid stenosis.
PAD.
PAF on aspirin.
Vaginal bleeding on Pradaxa.
Left wrist repair.
Plan/recommendations
At this time, patient appears to be comfortable but remains critically ill on dobutamine
Echocardiogram 02/05 with normal EF, bioprosthetic aortic valve, tricuspid valve repair and moderate TR
Bumex continues, negative fluid status noted
Chest x-ray with bilateral pleural parenchymal disease, pleural effusion, pulmonary edema, improved 02/08
Chest tube removed
Right IJ remains in place
Moving forward
Continue with diuresis per CT surgery
Follow urine output, electrolytes
creatinine stable at 1.8, stable
Chest tube removed
Multiple blood products provided
Albumin infusion
Follow LFTs-improved
General Anasarca noted, improving
Cardiology following-correspondence reviewed
Atrial fibrillation rate control
Amiodarone continues
Monitor blood sugar
DVT prophylaxis
Continue nutrition
Encourage ambulation
Once transferred to telemetry, we will sign off. Please call with questions
Diagnostic data:
Chest x-ray 01/24/2025-mild pulmonary vascular congestion and moderate left
Lower extremity ultrasound 01/24/2025-no evidence for left lower extremity DVT
Thoracentesis-left side 01/25/01/25/2025-01/25/25-850 mL liter Clear pleural fluid
CT chest TAVR 01/29/2025-small bilateral pleural effusions, thyroid gland unremarkable, compressive atelectasis pulm basilar segments, no focal consolidation or pneumothorax, no pulmonary mass or nodule
Echocardiogram 01/25/2025-EF 40-45%, apical septal hypokinesis, mild mitral stenosis, moderate mitral regurgitation, severe aortic stenosis with CHARLY 0.5 cm, moderate aortic regurgitation, severe tricuspid regurgitation estimated PA systolic 41
Cardiac catheterization right and left 01/24/2025-RA 15, RV 36/10, PA 41/27, PCWP-23, cardiac output 2.97, cardiac index 1.7, SVR 1887, severe multivessel CAD noted as well
Subjective Dataa
Subjective Data
Date of Service:
Date of Service: February 08, 2025
Chief Complaint: Rnp Follow Up and Pulmonary Follow Up
Subjective:
Patient sitting in chair, continues to feel well. Currently on room air. Denies nausea, abdominal pain. Pain is controlled otherwise. Appears to be in good spirits
Objective Data
Data Reviewed
Vital Signs / I&O / Oxygen:
Vital Signs
Temp Pulse Resp BP Pulse Ox
97.3 F 99 16 106/60 98
02/08/25 04:00 07/10/25 07:00 02/08/25 06:00 02/08/25 04:00 02/08/25 07:00
Intake and Output
02/07/25 02/08/25 02/09/25
06:59 06:59 06:59
Intake Total 942.3 / 984.4 863.7 / 863.7
Output Total 2935 / 3120 2260 / 2260
Balance -1992.7 / -2135.6 -1396.3 / -1396.3
SaO2 [CPAP/PSV] 100
SaO2 [SIMV] 100
SaO2 98
Nasal Cannula flow liters per 2
minute
Physical Exam
General: Comfortable and Other (Right IJ)
HEENT: Normocephalic, Anicteric and Moist Mucous Membranes
Cardiovascular: Regular Rhythm and Murmur
Respiratory: Wheeze (n), Crackles (Few right base), Rhonchi (n), Non-Labored Respirations, Stridor (n) and Chest Tube
GI: Soft, Non Distended and Non Tender
Neurology: Awake, Alert and No Motor Deficits
Skin: Warm, Good Color, Cyanosis (n) and Jaundice (n)
Labs/Micro/Reports
Lab Data
02/08/25 03:41
02/08/25 03:41
Laboratory Results
02/08/25
03:41
PT 22.2 H
INR 1.89
Microbiology
01/25/25 09:33 Pleural Fluid Fungal Smear - Final
No yeast or fungal elements seen.
01/25/25 09:33 Pleural Fluid Fungal Culture - Preliminary
Culture in progress.
Positive cultures are reported as soon as detected.
Final report to follow in four to five weeks.
[2025-02-08] MEDS: LOW STRENGTH ASPIRIN 81 MG PO (08:01)
[2025-02-08] MEDS: NEURONTIN 100 MG PO ×3 (08:01→22:12)
[2025-02-08] MEDS: VITAMIN C 500 MG PO (08:01)
[2025-02-08] MEDS: PROTONIX 40 MG PO (08:01)
[2025-02-08] MEDS: FEOSOL 325 MG PO (08:01)
[2025-02-08] MEDS: SENOKOT-S 1 TABLET PO ×2 (08:01→19:49)
[2025-02-08] MEDS: PACERONE 200 MG PO ×3 (08:01→22:13)
[2025-02-08] MEDS: LIDOCAINE 4% PATCH TOPICAL (08:01)
[2025-02-08] MEDS: MUCINEX 600 MG PO ×2 (08:01→19:49)
[2025-02-08] MEDS: MAGNESIUM OXIDE 500 MG PO ×2 (08:01→19:49)
[2025-02-08] MEDS: LIPITOR 80 MG PO (08:01)
--- NOTE | 2025-02-08 08:15 | PTCARENOTE ---
Assumed care of patient at 0700. Pt is awake, alert, and oriented. No complaints of pain at this time. Pt remains Afib with HR 105. BP 111/48 MAP 67. PA 41/20, CVP 13, CO 4.02, CI 1074. Pt continues to have +2 lower extremity and upper extremity
edema. Pt remains on room air, pulse oximetry 97%. Pt achieving 750 with IS, continued use encouraged. Pt tolerating PO diet. Chery catheter remains in place, Chery care completed. Midsternal incision approximated with surgical adhesive. Left chest
incision with dressing intact. Right leg incision and right groin puncture approximated and SHAAN, ecchymotic. Left groin dressing CDI. Pt remains on Dobutamine at 1mcg/kg/min. Pt is currently OOB in chair with call sánchez within reach.
--- NOTE | 2025-02-08 11:42 | CM ---
Chart reviewed. Patient OOB sitting in the chair, son at bedside. Patient is independent of ADLS, lives in a apartment, 1st floor, [address], ambulates with a SPC. PT evaluation recommending Acute Rehab. Referral sent to [facility]. Plan is for
the patient the patient to go to Acute Rehab when medically stable. CM to follow
--- NOTE | 2025-02-08 13:16 | PTCARENOTE ---
Bumex gtt restarted at 1mg/hr this AM. Dobutamine gtt d/c'd per order. Repeat CO 3.69, CI 2.26, SVR 1365. Pt remains Afib with HR 106. BP 121/56 MAP 77, PA 43/23, CVP 14. Pt de-lined per order. Chery catheter d/c'd per order.
[2025-02-08] MEDS: NSS 500 IV (16:21)
--- NOTE | 2025-02-08 16:37 | PTCARENOTE ---
pt assisted OOB to chair, VSS, pt denies pain.
[2025-02-08] MEDS: REMOVE LIDOCAINE PATCH 1 PATCH REMOVE (19:49)
[2025-02-09] VITALS (12 sets, daily range): BP systolic 100–125; BP diastolic 55–66; PULSE 93; O2SAT 99; BMI 24.7
--- NOTE | 2025-02-09 | PTCARENOTE ---
patient resting, had epiosde of urine incontinence. Bed changed, CHG bath completed, purwick placed.
--- NOTE | 2025-02-09 04:45 | PTCARENOTE ---
A Fib to Sinus rhythm, Denies pain, repositioned Voided 550 , patient using purwick,
[2025-02-09 04:46] LABS: Hematocrit 29.9 % (37.0-47.0); Hemoglobin 10.0 g/dL (12.0-16.0); Mean Corp Hgb Conc. 33.4 g/dL (33.0-37.0); Mean Corpuscular Volume 92.6 fL (81.0-99.0); Platelet Count 126 10^3/uL (130-400); Red Cell Dist. Width 17.8 % (11.5-14.5)
[2025-02-09] MEDS: KCL 40 MEQ PO ×2 (05:14→22:39)
[2025-02-09] MEDS: TYLENOL 1000 MG PO ×3 (05:14→22:39)
--- NOTE | 2025-02-09 05:40 | PTCARENOTE ---
Patietn OOB to chair, denies pain. Alet and oriented follows commands. IS 1000. 1000.
--- NOTE | 2025-02-09 06:11 | W.PN.CT ---
Today's Communication / Plan
-
-pod #9
-no issues overnight. Neurologically and hemodynamically intact
-drips: none
-remains in a-fib 90s-low 100s
-not on anticoagulation. Had some epistaxis on 02/03/25 which has since resolved. Plavix is held. Pt did not tolerate Pradaxa in the past d/t vaginal bleed
-Hg is stable - 10.0 today
-continue Bumex drip
-hyponatremia has been improving with diuresis - Na 135 today
-CT were dcd and pws were cut on 02/07
-Cr remains at 1.8 (1.8 on 02/06 and 02/07, Cr was 1.1 preop)
-Chery dcd 02/08
-Repeat echo on 02/05/25 with dobutamine @ 5 showed and intact bioprosthetic AVR with PG/MG of , no AI, intact MV repair with mild-moderate TR, LVEF 60-65%
-will need acute rehab. Await Physiatry eval
-appreciate everyone's input
-continue PT/OT
Assessment / Plan
-
- Acute heart failure with cardiogenic shock, aortic valve stenosis and insufficiency, severe tricuspid valve insufficiency, A-fib with RVR and multivessel coronary disease- s/p Surgical aortic valve replacement [23 mm [employer] Insp[employer]'s Resilia
bioprosthesis]; CABG x 2 [ALMANZAR to LAD, RSVG to RPDA]; Simple tricuspid valve repair [32 mm band annuloplasty]; Full left and right atrial maze [combination of RF and cryoablation] plus left atrial appendage exclusion [40 mm device]; Drainage of
bilateral pleural effusions, approximately 250 cc in each chest by Dr. Crouch on 01/31/25, pod #9
- Post cardiotomy cardiogenic shock with escalating inotropic support and vasoactive medication- s/p Reopening of sternotomy; Placement of a direct aortic 5.5 Impella left ventricular assist device
by Dr. Crouch on 01/31/25
- Intraop FRANCISCO JAVIER: LVEF at the start of the surgery was approximately 40% with some regional wall motion abnormalities toward the inferior septal and anterior septal portions of the wall. Following surgery, EF did struggle to approximately 20 to 25%
and she was loaded on 5 dobutamine but had escalating requirements for Levophed. RV function was normal as was RV size and there was only a trace residual amount of tricuspid valve insufficiency.
The left atrial appendage was verified to be free of any thrombus or debris preoperatively and found to be totally occlusive postoperatively. There is no paravalvular leak of the aortic valve prosthesis and the mean gradient across the valve was 3
mmHg. There is essentially no mean gradient across the tricuspid valve. At the conclusion of the case, she did respond to volume loading with blood. Of note she was coagulopathic postoperatively with an elevated ACT despite giving almost double
her protamine dose.
-S/P Stepwise weaning of 5.5 Impella ventricular assist device/Extraction/removal of 5.5 Impella ventricular assist device/ Ligation of sterile portion of 10 mm Hemashield graft using 8 large clips with coverage of the remaining graft with overlying
strap muscles/Local analgesia for pain control, by Dr. Crouch 02/04/25
- Severe aortic valve stenosis
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
- Atrial fibrillation with rapid ventricular response- didn't tolerate Pradaxa in the past d/t vaginal bleed
- Acute respiratory insufficiency
- Significant volume overload requiring diuresis
- HTN/HLD
- PAD
- Nonsmoker
- Acute postop blood loss anemia - s/p total 5 pRBCs
- Acute postop coagulopathy/ thrombocytopenia - s/p 6 unit platelets, 5 FFPs, 2 cryo, 0.5 iv Vit K, DDAVP
- Acute postop 10 beat NSVT on 01/31
- Acute postop junctional rhythm/bradycardia
- Acute postop atelectasis
- Acute postop cardiogenic shock, requiring mechanical cardiac support (Impella 5.5), inotrops and pressors
- Acute postop hypovolemia with subsequent hypervolemia
- Acute postop hypokalemia
- Acute postop Lactic acidosis
- Acute postop TALIB
- Acute postop Epistaxis
- Acute postop hyponatremia
- Acute postop transaminitis
Discussed patient care with: Nursing and Care Team
Subjective
Procedure
Aortic valve replacement [23 mm Andrews Inspira's Resilia bioprosthesis]; CABG x 2 [ALMANZAR to LAD, RSVG to RPDA]; Simple tricuspid valve repair [32 mm band annuloplasty]; Full left and right atrial maze [combination of RF and cryoablation] plus left
atrial appendage exclusion [40 mm device]; Drainage of bilateral pleural effusions, approximately 250 cc in each chest by Dr. Crouch on 01/31/25
-
Date of Service: February 09, 2025
Objective Data
-
Lab Results
02/09/25 04:33
02/08/25 03:41
PT 22.2 Sec (11.4-14.6) H 02/08/25 03:41
INR 1.89 02/08/25 03:41
APTT 34.8 Sec (23.4-35.0) 02/06/25 03:18
Vital Signs
Vital Signs
Temp Pulse Resp BP Pulse Ox
97.3 F 93 18 109/61 98
02/09/25 04:00 02/09/25 05:22 02/08/25 19:51 02/09/25 05:22 02/09/25 05:00
CT Intake/Output/Weight
02/08/25 02/08/25 02/09/25
06:59 18:59 06:59
Intake Total 394.4 / 885.9 268.4 / 642.4 374 / 642.4
Output Total 1300 / 2360 655 / 1405 750 / 1405
Balance -905.6 / -1474.1 -386.6 / -762.6 -376 / -762.6
SaO2: 98
Physical Exam
-
General: Awake, Oriented and AOx3
Cardiovascular: Irregular rate & rhythm, No Murmurs, No Rub and No Gallop
Respiratory: Decreased Breath Sounds (at bases, otherwise clear)
Sternum: Stable
Incision: Clean, Dry, Intact and Dressing Intact
Abdomen: soft, nontender, nondistended, no nausea
Extremities: 1+ Edema b/l
Data Reviewed
-
Lab Results: Results Reviewed
Medications: Active Meds Reviewed
Chest X-Ray: Report Reviewed and Image Reviewed
ECG: Report Reviewed and Image Reviewed
--- NOTE | 2025-02-09 08:15 | PTCARENOTE ---
pt received from previous RN, oriented, OOB in chair. Aflutter on the monitor, HR 80-90s. SBP 120s. +3 UE edema, +2 LE edema. palpable pulses. pt on RA, 100% POX. lungs diminished. IS encouraged. 1-2 assist standing from chair, uses rolling walker.
incontinent of urine. +BS, denies n/v. sternal incision SHAAN. chest tube site c/d/i. b/l groins intact. RLE incision SHAAN. LCW impella site c/d/i. RIJ cordis maintained. PIV x2. Bumex gtt restarted @8am as ordered. lab work drawn as ordered. see
worklist for VS, I&O, and assessment.
[2025-02-09 08:22] LABS: Blood Urea Nitrogen 82 mg/dl (7-17); Calcium 8.4 mg/dl (8.4-10.2); Carbon Dioxide 30 mmol/L (22-30); Chloride 101 mmol/L (98-107); Estimated Creatinine Clearance 27 ml/min; Glucose 87 mg/dl (70-99); Magnesium 2.2 mg/dl (1.6-2.3); Potassium 3.8 mmol/L (3.5-5.1); Sodium 134 mmol/L (135-145); eGFR 32.40
[2025-02-09] MEDS: BUMEX 50 IV ×2 (08:36→18:25)
--- NOTE | 2025-02-09 08:40 | CON.MD ---
Documented by User: Liyah Singh PA-C 02/09/25 17:54
Consultation - Medical
-
Referring Provider:�Carson Puga
Chief Complaint:�CABG, Debility
�
History of Present Illness:�Patient is an 80-year-old female with PMH of (Acute heart failure with cardiogenic shock, aortic valve stenosis and insufficiency, severe tricuspid valve insufficiency, A-fib with RVR and multivessel coronary disease) -
s/p Surgical aortic valve replacement, CABG x 2, Simple tricuspid valve repair, Full left and right atrial maze,plus left atrial appendage exclusion, Drainage of bilateral pleural effusions by Dr. Crouch on 01/31/25 with Post cardiotomy cardiogenic
shock with escalating inotropic support and vasoactive medication- s/p Reopening of sternotomy; Placement of a direct aortic 5.5 Impella left ventricular assist device on 01/31/25.
With subsequent acute blood loss anemia - s/p total 5 pRBCs, coagulopathy/ thrombocytopenia - s/p 6 unit platelets, 5 FFPs, 2 cryo, 0.5 iv Vit K, DDAVP, 10 beat NSVT on 01/31, junctional rhythm/bradycardia, atelectasis, cardiogenic shock, requiring
mechanical cardiac support (Impella 5.5), inotrops and pressors, hypovolemia with subsequent hypervolemia, hypokalemia, Lactic acidosis, TALIB, Epistaxis , hyponatremia, transaminitis
She had acute ischemic and congestive systolic and diastolic heart failure with reduced left ventricular ejection fraction, EF starting surgery was 35% with regional wall motion abnormalities. Atrial fibrillation with rapid ventricular response-
didn't tolerate Pradaxa in the past d/t vaginal bleed, acute respiratory insufficiency and significant volume overload requiring diuresis.
�
Past Medical History:�Aortic stenosis, valvular heart disease, PAD, hypertension, hyperlipidemia, vaginal bleed on Pradaxa, PAF on aspirin, carotid stenosis,
Procedure History:�CABG x 2, aortic valve replacement, left wrist repair
Family History:�Patient denies
�
Social History:�
Functional Level Premorbidly:�Independent with all activities�
Functional Level Currently:�Eating, grooming�set up, lower extremity self-care�dependent, mod assist x 2 sit to stand from chair. Min assist static standing. Mod assist x 2 ambulation with rolling walker, transfer�mod assist, ambulated 8 feet
forward, 4 feet backward with rolling walker min assist x 2 people, third person for lines/IV pole with minimal JIMENEZ, decreased step length,
�
Tobacco:�Denies�
Alcohol:�Denies�
Drug use:�Denies�
�
Lives with:�Alone
24-hour assistance available:�
Number of floors:�1 apartment
# steps to enter:�2
# steps to second floor: 0
Potential First floor set up:�Yes
Driving:�Yes
Occupation:�Part-time in [employer] here at [facility] [employer]
�
�
Allergies:�
Allergy/AdvReac Type Severity Reaction Status Date / Time
No Known Allergies Allergy Verified 05/07/22 12:28
�
Review of Systems:�
Constitutional: (x) abNormal _fatigued, low endurance
Eye: (x) Normal _
Ear/Nose/Throat: (x) Normal _
Respiratory: (x) Normal _
Cardiovascular: (x) abNormal _CABG, aortic valve replacement, tricuspid valve repair, A-fib with RVR, legs edema
Gastrointestinal: (x) abNormal _constipation
Genitourinary: (x) Normal _
Musculoskeletal: (x) Normal _
Integumentary: (x) Normal _
Neurologic: (x) Normal _
Psychiatric: (x) Normal _
Endocrine: (x) Normal _
Hematologic/Lymphatic: (x) abNormal _postop anemia, thrombocytopenia requiring transfusions,
Allergic/Immunologic: (x) Normal _
�
Medications:�
Active Current Visit Medication List
Category Date Time Status
0.9% Sodium Chloride 500 ml [Nss] 500 ml Med 01/31/25 14:53 Active
IV CORDIS
Acetaminophen [Tylenol] Med 01/31/25 14:53 Active
1,000 mg PO TID@0600,1400,2200
Acetaminophen [Tylenol] Med 01/31/25 14:53 Active
650 mg PO Q4HPRN PRN
Albumin Human 5% 250 ml [Albumin 5%] Med 01/31/25 16:00 Active
12.5 grams in 250 ml IV Q78THBY
Amiodarone [Pacerone] Med 01/31/25 16:00 Active
200 mg PO TID
Apixaban [Eliquis] Med 02/09/25 08:00 Active
2.5 mg PO BID
Ascorbic Acid [Vitamin C] Med 02/01/25 08:00 Active
500 mg PO DAILY
Aspirin Chewable [Low Strength Aspirin] Med 02/01/25 08:00 Active
81 mg PO DAILY
Atorvastatin [Lipitor] Med 01/30/25 08:00 Active
80 mg PO DAILY
Bisacodyl [Dulcolax] Med 01/31/25 14:53 Active
10 mg RECTAL DAILYPRN PRN
Bumetanide 12.5 mg/50 ml [Bumex] Med 02/08/25 09:00 Active
12.5 mg in 50 ml IV ORDERED RATE
Clopidogrel Bisulfate [Plavix] Med 02/01/25 08:00 Hold
75 mg PO DAILY
Cyclobenzaprine HCl [Flexeril] Med 01/31/25 14:53 Active
5 mg PO Q8HPRN PRN
DOBUTamine 500 MG/D5W 250 ML [Dobutrex 500 mg] Med 02/07/25 14:15 Hold
500 mg in 250 ml IV PER PROTOCOL
Docusate W/Senna [Senokot-S] Med 01/31/25 20:00 Active
1 tablet PO Q12
Ferrous Sulfate [Feosol] Med 02/04/25 08:00 Active
325 mg PO DAILY
Flush (0.9% Sodium Chloride) [Flush (Nss)] Med 01/31/25 15:00 Active
See Dose Instructions IV PER PROTOCOL
Gabapentin [Neurontin] Med 01/31/25 16:00 Active
100 mg PO TID
Guaifenesin [Mucinex] Med 02/03/25 09:00 Active
600 mg PO Q12
HYDROmorphone [Dilaudid] Med 01/31/25 14:53 Active
0.25 mg IV Q3HPRN PRN
Lidocaine [Lidocaine 4% Patch] Med 02/01/25 08:00 Active
1 patch TOPICAL DAILY
Magnesium Hydroxide [Milk of Magnesia] Med 01/31/25 14:53 Active
30 ml PO BIDPRN PRN
Magnesium Oxide Med 02/01/25 08:00 Active
500 mg PO BID
Metoprolol [Lopressor] Med 02/01/25 08:00 Hold
12.5 mg PO Q12
Ondansetron Injectable [Zofran] Med 01/31/25 14:53 Active
4 mg IV Q8HPRN PRN
Oxycodone [Roxicodone] Med 01/31/25 14:53 Active
2.5 mg PO Q4HPRN PRN
Oxycodone [Roxicodone] Med 01/31/25 14:53 Active
5 mg PO Q4HPRN PRN
Pantoprazole [Protonix] Med 02/01/25 08:00 Active
40 mg PO DAILY
Remove Patch [Remove Lidocaine Patch] Med 02/01/25 20:00 Active
1 patch REMOVE DAILY@1999
�
Vitals:�
Temp Pulse Resp BP Pulse Ox
97.6 F 94 18 125/63 100
02/09/25 07:48 02/09/25 08:00 02/09/25 07:48 02/09/25 07:40 02/09/25 07:48
Height 5 ft 7 in
Actual Weight 71.5 kg
Body Mass Index (BMI) 24.7
�
Physical Exam:�
General Appearance/Observation: Well-developed, well-nourished individual in no apparent distress.�Sitting in chair
Pain/Comfort Assessment: sternal pain, legs
Mood/Affect: Appropriate, pleasant�
�
Integumentary/Operative Site:�Sternal incision- without drainage, draining incisions-covered with dressing, RLE- incision -medial aspt of leg-healing and large ecchymosis
�� Pressure Ulcer Evaluation: heels not visualized
��
�� Other Type of Wound: absent�
��
�
Eyes: Conjunctiva/Lids: normal���� Pupils: pupils equal round and reactive to light and Accommodation�
Ears/Nose/Throat: oral mucosa moist,� throat clear.������������ Lips/Teeth/Gums: normal�
Neck: No muscle spasm or tenderness�
Cardiovascular: Heart: irregular, irregular, no murmur�
Pulses: dorsalis pedis 2+ bilaterally�
Respiratory: Respiratory Effort/Chest Expansion: normal������� Auscultation: Diminished breath sounds bilaterally
Genitourinary: No Chery�
Extremities:�Edema: 2 left leg, 1+ right leg, left arm/hand-2 Cyanosis: None�Trophic�changes: None
�
Neurology Exam:
Orientation: Alert, Oriented to self, Time, Place�
Memory: Intact for immediate medical concern
Comprehension: Intact
Two step command: Intact
Naming: Intact
Cranial Nerves:
�� CNII:�Pupillary light reflex: Intact����Visual Field: Intact
�� CN III, IV, : Extraocular muscles: Intact�
�� CN V:�Facial Sensation�at�Forehead: Intact,�Maxilla: Intact,�Mandible: Intact
�� CN VII:�Facial movement: Symmetric
�� CN VIII:�Hearing: Normal
�� CN IX/X:�Speech & swallow: Normal,�Position of Uvula: Midline
�� CN XI:�Shoulder shrug: Symmetric
�� CN XII:�Tongue protrusion: Midline
Sensory:
�� Light touch: Intact in bilateral upper and lower extremities
��
�
Reflexes:
�� Biceps: bilaterally
�� Brachioradialis: bilaterally
�� Triceps: bilaterally
�� Patellar: bilaterally
�� Achilles: bilaterally
�� Babinski: no response bilaterally
�� Clonus: None
�� Eleazar: Negative bilaterally�
Cerebellar: Dysmetria/Ataxia: None�
Musculoskeletal:
Motor: (Manual muscle scale 0-5)�
Muscle SA EF WE EE FF FA HF KE DF EHL PF
Right� NT 4 4 4 4 4 4 4 4
Left NT 4 4 3 4 4 4 4 4
�
Tone: Normal in all extremities�
Range of Motion: Passively within normal limits in all extremities�
�
Lab Results
Labs
WBC 9.7 10^3/uL (4.8-10.8) 02/09/25 04:33
RBC 3.23 10^6/uL (4.20-5.40) L 02/09/25 04:33
Hgb 10.0 g/dL (12.0-16.0) L 02/09/25 04:33
Hct 29.9 % (37.0-47.0) L 02/09/25 04:33
MCV 92.6 fL (81.0-99.0) 02/09/25 04:33
MCH 31.0 pg (27.0-31.0) 02/09/25 04:33
MCHC 33.4 g/dL (33.0-37.0) 02/09/25 04:33
RDW 17.8 % (11.5-14.5) H 02/09/25 04:33
Plt Count 126 10^3/uL (130-400) L 02/09/25 04:33
MPV 11.3 fL (7.4-10.4) H 02/09/25 04:33
Abs Immat Gran (auto) 0.0 10^3/uL (0-0.05) 01/29/25 04:12
Absolute Neuts (auto) 5.4 10^3/uL (1.4-6.5) 01/29/25 04:12
Absolute Lymphs (auto) 2.9 10^3/uL (1.2-3.4) 01/29/25 04:12
Absolute Monos (auto) 0.7 10^3/uL (0.1-0.6) H 01/29/25 04:12
Absolute Eos (auto) 0.2 10^3/uL (0-0.7) 01/29/25 04:12
Absolute Basos (auto) 0.1 10^3/uL (0-0.2) 01/29/25 04:12
CBC Comment Cancelled 02/09/25 03:40
Immature Gran % 0.3 % (0-0.5) 01/29/25 04:12
Neutrophils % 58.0 % (42.2-75.2) 01/29/25 04:12
Lymphocytes % 31.4 % (20.5-51.1) 01/29/25 04:12
Monocytes % 7.3 % (1.7-9.3) 01/29/25 04:12
Eosinophils % 2.4 % (0-6) 01/29/25 04:12
Basophils % 0.6 % (0-2) 01/29/25 04:12
Nucleated RBC % 0 % 01/29/25 04:12
PT 22.2 Sec (11.4-14.6) H 02/08/25 03:41
INR 1.89 02/08/25 03:41
APTT 34.8 Sec (23.4-35.0) 02/06/25 03:18
Fibrinogen 283 MG/DL (199-459) 02/03/25 04:36
D-Dimer 0.95 ug/mlFEU (0.00-0.50) H 02/03/25 04:36
pH 7.45 (7.35-7.45) 02/04/25 17:03
pCO2 37 mmHg (32-35) H 02/04/25 17:03
pO2 103 mmHg (83-108) 02/04/25 17:03
HCO3 25.7 mmol/L (21-28) 02/04/25 17:03
Base Excess 1.7 mmol/L 02/04/25 17:03
ABG O2 Sat (Measured) 99.4 % (94-98) H 02/04/25 17:03
POC ABG O2 Sat (Calc) 99.9 % (94-98) H 01/31/25 17:24
Mixed VBG O2 Saturation 68.4 % 02/08/25 03:41
Sodium 135 mMOL/L (136-145) L 01/31/25 19:00
Potassium 4.1 mMOL/L (3.5-5.1) 02/01/25 03:42
O2 Delivery Level 02/04/25 17:03
Sodium 134 mmol/L (135-145) L 02/09/25 07:40
Potassium 3.8 mmol/L (3.5-5.1) 02/09/25 07:40
Chloride 101 mmol/L (98-107) 02/09/25 07:40
Carbon Dioxide 30 mmol/L (22-30) 02/09/25 07:40
BUN 82 mg/dl (7-17) H 02/09/25 07:40
Creatinine 1.6 mg/dL (0.6-1.0) H 02/09/25 07:40
Estimated Creat Clear 27 ml/min 02/09/25 07:40
eGFR 32.40 02/09/25 07:40
Glucose 87 mg/dl (70-99) 02/09/25 07:40
Hemoglobin A1c 5.8 % (4.0-5.6) H 01/30/25 01:55
Serum Osmolality 284 mOsm/kg (275-300) 01/24/25 15:33
Lactic Acid 0.7 mmol/L (0.7-2.0) 02/07/25 03:16
Calcium 8.4 mg/dl (8.4-10.2) 02/09/25 07:40
Ionized Calcium 1.21 mMOL/L (1.15-1.33) 02/07/25 03:16
Magnesium 2.2 mg/dl (1.6-2.3) 02/09/25 07:40
Total Bilirubin 1.2 mg/dl (0.2-1.3) 02/08/25 03:41
Direct Bilirubin 0.4 mg/dl (0.0-0.4) 02/06/25 03:18
AST 52 U/L (14-36) H 02/08/25 03:41
ALT 11 U/L (0-35) 02/08/25 03:41
Alkaline Phosphatase 125 U/L (38-126) 02/08/25 03:41
Lactate Dehydrogenase 334 U/L (120-246) H 02/05/25 03:16
Troponin I Cancelled 01/25/25 11:00
Ntz-X-Fawwumsoxfi Pept 29691 pg/ml 01/24/25 15:33
Total Protein 5.1 g/dl (6.3-8.2) L 02/08/25 03:41
Albumin 3.2 g/dl (3.5-5.0) L 02/08/25 03:41
Prealbumin 10.2 mg/dl (17.6-36.0) L 02/03/25 04:36
Triglycerides 66 mg/dl (10-149) 01/25/25 04:53
Total Cholesterol 162 mg/dl (50-199) 01/25/25 04:53
LDL Cholesterol, Calc 75 mg/dl 01/25/25 04:53
VLDL Cholesterol, Calc 13 mg/dl (0-30) 01/25/25 04:53
HDL Cholesterol 74 mg/dl 01/25/25 04:53
TSH (Reflex) 3.05 uIU/ml (0.47-4.68) 01/25/25 04:53
Urine Color Yellow 01/31/25 10:05
Urine Clarity Clear (Clear) 01/31/25 10:05
Urine pH 8.0 (5.0-9.0) 01/31/25 10:05
Ur Specific [place] 1.010 (<1.030) 01/31/25 10:05
Urine Ketones Negative (Negative) 01/31/25 10:05
Ur Occult Blood Reflex Negative (Negative) 01/31/25 10:05
Urine Nitrite (Reflex) Negative (Negative) 01/31/25 10:05
Urine Bilirubin Negative (Negative) 01/31/25 10:05
Urine Urobilinogen Negative (Neg - 1+) 01/31/25 10:05
Leukocyte Esterase Rfl Negative (Negative) 01/31/25 10:05
Urine RBC 0-2 /HPF (0-2) 01/31/25 10:05
Urine WBC (Reflex) 6-10 /HPF (0-5) 01/31/25 10:05
Ur Squamous Epith Cells 0-2 /LPF (Few) 01/31/25 10:05
Ur Urothelial Cells 0-2 /LPF (FEW) 01/31/25 10:05
Urine Bacteria (Reflex) Moderate (Negative) A 01/31/25 10:05
Urine Mucus Few 01/31/25 10:05
Urine Osmolality 330 mOsm/kg (300-900) 01/25/25 21:52
Urine Sodium 72 mmol/L (30-90) 01/25/25 21:52
Urine Glucose Negative (Negative) 01/31/25 10:05
Urine Albumin (Reflex) 1+ (Neg - Trace) A 01/31/25 10:05
Fluid pH 7.47 01/25/25 09:33
Fluid WBC 660 /CUMM 01/25/25 09:33
Fluid Mononuclear Cell 93.6 % 01/25/25 09:33
Fl Polymorphonucl Cell 6.4 % 01/25/25 09:33
Fluid Other Cells Not Reportable 01/25/25 09:33
Fluid Diff Path Review 01/25/25 09:33
Fluid Glucose 95 mg/dl 01/25/25 09:33
Fluid Total Protein < 2.0 g/dl 01/25/25 09:33
Fluid LDH 57 U/L 01/25/25 09:33
Fluid Amylase < 30 U/L 01/25/25 09:33
Fluid Triglycerides < 30 mg/dl 01/25/25 09:33
SARS-CoV-2 Antigen Negative (Negative) 01/24/25 13:47
Specimen Type Arterial 01/31/25 17:24
POC ABG Comment Pre 01/31/25 17:24
POC pH 7.46 (7.35-7.45) H 01/31/25 17:24
POC Base Excess 2.7 mmol/L 01/31/25 17:24
POC pO2 318 mmHg (83-108) H 01/31/25 17:24
POC pCO2 37 mmHg (35-48) 01/31/25 17:24
POC HCO3 27 mmol/L (21-28) 01/31/25 17:24
POC Glucose 105 mg/dl (70-99) H 02/05/25 07:26
POC Glucose 147 mg/dl (70-99) H 01/31/25 17:24
POC Sodium 140 mmol/L (136-145) 01/31/25 17:24
POC Potassium 3.5 mmol/L (3.5-5.1) 01/31/25 17:24
POC Ionized Calcium 1.10 mmol/L (1.15-1.33) L 01/31/25 17:24
POC Lactate 1.71 mmol/L (0.36-0.75) H 01/31/25 17:24
POC ACT+ 145 Seconds (82-134) H 01/31/25 17:16
POC ACT Low Range > 397 Seconds (116-155) H 01/31/25 20:12
POC Hemoglobin Calc 11.0 01/31/25 17:24
POC Hematocrit 32 % PCV (37-47) L 01/31/25 17:24
POC Hemodilution Yes 01/31/25 17:24
Blood Type O POS 02/02/25 07:13
Blood Type Confirm O POS 01/30/25 05:40
Antibody Screen Negative (Negative) 02/02/25 07:13
Crossmatch IS Only See Detail 02/02/25 07:13
�
Diagnostic Results:�as per HPI�
Chest x-ray�02/08/25
Lines and tubes: Central pulmonary artery catheter is again seen with tip in the proximal right pulmonary artery.
Lungs: No pneumothorax. Some hazy bibasilar opacification is again seen, right greater than left possibly representing pleural effusions.
Heart: Cardiac and mediastinal contours are stable including prosthetic cardiac valve and left atrial appendage closure device.
Osseous structures: Sternal wires are again noted.
IMPRESSION:
Hazy bibasilar opacification again seen, right greater than left, possibly representing pleural effusions, without significant change.
Carotid ultrasound�01/30/2025
RIGHT: Mixed-type plaque and calcified plaque are identified throughout. Carotid velocity measurements are consistent with 50-69% internal carotid artery stenosis. Vertebral artery flow is antegrade.
LEFT: Mixed-type plaque and calcified plaque are identified throughout. Carotid velocity measurements are consistent with less than 50% internal carotid artery stenosis. Vertebral artery flow is antegrade.
Peripheral ultrasound�01/24/2025
Findings: There is spontaneous, phasic flow with compressibility in the left common femoral, femoral, and popliteal veins. Flow is also detected in the posterior tibial and peroneal veins on the left.
IMPRESSION:
No evidence of deep venous thrombosis in the left lower extremity as described above.
Assessment: 80-year-old female with aortic stenosis, multi vessel CAD status post CABG x 2, aortic valve replacement on 01/31/[address] Crouch
�
Plan�
PM&R�PT/OT to increase independence with ADLs, improve balance, coordination, endurance, strength, mobility, community reintegration, decreased burden of care on others and family education.�
�
S/p CABG x 2, aortic valve replacement, tricuspid valve repair, maze procedure, reopening sternotomy�Impella device placement: 01/31/[address] Crouch.
HTN: continue medications, monitor closely�
HLD: Statin�
Coronary artery disease�: Multivessel disease. Postop cardiogenic shock requiring inotropes and pressors and left ventricular assist device status post CABG . aspirin, statin, beta-jeannie.
Atrial fibrillation:�With RVR. Continue anticoagulation and rate control medications.�������������������������������������������
CHF: Reduced EF ,beta jeannie, monitor fluid status
Left greater than right pleural effusion:�Status post left thoracentesis 01/25/25--850 mL of clear pleural fluid
Anemia: Postop4 units PRBC.� Continue to monitor.
Thrombocytopenia: Postop�3 unit platelets, 2 unit FFP, 2 units cryoprecipitate's, vitamin K and DDAVP
Leukocytosis: improving. monitor
Bilateral lower extremity edema: Consider TEDS as able. Increased fluid will cause more force requirement to move lower extremities which requires more strength and increases fatigue.�on Bumex IV,
Psych: Psychology consult.� Monitor mood, adjust medications as needed.�
Skin: monitor for pressure sores/rashes/lesions.�
Pain: acetaminophen or oxycodone as needed. Flexeril, Lidoderm patch, dilaudid IV
Bowel: Colace and Senna, PRN bisacodyl.�
Bladder: Time void, PVRs, PRN straight cath.�
GI Prophylaxis: Pantoprazole�
DVT Prophylaxis: mechanical and Eliquis
Pulmonary: Incentive spirometry�
Safety: Continue to reinforce assistance with all transfers.�
Code Status:� Full code
Dispo�(date/plan/equipment needs): Home with family care.� Social history reviewed.�
�
Functional and Medical Goals:�Modified Independent with ADL�s, ambulation, transfers�
�
Discharge Destination:�would benefit from Acute Inpatient Rehab when is stable, off pressors, hgb-platelets stable, and medically cleared
�
Pain: IV medications to be transitioned to oral with pain controlled for at least 24 hours prior to discharge
Bilateral lower extremity edema: Consider TEDS as able. Increased fluid will cause more force requirement to move lower extremities which requires more strength and increases fatigue.�IV diuretic to be transitioned to PO prior to discharge
DVT Prophylaxis: mechanical and Eliquis
Bowel/constipation: Colace and Senna, PRN bisacodyl
Pulmonary: Incentive spirometry�
Safety: Continue to reinforce assistance with all transfers.�
Thank you for allowing me to care for your patient. Please contact me with any questions or concerns.

Documented by User: Jaime Ely MD 02/10/25 23:06
Consultation - Medical
-
Referring Provider:�Carson Puga
Chief Complaint:�CABG, Debility
�
History of Present Illness:�Patient is an 80-year-old female with PMH of (Acute heart failure with cardiogenic shock, aortic valve stenosis and insufficiency, severe tricuspid valve insufficiency, A-fib with RVR and multivessel coronary disease) -
s/p Surgical aortic valve replacement, CABG x 2, Simple tricuspid valve repair, Full left and right atrial maze,plus left atrial appendage exclusion, Drainage of bilateral pleural effusions by Dr. Crouch on 01/31/25 with Post cardiotomy cardiogenic
shock with escalating inotropic support and vasoactive medication- s/p Reopening of sternotomy; Placement of a direct aortic 5.5 Impella left ventricular assist device on 01/31/25.
With subsequent acute blood loss anemia - s/p total 5 pRBCs, coagulopathy/ thrombocytopenia - s/p 6 unit platelets, 5 FFPs, 2 cryo, 0.5 iv Vit K, DDAVP, 10 beat NSVT on 01/31, junctional rhythm/bradycardia, atelectasis, cardiogenic shock, requiring
mechanical cardiac support (Impella 5.5), inotrops and pressors, hypovolemia with subsequent hypervolemia, hypokalemia, Lactic acidosis, TALIB, Epistaxis , hyponatremia, transaminitis
She had acute ischemic and congestive systolic and diastolic heart failure with reduced left ventricular ejection fraction, EF starting surgery was 35% with regional wall motion abnormalities. Atrial fibrillation with rapid ventricular response-
didn't tolerate Pradaxa in the past d/t vaginal bleed, acute respiratory insufficiency and significant volume overload requiring diuresis.
�
Past Medical History:�Aortic stenosis, valvular heart disease, PAD, hypertension, hyperlipidemia, vaginal bleed on Pradaxa, PAF on aspirin, carotid stenosis,
Procedure History:�CABG x 2, aortic valve replacement, left wrist repair
Family History:�Patient denies
�
Social History:�
Functional Level Premorbidly:�Independent with all activities�
Functional Level Currently:�Eating, grooming�set up, lower extremity self-care�dependent, mod assist x 2 sit to stand from chair. Min assist static standing. Mod assist x 2 ambulation with rolling walker, transfer�mod assist, ambulated 8 feet
forward, 4 feet backward with rolling walker min assist x 2 people, third person for lines/IV pole with minimal JMIENEZ, decreased step length,
�
Tobacco:�Denies�
Alcohol:�Denies�
Drug use:�Denies�
�
Lives with:�Alone
24-hour assistance available:�
Number of floors:�1 apartment
# steps to enter:�2
# steps to second floor: 0
Potential First floor set up:�Yes
Driving:�Yes
Occupation:�Part-time in [employer] here at [facility] [employer]
�
�
Allergies:�
Allergy/AdvReac Type Severity Reaction Status Date / Time
No Known Allergies Allergy Verified 05/07/22 12:28
�
Review of Systems:�
Constitutional: (x) abNormal _fatigued, low endurance
Eye: (x) Normal _
Ear/Nose/Throat: (x) Normal _
Respiratory: (x) Normal _
Cardiovascular: (x) abNormal _CABG, aortic valve replacement, tricuspid valve repair, A-fib with RVR, legs edema
Gastrointestinal: (x) abNormal _constipation
Genitourinary: (x) Normal _
Musculoskeletal: (x) Normal _
Integumentary: (x) Normal _
Neurologic: (x) Normal _
Psychiatric: (x) Normal _
Endocrine: (x) Normal _
Hematologic/Lymphatic: (x) abNormal _postop anemia, thrombocytopenia requiring transfusions,
Allergic/Immunologic: (x) Normal _
�
Medications:�
Active Current Visit Medication List
Category Date Time Status
0.9% Sodium Chloride 500 ml [Nss] 500 ml Med 01/31/25 14:53 Active
IV CORDIS
Acetaminophen [Tylenol] Med 01/31/25 14:53 Active
1,000 mg PO TID@0600,1400,2200
Acetaminophen [Tylenol] Med 01/31/25 14:53 Active
650 mg PO Q4HPRN PRN
Albumin Human 5% 250 ml [Albumin 5%] Med 01/31/25 16:00 Active
12.5 grams in 250 ml IV [id number]
Amiodarone [Pacerone] Med 01/31/25 16:00 Active
200 mg PO TID
Apixaban [Eliquis] Med 02/09/25 08:00 Active
2.5 mg PO BID
Ascorbic Acid [Vitamin C] Med 02/01/25 08:00 Active
500 mg PO DAILY
Aspirin Chewable [Low Strength Aspirin] Med 02/01/25 08:00 Active
81 mg PO DAILY
Atorvastatin [Lipitor] Med 01/30/25 08:00 Active
80 mg PO DAILY
Bisacodyl [Dulcolax] Med 01/31/25 14:53 Active
10 mg RECTAL DAILYPRN PRN
Bumetanide 12.5 mg/50 ml [Bumex] Med 02/08/25 09:00 Active
12.5 mg in 50 ml IV ORDERED RATE
Clopidogrel Bisulfate [Plavix] Med 02/01/25 08:00 Hold
75 mg PO DAILY
Cyclobenzaprine HCl [Flexeril] Med 01/31/25 14:53 Active
5 mg PO Q8HPRN PRN
DOBUTamine 500 MG/D5W 250 ML [Dobutrex 500 mg] Med 02/07/25 14:15 Hold
500 mg in 250 ml IV PER PROTOCOL
Docusate W/Senna [Senokot-S] Med 01/31/25 20:00 Active
1 tablet PO Q12
Ferrous Sulfate [Feosol] Med 02/04/25 08:00 Active
325 mg PO DAILY
Flush (0.9% Sodium Chloride) [Flush (Nss)] Med 01/31/25 15:00 Active
See Dose Instructions IV PER PROTOCOL
Gabapentin [Neurontin] Med 01/31/25 16:00 Active
100 mg PO TID
Guaifenesin [Mucinex] Med 02/03/25 09:00 Active
600 mg PO Q12
HYDROmorphone [Dilaudid] Med 01/31/25 14:53 Active
0.25 mg IV Q3HPRN PRN
Lidocaine [Lidocaine 4% Patch] Med 02/01/25 08:00 Active
1 patch TOPICAL DAILY
Magnesium Hydroxide [Milk of Magnesia] Med 01/31/25 14:53 Active
30 ml PO BIDPRN PRN
Magnesium Oxide Med 02/01/25 08:00 Active
500 mg PO BID
Metoprolol [Lopressor] Med 02/01/25 08:00 Hold
12.5 mg PO Q12
Ondansetron Injectable [Zofran] Med 01/31/25 14:53 Active
4 mg IV Q8HPRN PRN
Oxycodone [Roxicodone] Med 01/31/25 14:53 Active
2.5 mg PO Q4HPRN PRN
Oxycodone [Roxicodone] Med 01/31/25 14:53 Active
5 mg PO Q4HPRN PRN
Pantoprazole [Protonix] Med 02/01/25 08:00 Active
40 mg PO DAILY
Remove Patch [Remove Lidocaine Patch] Med 02/01/25 20:00 Active
1 patch REMOVE DAILY@1999
�
Vitals:�
Temp Pulse Resp BP Pulse Ox
97.6 F 94 18 125/63 100
02/09/25 07:48 02/09/25 08:00 02/09/25 07:48 02/09/25 07:40 02/09/25 07:48
Height 5 ft 7 in
Actual Weight 71.5 kg
Body Mass Index (BMI) 24.7
�
Physical Exam:�
General Appearance/Observation: Well-developed, well-nourished individual in no apparent distress.�Sitting in chair
Pain/Comfort Assessment: sternal pain, legs
Mood/Affect: Appropriate, pleasant�
�
Integumentary/Operative Site:�Sternal incision- without drainage, draining incisions-covered with dressing, RLE- incision -medial aspt of leg-healing and large ecchymosis
�� Pressure Ulcer Evaluation: heels not visualized
��
�� Other Type of Wound: absent�
��
�
Eyes: Conjunctiva/Lids: normal���� Pupils: pupils equal round and reactive to light and Accommodation�
Ears/Nose/Throat: oral mucosa moist,� throat clear.������������ Lips/Teeth/Gums: normal�
Neck: No muscle spasm or tenderness�
Cardiovascular: Heart: irregular, irregular, no murmur�
Pulses: dorsalis pedis 2+ bilaterally�
Respiratory: Respiratory Effort/Chest Expansion: normal������� Auscultation: Diminished breath sounds bilaterally
Genitourinary: No Chery�
Extremities:�Edema: 2 left leg, 1+ right leg, left arm/hand-2 Cyanosis: None�Trophic�changes: None
�
Neurology Exam:
Orientation: Alert, Oriented to self, Time, Place�
Memory: Intact for immediate medical concern
Comprehension: Intact
Two step command: Intact
Naming: Intact
Cranial Nerves:
�� CNII:�Pupillary light reflex: Intact����Visual Field: Intact
�� CN III, IV, : Extraocular muscles: Intact�
�� CN V:�Facial Sensation�at�Forehead: Intact,�Maxilla: Intact,�Mandible: Intact
�� CN VII:�Facial movement: Symmetric
�� CN VIII:�Hearing: Normal
�� CN IX/X:�Speech & swallow: Normal,�Position of Uvula: Midline
�� CN XI:�Shoulder shrug: Symmetric
�� CN XII:�Tongue protrusion: Midline
Sensory:
�� Light touch: Intact in bilateral upper and lower extremities
��
�
Reflexes:
�� Biceps: bilaterally
�� Brachioradialis: bilaterally
�� Triceps: bilaterally
�� Patellar: bilaterally
�� Achilles: bilaterally
�� Babinski: no response bilaterally
�� Clonus: None
�� Eleazar: Negative bilaterally�
Cerebellar: Dysmetria/Ataxia: None�
Musculoskeletal:
Motor: (Manual muscle scale 0-5)�
Muscle SA EF WE EE FF FA HF KE DF EHL PF
Right� NT 4 4 4 4 4 4 4 4
Left NT 4 4 3 4 4 4 4 4
�
Tone: Normal in all extremities�
Range of Motion: Passively within normal limits in all extremities�
�
Lab Results
Labs
WBC 9.7 10^3/uL (4.8-10.8) 02/09/25 04:33
RBC 3.23 10^6/uL (4.20-5.40) L 02/09/25 04:33
Hgb 10.0 g/dL (12.0-16.0) L 02/09/25 04:33
Hct 29.9 % (37.0-47.0) L 02/09/25 04:33
MCV 92.6 fL (81.0-99.0) 02/09/25 04:33
MCH 31.0 pg (27.0-31.0) 02/09/25 04:33
MCHC 33.4 g/dL (33.0-37.0) 02/09/25 04:33
RDW 17.8 % (11.5-14.5) H 02/09/25 04:33
Plt Count 126 10^3/uL (130-400) L 02/09/25 04:33
MPV 11.3 fL (7.4-10.4) H 02/09/25 04:33
Abs Immat Gran (auto) 0.0 10^3/uL (0-0.05) 01/29/25 04:12
Absolute Neuts (auto) 5.4 10^3/uL (1.4-6.5) 01/29/25 04:12
Absolute Lymphs (auto) 2.9 10^3/uL (1.2-3.4) 01/29/25 04:12
Absolute Monos (auto) 0.7 10^3/uL (0.1-0.6) H 01/29/25 04:12
Absolute Eos (auto) 0.2 10^3/uL (0-0.7) 01/29/25 04:12
Absolute Basos (auto) 0.1 10^3/uL (0-0.2) 01/29/25 04:12
CBC Comment Cancelled 02/09/25 03:40
Immature Gran % 0.3 % (0-0.5) 01/29/25 04:12
Neutrophils % 58.0 % (42.2-75.2) 01/29/25 04:12
Lymphocytes % 31.4 % (20.5-51.1) 01/29/25 04:12
Monocytes % 7.3 % (1.7-9.3) 01/29/25 04:12
Eosinophils % 2.4 % (0-6) 01/29/25 04:12
Basophils % 0.6 % (0-2) 01/29/25 04:12
Nucleated RBC % 0 % 01/29/25 04:12
PT 22.2 Sec (11.4-14.6) H 02/08/25 03:41
INR 1.89 02/08/25 03:41
APTT 34.8 Sec (23.4-35.0) 02/06/25 03:18
Fibrinogen 283 MG/DL (199-459) 02/03/25 04:36
D-Dimer 0.95 ug/mlFEU (0.00-0.50) H 02/03/25 04:36
pH 7.45 (7.35-7.45) 02/04/25 17:03
pCO2 37 mmHg (32-35) H 02/04/25 17:03
pO2 103 mmHg (83-108) 02/04/25 17:03
HCO3 25.7 mmol/L (21-28) 02/04/25 17:03
Base Excess 1.7 mmol/L 02/04/25 17:03
ABG O2 Sat (Measured) 99.4 % (94-98) H 02/04/25 17:03
POC ABG O2 Sat (Calc) 99.9 % (94-98) H 01/31/25 17:24
Mixed VBG O2 Saturation 68.4 % 02/08/25 03:41
Sodium 135 mMOL/L (136-145) L 01/31/25 19:00
Potassium 4.1 mMOL/L (3.5-5.1) 02/01/25 03:42
O2 Delivery Level 02/04/25 17:03
Sodium 134 mmol/L (135-145) L 02/09/25 07:40
Potassium 3.8 mmol/L (3.5-5.1) 02/09/25 07:40
Chloride 101 mmol/L (98-107) 02/09/25 07:40
Carbon Dioxide 30 mmol/L (22-30) 02/09/25 07:40
BUN 82 mg/dl (7-17) H 02/09/25 07:40
Creatinine 1.6 mg/dL (0.6-1.0) H 02/09/25 07:40
Estimated Creat Clear 27 ml/min 02/09/25 07:40
eGFR 32.40 02/09/25 07:40
Glucose 87 mg/dl (70-99) 02/09/25 07:40
Hemoglobin A1c 5.8 % (4.0-5.6) H 01/30/25 01:55
Serum Osmolality 284 mOsm/kg (275-300) 01/24/25 15:33
Lactic Acid 0.7 mmol/L (0.7-2.0) 02/07/25 03:16
Calcium 8.4 mg/dl (8.4-10.2) 02/09/25 07:40
Ionized Calcium 1.21 mMOL/L (1.15-1.33) 02/07/25 03:16
Magnesium 2.2 mg/dl (1.6-2.3) 02/09/25 07:40
Total Bilirubin 1.2 mg/dl (0.2-1.3) 02/08/25 03:41
Direct Bilirubin 0.4 mg/dl (0.0-0.4) 02/06/25 03:18
AST 52 U/L (14-36) H 02/08/25 03:41
ALT 11 U/L (0-35) 02/08/25 03:41
Alkaline Phosphatase 125 U/L (38-126) 02/08/25 03:41
Lactate Dehydrogenase 334 U/L (120-246) H 02/05/25 03:16
Troponin I Cancelled 01/25/25 11:00
Inr-A-Dgvsbembkef Pept 94958 pg/ml 01/24/25 15:33
Total Protein 5.1 g/dl (6.3-8.2) L 02/08/25 03:41
Albumin 3.2 g/dl (3.5-5.0) L 02/08/25 03:41
Prealbumin 10.2 mg/dl (17.6-36.0) L 02/03/25 04:36
Triglycerides 66 mg/dl (10-149) 01/25/25 04:53
Total Cholesterol 162 mg/dl (50-199) 01/25/25 04:53
LDL Cholesterol, Calc 75 mg/dl 01/25/25 04:53
VLDL Cholesterol, Calc 13 mg/dl (0-30) 01/25/25 04:53
HDL Cholesterol 74 mg/dl 01/25/25 04:53
TSH (Reflex) 3.05 uIU/ml (0.47-4.68) 01/25/25 04:53
Urine Color Yellow 01/31/25 10:05
Urine Clarity Clear (Clear) 01/31/25 10:05
Urine pH 8.0 (5.0-9.0) 01/31/25 10:05
Ur Specific [place] 1.010 (<1.030) 01/31/25 10:05
Urine Ketones Negative (Negative) 01/31/25 10:05
Ur Occult Blood Reflex Negative (Negative) 01/31/25 10:05
Urine Nitrite (Reflex) Negative (Negative) 01/31/25 10:05
Urine Bilirubin Negative (Negative) 01/31/25 10:05
Urine Urobilinogen Negative (Neg - 1+) 01/31/25 10:05
Leukocyte Esterase Rfl Negative (Negative) 01/31/25 10:05
Urine RBC 0-2 /HPF (0-2) 01/31/25 10:05
Urine WBC (Reflex) 6-10 /HPF (0-5) 01/31/25 10:05
Ur Squamous Epith Cells 0-2 /LPF (Few) 01/31/25 10:05
Ur Urothelial Cells 0-2 /LPF (FEW) 01/31/25 10:05
Urine Bacteria (Reflex) Moderate (Negative) A 01/31/25 10:05
Urine Mucus Few 01/31/25 10:05
Urine Osmolality 330 mOsm/kg (300-900) 01/25/25 21:52
Urine Sodium 72 mmol/L (30-90) 01/25/25 21:52
Urine Glucose Negative (Negative) 01/31/25 10:05
Urine Albumin (Reflex) 1+ (Neg - Trace) A 01/31/25 10:05
Fluid pH 7.47 01/25/25 09:33
Fluid WBC 660 /CUMM 01/25/25 09:33
Fluid Mononuclear Cell 93.6 % 01/25/25 09:33
Fl Polymorphonucl Cell 6.4 % 01/25/25 09:33
Fluid Other Cells Not Reportable 01/25/25 09:33
Fluid Diff Path Review 01/25/25 09:33
Fluid Glucose 95 mg/dl 01/25/25 09:33
Fluid Total Protein < 2.0 g/dl 01/25/25 09:33
Fluid LDH 57 U/L 01/25/25 09:33
Fluid Amylase < 30 U/L 01/25/25 09:33
Fluid Triglycerides < 30 mg/dl 01/25/25 09:33
SARS-CoV-2 Antigen Negative (Negative) 01/24/25 13:47
Specimen Type Arterial 01/31/25 17:24
POC ABG Comment Pre 01/31/25 17:24
POC pH 7.46 (7.35-7.45) H 01/31/25 17:24
POC Base Excess 2.7 mmol/L 01/31/25 17:24
POC pO2 318 mmHg (83-108) H 01/31/25 17:24
POC pCO2 37 mmHg (35-48) 01/31/25 17:24
POC HCO3 27 mmol/L (21-28) 01/31/25 17:24
POC Glucose 105 mg/dl (70-99) H 02/05/25 07:26
POC Glucose 147 mg/dl (70-99) H 01/31/25 17:24
POC Sodium 140 mmol/L (136-145) 01/31/25 17:24
POC Potassium 3.5 mmol/L (3.5-5.1) 01/31/25 17:24
POC Ionized Calcium 1.10 mmol/L (1.15-1.33) L 01/31/25 17:24
POC Lactate 1.71 mmol/L (0.36-0.75) H 01/31/25 17:24
POC ACT+ 145 Seconds (82-134) H 01/31/25 17:16
POC ACT Low Range > 397 Seconds (116-155) H 01/31/25 20:12
POC Hemoglobin Calc 11.0 01/31/25 17:24
POC Hematocrit 32 % PCV (37-47) L 01/31/25 17:24
POC Hemodilution Yes 01/31/25 17:24
Blood Type O POS 02/02/25 07:13
Blood Type Confirm O POS 01/30/25 05:40
Antibody Screen Negative (Negative) 02/02/25 07:13
Crossmatch IS Only See Detail 02/02/25 07:13
�
Diagnostic Results:�as per HPI�
Chest x-ray�02/08/25
Lines and tubes: Central pulmonary artery catheter is again seen with tip in the proximal right pulmonary artery.
Lungs: No pneumothorax. Some hazy bibasilar opacification is again seen, right greater than left possibly representing pleural effusions.
Heart: Cardiac and mediastinal contours are stable including prosthetic cardiac valve and left atrial appendage closure device.
Osseous structures: Sternal wires are again noted.
IMPRESSION:
Hazy bibasilar opacification again seen, right greater than left, possibly representing pleural effusions, without significant change.
Carotid ultrasound�01/30/2025
RIGHT: Mixed-type plaque and calcified plaque are identified throughout. Carotid velocity measurements are consistent with 50-69% internal carotid artery stenosis. Vertebral artery flow is antegrade.
LEFT: Mixed-type plaque and calcified plaque are identified throughout. Carotid velocity measurements are consistent with less than 50% internal carotid artery stenosis. Vertebral artery flow is antegrade.
Peripheral ultrasound�01/24/2025
Findings: There is spontaneous, phasic flow with compressibility in the left common femoral, femoral, and popliteal veins. Flow is also detected in the posterior tibial and peroneal veins on the left.
IMPRESSION:
No evidence of deep venous thrombosis in the left lower extremity as described above.
Assessment: 80-year-old female with aortic stenosis, multi vessel CAD status post CABG x 2, aortic valve replacement on 01/31/[address] Crouch
�
Plan�
PM&R�PT/OT to increase independence with ADLs, improve balance, coordination, endurance, strength, mobility, community reintegration, decreased burden of care on others and family education.�
�
S/p CABG x 2, aortic valve replacement, tricuspid valve repair, maze procedure, reopening sternotomy�Impella device placement: 01/31/[address] Crouch.
HTN: continue medications, monitor closely�
HLD: Statin�
Coronary artery disease�: Multivessel disease. Postop cardiogenic shock requiring inotropes and pressors and left ventricular assist device status post CABG . aspirin, statin, beta-jeannie.
Atrial fibrillation:�With RVR. Continue anticoagulation and rate control medications.�������������������������������������������
CHF: Reduced EF ,beta jeannie, monitor fluid status
Left greater than right pleural effusion:�Status post left thoracentesis 01/25/25--850 mL of clear pleural fluid
Anemia: Postop4 units PRBC.� Continue to monitor.
Thrombocytopenia: Postop�3 unit platelets, 2 unit FFP, 2 units cryoprecipitate's, vitamin K and DDAVP
Leukocytosis: improving. monitor
Bilateral lower extremity edema: Consider TEDS as able. Increased fluid will cause more force requirement to move lower extremities which requires more strength and increases fatigue.�on Bumex IV,
Psych: Psychology consult.� Monitor mood, adjust medications as needed.�
Skin: monitor for pressure sores/rashes/lesions.�
Pain: acetaminophen or oxycodone as needed. Flexeril, Lidoderm patch, dilaudid IV
Bowel: Colace and Senna, PRN bisacodyl.�
Bladder: Time void, PVRs, PRN straight cath.�
GI Prophylaxis: Pantoprazole�
DVT Prophylaxis: mechanical and Eliquis
Pulmonary: Incentive spirometry�
Safety: Continue to reinforce assistance with all transfers.�
Code Status:� Full code
Dispo�(date/plan/equipment needs): Home with family care.� Social history reviewed.�
�
Functional and Medical Goals:�Modified Independent with ADL�s, ambulation, transfers�
�
Discharge Destination:�would benefit from Acute Inpatient Rehab when is stable, off pressors, hgb-platelets stable, and medically cleared
�
Pain: IV medications to be transitioned to oral with pain controlled for at least 24 hours prior to discharge
Bilateral lower extremity edema: Consider TEDS as able. Increased fluid will cause more force requirement to move lower extremities which requires more strength and increases fatigue.�IV diuretic to be transitioned to PO prior to discharge
DVT Prophylaxis: mechanical and Eliquis
Bowel/constipation: Colace and Senna, PRN bisacodyl
Pulmonary: Incentive spirometry�
Safety: Continue to reinforce assistance with all transfers.�
Thank you for allowing me to care for your patient. Please contact me with any questions or concerns.
Attending Statement: Late entry Patiemt seen and examined, case reviewed with PA 02/09/25 in the afternoon.
I saw and examined the patient today.� Reviewed care plan with patient, therapy, nursing, and physician phlebotomist lab assistant.� I agree with the above subjective and physical exam, and plan as documented by MUNIRA Singh with adjustments made as necessary.
OVerall not medically stable for rehab. Still with significant edema, being diuresed. Will beneift from acute inpatient rehabilitaiton once stable.
[2025-02-09] MEDS: FEOSOL 325 MG PO (09:02)
[2025-02-09] MEDS: MAGNESIUM OXIDE 500 MG PO ×2 (09:02→20:23)
[2025-02-09] MEDS: LIPITOR 80 MG PO (09:02)
[2025-02-09] MEDS: LOW STRENGTH ASPIRIN 81 MG PO (09:02)
[2025-02-09] MEDS: PROTONIX 40 MG PO (09:02)
[2025-02-09] MEDS: PACERONE 200 MG PO ×3 (09:02→22:39)
[2025-02-09] MEDS: LIDOCAINE 4% PATCH 1 PATCH TOPICAL (09:02)
[2025-02-09] MEDS: NEURONTIN 100 MG PO ×3 (09:02→22:39)
[2025-02-09] MEDS: ELIQUIS 2.5 MG PO ×2 (09:02→20:23)
[2025-02-09] MEDS: MUCINEX 600 MG PO ×2 (09:02→20:23)
[2025-02-09] MEDS: VITAMIN C 500 MG PO (09:02)
[2025-02-09] MEDS: SENOKOT-S 1 TABLET PO ×2 (09:02→20:23)
[2025-02-09] MEDS: MILK OF MAGNESIA 30 ML PO (11:25)
--- NOTE | 2025-02-09 11:36 | CM ---
Chart reviewed. Patient OOB sitting in the chair on a bumex gtt. 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 Patient's son lives in [place] and is staying
for 1 month. PT evaluation recommending Acute Rehab. Referral sent to [facility]. Plan is for the patient to go to [facility] when medically stable. CM to follow
--- NOTE | 2025-02-09 12:30 | PTCARENOTE ---
pt VSS, no changes in assessment. pt c/o constipation, given PRN MoM. pt ambulating in room w/ assist and RW. voiding in bathroom, incontinent at times. Calazime cream applied to reddened sacrum.
[2025-02-09] MEDS: NSS IV (13:21)
--- NOTE | 2025-02-09 15:32 | PTCARENOTE ---
pt VSS, pt ambulated to bathroom w/ assist and RW. +large formed BM. OOB in chair.
--- NOTE | 2025-02-09 16:15 | W.PN.CD ---
Today's Communication / Plan
-
diruesis for goal 1-2L negative
Impression / Plan
-
I/P: 80F with persistent atrial fibrillation (abnormal bleeding on dabigatran), CAD (LAD and RCA medically managed, 2012), PAD (50-60% R ICA), hypertension, dyslipidemia, moderate MR, , moderate pulmonary hypertension, and moderate to severe TR
who presented with shortness of breath for several days found to have reduced LVEF, severe . mod AR and severe TR and multivessel CAD.
Outpatient passementerie worker: Dr. Pinedo
Acute heart failure with cardiogenic shock
-Likely due to CAD and mixed valvular disease
-s/p Surgical aortic valve replacement [23 mm [employer]'s Resilia bioprosthesis]; CABG x 2 [ALMANZAR to LAD, RSVG to RPDA]; Simple tricuspid valve repair [32 mm band annuloplasty]; Full left and right atrial maze [combination of RF and
cryoablation] plus left atrial appendage exclusion (01/31, Crouch)
-Post cardiotomy cardiogenic shock with escalating inotropic support and vasoactive medication- s/p Reopening of sternotomy; Placement of a direct aortic 5.5 Impella left ventricular assist device
-Continue aspirin and high-dose atorvastatin.
- dobutamine off
- cont. aggressive diuresis for goal 1-2L negative daily. lots of ROEL.
- Impella removed 02/04.
- Continue management as per CT Surgery.
Aortic valve disease - Severe Aortic stenosis, moderate AR
-s/p Surgical aortic valve replacement [23 mm Andrews [employer]'s Resilia bioprosthesis]; CABG x 2 [ALMANZAR to LAD, RSVG to RPDA]; Simple tricuspid valve repair [32 mm band annuloplasty]; Full left and right atrial maze [combination of RF and
cryoablation] plus left atrial appendage exclusion
- Relatively stable.
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
- GDMT as tolerated:
-LUCIA/ARB/ARNI: Limited by blood pressure
-SGLT2 inhibitor: No prescription coverage, cost prohibitive
-Aldosterone agonist: Spironolactone 25 mg held
-Beta jeannie: Metoprolol succinate 50 mg daily held
-Isosorbide/Hydralazine:�Not indicated
-ICD: Not indicated
- Continue Bumex gtt .
- Continue to trend daily weight, I/O, and BMP
- Pleural effusion, left status-post thoracentesis of 850 mL clear yellow pleural fluid on 01/25/2025
- CXR w/ suggestion of small L pleural effusion and decreased breath sounds at bases...cont. to monitor and target more aggressive diuresis
Paroxysmal atrial fibrillation
- Patient with recurrent PAF; continue amiodarone.
- BB held due to shock; hopefully resume once dobutamine off x 24 hours
- [id number] score is 6 for age, female, HTN, CHF, and vascular disease.
- Oral anticoagulation: We reviewed stroke risk and anticoagulation. She does not want to retrial here. She had vaginal bleeding on dabigatran.
- Heart rate is mildly elevated at times, but fairly controlled overall.
Tricuspid regurgitation, severe
-s/p surgical repair
Hyponatremia:improved
CARDIAC CATH 01/26/2025:
1. 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
2. Severe low-flow low gradient aortic stenosis
3. Severe multivessel coronary artery disease as described
RECOMMENDATIONS
1. Diuresis and titration of GDMT for heart failure.
2. Outpatient workup for aortic valve replacement +/- coronary revascularization, surgical versus percutaneous. Patient needs TAVR CT protocol next and then heart team discussion to evaluate options. Percutaneous revascularization would involve
multisegment stenting of the RCA to address flow to the large RPL and multi segment stenting of the LAD including the proximal LAD, mid-LAD GYMNASTICS COACH OR INSTRUCTOR, possibly necessitating rescue of D1. CABG would ideally involve grafts to the LAD, D1, and RPL. The D2
and RPDA are atretic and do not appear to be candidates for revascularization.
Physical Exam
Vital Signs/Labs
Vital Signs
Temp Pulse Resp BP Pulse Ox
36.4 C 93 18 109/61 98
02/09/25 15:16 02/09/25 15:00 02/09/25 15:16 02/09/25 13:13 02/09/25 15:16
02/08/25 02/09/25 02/10/25
06:59 06:59 06:59
Actual Weight 71.4 kg 71.5 kg
02/09/25 04:33
02/09/25 07:40
PT 22.2 Sec (11.4-14.6) H 02/08/25 03:41
INR 1.89 02/08/25 03:41
APTT 34.8 Sec (23.4-35.0) 02/06/25 03:18
Magnesium 2.2 mg/dl (1.6-2.3) 02/09/25 07:40
Triglycerides 66 mg/dl (10-149) 01/25/25 04:53
LDL Cholesterol, Calc 75 mg/dl 01/25/25 04:53
VLDL Cholesterol, Calc 13 mg/dl (0-30) 01/25/25 04:53
HDL Cholesterol 74 mg/dl 01/25/25 04:53
01/24/25
15:33
Rzc-B-Uvqdmeplvsz Pept [id number]
Physical Exam
Constitutional: Comfortable
Cardiovascular: Rhythm & rate is regular
Respiratory: Respiratory effort normal
Neuro/Psych: AO x 3
Other: Other (ROEL)
Data Reviewed
-
Date of Service: February 09, 2025
Medical Decision Making: Reviewed Test Results
Labs: Labs Reviewed by me
--- NOTE | 2025-02-09 20:00 | PTCARENOTE ---
Assumed care of the patient at 1900. Patient in bed, AOx3, arouse to voice. VSS, Aflutter on CM, +3 UE pitting edema, +2 LE pitting edema, pulses palpable, irregular apical pulse. Lungs dim, RA SpO2 96%, IS encouraged. Normoactive BS, good appetite,
no nausea. Incontinent of urine at times. All surgical sites intact and stable. PIVx2, Bumex off at 2000 per order, BMP/Mg sent, await results. POC discussed with the patient, in agreement, call sánchez within reach, assessment of needs ongoing.
[2025-02-09] MEDS: REMOVE LIDOCAINE PATCH REMOVE (20:10)
[2025-02-09 20:44] LABS: Blood Urea Nitrogen 87 mg/dl (7-17); Calcium 8.3 mg/dl (8.4-10.2); Carbon Dioxide 33 mmol/L (22-30); Chloride 99 mmol/L (98-107); Estimated Creatinine Clearance 27 ml/min; Glucose 94 mg/dl (70-99); Magnesium 2.2 mg/dl (1.6-2.3); Potassium 3.7 mmol/L (3.5-5.1); Sodium 132 mmol/L (135-145); eGFR 32.40
[2025-02-10] VITALS (11 sets, daily range): BP systolic 94–118; BP diastolic 49–74; PULSE 100; O2SAT 95; BMI 25.1
--- NOTE | 2025-02-10 | PTCARENOTE ---
No changes in assessment, patient sleeping between care.
--- NOTE | 2025-02-10 | PTCARENOTE ---
PO K given, VSS, sleeping between care.
[2025-02-10 05:02] LABS: Hematocrit 29.2 % (37.0-47.0); Hemoglobin 9.7 g/dL (12.0-16.0); Mean Corp Hgb Conc. 33.2 g/dL (33.0-37.0); Mean Corpuscular Volume 93.0 fL (81.0-99.0); Platelet Count 131 10^3/uL (130-400); Red Cell Dist. Width 17.6 % (11.5-14.5)
--- NOTE | 2025-02-10 05:05 | W.PN.CT ---
Today's Communication / Plan
-
-pod #10
-no issues overnight. Neurologically and hemodynamically intact
-drips: none
-remains in a-fib 90s-low 100s. Eliquis started on 02/09. Monitor for any bleeding
-Had some epistaxis on 02/03/25 which has since resolved. Plavix is held. Pt did not tolerate Pradaxa in the past d/t vaginal bleed
-Hg is stable - 9.7 today
-continue Bumex drip
-hyponatremia has been improving with diuresis - Na 135 today
-CT were dcd and pws were cut on 02/07
-Cr remains at 1.6-1.8 (1.8 on 02/06 and 02/07, Cr was 1.1 preop)
-Chery dcd 02/08
-Repeat echo on 02/05/25 with dobutamine @ 5 showed and intact bioprosthetic AVR with PG/MG of , no AI, intact MV repair with mild-moderate TR, LVEF 60-65%
-appreciate Physiatry eval. Bed available at [facility] on Monday 02/12
-appreciate everyone's input
-continue PT/OT
Assessment / Plan
-
- Acute heart failure with cardiogenic shock, aortic valve stenosis and insufficiency, severe tricuspid valve insufficiency, A-fib with RVR and multivessel coronary disease- s/p Surgical aortic valve replacement [23 mm Andrews Insp[employer]'s Resilia
bioprosthesis]; CABG x 2 [ALMANZAR to LAD, RSVG to RPDA]; Simple tricuspid valve repair [32 mm band annuloplasty]; Full left and right atrial maze [combination of RF and cryoablation] plus left atrial appendage exclusion [40 mm device]; Drainage of
bilateral pleural effusions, approximately 250 cc in each chest by Dr. Crouch on 01/31/25, pod #10
- Post cardiotomy cardiogenic shock with escalating inotropic support and vasoactive medication- s/p Reopening of sternotomy; Placement of a direct aortic 5.5 Impella left ventricular assist device
by Dr. Crouch on 01/31/25
- Intraop FRANCISCO JAVIER: LVEF at the start of the surgery was approximately 40% with some regional wall motion abnormalities toward the inferior septal and anterior septal portions of the wall. Following surgery, EF did struggle to approximately 20 to 25%
and she was loaded on 5 dobutamine but had escalating requirements for Levophed. RV function was normal as was RV size and there was only a trace residual amount of tricuspid valve insufficiency.
The left atrial appendage was verified to be free of any thrombus or debris preoperatively and found to be totally occlusive postoperatively. There is no paravalvular leak of the aortic valve prosthesis and the mean gradient across the valve was 3
mmHg. There is essentially no mean gradient across the tricuspid valve. At the conclusion of the case, she did respond to volume loading with blood. Of note she was coagulopathic postoperatively with an elevated ACT despite giving almost double
her protamine dose.
-S/P Stepwise weaning of 5.5 Impella ventricular assist device/Extraction/removal of 5.5 Impella ventricular assist device/ Ligation of sterile portion of 10 mm Hemashield graft using 8 large clips with coverage of the remaining graft with overlying
strap muscles/Local analgesia for pain control, by Dr. Crouch 02/04/25
- Severe aortic valve stenosis
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
- Atrial fibrillation with rapid ventricular response- didn't tolerate Pradaxa in the past d/t vaginal bleed
- Acute respiratory insufficiency
- Significant volume overload requiring diuresis
- HTN/HLD
- PAD
- Nonsmoker
- Acute postop blood loss anemia - s/p total 5 pRBCs
- Acute postop coagulopathy/ thrombocytopenia - s/p 6 unit platelets, 5 FFPs, 2 cryo, 0.5 iv Vit K, DDAVP
- Acute postop 10 beat NSVT on 01/31
- Acute postop junctional rhythm/bradycardia
- Acute postop atelectasis
- Acute postop cardiogenic shock, requiring mechanical cardiac support (Impella 5.5), inotrops and pressors
- Acute postop hypovolemia with subsequent hypervolemia
- Acute postop hypokalemia
- Acute postop Lactic acidosis
- Acute postop TALIB
- Acute postop Epistaxis
- Acute postop hyponatremia
- Acute postop transaminitis
Discussed patient care with: Nursing and Care Team
Subjective
Procedure
Aortic valve replacement [23 mm Andrews Inspira's Resilia bioprosthesis]; CABG x 2 [ALMANZAR to LAD, RSVG to RPDA]; Simple tricuspid valve repair [32 mm band annuloplasty]; Full left and right atrial maze [combination of RF and cryoablation] plus left
atrial appendage exclusion [40 mm device]; Drainage of bilateral pleural effusions, approximately 250 cc in each chest by Dr. Crouch on 01/31/25
-
Date of Service: February 10, 2025
Objective Data
-
Lab Results
02/10/25 04:07
PT 22.2 Sec (11.4-14.6) H 02/08/25 03:41
INR 1.89 02/08/25 03:41
APTT 34.8 Sec (23.4-35.0) 02/06/25 03:18
Vital Signs
Vital Signs
Temp Pulse Resp BP Pulse Ox
97.6 F 105 18 101/49 97
02/10/25 04:00 02/10/25 01:00 02/10/25 04:00 02/10/25 00:01 02/10/25 01:00
CT Intake/Output/Weight
02/09/25 02/09/25 02/10/25
06:59 18:59 06:59
Intake Total 374 / 642.4 150 / 634 484 / 634
Output Total 750 / 1405 100 / 100
Balance -376 / -762.6 50 / 534 484 / 534
SaO2: 97
Physical Exam
-
General: Awake, Oriented and AOx3
Cardiovascular: Irregular rate & rhythm, No Murmurs, No Rub and No Gallop
Respiratory: Decreased Breath Sounds (at bases, otherwise clear)
Sternum: Stable
Incision: Clean, Dry, Intact and Dressing Intact
Abdomen: soft, nontender, nondistended, no nausea
Extremities: 1+ Edema b/l
Data Reviewed
-
Lab Results: Results Reviewed
Medications: Active Meds Reviewed
Chest X-Ray: Report Reviewed and Image Reviewed
ECG: Report Reviewed and Image Reviewed
[2025-02-10 05:07] LABS: Blood Urea Nitrogen 83 mg/dl (7-17); Calcium 8.4 mg/dl (8.4-10.2); Carbon Dioxide 30 mmol/L (22-30); Chloride 97 mmol/L (98-107); Estimated Creatinine Clearance 26 ml/min; Glucose 90 mg/dl (70-99); Magnesium 2.3 mg/dl (1.6-2.3); Potassium 4.0 mmol/L (3.5-5.1); Sodium 133 mmol/L (135-145); eGFR 30.13
[2025-02-10] MEDS: TYLENOL 1000 MG PO ×3 (06:06→22:51)
[2025-02-10] MEDS: FEOSOL 325 MG PO (08:29)
[2025-02-10] MEDS: PROTONIX 40 MG PO (08:29)
[2025-02-10] MEDS: NEURONTIN 100 MG PO ×3 (08:29→22:51)
[2025-02-10] MEDS: LOW STRENGTH ASPIRIN 81 MG PO (08:29)
[2025-02-10] MEDS: ELIQUIS 2.5 MG PO ×2 (08:29→20:40)
[2025-02-10] MEDS: VITAMIN C 500 MG PO (08:29)
[2025-02-10] MEDS: SENOKOT-S 1 TABLET PO ×2 (08:29→20:40)
[2025-02-10] MEDS: MUCINEX 600 MG PO ×2 (08:29→20:40)
[2025-02-10] MEDS: LIDOCAINE 4% PATCH 1 PATCH TOPICAL (08:30)
[2025-02-10] MEDS: MAGNESIUM OXIDE 500 MG PO ×2 (08:30→20:40)
[2025-02-10] MEDS: PACERONE 200 MG PO ×3 (08:30→22:51)
[2025-02-10] MEDS: LIPITOR 80 MG PO (08:30)
--- NOTE | 2025-02-10 08:54 | PTCARENOTE ---
Patient care assumed from nightshift RN. Patient OOB in chair, eating breakfast, well tolerated. Patient fully alert and oriented, denies all pain. Generalized pitting edema present in upper and lower bilateral extremities, +2 in uppers, +3 in
lowers. Lower extremity pulses present with doppler, upper extremities palpable. Aflutter with rate 108. Crackles heard at lung bases. Denies shortness of breath, remains on room air with 98% sats. I.S and ambulation encouraged. Purewick placed for
incontinence and prevention of skin breakdown. RIJ cordis present. Surgical sites open to air and intact.
[2025-02-10] MEDS: BUMEX 2 MG IV ×2 (09:00→17:02)
--- NOTE | 2025-02-10 12:07 | PTCARENOTE ---
Patient OOB in chair, denies pain. Vital signs stable, remains on room air. Pt worked with OT/PT. Also went down on stretcher for 2view CXR. Patient having multiple episodes of incontinence, purewick placed. Foam dressing placed on sacrum/buttocks,
skin red upon inspection in that area. Frequent turns being performed to prevent futher skin breakdown. Barrier prevention cream also used.
[2025-02-10] MEDS: NSS 500 IV ×2 (14:50→19:41)
--- NOTE | 2025-02-10 17:48 | PTCARENOTE ---
Patient OOB in chair. Tolerating meals. Remains on room air. Pt in aflutter, rate 110. Assessment unchanged. Purewick in place for incontinence. Q2 frequent turning assistance provided. Chest tube insertion site dressings changed.
--- NOTE | 2025-02-10 18:29 | PTCARENOTE ---
Rec'd Pt from CVICU, A,A+Ox3, denies pain, denies SOB. Pt incont of urine. She has a stage 2 open area L buttocks, approx 1 X 2 cm, cleansed, optifoam dsg applied. buttocks red and blanchable. BP 115/74, HR 100-110's in A-fib. Purewick placed, pt
encouraged to call when she feels urge to void.
[2025-02-10] MEDS: REMOVE LIDOCAINE PATCH REMOVE (20:42)
[2025-02-11] VITALS (11 sets, daily range): BP systolic 96–122; BP diastolic 52–86; PULSE 106–114; BMI 25.1
[2025-02-11] MEDS: BUMEX 2 MG IV ×3 (00:25→16:39)
--- NOTE | 2025-02-11 00:32 | PTCARENOTE ---
assumed care of patient at the change of shift. AAOx3. assisted patient back to the bed. x2 assist. sternal precautions maintained. Afib on tele 80s-100s. bp stable. +2/3 generalized pitting edema b/l UE and LE. surgical incisions intact, SHAAN.
incont of urine- purwick in place, yellow. sacral foam. t/r q2 hour. reviewed plan of care with patient and verbalized understanding. denies any pain/sob. call sánchez within reach. makes needs known.
[2025-02-11 03:41] LABS: Blood Urea Nitrogen 82 mg/dl (7-17); Calcium 8.5 mg/dl (8.4-10.2); Carbon Dioxide 30 mmol/L (22-30); Chloride 99 mmol/L (98-107); Estimated Creatinine Clearance 27 ml/min; Glucose 95 mg/dl (70-99); Magnesium 2.4 mg/dl (1.6-2.3); Potassium 3.9 mmol/L (3.5-5.1); Sodium 134 mmol/L (135-145); eGFR 32.40
--- NOTE | 2025-02-11 05:40 | W.PN.CT ---
Today's Communication / Plan
-
-pod #11
-remains in a-fib 90s-low 100s. Eliquis started on 02/09. Monitor for any bleeding
-Had some epistaxis on 02/03/25 which has since resolved. Plavix is held. Pt did not tolerate Pradaxa in the past d/t vaginal bleed
-Bumex changed to 2 mg q8hr
-hyponatremia has been improving with diuresis
-Chery dcd 02/08
-Repeat echo on 02/05/25 with dobutamine @ 5 showed and intact bioprosthetic AVR with PG/MG of , no AI, intact MV repair with mild-moderate TR, LVEF 60-65%
-appreciate Physiatry eval. Bed available at [facility] on Monday 02/12
-appreciate everyone's input
-continue PT/OT
Assessment / Plan
-
- Acute heart failure with cardiogenic shock, aortic valve stenosis and insufficiency, severe tricuspid valve insufficiency, A-fib with RVR and multivessel coronary disease- s/p Surgical aortic valve replacement [23 mm Andrews Insp[employer]'s Resilia
bioprosthesis]; CABG x 2 [ALMANZAR to LAD, RSVG to RPDA]; Simple tricuspid valve repair [32 mm band annuloplasty]; Full left and right atrial maze [combination of RF and cryoablation] plus left atrial appendage exclusion [40 mm device]; Drainage of
bilateral pleural effusions, approximately 250 cc in each chest by Dr. Crouch on 01/31/25, pod #11
- Post cardiotomy cardiogenic shock with escalating inotropic support and vasoactive medication- s/p Reopening of sternotomy; Placement of a direct aortic 5.5 Impella left ventricular assist device
by Dr. Crouch on 01/31/25
- Intraop FRANCISCO JAVIER: LVEF at the start of the surgery was approximately 40% with some regional wall motion abnormalities toward the inferior septal and anterior septal portions of the wall. Following surgery, EF did struggle to approximately 20 to 25%
and she was loaded on 5 dobutamine but had escalating requirements for Levophed. RV function was normal as was RV size and there was only a trace residual amount of tricuspid valve insufficiency.
The left atrial appendage was verified to be free of any thrombus or debris preoperatively and found to be totally occlusive postoperatively. There is no paravalvular leak of the aortic valve prosthesis and the mean gradient across the valve was 3
mmHg. There is essentially no mean gradient across the tricuspid valve. At the conclusion of the case, she did respond to volume loading with blood. Of note she was coagulopathic postoperatively with an elevated ACT despite giving almost double
her protamine dose.
-S/P Stepwise weaning of 5.5 Impella ventricular assist device/Extraction/removal of 5.5 Impella ventricular assist device/ Ligation of sterile portion of 10 mm Hemashield graft using 8 large clips with coverage of the remaining graft with overlying
strap muscles/Local analgesia for pain control, by Dr. Crouch 02/04/25
- Severe aortic valve stenosis
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
- Atrial fibrillation with rapid ventricular response- didn't tolerate Pradaxa in the past d/t vaginal bleed
- Acute respiratory insufficiency
- Significant volume overload requiring diuresis
- HTN/HLD
- PAD
- Nonsmoker
- Acute postop blood loss anemia - s/p total 5 pRBCs
- Acute postop coagulopathy/ thrombocytopenia - s/p 6 unit platelets, 5 FFPs, 2 cryo, 0.5 iv Vit K, DDAVP
- Acute postop 10 beat NSVT on 01/31
- Acute postop junctional rhythm/bradycardia
- Acute postop atelectasis
- Acute postop cardiogenic shock, requiring mechanical cardiac support (Impella 5.5), inotrops and pressors
- Acute postop hypovolemia with subsequent hypervolemia
- Acute postop hypokalemia
- Acute postop Lactic acidosis
- Acute postop TALIB
- Acute postop Epistaxis
- Acute postop hyponatremia
- Acute postop transaminitis
Subjective
Procedure
Aortic valve replacement [23 mm Andrews Inspira's Resilia bioprosthesis]; CABG x 2 [ALMANZAR to LAD, RSVG to RPDA]; Simple tricuspid valve repair [32 mm band annuloplasty]; Full left and right atrial maze [combination of RF and cryoablation] plus left
atrial appendage exclusion [40 mm device]; Drainage of bilateral pleural effusions, approximately 250 cc in each chest by Dr. Crouch on 01/31/25
-
Date of Service: February 11, 2025
Objective Data
-
Lab Results
02/10/25 04:07
02/11/25 03:06
PT 22.2 Sec (11.4-14.6) H 02/08/25 03:41
INR 1.89 02/08/25 03:41
APTT 34.8 Sec (23.4-35.0) 02/06/25 03:18
Vital Signs
Vital Signs
Temp Pulse Resp BP Pulse Ox
97.3 F 92 18 113/78 94
02/11/25 03:23 02/11/25 00:27 02/11/25 03:23 02/11/25 00:27 02/11/25 03:23
CT Intake/Output/Weight
02/10/25 02/10/25 02/11/25
06:59 18:59 06:59
Intake Total 724 / 874 60 / 60
Output Total 300 / 400 300 / 300
Balance 424 / 474 60 / -240 -300 / -240
SaO2: 94
Physical Exam
-
General: Awake and Oriented
Cardiovascular: Regular rate & rhythm and No Murmurs
Respiratory: Clear, Equal and Decreased Breath Sounds
Sternum: Stable
Incision: Clean and Dry
Extremities: Edema +2
Data Reviewed
-
Lab Results: Results Reviewed
Medications: Active Meds Reviewed
Chest X-Ray: Report Reviewed
ECG: Report Reviewed
[2025-02-11] MEDS: TYLENOL 1000 MG PO ×3 (06:01→22:32)
[2025-02-11] MEDS: ELIQUIS 2.5 MG PO ×2 (07:49→19:42)
[2025-02-11] MEDS: SENOKOT-S 1 TABLET PO ×2 (07:49→19:42)
[2025-02-11] MEDS: PROTONIX 40 MG PO (07:49)
[2025-02-11] MEDS: MAGNESIUM OXIDE 500 MG PO ×2 (07:49→21:54)
[2025-02-11] MEDS: LIPITOR 80 MG PO (07:49)
[2025-02-11] MEDS: NEURONTIN 100 MG PO ×3 (07:50→22:32)
[2025-02-11] MEDS: VITAMIN C 500 MG PO (07:50)
[2025-02-11] MEDS: PACERONE 200 MG PO ×3 (07:53→22:32)
[2025-02-11] MEDS: FEOSOL 325 MG PO (07:54)
[2025-02-11] MEDS: MUCINEX 600 MG PO ×2 (07:54→19:42)
[2025-02-11] MEDS: LOW STRENGTH ASPIRIN 81 MG PO (07:54)
[2025-02-11] MEDS: LIDOCAINE 4% PATCH TOPICAL (10:14)
[2025-02-11] MEDS: LOPRESSOR 12.5 MG PO ×2 (11:00→19:42)
--- NOTE | 2025-02-11 11:35 | PTCARENOTE ---
Pt received this am sitting oob in the recliner chair. Pt denies any pain or discomfort. Cordis removed by CVPA with no issues. Pt uses the walker to ambulate. Gait steady with [address] and draining clear anita urine.
--- NOTE | 2025-02-11 12:29 | W.PN.CD ---
Today's Communication / Plan
-
Continue diuresis
Continue Amio and Eliquis
Add compression
Increase activity
May need to slow diuresis given BUN/Cr ratio
Will check another echo off inotropic support (tomorrow 02/12/2025)
55 min spent caring for patient today
Impression / Plan
-
Background: 80F with persistent atrial fibrillation (abnormal bleeding on dabigatran), CAD (LAD and RCA medically managed, 2012), PAD (50-60% R ICA), hypertension, dyslipidemia, moderate MR, , moderate pulmonary hypertension, and moderate to
severe TR who presented with shortness of breath for several days found to have reduced LVEF, severe . mod AR and severe TR and multivessel CAD.
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
S/p bio-SAVR/CABGx2/TVrepair/Surgical AFib ablation/ANNETTE exclusion 01/31/2025, Crouch
S/p Reopening of sternotomy; Placement of a direct aortic 5.5 Impella left ventricular assist device
- Now out of CVICU and on IVU
- All lines out and drips off
Heart failure, preop LVEF 40-45%
- Still with lots of LE peripheral edema
- Preop weight seems like varied 55-60 kg
- Weight now 72.5 kg and overall unchanged last several days
- Add compression to LE
- Continue diuresis
TALIB with elevated BUN/Cr ratio
- 02/11/2025 BUN/ Cr 82/1.6
- 01/31/2025 BUN/Cr 23/0.8
Anemia
- 7 Unit PRBC transfused so far in month of January 2025
CAD
Valvular heart disease
Ischemic cardiomyopathy
AFib, in AFib now
- On Eliquis and Amio
PAD
Mixed hyperlipidemia
Subjective:
No CP or dyspnea
Physical Exam
Vital Signs/Labs
Vital Signs
Temp Pulse Resp BP Pulse Ox
97.5 F 99 18 102/66 97
02/11/25 11:43 02/11/25 11:10 02/11/25 11:43 02/11/25 11:10 02/11/25 11:43
02/10/25 02/11/25 02/12/25
06:59 06:59 06:59
Actual Weight 72.7 kg 72.5 kg
02/10/25 04:07
02/11/25 03:06
PT 22.2 Sec (11.4-14.6) H 02/08/25 03:41
INR 1.89 02/08/25 03:41
APTT 34.8 Sec (23.4-35.0) 02/06/25 03:18
Magnesium 2.4 mg/dl (1.6-2.3) H 02/11/25 03:06
Triglycerides 66 mg/dl (10-149) 01/25/25 04:53
LDL Cholesterol, Calc 75 mg/dl 01/25/25 04:53
VLDL Cholesterol, Calc 13 mg/dl (0-30) 01/25/25 04:53
HDL Cholesterol 74 mg/dl 01/25/25 04:53
01/24/25
15:33
Rgr-[id number] Pept [id number]
Physical Exam
Constitutional: No acute distress
Cardiovascular: Rhythm/rate is irregular and Pedal edema present (2-3+ to high thighs)
Respiratory: Respiratory effort normal and Crackles Absent (decrease at bases bilat)
GI: Soft and Distention absent
Neuro/Psych: Alert
Data Reviewed
-
Date of Service: February 11, 2025
[2025-02-11] MEDS: REMOVE LIDOCAINE PATCH REMOVE (19:41)
[2025-02-12] VITALS (14 sets, daily range): BP systolic 74–110; BP diastolic 53–70; PULSE 101; O2SAT 96; BMI 25.4
[2025-02-12] MEDS: BUMEX 2 MG IV (00:26)
--- NOTE | 2025-02-12 01:33 | PTCARENOTE ---
Pt AAOx3, tele monitor remains Afib, and sating 97-99% RA. IS performed w/ a result of 500. Denies any pain or discomfort. Ambulates w/ one assist using RW. Sternal precautions maintained. B/L upper ext w/ +2 edema, arms elevated w/ pillow. B/l
lower ext w/ + 3 edema. Tubigrip removed at HS, and elevated legs w/ pillow. Sacral foam intact. Q2t maintained d/t pts stage 2 sacral wound. POC ongoing, call sánchez in reach.
[2025-02-12 02:44] LABS: Blood Urea Nitrogen 88 mg/dl (7-17); Calcium 8.7 mg/dl (8.4-10.2); Carbon Dioxide 34 mmol/L (22-30); Chloride 99 mmol/L (98-107); Estimated Creatinine Clearance 24 ml/min; Glucose 97 mg/dl (70-99); Magnesium 2.5 mg/dl (1.6-2.3); Potassium 4.5 mmol/L (3.5-5.1); Sodium 135 mmol/L (135-145); eGFR 28.13
--- NOTE | 2025-02-12 06:09 | W.PN.CT ---
Today's Communication / Plan
-
-pod #12
-remains in a-fib 90s-low 100s. Eliquis started on 02/09. Monitor for any bleeding
-Had some epistaxis on 02/03/25 which has since resolved. Plavix is held. Pt did not tolerate Pradaxa in the past d/t vaginal bleed
-Bumex changed to 2 mg q8hr, Cr now increased slightly may need to decrease
-hyponatremia has been improving with diuresis
-Chery dcd 02/08
-Repeat echo on 02/05/25 with dobutamine @ 5 showed and intact bioprosthetic AVR with PG/MG of , no AI, intact MV repair with mild-moderate TR, LVEF 60-65%
-appreciate Physiatry eval. Bed available at [facility] on Monday 02/12
-appreciate everyone's input
-continue PT/OT
Assessment / Plan
-
- Acute heart failure with cardiogenic shock, aortic valve stenosis and insufficiency, severe tricuspid valve insufficiency, A-fib with RVR and multivessel coronary disease- s/p Surgical aortic valve replacement [23 mm Andrews Inspira's Resilia
bioprosthesis]; CABG x 2 [ALMANZAR to LAD, RSVG to RPDA]; Simple tricuspid valve repair [32 mm band annuloplasty]; Full left and right atrial maze [combination of RF and cryoablation] plus left atrial appendage exclusion [40 mm device]; Drainage of
bilateral pleural effusions, approximately 250 cc in each chest by Dr. Crouch on 01/31/25, pod #12
- Post cardiotomy cardiogenic shock with escalating inotropic support and vasoactive medication- s/p Reopening of sternotomy; Placement of a direct aortic 5.5 Impella left ventricular assist device
by Dr. Crouch on 01/31/25
- Intraop FRANCISCO JAVIER: LVEF at the start of the surgery was approximately 40% with some regional wall motion abnormalities toward the inferior septal and anterior septal portions of the wall. Following surgery, EF did struggle to approximately 20 to 25%
and she was loaded on 5 dobutamine but had escalating requirements for Levophed. RV function was normal as was RV size and there was only a trace residual amount of tricuspid valve insufficiency.
The left atrial appendage was verified to be free of any thrombus or debris preoperatively and found to be totally occlusive postoperatively. There is no paravalvular leak of the aortic valve prosthesis and the mean gradient across the valve was 3
mmHg. There is essentially no mean gradient across the tricuspid valve. At the conclusion of the case, she did respond to volume loading with blood. Of note she was coagulopathic postoperatively with an elevated ACT despite giving almost double
her protamine dose.
-S/P Stepwise weaning of 5.5 Impella ventricular assist device/Extraction/removal of 5.5 Impella ventricular assist device/ Ligation of sterile portion of 10 mm Hemashield graft using 8 large clips with coverage of the remaining graft with overlying
strap muscles/Local analgesia for pain control, by Dr. Crouch 02/04/25
- Severe aortic valve stenosis
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
- Atrial fibrillation with rapid ventricular response- didn't tolerate Pradaxa in the past d/t vaginal bleed
- Acute respiratory insufficiency
- Significant volume overload requiring diuresis
- HTN/HLD
- PAD
- Nonsmoker
- Acute postop blood loss anemia - s/p total 5 pRBCs
- Acute postop coagulopathy/ thrombocytopenia - s/p 6 unit platelets, 5 FFPs, 2 cryo, 0.5 iv Vit K, DDAVP
- Acute postop 10 beat NSVT on 01/31
- Acute postop junctional rhythm/bradycardia
- Acute postop atelectasis
- Acute postop cardiogenic shock, requiring mechanical cardiac support (Impella 5.5), inotrops and pressors
- Acute postop hypovolemia with subsequent hypervolemia
- Acute postop hypokalemia
- Acute postop Lactic acidosis
- Acute postop TALIB
- Acute postop Epistaxis
- Acute postop hyponatremia
- Acute postop transaminitis
Subjective
Procedure
Aortic valve replacement [23 mm Andrews Inspira's Resilia bioprosthesis]; CABG x 2 [ALMANZAR to LAD, RSVG to RPDA]; Simple tricuspid valve repair [32 mm band annuloplasty]; Full left and right atrial maze [combination of RF and cryoablation] plus left
atrial appendage exclusion [40 mm device]; Drainage of bilateral pleural effusions, approximately 250 cc in each chest by Dr. Crouch on 01/31/25
-
Date of Service: February 12, 2025
Objective Data
-
Lab Results
02/10/25 04:07
02/12/25 02:14
PT 22.2 Sec (11.4-14.6) H 02/08/25 03:41
INR 1.89 02/08/25 03:41
APTT 34.8 Sec (23.4-35.0) 02/06/25 03:18
Vital Signs
Vital Signs
Temp Pulse Resp BP Pulse Ox
97.5 F 103 20 93/70 93
02/12/25 02:06 02/12/25 04:00 02/12/25 02:06 02/12/25 02:03 02/12/25 02:06
CT Intake/Output/Weight
02/11/25 02/11/25 02/12/25
06:59 18:59 06:59
Intake Total 840 / 840
Output Total 300 / 300 600 / 600
Balance -300 / -240 240 / 240
SaO2: 93
Physical Exam
-
General: Awake, Oriented and AOx3
Cardiovascular: Irregular rate & rhythm and No Rub
Respiratory: Equal, Rales and Decreased Breath Sounds
Sternum: Stable
Incision: Clean, Dry and Intact
Extremities: Edema +2
Data Reviewed
-
Lab Results: Results Reviewed
Medications: Active Meds Reviewed
Chest X-Ray: Report Reviewed
ECG: Report Reviewed
[2025-02-12] MEDS: TYLENOL 1000 MG PO ×3 (06:13→22:18)
[2025-02-12] MEDS: NSS IV (07:32)
[2025-02-12] MEDS: PROTONIX 40 MG PO (09:33)
[2025-02-12] MEDS: MUCINEX 600 MG PO ×2 (09:33→19:37)
[2025-02-12] MEDS: NEURONTIN 100 MG PO ×3 (09:33→22:18)
[2025-02-12] MEDS: LOW STRENGTH ASPIRIN 81 MG PO (09:34)
[2025-02-12] MEDS: LOPRESSOR 12.5 MG PO (09:34)
[2025-02-12] MEDS: SENOKOT-S 1 TABLET PO ×2 (09:34→19:37)
[2025-02-12] MEDS: FEOSOL 325 MG PO (09:35)
[2025-02-12] MEDS: ELIQUIS 2.5 MG PO (09:35)
[2025-02-12] MEDS: VITAMIN C 500 MG PO (09:35)
[2025-02-12] MEDS: LIPITOR 80 MG PO (09:35)
[2025-02-12] MEDS: BUMEX 2 MG PO (09:35)
[2025-02-12] MEDS: MAGNESIUM OXIDE PO (09:37)
[2025-02-12] MEDS: PACERONE 200 MG PO ×3 (09:37→22:17)
[2025-02-12] MEDS: BUMEX IV (09:40)
[2025-02-12] MEDS: LIDOCAINE 4% PATCH TOPICAL (09:40)
--- NOTE | 2025-02-12 10:44 | CM ---
Reviewed chart. Mrs. Witt was transferred to IVU. Met with Mrs. Witt to review discharge plans. She states she is feeling better. Telephone call to [facility] Liaison to check on status of referral. Mrs. Witt is not
medically ready for transfer to [facility] today. Mrs. Witt was started on Eliquis 5 mg po bid. She does not have a prescription plan and uses [facility]. He coat with using the [facility]. Coupon is $606.47 a month. She feels this
cost is to much for her. 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 Prior to admission she resides alone in an apartment with two steps to enter. Prior to admission she ambulated with a single point cane. Her son from [place] is here for a month. He is supportive.
Medically work-up in progress. The discharge plan is to go to [facility] when medically stable.
--- NOTE | 2025-02-12 11:00 | W.PN.CD ---
Today's Communication / Plan
-
careful monitoring of outpatient weight and renal function with oral diuresis with expectation of eventual return to pre-operative weight
Impression / Plan
-
Background: 80F with persistent atrial fibrillation (abnormal bleeding on dabigatran), CAD (LAD and RCA medically managed, 2012), PAD (50-60% R ICA), hypertension, dyslipidemia, moderate MR, , moderate pulmonary hypertension, and moderate to
severe TR who presented with shortness of breath for several days found to have reduced LVEF, severe . mod AR and severe TR and multivessel CAD.
Outpatient ground worker: Dr. Pinedo
S/p bio-SAVR/CABGx2/TVrepair/Surgical AFib ablation/ANNETTE exclusion 01/31/2025, Crouch
S/p Reopening of sternotomy; Placement of a direct aortic 5.5 Impella left ventricular assist device
- Now out of CVICU and on IVU
- All lines out and drips off
- pending discharge to rehab
Heart failure, preop LVEF 40-45%, normal EF post op
- Still with lots of LE peripheral edema
- Preop weight seems like varied 55-60 kg
- Weight overall unchanged last several days
- Add compression to LE
- Continue diuresis as outpatient, will need to carefully monitor to ensure progress and no worsening of renal function
TALIB with elevated BUN/Cr ratio
- 02/11/2025 BUN/ Cr 82/1.6
- 01/31/2025 BUN/Cr 23/0.8
Anemia
- 7 Unit PRBC transfused so far in month of January 2025
CAD
Valvular heart disease
Ischemic cardiomyopathy
AFib, in AFib now
- On Eliquis and Amio
- cannot afford eliquis, plan for transition to warfarin
PAD
Mixed hyperlipidemia
Subjective:
No CP or dyspnea
Physical Exam
Vital Signs/Labs
Vital Signs
Temp Pulse Resp BP Pulse Ox
36.1 C 102 20 105/67 97
02/12/25 07:14 02/12/25 10:00 02/12/25 07:14 02/12/25 09:37 02/12/25 07:23
02/11/25 02/12/25 02/13/25
06:59 06:59 06:59
Actual Weight 72.5 kg 73.5 kg
02/10/25 04:07
02/12/25 02:14
PT 22.2 Sec (11.4-14.6) H 02/08/25 03:41
INR 1.89 02/08/25 03:41
APTT 34.8 Sec (23.4-35.0) 02/06/25 03:18
Magnesium 2.5 mg/dl (1.6-2.3) H 02/12/25 02:14
Triglycerides 66 mg/dl (10-149) 01/25/25 04:53
LDL Cholesterol, Calc 75 mg/dl 01/25/25 04:53
VLDL Cholesterol, Calc 13 mg/dl (0-30) 01/25/25 04:53
HDL Cholesterol 74 mg/dl 01/25/25 04:53
01/24/25
15:33
Wkk-[id number]-Ciykljbyvmj Pept [id number]
Physical Exam
Constitutional: Comfortable
Cardiovascular: Rhythm & rate is regular
Respiratory: Respiratory effort normal
Neuro/Psych: AO x 3
Data Reviewed
-
Date of Service: February 12, 2025
Medical Decision Making: Reviewed Test Results
Labs: Labs Reviewed by me
[2025-02-12 14:00] LABS: INR 2.65; PT 28.3 Sec (11.4-14.6)
[2025-02-12] MEDS: COUMADIN 2.5 MG PO (17:07)
--- NOTE | 2025-02-12 19:07 | PTCARENOTE ---
pt continues to be afib on the monitor, vss. pt offers no complaints at this time. pt voided 20 mL dark yello urine. Bladder scanned for 1133 mL. notified MUNIRA Marsh. Order for straight cath, completed per order. pt tolerated well. pt OOB for
meals today and tolerated well. Pt now resting in bed comfortably. Call sánchez within reach.
[2025-02-12] MEDS: REMOVE LIDOCAINE PATCH REMOVE (19:37)
[2025-02-12] MEDS: TOPROL XL 12.5 MG PO (22:17)
[2025-02-12] MEDS: MELATONIN 5 MG PO (22:18)
[2025-02-13] VITALS (9 sets, daily range): BP systolic 90–111; BP diastolic 51–80; PULSE 99; BMI 25.1
--- NOTE | 2025-02-13 02:51 | PTCARENOTE ---
Patient w/ no urine output thus shift. Bladder scanned pt w/ a result of 376. Pt denies any bloating or back discomfort at this time. Tele remains Afib. Denies any pain or SOB. Call sánchez in reach.
[2025-02-13 02:55] LABS: Hematocrit 29.1 % (37.0-47.0); Hemoglobin 9.6 g/dL (12.0-16.0); Mean Corp Hgb Conc. 33.0 g/dL (33.0-37.0); Mean Corpuscular Volume 93.3 fL (81.0-99.0); Platelet Count 161 10^3/uL (130-400); Red Cell Dist. Width 17.5 % (11.5-14.5)
[2025-02-13 03:06] LABS: INR 2.19; PT 24.4 Sec (11.4-14.6)
[2025-02-13 03:21] LABS: Blood Urea Nitrogen 91 mg/dl (7-17); Calcium 8.6 mg/dl (8.4-10.2); Carbon Dioxide 33 mmol/L (22-30); Chloride 99 mmol/L (98-107); Estimated Creatinine Clearance 24 ml/min; Glucose 95 mg/dl (70-99); Magnesium 2.6 mg/dl (1.6-2.3); Potassium 4.2 mmol/L (3.5-5.1); Sodium 133 mmol/L (135-145); eGFR 28.13
--- NOTE | 2025-02-13 05:48 | PTCARENOTE ---
Patient requires one assist and uses RW when ambulating in room. Denied any dizziness when standing. Patient sat on the BSC and was unsuccessful w/ urinating. Will pass along to day shift RN. Pt currently sitting in chair w/ legs elevated. Call
sánchez in reach.
[2025-02-13] MEDS: TYLENOL 1000 MG PO ×3 (05:50→23:06)
--- NOTE | 2025-02-13 05:52 | W.PN.CT ---
Today's Communication / Plan
-
Plan:
-No major issues overnight. Hemodynamically and neurologically intact
-In rate controlled a-fib. On Amiodarone and Toprol XL
-Eliquis transitioned to Coumadin d/t cost. Received 1 dose of 2.5 Coumadin, INR 2.19
-Transitioned to PO Bumex
-Chery dcd 02/08, having some urinary retention, will check U/A
-Cr 1.8, monitor
-Sodium 133, was 135 yesterday, monitor
-PT/OT f/u/Ambulate
-For [facility] placement when medically ready
Assessment / Plan
-
- Acute heart failure with cardiogenic shock, aortic valve stenosis and insufficiency, severe tricuspid valve insufficiency, A-fib with RVR and multivessel coronary disease- s/p Surgical aortic valve replacement [23 mm Andrews Inspira's Resilia
bioprosthesis]; CABG x 2 [ALMANZAR to LAD, RSVG to RPDA]; Simple tricuspid valve repair [32 mm band annuloplasty]; Full left and right atrial maze [combination of RF and cryoablation] plus left atrial appendage exclusion [40 mm device]; Drainage of
bilateral pleural effusions, approximately 250 cc in each chest by Dr. Crouch on 01/31/25, pod #13
- Post cardiotomy cardiogenic shock with escalating inotropic support and vasoactive medication- s/p Reopening of sternotomy; Placement of a direct aortic 5.5 Impella left ventricular assist device
by Dr. Crouch on 01/31/25
- Intraop FRANCISCO JAVIER: LVEF at the start of the surgery was approximately 40% with some regional wall motion abnormalities toward the inferior septal and anterior septal portions of the wall. Following surgery, EF did struggle to approximately 20 to 25%
and she was loaded on 5 dobutamine but had escalating requirements for Levophed. RV function was normal as was RV size and there was only a trace residual amount of tricuspid valve insufficiency.
The left atrial appendage was verified to be free of any thrombus or debris preoperatively and found to be totally occlusive postoperatively. There is no paravalvular leak of the aortic valve prosthesis and the mean gradient across the valve was 3
mmHg. There is essentially no mean gradient across the tricuspid valve. At the conclusion of the case, she did respond to volume loading with blood. Of note she was coagulopathic postoperatively with an elevated ACT despite giving almost double
her protamine dose.
-S/P Stepwise weaning of 5.5 Impella ventricular assist device/Extraction/removal of 5.5 Impella ventricular assist device/ Ligation of sterile portion of 10 mm Hemashield graft using 8 large clips with coverage of the remaining graft with overlying
strap muscles/Local analgesia for pain control, by Dr. Crouch 02/04/25
- Severe aortic valve stenosis
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
- Atrial fibrillation with rapid ventricular response- didn't tolerate Pradaxa in the past d/t vaginal bleed
- Acute respiratory insufficiency
- Significant volume overload requiring diuresis
- HTN/HLD
- PAD
- Nonsmoker
- Acute postop blood loss anemia - s/p total 5 pRBCs
- Acute postop coagulopathy/ thrombocytopenia - s/p 6 unit platelets, 5 FFPs, 2 cryo, 0.5 iv Vit K, DDAVP
- Acute postop 10 beat NSVT on 01/31
- Acute postop junctional rhythm/bradycardia
- Acute postop atelectasis
- Acute postop cardiogenic shock, requiring mechanical cardiac support (Impella 5.5), inotrops and pressors
- Acute postop hypovolemia with subsequent hypervolemia
- Acute postop hypokalemia
- Acute postop Lactic acidosis
- Acute postop TALIB
- Acute postop Epistaxis
- Acute postop hyponatremia
- Acute postop transaminitis
Discussed patient care with: Cardiology, Nursing, Respiratory Therapy, Pharmacy and Care Team
Subjective
Procedure
Aortic valve replacement [23 mm Andrews Inspira's Resilia bioprosthesis]; CABG x 2 [ALMANZAR to LAD, RSVG to RPDA]; Simple tricuspid valve repair [32 mm band annuloplasty]; Full left and right atrial maze [combination of RF and cryoablation] plus left
atrial appendage exclusion [40 mm device]; Drainage of bilateral pleural effusions, approximately 250 cc in each chest by Dr. Crouch on 01/31/25
-
Date of Service: February 13, 2025
Pt c/o mild incisional pain, otherwise feels well
Objective Data
-
Lab Results
02/13/25 02:37
02/13/25 02:37
PT 24.4 Sec (11.4-14.6) H 02/13/25 02:37
INR 2.19 02/13/25 02:37
APTT 34.8 Sec (23.4-35.0) 02/06/25 03:18
Vital Signs
Vital Signs
Temp Pulse Resp BP Pulse Ox
97.4 F 83 18 90/57 94
02/13/25 02:26 02/13/25 04:00 02/13/25 02:26 02/13/25 02:26 02/13/25 02:26
CT Intake/Output/Weight
02/12/25 02/12/25 02/13/25
06:59 18:59 06:59
Intake Total 120 / 960 600 / 720 120 / 720
Output Total 500 / 1100 1550 / 1550
Balance -380 / -140 -950 / -830 120 / -830
SaO2: 94 (RA)
Physical Exam
-
General: Awake, Oriented and AOx3
Cardiovascular: Regular rate & rhythm, No Murmurs, No Rub and No Gallop
Respiratory: Decreased Breath Sounds (at bases, otherwise clear)
Sternum: Stable
Incision: Clean, Dry, Intact and Dressing Intact
Extremities: Edema +2
Data Reviewed
-
Lab Results: Results Reviewed
Medications: Active Meds Reviewed
Chest X-Ray: Report Reviewed and Image Reviewed
ECG: Report Reviewed and Image Reviewed
[2025-02-13] MEDS: PACERONE 200 MG PO ×2 (07:39→15:33)
[2025-02-13] MEDS: SENOKOT-S 1 TABLET PO ×2 (07:39→20:00)
[2025-02-13] MEDS: MUCINEX 600 MG PO ×2 (07:39→20:00)
[2025-02-13] MEDS: FEOSOL 325 MG PO (07:39)
[2025-02-13] MEDS: LOW STRENGTH ASPIRIN 81 MG PO (07:39)
[2025-02-13] MEDS: NEURONTIN 100 MG PO ×3 (07:39→23:06)
[2025-02-13] MEDS: PROTONIX 40 MG PO (07:39)
[2025-02-13] MEDS: VITAMIN C 500 MG PO (07:39)
[2025-02-13] MEDS: LIPITOR 80 MG PO (07:39)
[2025-02-13] MEDS: LIDOCAINE 4% PATCH TOPICAL (07:45)
[2025-02-13] MEDS: BUMEX 2 MG PO (07:59)
[2025-02-13 09:39] LABS: Urine Character Clear (Clear)
[2025-02-13] MEDS: TOPROL XL PO (09:45)
[2025-02-13] MEDS: TOPROL XL 12.5 MG PO (09:46)
[2025-02-13 10:07] LABS: Urine Red Blood Cell 0-2 /HPF (0-2); Urine Squamous Cell 0-2 /LPF (Few)
--- NOTE | 2025-02-13 11:51 | CM ---
Reviewed chart. Telephone call to [facility]. Liaison to update regarding not ready for transfer today. Met with Mrs. Witt and her son to review [facility]. and to reviewed applying for [facility] and [employer] for medication assistance. Gave them
the application. Prior to admission she resides alone in an apartment with two steps to enter. Prior to admission she ambulated with a single point cane. She does not have a prescription plan. Medical work-up in progress. The discharge plan is
to go to [facility]. at [place] when medically stable.
[2025-02-13] MEDS: NSS IV (15:32)
[2025-02-13] MEDS: COUMADIN 2.5 MG PO (17:22)
--- NOTE | 2025-02-13 17:50 | W.PN.CD ---
Today's Communication / Plan
-
continue diuresis
if concern for inability to sucessful diurese with negative weight balance, may need RHC to clarify volume status and guide durietic uptitration
Impression / Plan
-
Background: 80F with persistent atrial fibrillation (abnormal bleeding on dabigatran), CAD (LAD and RCA medically managed, 2012), PAD (50-60% R ICA), hypertension, dyslipidemia, moderate MR, , moderate pulmonary hypertension, and moderate to
severe TR who presented with shortness of breath for several days found to have reduced LVEF, severe . mod AR and severe TR and multivessel CAD.
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
S/p bio-SAVR/CABGx2/TVrepair/Surgical AFib ablation/ANNETTE exclusion 01/31/2025, Crouch
S/p Reopening of sternotomy; Placement of a direct aortic 5.5 Impella left ventricular assist device
- Now out of CVICU and in IVU
- All lines out and drips off
- pending discharge to rehab
Heart failure, preop LVEF 40-45%, normal EF post op
- Preop weight seems like varied 55-60 kg (now 70-75 kg), weight overall unchanged last several days despite diuresis
- Still with lots of LE peripheral edema
- cont. compression of LE, has a lot of peripheral edema that needs mobilization
- Continue diuresis, unfortunately continues to have stable weight despite aggressive diuresis and ongoing TALIB, EF normal on TTE 02/13, I do not suspect her inability to diurese is due to low cardiac output, this may be congestion related and
resolve with adequate diuresis.
- last cxr 02/10 with small-moderate pleural effusions but no significant pulmonary edema
- if she is unable to demonstrate some ability to adequately diurese (weight reduction without worsening Cr), I think she would benefit from right heart catheterization
TALIB
- concern for cardiorenal as above, but doubt low output, possible congestion related
- consider RHC if no imporvement noted
- consider renal consultation
Anemia
- 7 Unit PRBC transfused so far in month of January 2025
CAD
Valvular heart disease
Ischemic cardiomyopathy
AFib, in AFib now
- On Eliquis and Amio
- cannot afford eliquis, plan for transition to warfarin
PAD
Mixed hyperlipidemia
Subjective:
No CP or dyspnea
Physical Exam
Vital Signs/Labs
Vital Signs
Temp Pulse Resp BP Pulse Ox
36.6 C 84 18 102/51 97
02/13/25 15:13 02/13/25 07:40 02/13/25 15:13 02/13/25 07:40 02/13/25 15:13
02/12/25 02/13/25 02/14/25
06:59 06:59 06:59
Actual Weight 73.5 kg 72.6 kg
02/13/25 02:37
02/13/25 02:37
PT 24.4 Sec (11.4-14.6) H 02/13/25 02:37
INR 2.19 02/13/25 02:37
APTT 34.8 Sec (23.4-35.0) 02/06/25 03:18
Magnesium 2.6 mg/dl (1.6-2.3) H 02/13/25 02:37
Triglycerides 66 mg/dl (10-149) 01/25/25 04:53
LDL Cholesterol, Calc 75 mg/dl 01/25/25 04:53
VLDL Cholesterol, Calc 13 mg/dl (0-30) 01/25/25 04:53
HDL Cholesterol 74 mg/dl 01/25/25 04:53
01/24/25
15:33
Svy-[id number]-Jabdqevygpr Pept [id number]
Physical Exam
Constitutional: Comfortable
Cardiovascular: Rhythm & rate is regular
Respiratory: Respiratory effort normal
Neuro/Psych: AO x 3
Data Reviewed
-
Date of Service: February 13, 2025
Medical Decision Making: Reviewed Test Results
Labs: Labs Reviewed by me
--- NOTE | 2025-02-13 18:34 | PTCARENOTE ---
Pt received this am sitting oob in the chair. Denies need to urinate. No c/o of any pain or sob. Room air sat 96%. Bladder scan at 1000 549ml. Straight cathed for 550 ml clear anita urine. Urine culture sent as ordered. Pt with no urination since am
straight cath. Pt assisted to the BR and unable to void. Bladder scanned for 329ml. Pt denies need to urinate. CVPA updated on urinary status.
[2025-02-13] MEDS: DIAMOX 250 MG PO (19:26)
[2025-02-13] MEDS: REMOVE LIDOCAINE PATCH REMOVE (20:01)
--- NOTE | 2025-02-13 20:24 | PTCARENOTE ---
Calcium gluconate delayed due to leaking iv site. IV team at bedside now for restart
[2025-02-13] MEDS: CALCIUM GLUCONATE 100 IV (20:25)
[2025-02-13] MEDS: MELATONIN 5 MG PO (23:06)
[2025-02-14] VITALS (21 sets, daily range): BP systolic 94–129; BP diastolic 49–79; PULSE 64; O2SAT 93–94; BMI 25.1
--- NOTE | 2025-02-14 00:41 | PTCARENOTE ---
Pt rec'd at change of shift in afib. B/L arm and leg kimi wraps and Tubigrip removed. swelling noted worst in left arm and hand; elevated on pillow +2. Iv site in left hand leaking, removed. New IV placed in RFA by IV team. B/l leg swelling +1. Pt
bladder scanned at 2035 for 346 cc. At 2205 after pt attempted to void in bathroom with no success showed PVR of 409. cardiac PA made aware; order placed to place dozier catheter. 16F catheter placed without difficulty by Margaux LOPEZ.
--- NOTE | 2025-02-14 05:07 | PTCARENOTE ---
PA notified of difficulty getting an oral and axillary temp. Finally obtained temp via rectal. resulted at 95.4. Chery also noted to be bloody with sediment. Pt denies discomfort or pressure. am labs sent. pt repositioned in bed with several heated
blankets placed on pt.
[2025-02-14 05:08] LABS: Hematocrit 29.5 % (37.0-47.0); Hemoglobin 10.0 g/dL (12.0-16.0); Mean Corp Hgb Conc. 33.9 g/dL (33.0-37.0); Mean Corpuscular Volume 90.5 fL (81.0-99.0); Platelet Count 183 10^3/uL (130-400); Red Cell Dist. Width 17.6 % (11.5-14.5)
[2025-02-14 05:19] LABS: INR 2.26; PT 25.1 Sec (11.4-14.6)
[2025-02-14 05:31] LABS: Blood Urea Nitrogen 89 mg/dl (7-17); Calcium 8.8 mg/dl (8.4-10.2); Carbon Dioxide 27 mmol/L (22-30); Chloride 98 mmol/L (98-107); Estimated Creatinine Clearance 22 ml/min; Glucose 96 mg/dl (70-99); Magnesium 2.6 mg/dl (1.6-2.3); Potassium 4.0 mmol/L (3.5-5.1); Sodium 132 mmol/L (135-145); eGFR 24.79
--- NOTE | 2025-02-14 05:38 | W.PN.CT ---
Today's Communication / Plan
-
-Pod #4
-hemodynamically and neurologically intact overnight.
-Temp 95.1 rectal - follow. WBC ok 10.5
-urinary retention with several straight caths - Chery reinserted last night 02/13- urine is clear with tiny blood clots noted- follow. Hg stable -10.0 today (9.6 on 02/13)
-got 250 mg po Diamox and 1 g Ca gluc last night
-NPO this am for RHC and cardioversion by Dr. Dubon. Will transfer to CVICU afterwards
-will start iv Dobutamine @ 2 (ordered)
-will place triple-lumen picc this am (ordered, spoke with iv team)
-check LFTs - added to am labs
-In rate controlled a-fib 60s-80s. On Toprol XL 12.5 mg qd. Amio was dcd
-Eliquis transitioned to Coumadin on 02/12 d/t cost. Received Coumadin 2.5, 2.5. INR today 2.26
-Transitioned to PO Bumex 2 mg daily on 02/12. Daily po Diamox 250 mg started 02/13
-Cr has been 1.6-1.8. Cr is 2.0 today
-Sodium has been 133-135, monitor. Na 132 today
-PT/OT f/u/Ambulate
-For [facility] re[facility] placement when medically ready
Assessment / Plan
-
- Acute heart failure with cardiogenic shock, aortic valve stenosis and insufficiency, severe tricuspid valve insufficiency, A-fib with RVR and multivessel coronary disease- s/p Surgical aortic valve replacement [23 mm Andrews Inspira's Resilia
bioprosthesis]; CABG x 2 [ALMANZAR to LAD, RSVG to RPDA]; Simple tricuspid valve repair [32 mm band annuloplasty]; Full left and right atrial maze [combination of RF and cryoablation] plus left atrial appendage exclusion [40 mm device]; Drainage of
bilateral pleural effusions, approximately 250 cc in each chest by Dr. Crouch on 01/31/25, pod #14
- Post cardiotomy cardiogenic shock with escalating inotropic support and vasoactive medication- s/p Reopening of sternotomy; Placement of a direct aortic 5.5 Impella left ventricular assist device
by Dr. Crouch on 01/31/25
- Intraop FRANCISCO JAVIER: LVEF at the start of the surgery was approximately 40% with some regional wall motion abnormalities toward the inferior septal and anterior septal portions of the wall. Following surgery, EF did struggle to approximately 20 to 25%
and she was loaded on 5 dobutamine but had escalating requirements for Levophed. RV function was normal as was RV size and there was only a trace residual amount of tricuspid valve insufficiency.
The left atrial appendage was verified to be free of any thrombus or debris preoperatively and found to be totally occlusive postoperatively. There is no paravalvular leak of the aortic valve prosthesis and the mean gradient across the valve was 3
mmHg. There is essentially no mean gradient across the tricuspid valve. At the conclusion of the case, she did respond to volume loading with blood. Of note she was coagulopathic postoperatively with an elevated ACT despite giving almost double
her protamine dose.
-S/P Stepwise weaning of 5.5 Impella ventricular assist device/Extraction/removal of 5.5 Impella ventricular assist device/ Ligation of sterile portion of 10 mm Hemashield graft using 8 large clips with coverage of the remaining graft with overlying
strap muscles/Local analgesia for pain control, by Dr. Crouch 02/04/25
- Severe aortic valve stenosis
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
- Atrial fibrillation with rapid ventricular response- didn't tolerate Pradaxa in the past d/t vaginal bleed
- Acute respiratory insufficiency
- Significant volume overload requiring diuresis
- HTN/HLD
- PAD
- Nonsmoker
- Acute postop blood loss anemia - s/p total 5 pRBCs
- Acute postop coagulopathy/ thrombocytopenia - s/p 6 unit platelets, 5 FFPs, 2 cryo, 0.5 iv Vit K, DDAVP
- Acute postop 10 beat NSVT on 01/31
- Acute postop junctional rhythm/bradycardia
- Acute postop atelectasis
- Acute postop cardiogenic shock, requiring mechanical cardiac support (Impella 5.5), inotrops and pressors
- Acute postop hypovolemia with subsequent hypervolemia
- Acute postop hypokalemia
- Acute postop Lactic acidosis
- Acute postop TALIB
- Acute postop Epistaxis
- Acute postop hyponatremia
- Acute postop transaminitis
- Acute postop urinary retention, requiring straight caths - Chery reinserted 02/13
Discussed patient care with: Nursing and Care Team
Subjective
Procedure
Aortic valve replacement [23 mm Andrews Inspira's Resilia bioprosthesis]; CABG x 2 [ALMANZAR to LAD, RSVG to RPDA]; Simple tricuspid valve repair [32 mm band annuloplasty]; Full left and right atrial maze [combination of RF and cryoablation] plus left
atrial appendage exclusion [40 mm device]; Drainage of bilateral pleural effusions, approximately 250 cc in each chest by Dr. Crouch on 01/31/25
-
Date of Service: February 14, 2025
Objective Data
-
Lab Results
02/13/25 02:37
PT 24.4 Sec (11.4-14.6) H 02/13/25 02:37
INR 2.19 02/13/25 02:37
APTT 34.8 Sec (23.4-35.0) 02/06/25 03:18
Vital Signs
Vital Signs
Temp Pulse Resp BP Pulse Ox
97.2 F 82 16 111/63 96
02/13/25 19:12 02/14/25 00:00 02/13/25 23:53 02/13/25 23:49 02/13/25 23:53
CT Intake/Output/Weight
02/13/25 02/13/25 02/14/25
06:59 18:59 06:59
Intake Total 120 / 720 100 / 100
Output Total 550 / 550
Balance 120 / -830 -550 / -450 100 / -450
SaO2: 96
Physical Exam
-
General: Awake, Oriented and AOx3
Cardiovascular: Regular rate & rhythm, No Murmurs, No Rub and No Gallop
Respiratory: Decreased Breath Sounds (at bases, otherwise clear)
Sternum: Stable
Incision: Clean, Dry, Intact and Dressing Intact
Extremities: Edema +2
Data Reviewed
-
Lab Results: Results Reviewed
Medications: Active Meds Reviewed
Chest X-Ray: Report Reviewed and Image Reviewed
ECG: Report Reviewed and Image Reviewed
[2025-02-14] MEDS: TYLENOL PO (06:40)
[2025-02-14 07:10] LABS: ALT (SGPT) 38 U/L (0-35); AST (SGOT) 68 U/L (14-36); Albumin 3.3 g/dl (3.5-5.0); Alkaline Phosphatase 171 U/L (38-126); Total Protein 5.7 g/dl (6.3-8.2)
[2025-02-14] MEDS: BUMEX PO (08:56)
[2025-02-14] MEDS: SENOKOT-S PO ×2 (09:00→19:27)
[2025-02-14] MEDS: NSS 500 IV (09:00)
--- NOTE | 2025-02-14 09:10 | ITS.CL.CATH ---
Addendum entered and electronically signed by Maeve Dubon MD 02/15/25 18:27:
SEDATION: 16 minutes of procedural sedation was utilized. IV Midazolam and IV Fentanyl were administered. An independent manager medical device was present to assist with and help manage the patient's level of consciousness and physiologic status.
Maeve Dubon MD, [facility], [facility]
Original Note:
Log Snaker - Catheterization
Cardiac Catheterization
Procedure Report:
RIGHT HEART CATHETERIZATION
Date of Procedure: February 14, 2025
Referring: Carson Crouch MD
Procedures: 1. Right heart catheterization with leave in [facility].
2. Synchronized cardioversion
3. Moderate sedation
Access: Right internal jugular vein, 8-1/2 Bangladeshi sheath, under ultrasound guidance using a micropuncture kit
INDICATION: Assess invasive hemodynamic in the setting of worsening TALIB and paroxysmal atrial fibrillation
Hemodynamics (mmHg):
RA (m) : 22
RV (s/d,m) : 47/17, 20
PA (s/d, m) : 51/32, 30
PCWP (m) : 34
PA saturation: 58.7% on room air
AO saturation: 100% on room air--obtained noninvasively using pulse oximetry given no arterial access
Cardiac Output : 3.14 L/min by Adam calculation
Cardiac Index : 1.71 L/min/m-2 by Adam calculation
Systemic vascular resistance: [ ] dsc^(-5)
Pulmonary vascular resistance: 1.91 villaseñor unit
Heart rate: 72 bpm in atrial fibrillation
After the right heart catheterization and [facility]-Liliana placement was completed under moderate sedation we requested the anesthesia team to sedate the patient deeper to allow us to move forward with synchronized DCCV for her paroxysmal atrial
fibrillation. I had discussed with Dr. Carson Crouch and the concern was that the paroxysmal atrial fibrillation was potentially leading to some hemodynamic changes with patient being dependent somewhat on the atrial kick and therefore decision was
made to proceed with attempts to obtain sinus rhythm. with anesthesia support, we performed a successful synchronized cardioversion using 200 J of energy with conversion from atrial fibrillation to sinus bradycardia with heart rates at 56 to 60
bpm with frequent PVCs and PACs.
Patient tolerated all of the procedure well with no acute complications. I updated patient's son as well as requesting physician's/team after the procedure.
RADIATION SUMMARY: Fluoro Time (min): 0.8, Dose (mGy): 3.72, DAP (Gy.cm2) : 0.5176
CONCLUSION:
1. Significantly elevated right and left-sided filling pressures with reduced cardiac output.
2. Successful synchronized cardioversion using 200 J of energy with conversion from atrial fibrillation to sinus bradycardia.
Recommendations
1. Twelve-lead ECG when she presents to the CVICU.
2. Aggressive IV diuresis and inotropic support per CT surgery team.
3. Daily chest x-ray while the [facility]-Liliana catheter is in place.
Maeve Dubon MD, FACC, [facility]
[2025-02-14] MEDS: VITAMIN C PO (09:17)
[2025-02-14] MEDS: TOPROL XL PO (09:17)
[2025-02-14] MEDS: LOW STRENGTH ASPIRIN 81 MG PO (09:20)
[2025-02-14] MEDS: DIAMOX 250 MG PO ×2 (09:20→17:06)
[2025-02-14] MEDS: NEURONTIN 100 MG PO (09:20)
[2025-02-14] MEDS: LIPITOR PO (09:21)
[2025-02-14] MEDS: FEOSOL 325 MG PO (09:21)
[2025-02-14] MEDS: PROTONIX 40 MG PO (09:21)
[2025-02-14] MEDS: LIDOCAINE 4% PATCH TOPICAL (09:21)
[2025-02-14] MEDS: MUCINEX 600 MG PO (09:21)
--- NOTE | 2025-02-14 09:30 | PTOTSP ---
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 Will need new orders for PT and OT when stable to resume activity.
--- NOTE | 2025-02-14 09:36 | PTCARENOTE ---
Received pt from scientific laboratory supervisor team. AAO x 3, droswy but appropriate. SR w/ Junctional beats . Rt IJ cordis with swan at 49 cm. Lines leveled, recalibrated and flushed. CI on arrival 1.32. CT RIVER RAFTING GUIDE notified Room air 97%. Core temp 94.2. Robert hugger
applied. Dobutamine infusion started as per order. Abdomen wnl, dozier draining anita urine. General plus 3 anasarca. Pulses palpable. Plan discussed with patient and team.
[2025-02-14] MEDS: DOBUTREX 250 MG IV (09:49)
[2025-02-14] MEDS: BUMEX 50 IV ×2 (09:51→16:51)
--- NOTE | 2025-02-14 12:00 | PTCARENOTE ---
Assist x 2 oob to chair. Gait guarded. Pt refusing bare hugger , temp 95.4 at present. SR/ Junctional at times. Room air. 98%. Mixed venous obtained and sent. Assessment otherwise unchanged from prior.
--- NOTE | 2025-02-14 12:00 | CM ---
Chart reviewed. Patient was transferred back to the CVICU. Patient is independent of ADLS, works at , lives alone in a apartment, 1st floor, [address], ambulates with a SPC. Patient's son is here from [place]. PT/OT evaluation recommending
[facility]. Plan is for the patient to go to [place] when medically stable. CM to follow
[2025-02-14 14:49] LABS: ALT (SGPT) 29 U/L (0-35); AST (SGOT) 54 U/L (14-36); Albumin 2.9 g/dl (3.5-5.0); Alkaline Phosphatase 126 U/L (38-126); Blood Urea Nitrogen 88 mg/dl (7-17); Calcium 8.7 mg/dl (8.4-10.2); Carbon Dioxide 31 mmol/L (22-30); Chloride 98 mmol/L (98-107); Estimated Creatinine Clearance 23 ml/min; Glucose 146 mg/dl (70-99); Potassium 3.6 mmol/L (3.5-5.1); Sodium 131 mmol/L (135-145); Total Protein 5.1 g/dl (6.3-8.2); eGFR 26.36
--- NOTE | 2025-02-14 15:49 | PTCARENOTE ---
Actively participated with PT today. VSS, Denies complaint. Napping intermittently Assessment otherwise unchanged from prior.
[2025-02-14] MEDS: KCL 20 MEQ PO (16:10)
[2025-02-14] MEDS: COUMADIN 1 MG PO (17:07)
--- NOTE | 2025-02-14 17:26 | W.PN.CD ---
Today's Communication / Plan
-
Dobutamine with hemo's guided by Cannelton Liliana
IV diuresis
Impression / Plan
-
Background: 80F with persistent atrial fibrillation (abnormal bleeding on dabigatran), CAD (LAD and RCA medically managed, 2012), PAD (50-60% R ICA), hypertension, dyslipidemia, moderate MR, , moderate pulmonary hypertension, and moderate to
severe TR who presented with shortness of breath for several days found to have reduced LVEF, severe . mod AR and severe TR and multivessel CAD.
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
S/p bio-SAVR/CABGx2/TVrepair/Surgical AFib ablation/ANNETTE exclusion 01/31/2025, Crouch
S/p Reopening of sternotomy; Placement of a direct aortic 5.5 Impella left ventricular assist device
- Now out of CVICU and in IVU
- All lines out and drips off
- pending discharge to rehab
Heart failure, preop LVEF 40-45%, normal EF post op
- Preop weight seems like varied 55-60 kg (now 70-75 kg), weight overall unchanged last several days despite diuresis
- Still with lots of LE peripheral edema
- cont. compression of LE, has a lot of peripheral edema that needs mobilization
- Continue diuresis, unfortunately continues to have stable weight despite aggressive diuresis and ongoing TALIB, EF normal on TTE 02/13, I do not suspect her inability to diurese is due to low cardiac output, this may be congestion related and
resolve with adequate diuresis.
- last cxr 02/10 with small-moderate pleural effusions but no significant pulmonary edema
- no with Cannelton Liliana in place with dobutamine to titrate for hemodynamic guided diuresis
TALIB
- concern for cardiorenal as above, but doubt low output, possible congestion related
- consider RHC if no imporvement noted
- consider renal consultation
Anemia
- 7 Unit PRBC transfused so far in month of January 2025
CAD
Valvular heart disease
Ischemic cardiomyopathy
AFib, in AFib now
- On Eliquis and Amio
- cannot afford eliquis, plan for transition to warfarin
PAD
Mixed hyperlipidemia
Subjective:
No CP or dyspnea
Physical Exam
Vital Signs/Labs
Vital Signs
Temp Pulse Resp BP Pulse Ox
95.6 F L 72 16 112/58 98
02/14/25 16:57 02/14/25 16:57 02/14/25 16:57 02/14/25 16:00 02/14/25 16:57
02/13/25 02/14/25 02/15/25
06:59 06:59 06:59
Actual Weight 160 lb 0.889 oz 160 lb 4.417 oz
02/14/25 04:53
02/14/25 13:54
PT 25.1 Sec (11.4-14.6) H 02/14/25 04:53
INR 2.26 02/14/25 04:53
APTT 34.8 Sec (23.4-35.0) 02/06/25 03:18
Magnesium 2.6 mg/dl (1.6-2.3) H 02/14/25 04:53
Triglycerides 66 mg/dl (10-149) 01/25/25 04:53
LDL Cholesterol, Calc 75 mg/dl 01/25/25 04:53
VLDL Cholesterol, Calc 13 mg/dl (0-30) 01/25/25 04:53
HDL Cholesterol 74 mg/dl 01/25/25 04:53
01/24/25
15:33
Dkp-Y-Vpivxgqgjtu Pept 20619
Physical Exam
Constitutional: No acute distress and Comfortable
EENT: Anicteric
Cardiovascular: Rhythm & rate is regular
Respiratory: Respiratory effort normal
GI: Soft
Neuro/Psych: AO x 3
Data Reviewed
-
Date of Service: February 14, 2025
--- NOTE | 2025-02-14 19:00 | PTCARENOTE ---
report received from previous RN, walking rounds done. pt drowsy but AAOx4, denies any pain at this time. SR w/ junctional beats on monitor, HR 70s. RIJ cordis and swan intact w KVO infusing. last CI 1.9. PAPs 50s/20s. CVP ~17. B/L radial and DP
pulses palpable. B/L breath sounds present. POX 99% on room air. Core temp 95.1. pt refusing alia hugger, warm blankets applied. bowel sounds present. dozier catheter intact, draining CYU. right TLC PICC line intact. Dobut gtt infusing @ 3mcg. Bumex
gtt infusing @ 1mg. see worklist for full assessment, VS, and interventions. pt resting comfortably.
[2025-02-14 21:08] LABS: Blood Urea Nitrogen 87 mg/dl (7-17); Calcium 8.4 mg/dl (8.4-10.2); Carbon Dioxide 29 mmol/L (22-30); Chloride 98 mmol/L (98-107); Estimated Creatinine Clearance 22 ml/min; Glucose 126 mg/dl (70-99); Potassium 3.6 mmol/L (3.5-5.1); Sodium 132 mmol/L (135-145); eGFR 24.79
[2025-02-14 21:12] LABS: Magnesium 2.5 mg/dl (1.6-2.3)
[2025-02-14] MEDS: CALCIUM GLUCONATE 100 IV (21:45)
[2025-02-14] MEDS: KCL 100 IV (21:45)
--- NOTE | 2025-02-14 23:00 | PTCARENOTE ---
no changes in assessment. NSR 70s. POX 99% on room air. Dobut gtt remains @ 3 mcg, last CI 2.07. Bumex gtt remains @ 1mg, UO WNL. Ca+ and KCL repleted. pt sleeping between care.
[2025-02-15] VITALS (28 sets, daily range): BP systolic 76–123; BP diastolic 42–75; PULSE 72–73; O2SAT 97; BMI 25.0
[2025-02-15] MEDS: TYLENOL 650 MG PO (01:00)
[2025-02-15] MEDS: MELATONIN 5 MG PO (01:00)
[2025-02-15] MEDS: LIDOCAINE 4% PATCH 1 PATCH TOPICAL (01:26)
--- NOTE | 2025-02-15 02:41 | W.PN.CT ---
Today's Communication / Plan
-
-pod #15
-no issues overnight
-CI 2.10, CO 3.43. mVO2 67.7. LA nl 0.7. Drips: Dobut 3, Bumex 1
-s/p RHC and DCCV on 02/14. In nsr overnight
-continue diuresis (pcwp 34). UO 975/1625 in 12/24 hrs (urine is clear)
-INR today 3.20. Coumadin doses 2.5, 2.5, 1 mg
-Hg 8.1 today (9.6-10 past 48 hrs) - monitor
-Cr 1.9 today
-follow Cr and hyponatremia. Diamox on hold (last dose 02/14)
-current meds (ASA, Coumadin, Lipitor, Protonix, Vit C, Feosol).
-encourage IS, OOB as tolerated
Assessment / Plan
-
- Acute heart failure with cardiogenic shock, aortic valve stenosis and insufficiency, severe tricuspid valve insufficiency, A-fib with RVR and multivessel coronary disease- s/p Surgical aortic valve replacement [23 mm Andrews Inspira's Resilia
bioprosthesis]; CABG x 2 [ALMANZAR to LAD, RSVG to RPDA]; Simple tricuspid valve repair [32 mm band annuloplasty]; Full left and right atrial maze [combination of RF and cryoablation] plus left atrial appendage exclusion [40 mm device]; Drainage of
bilateral pleural effusions, approximately 250 cc in each chest by Dr. Crouch on 01/31/25, pod #15
- Post cardiotomy cardiogenic shock with escalating inotropic support and vasoactive medication- s/p Reopening of sternotomy; Placement of a direct aortic 5.5 Impella left ventricular assist device
by Dr. Crouch on 01/31/25
- Intraop FRANCISCO JAVIER: LVEF at the start of the surgery was approximately 40% with some regional wall motion abnormalities toward the inferior septal and anterior septal portions of the wall. Following surgery, EF did struggle to approximately 20 to 25%
and she was loaded on 5 dobutamine but had escalating requirements for Levophed. RV function was normal as was RV size and there was only a trace residual amount of tricuspid valve insufficiency.
The left atrial appendage was verified to be free of any thrombus or debris preoperatively and found to be totally occlusive postoperatively. There is no paravalvular leak of the aortic valve prosthesis and the mean gradient across the valve was 3
mmHg. There is essentially no mean gradient across the tricuspid valve. At the conclusion of the case, she did respond to volume loading with blood. Of note she was coagulopathic postoperatively with an elevated ACT despite giving almost double
her protamine dose.
-S/P Stepwise weaning of 5.5 Impella ventricular assist device/Extraction/removal of 5.5 Impella ventricular assist device/ Ligation of sterile portion of 10 mm Hemashield graft using 8 large clips with coverage of the remaining graft with overlying
strap muscles/Local analgesia for pain control, by Dr. Crouch 02/04/25
- Severe aortic valve stenosis
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
- Atrial fibrillation with rapid ventricular response- didn't tolerate Pradaxa in the past d/t vaginal bleed
- Acute respiratory insufficiency
- Significant volume overload requiring diuresis
- HTN/HLD
- PAD
- Nonsmoker
- Acute postop blood loss anemia - s/p total 5 pRBCs
- Acute postop coagulopathy/ thrombocytopenia - s/p 6 unit platelets, 5 FFPs, 2 cryo, 0.5 iv Vit K, DDAVP
- Acute postop 10 beat NSVT on 01/31
- Acute postop junctional rhythm/bradycardia
- Acute postop atelectasis
- Acute postop cardiogenic shock, requiring mechanical cardiac support (Impella 5.5), inotrops and pressors
- Acute postop hypovolemia with subsequent hypervolemia
- Acute postop hypokalemia
- Acute postop Lactic acidosis
- Acute postop TALIB
- Acute postop Epistaxis
- Acute postop hyponatremia
- Acute postop transaminitis
- Acute postop urinary retention, requiring straight caths - Chery reinserted 02/13/25
- Acute postop cardiogenic shock/ hypothermia- s/p RHC and Cardioversion from a-fib on 02/14/25- Dobutamine resumed
R heart Catherization 02/14/25:
Hemodynamics (mmHg):
RA (m) : 22
RV (s/d,m) : 47/17, 20
PA (s/d, m) : 51/32, 30
PCWP (m) : 34
PA saturation: 58.7% on room air
AO saturation: 100% on room air--obtained noninvasively using pulse oximetry given no arterial access
Cardiac Output : 3.14 L/min by Adam calculation
Cardiac Index : 1.71 L/min/m-2 by Adam calculation
Systemic vascular resistance: [ ] dsc^(-5)
Pulmonary vascular resistance: 1.91 villaseñor unit
Heart rate: 72 bpm in atrial fibrillation
Discussed patient care with: Nursing and Care Team
Subjective
Procedure
Aortic valve replacement [23 mm Andrews Inspira's Resilia bioprosthesis]; CABG x 2 [ALMANZAR to LAD, RSVG to RPDA]; Simple tricuspid valve repair [32 mm band annuloplasty]; Full left and right atrial maze [combination of RF and cryoablation] plus left
atrial appendage exclusion [40 mm device]; Drainage of bilateral pleural effusions, approximately 250 cc in each chest by Dr. Crouch on 01/31/25
-
Date of Service: February 15, 2025
Objective Data
-
PT 25.1 Sec (11.4-14.6) H 02/14/25 04:53
INR 2.26 02/14/25 04:53
APTT 34.8 Sec (23.4-35.0) 02/06/25 03:18
Vital Signs
Vital Signs
Temp Pulse Resp BP Pulse Ox
94.5 F L 71 14 123/60 97
02/14/25 23:00 02/15/25 01:00 02/15/25 01:00 02/15/25 01:00 02/15/25 01:00
CT Intake/Output/Weight
02/14/25 02/14/25 02/15/25
06:59 18:59 06:59
Intake Total 100 / 100 850.7 / 1171.8 321.1 / 1171.8
Output Total 550 / 1100 650 / 1475 825 / 1475
Balance -450 / -1000 200.7 / -303.2 -503.9 / -303.2
SaO2: 97
Physical Exam
-
General: Awake, Oriented and AOx3
Cardiovascular: Regular rate & rhythm, No Murmurs, No Rub and No Gallop
Respiratory: Decreased Breath Sounds (at bases, otherwise clear)
Sternum: Stable
Incision: Clean, Dry, Intact and Dressing Intact
Extremities: Edema +2
Data Reviewed
-
Lab Results: Results Reviewed
Medications: Active Meds Reviewed
Chest X-Ray: Report Reviewed and Image Reviewed
ECG: Report Reviewed and Image Reviewed
[2025-02-15] MEDS: BUMEX 50 IV ×2 (03:21→19:04)
--- NOTE | 2025-02-15 03:40 | PTCARENOTE ---
no changes in assessment. NSR 70s. POX 99% on room air. Dobut gtt remains @ 3 mcg, last CI 2.1. Bumex gtt remains @ 1mg, UO WNL. AM labs drawn and sent. core temp 94.4. pt continues to refuse alia hugger, warm blankets applied. pt sleeping between
care.
[2025-02-15 04:05] LABS: INR 3.20; PT 33.1 Sec (11.4-14.6)
[2025-02-15 04:05] LABS: Hematocrit 24.4 % (37.0-47.0); Hemoglobin 8.1 g/dL (12.0-16.0); Mean Corp Hgb Conc. 33.2 g/dL (33.0-37.0); Mean Corpuscular Volume 93.1 fL (81.0-99.0); Platelet Count 136 10^3/uL (130-400); Red Cell Dist. Width 17.4 % (11.5-14.5)
[2025-02-15 04:17] LABS: Blood Urea Nitrogen 86 mg/dl (7-17); Calcium 8.7 mg/dl (8.4-10.2); Carbon Dioxide 30 mmol/L (22-30); Chloride 100 mmol/L (98-107); Estimated Creatinine Clearance 23 ml/min; Glucose 99 mg/dl (70-99); Magnesium 2.3 mg/dl (1.6-2.3); Potassium 3.9 mmol/L (3.5-5.1); Sodium 133 mmol/L (135-145); eGFR 26.36
--- NOTE | 2025-02-15 08:00 | PTCARENOTE ---
resumed care of pt from previous RN, walking rounds done. OOB in chair at time of assessment. SR w/1AV block, HR 70s. pulses palpable. +2-3 edema. POX 98% on room air. Core temp 95.1. pt refusing alia hugger. +bowel sounds. dozier catheter draining
clear yellow urine. All surigcal sites intact. R TLC PICC line. RIJ cordis and swan intact w KVO infusing. Dobut gtt infusing @ 3mcg. Bumex gtt infusing @ 1mg. will continue to monitor.
[2025-02-15] MEDS: VITAMIN C 500 MG PO (08:29)
[2025-02-15] MEDS: SENOKOT-S PO (08:29)
[2025-02-15] MEDS: LIPITOR 80 MG PO (08:29)
[2025-02-15] MEDS: FEOSOL 325 MG PO (08:29)
[2025-02-15] MEDS: PROTONIX 40 MG PO (08:29)
[2025-02-15] MEDS: LOW STRENGTH ASPIRIN 81 MG PO (08:29)
[2025-02-15] MEDS: ZAROXOLYN 5 MG PO (09:59)
--- NOTE | 2025-02-15 14:13 | CM ---
Chart reviewed. Patient OOB sitting in the chair. Patient is independent of ADLS, lives alone in a 1st floor apartment, [address], ambulates with a SPC. Patient on Bumex and Dobutamine drips. Patient's son is here from [place] for a month.
PT/OT evaluation recommending [place]. Plan is for the patient to go to [place] when medically stable. CM to follow
--- NOTE | 2025-02-15 15:52 | PTCARENOTE ---
patient told me she wanted to know if 'we stopped all this could she just go?? when asked where, she said home... to heaven. the afterlife.' i asked her if that was what she was thinking she wanted to do she said yes. and that shed be telling her
son today as well. Made CREDENTIALING ANALYST aware of this conversation as well. provided emotional support. will continue to monitor.
[2025-02-15] MEDS: NSS IV (15:57)
[2025-02-15] MEDS: REMOVE LIDOCAINE PATCH 1 PATCH REMOVE (15:57)
--- NOTE | 2025-02-15 16:09 | W.PN.UPDATE ---
Update Note
Progress Note Update
RN reports that patient spoke with her son and wants to 'give up.' I spoke with patient with her permission that son be present in room to explore her perception of hospitalization and progress. Patient frustrated with her perceived lack of
progress and dependence on nursing staff to get out of bed to chair. Prior to hospitalization, she was independent and working. She does not see herself making progress toward this goal of independence. I reflected on the progress she has made on
the inotropic support as evidenced by improved urine output, and organ perfusion by improved mixed venous oxygenation. Patient relates that she is willing to work through this difficult time in order to achieve the goal to go back home. Patient's
son explored the possibility of patient moving West to either [place] or [place] to be closer to both sons. I stated that her goal is reasonable and that if her health takes a turn for the worse, we can certainly revisit a conversation of
pursuing palliative/comfort, rather than restorative care. I explored her having an advance directive and patient does not have one at present. She is willing to complete this form and her son is willing to obtain the paperwork. Patient admits to
feeling depressed and is agreeable to discuss her mood with psychiatry team.
--- NOTE | 2025-02-15 19:30 | PTCARENOTE ---
assumed care of pt from previous RN. pt A&Ox4, resting in bed at time of assessment. flat affect noted. SR w/ first degree AVB, occasional PVCs on tele-monitor. POX 95-97% on RA. abd s/n, +BS. pt reports poor appetite. dozier catheter draining clear,
yellow urine. all surgical sites stable. R IJ cordis w/ swan floated to 49cm. RUE PICC intact. plan of care discussed w/ pt, pt in agreement. see worklist for complete nursing assessment, interventions, gtt titrations, VS, and I&Os.
[2025-02-15] MEDS: DOBUTREX 250 MG IV (19:42)
[2025-02-15] MEDS: SENOKOT-S 1 TABLET PO (20:38)
--- NOTE | 2025-02-15 22:34 | PTCARENOTE ---
pt core temp 94.8 F. pt refused alia hugger. education provided. warm blankets applied and room temp increased.
--- NOTE | 2025-02-15 22:45 | W.PN.CD ---
Today's Communication / Plan
-
aggressive diuresis
psych referral for situational depression
Impression / Plan
-
Background: 80F with persistent atrial fibrillation (abnormal bleeding on dabigatran), CAD (LAD and RCA medically managed, 2012), PAD (50-60% R ICA), hypertension, dyslipidemia, moderate MR, , moderate pulmonary hypertension, and moderate to
severe TR who presented with shortness of breath for several days found to have reduced LVEF, severe . mod AR and severe TR and multivessel CAD.
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
S/p bio-SAVR/CABGx2/TVrepair/Surgical AFib ablation/ANNETTE exclusion 01/31/2025, Crouch
S/p Reopening of sternotomy; Placement of a direct aortic 5.5 Impella left ventricular assist device
- Now back in CVICU for dobutamine assisted diuresis
Heart failure, preop LVEF 40-45%, normal EF post op
- RHC 02/14 with elevated filling pressure and low cardiac output --> transfer to CVICU for dobutamine assisted diuresis
- cont. compression of LE, has a lot of peripheral edema that needs mobilization
- Continue diuresis, can increase bumex rate as needed to achieve goal 2L negative daily.
- trend CXR, if pleural effusion increase may need tap
TALIB
- concern for cardiorenal, trend with dobutamine and diuresis
Anemia
- 7 Unit PRBC transfused so far in month of January 2025
Depression
- situational and appropraite
- cont. to offer support
- psych referral
CAD
Valvular heart disease
Ischemic cardiomyopathy
AFib, in AFib now
- On Eliquis and Amio
- cannot afford eliquis, plan for transition to warfarin
PAD
Mixed hyperlipidemia
Subjective:
No CP or dyspnea
Physical Exam
Vital Signs/Labs
Vital Signs
Temp Pulse Resp BP Pulse Ox
34.8 C L 78 10 109/54 98
02/15/25 22:00 02/15/25 22:30 02/15/25 22:30 02/15/25 22:00 02/15/25 22:30
02/14/25 02/15/25 02/16/25
06:59 06:59 06:59
Actual Weight 72.7 kg 72.3 kg
02/15/25 03:34
02/15/25 03:35
PT 33.1 Sec (11.4-14.6) H 02/15/25 03:35
INR 3.20 02/15/25 03:35
APTT 34.8 Sec (23.4-35.0) 02/06/25 03:18
Magnesium 2.3 mg/dl (1.6-2.3) 02/15/25 03:35
Triglycerides 66 mg/dl (10-149) 01/25/25 04:53
LDL Cholesterol, Calc 75 mg/dl 01/25/25 04:53
VLDL Cholesterol, Calc 13 mg/dl (0-30) 01/25/25 04:53
HDL Cholesterol 74 mg/dl 01/25/25 04:53
01/24/25
15:33
Arp-E-Yddumixzsdv Pept [id number]
Physical Exam
Constitutional: Comfortable
Cardiovascular: Pedal edema present
Respiratory: Respiratory effort normal
Neuro/Psych: AO x 3
Data Reviewed
-
Date of Service: February 15, 2025
Medical Decision Making: Reviewed Test Results
Labs: Labs Reviewed by me
[2025-02-16] VITALS (41 sets, daily range): BP systolic 67–117; BP diastolic 30–76; PULSE 77–79; O2SAT 97–98; BMI 24.2
[2025-02-16 00:29] LABS: Blood Urea Nitrogen 88 mg/dl (7-17); Calcium 8.8 mg/dl (8.4-10.2); Carbon Dioxide 29 mmol/L (22-30); Chloride 98 mmol/L (98-107); Estimated Creatinine Clearance 23 ml/min; Glucose 102 mg/dl (70-99); Magnesium 2.3 mg/dl (1.6-2.3); Potassium 3.0 mmol/L (3.5-5.1); Sodium 134 mmol/L (135-145); eGFR 26.36
[2025-02-16] MEDS: KCL 100 IV (00:43)
--- NOTE | 2025-02-16 00:45 | PTCARENOTE ---
assessment remains unchanged. U/O >0.5ml/kg/h. BMP collected. 40mEq KCl repleted.
--- NOTE | 2025-02-16 04:00 | PTCARENOTE ---
no acute changes. AM labs collected and sent.
[2025-02-16 04:01] LABS: Hematocrit 23.3 % (37.0-47.0); Hemoglobin 7.8 g/dL (12.0-16.0); Mean Corp Hgb Conc. 33.5 g/dL (33.0-37.0); Mean Corpuscular Volume 92.8 fL (81.0-99.0); Platelet Count 148 10^3/uL (130-400); Red Cell Dist. Width 17.4 % (11.5-14.5)
[2025-02-16 04:05] LABS: INR 2.62; PT 28.4 Sec (11.4-14.6)
[2025-02-16 04:30] LABS: Blood Urea Nitrogen 90 mg/dl (7-17); Calcium 8.9 mg/dl (8.4-10.2); Carbon Dioxide 31 mmol/L (22-30); Chloride 100 mmol/L (98-107); Estimated Creatinine Clearance 23 ml/min; Glucose 84 mg/dl (70-99); Magnesium 2.4 mg/dl (1.6-2.3); Potassium 4.0 mmol/L (3.5-5.1); Sodium 133 mmol/L (135-145); eGFR 26.36
--- NOTE | 2025-02-16 05:11 | W.PN.CT ---
Today's Communication / Plan
-
-pod #16
-no issues overnight
-CI 2.23, CO 3.63, SVR 1300. mVO2 73.7. Drips: Dobut 3, Bumex 1
-24 hr I/O is neg 3063
-s/p RHC and DCCV on 02/14. In nsr overnight
-diuresed with Bumex drip and Zaroxolyn on 02/15 (pcwp 34 on RHC 02/14). UO 2645/3805 in 12/24 hrs (urine is clear)
-INR today 2.62. Coumadin doses 2.5, 2.5, 1, 0 mg
-Hg 7.8 today (8.1 on 02/15, 9.6-10 prior) - monitor
-Cr 1.9 today (1.8-2.0 prior)
-follow Cr and hyponatremia. Diamox on hold (last dose 02/14)
-current meds (ASA, Coumadin, Lipitor, Protonix, Vit C, Feosol).
-encourage IS, OOB as tolerated
Assessment / Plan
-
- Acute heart failure with cardiogenic shock, aortic valve stenosis and insufficiency, severe tricuspid valve insufficiency, A-fib with RVR and multivessel coronary disease- s/p Surgical aortic valve replacement [23 mm Andrews Inspira's Resilia
bioprosthesis]; CABG x 2 [ALMANZAR to LAD, RSVG to RPDA]; Simple tricuspid valve repair [32 mm band annuloplasty]; Full left and right atrial maze [combination of RF and cryoablation] plus left atrial appendage exclusion [40 mm device]; Drainage of
bilateral pleural effusions, approximately 250 cc in each chest by Dr. Crouch on 01/31/25, pod #15
- Post cardiotomy cardiogenic shock with escalating inotropic support and vasoactive medication- s/p Reopening of sternotomy; Placement of a direct aortic 5.5 Impella left ventricular assist device
by Dr. Crouch on 01/31/25
- Intraop FRANCISCO JAVIER: LVEF at the start of the surgery was approximately 40% with some regional wall motion abnormalities toward the inferior septal and anterior septal portions of the wall. Following surgery, EF did struggle to approximately 20 to 25%
and she was loaded on 5 dobutamine but had escalating requirements for Levophed. RV function was normal as was RV size and there was only a trace residual amount of tricuspid valve insufficiency.
The left atrial appendage was verified to be free of any thrombus or debris preoperatively and found to be totally occlusive postoperatively. There is no paravalvular leak of the aortic valve prosthesis and the mean gradient across the valve was 3
mmHg. There is essentially no mean gradient across the tricuspid valve. At the conclusion of the case, she did respond to volume loading with blood. Of note she was coagulopathic postoperatively with an elevated ACT despite giving almost double
her protamine dose.
-S/P Stepwise weaning of 5.5 Impella ventricular assist device/Extraction/removal of 5.5 Impella ventricular assist device/ Ligation of sterile portion of 10 mm Hemashield graft using 8 large clips with coverage of the remaining graft with overlying
strap muscles/Local analgesia for pain control, by Dr. Crouch 02/04/25
- Severe aortic valve stenosis
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
- Atrial fibrillation with rapid ventricular response- didn't tolerate Pradaxa in the past d/t vaginal bleed
- Acute respiratory insufficiency
- Significant volume overload requiring diuresis
- HTN/HLD
- PAD
- Nonsmoker
- Acute postop blood loss anemia - s/p total 5 pRBCs
- Acute postop coagulopathy/ thrombocytopenia - s/p 6 unit platelets, 5 FFPs, 2 cryo, 0.5 iv Vit K, DDAVP
- Acute postop 10 beat NSVT on 01/31
- Acute postop junctional rhythm/bradycardia
- Acute postop atelectasis
- Acute postop cardiogenic shock, requiring mechanical cardiac support (Impella 5.5), inotrops and pressors
- Acute postop hypovolemia with subsequent hypervolemia
- Acute postop hypokalemia
- Acute postop Lactic acidosis
- Acute postop TALIB
- Acute postop Epistaxis
- Acute postop hyponatremia
- Acute postop transaminitis
- Acute postop urinary retention, requiring straight caths - Chery reinserted 02/13/25
- Acute postop cardiogenic shock/ hypothermia- s/p RHC and Cardioversion from a-fib on 02/14/25- Dobutamine resumed
- Acute postop depression
R heart Catherization 02/14/25:
Hemodynamics (mmHg):
RA (m) : 22
RV (s/d,m) : 47/17, 20
PA (s/d, m) : 51/32, 30
PCWP (m) : 34
PA saturation: 58.7% on room air
AO saturation: 100% on room air--obtained noninvasively using pulse oximetry given no arterial access
Cardiac Output : 3.14 L/min by Adam calculation
Cardiac Index : 1.71 L/min/m-2 by Adam calculation
Systemic vascular resistance: [ ] dsc^(-5)
Pulmonary vascular resistance: 1.91 villaseñor unit
Heart rate: 72 bpm in atrial fibrillation
Subjective
Procedure
Aortic valve replacement [23 mm Andrews Inspira's Resilia bioprosthesis]; CABG x 2 [ALMANZAR to LAD, RSVG to RPDA]; Simple tricuspid valve repair [32 mm band annuloplasty]; Full left and right atrial maze [combination of RF and cryoablation] plus left
atrial appendage exclusion [40 mm device]; Drainage of bilateral pleural effusions, approximately 250 cc in each chest by Dr. Crouch on 01/31/25
-
Date of Service: February 15, 2025
Objective Data
-
Lab Results
02/15/25 03:34
PT 33.1 Sec (11.4-14.6) H 02/15/25 03:35
INR 3.20 02/15/25 03:35
APTT 34.8 Sec (23.4-35.0) 02/06/25 03:18
Vital Signs
Vital Signs
Temp Pulse Resp BP Pulse Ox
95 F L 78 10 98/68 97
02/15/25 23:00 02/15/25 23:00 02/15/25 23:00 02/15/25 23:00 02/15/25 23:00
CT Intake/Output/Weight
02/15/25 02/15/25 02/16/25
06:59 18:59 06:59
Intake Total 557.6 / 1408.3 361.1 / 477.6 116.5 / 477.6
Output Total 1250 / 1900 1160 / 2480 1320 / 2480
Balance -692.4 / -491.7 -798.9 / -2002.4 -1203.5 / -2002.4
SaO2: 97
[2025-02-16] MEDS: BUMEX 50 IV (07:47)
--- NOTE | 2025-02-16 08:00 | PTCARENOTE ---
Assumed care of patient from mine shifter RN. AAO x 3 sitting up in the chair. Better spirits this am. Denies pain. SR first degree AVB. Rt IJ cordis with swan at 49 cm. Leveled, recalibrated and flushed. Room air 98%. IS to 750. Abdomen
soft and nontender. Chery draining clear yellow urine. Chery wipe preformed. Plus 3 pitting anasarca appreciated. Tubigrips applied to bilateral legs. Pulses weakly palpable. Plan for day discussed.
[2025-02-16] MEDS: LIPITOR 80 MG PO (08:12)
[2025-02-16] MEDS: LOW STRENGTH ASPIRIN 81 MG PO (08:12)
[2025-02-16] MEDS: SENOKOT-S 1 TABLET PO ×2 (08:12→19:52)
[2025-02-16] MEDS: FEOSOL 325 MG PO (08:12)
[2025-02-16] MEDS: VITAMIN C 500 MG PO (08:12)
[2025-02-16] MEDS: PROTONIX 40 MG PO (08:12)
[2025-02-16] MEDS: DIAMOX 250 MG PO (09:24)
[2025-02-16] MEDS: ZAROXOLYN 5 MG PO (10:45)
--- NOTE | 2025-02-16 11:38 | WOUNDNOTE ---
[facility] RN note: Patient seen for HAPI report d/t stage 2 L buttocks pressure injury. Patient has a small dull red area on her sacrum stage 1 pressure injury. L buttocks with dermal ulcer suspect stage 2 pressure injury vs skin tear. Silicone border
foam dressings changed. R heel with small red area (slow to cindy red). Adhesive foam dressings maintained on heels. +LE edema. Tubigrip stockinet maintained. Patient has a foam chair cushion and Centrea Max air bed. Discussed with JESSICA Kuo who
stated patient is on a turning schedule. Patient currently in chair with foam cushion. She stood with walker and assist of 2 to stand. Appetite improving. She drinks ensure as well. Patient s/p CABG on 01/31/25, s/p re opening of sternotomy, placement
of Impella L ventricular assist device. Patient on dobutamine assisted diuresis. Patient instructed pressure injury prevention measures. Patient high risk for skin breakdown despite preventative measures in place d/t overall medial/cardiovascular
condition. Will updated CT PA re: L buttocks skin breakdown for local wound care. Care plan to be updated. Will follow as needed.
--- NOTE | 2025-02-16 11:40 | W.PN.CD ---
Today's Communication / Plan
-
Still with significant edema. Remains on Bumex and dobutamine(which is down to 2 mcg/kilogram /minute)
Continue to monitor pressures and renal function closely.
Hemoglobin trending down patient may need additional PRBC
Impression / Plan
-
Background: 80F with persistent atrial fibrillation (abnormal bleeding on dabigatran), CAD (LAD and RCA medically managed, 2012), PAD (50-60% R ICA), hypertension, dyslipidemia, moderate MR, , moderate pulmonary hypertension, and moderate to
severe TR who presented with shortness of breath for several days found to have reduced LVEF, severe . mod AR and severe TR and multivessel CAD.
Outpatient second hand: Dr. Pinedo
S/p bio-SAVR/CABGx2/TVrepair/Surgical AFib ablation/ANNETTE exclusion 01/31/2025, Crouch
S/p Reopening of sternotomy; Placement of a direct aortic 5.5 Impella left ventricular assist device
- Now back in CVICU for dobutamine assisted diuresis
Heart failure, preop LVEF 40-45%, EF 50-55 postop note patient has been on pressors at times.
- RHC 02/14 with elevated filling pressure and low cardiac output --> patient transferred to the CVICU for dobutamine assisted diuresis.
- Weights are trending down
- still with significant edema upper and lower extremities
- Patient on Bumex drip
- trend CXR, if pleural effusion increase may need tap
TALIB -creatinine 1.9
Monitor with dobutamine and diuresis
Anemia
- 7 Unit PRBC transfused so far in month of January 2025
- Hemoglobin trending down to 7.8 will likely need additional PRBC
Depression. Up in chair cooperative.
-
CAD
Valvular heart disease
Ischemic cardiomyopathy
AFib, in AFib now
- On Eliquis and Amio
- cannot afford eliquis, plan for transition to warfarin
PAD
Mixed hyperlipidemia
Subjective:
No CP or dyspnea
Physical Exam
Vital Signs/Labs
Vital Signs
Temp Pulse Resp BP Pulse Ox
96.9 F L 81 14 95/49 98
02/16/25 10:00 02/16/25 09:00 02/16/25 10:00 02/16/25 08:00 02/16/25 10:00
02/15/25 02/16/25 02/17/25
06:59 06:59 06:59
Actual Weight 72.3 kg 70.1 kg
02/16/25 03:46
02/16/25 03:46
PT 28.4 Sec (11.4-14.6) H 02/16/25 03:46
INR 2.62 02/16/25 03:46
APTT 34.8 Sec (23.4-35.0) 02/06/25 03:18
Magnesium 2.4 mg/dl (1.6-2.3) H 02/16/25 03:46
Triglycerides 66 mg/dl (10-149) 01/25/25 04:53
LDL Cholesterol, Calc 75 mg/dl 01/25/25 04:53
VLDL Cholesterol, Calc 13 mg/dl (0-30) 01/25/25 04:53
HDL Cholesterol 74 mg/dl 01/25/25 04:53
01/24/25
15:33
Fem-F-Cfrhhfntxwj Pept [id number]
Physical Exam
Constitutional: No acute distress and Other (Comfortable in chair on room air)
Cardiovascular: Rhythm & rate is regular
Respiratory: Wheeze Absent and Rhonchi Absent
GI: Soft and Non tender
Neuro/Psych: Alert
Other: Other
Edema of upper extremities and lower extremities
Data Reviewed
-
Date of Service: February 16, 2025
Medical Decision Making: Reviewed Test Results
Echo: Report Reviewed by me
X-Ray/CT/US/MRI/NUC/PET: Report Reviewed by me
Medical Tests (PFT, Pathology etc): Report Reviewed by me
Labs: Labs Reviewed by me
--- NOTE | 2025-02-16 11:45 | WOUNDNOTE ---
Spoke with ABELARDO Garrett Re: recommend air mattress at SNF/rehab. Patient has L buttocks skin breakdown.
--- NOTE | 2025-02-16 12:00 | PTCARENOTE ---
Tolerating sitting up in the chair. Cardiac index improved with lower dose of dobutamine per md order. Remains in positive spirits. VSS. Assessment otherwise unchanged from prior
--- NOTE | 2025-02-16 13:53 | CM ---
Chart reviewed. Patient OOB sitting in the chair, son at bedside. 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 Son is in from [place] and staying for a month.
Wound care consulted, patient has a stage 2 vs skin tear recommending air mattress. Notified [facility]. PT evaluation recommending Acute Rehab. Referral sent. Plan is for the patient to go to [facility] when medically stable. CM to follow
--- NOTE | 2025-02-16 14:09 | PTCARENOTE ---
S/p thoracentesis bp low 70/40's. Asymptomatic. Discussed with CT PA. Will keep pt in bed.
--- NOTE | 2025-02-16 15:11 | CON.MD ---
Addendum entered and electronically signed by Rossi Horne MD 02/16/25 15:29:
tsh nl a month ago. would recheck.
Original Note:
Consultation - Medical
-
patient seen chart reviewed. spoke with nursing and with computer video game designer. this consult is being done on february 16 2025. patient is an 80 year old woman who was admitted on january 24 with complaint of shortness of breath and inc lower extremity edema. she was
found to be in a fib w rvr and in the course of workup other serious cardiac issues were dx as well. patient was found on cath to be suffering from severe valvular disease cad and chf and underwent cardiac surgery twice. she had not rebounded as
fast as her treating staff had hoped and it was thought she might be suffering from depression. today staff tell me she is seemingly much better. when i saw her she was awake and alert. she was very well groomed. she was pleasant and readily
spoke with me. she has no history of having been treated for depression or anxiety. she admitted she had been discouraged but was feeling today more positive. we reviewed the seriousness of her cardiac impairment and what had been done to help her
and how it might take some time for her heart and circulatory system to repair fully. she does experience lack on energy (explained to mark the role of anemia as well in contributing to lack of energy. ) she misses her work here at where she
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 that is apparently her only social outlet. she has few friends or hobbies and this is how it has always been for her but again she said she never felt herself to be depressed or anxious. she has no
suicidal thoughts. there is nothing to suggest psychosis. she does have two sons but they [place]. she would indeed wish to move to be closer to them 'if they ask me'. (reportedly they have considered this according to the chart)
past psych hx none
medical hx see above patient with serious cardiac issues who recently underwent valvular repair cabg. needed subsequent surgery as well as drainage of effusion. she has hx htn venous insuff carotid stenosis paf aortic and tricuspic valvular
disease hld pedal edema chf. notation in record of vaginal bleed four months ago (not clear if worked up) labs notable for hyponatremia 133 bun 90 cr 1.9 mg 2.4 tsh 3.05
substance abuse denied
family hx non contributory
social resides in [place]. in 1999 h of mi two sons who live out [place]. 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
mse alert ox3 cooperative pleasant speech and thought process normal did not appear in distress mood is neutral affect a bit constricted no si aver intelligence insight fair judgment ok
dx adjustment disorder unspecified
recommendations not clear to me that patient needs antidepressants. nursing tells me she is better today and i would wait and see how she does over the next few days. her anemia may play a role in her lack of energy and ability to rebound. also
would like to see her serum sodium come up a bit before starting an ssri for example. it seems she leads a rather insular existence. i encouraged her to give some thought to living near one of her sons out [place]. i asked her if she would like me to
bring up some activity books for her eg coloring books word search but she declined.i did tell her if she feels worse as far as mood she should let staff know or her pcp if she is dc'ed by then and give some consideration at that time to
antidepressants. would check b12 folate and vit d. will have psych look in on her over the weekend.
--- NOTE | 2025-02-16 15:30 | PTCARENOTE ---
Pt noted to have new hematuria in dozier catheter. CT COPPER MINER BLASTING made aware. Will monitor.
[2025-02-16] MEDS: NSS IV (15:46)
--- NOTE | 2025-02-16 19:45 | PTCARENOTE ---
assumed care of pt from previous RN. pt A&Ox4, resting in bed at time of assessment. flat affect noted. R IJ cordis w/ swan floated to 49cm. all lines leveled, zeroed, flushed. RUE TLC PICC intact. SR w/ occasional PVCs on tele-monitor. POX 94-95%
on RA. abd s/n, +BS. dozier catheter draining pink-tinged urine. all surgical sites stable. tubi-rag room supervisor removed @ HS. plan of care discussed w/ pt, pt in agreement. see worklist for complete nursing assessment, interventions, VS, and I&Os.
[2025-02-16] MEDS: TYLENOL 650 MG PO (19:52)
[2025-02-16] MEDS: MELATONIN 5 MG PO (19:52)
[2025-02-16] MEDS: DOBUTREX 250 MG IV (19:53)
[2025-02-17] VITALS (34 sets, daily range): BP systolic 82–116; BP diastolic 41–54; PULSE 80; O2SAT 93; BMI 23.6
--- NOTE | 2025-02-17 | PTCARENOTE ---
dozier catheter draining clear, yellow colored urine. assessment remains otherwise unchanged.
--- NOTE | 2025-02-17 00:41 | W.PN.CT ---
Addendum entered and electronically signed by Douglas Brunner MD 02/17/25 08:52:
I saw and examined the patient.
The PA's note was reviewed and I agree with the note.
Comment:
Marlin VAZQUEZ [id number]
POD#17 s/p AVR, CABG x 2, TVRp, MAZE, ELAA, drainage of B/L effusions
N: Intact
CV: HD stable on dobutamine @ 2 w/ MvO2 67.6. Sinus. INR 2.0 (AF) - attempt to wean dobutamine to 1 today and HOLD (follow MvO2)
P: S/P thoracentesis yesterday (-850mL on R) - continued, but improved R basilar atelectasis/residual effusion on CXR, LEFT clear
GI: Tolerating PO (60-70%), protein supplements. Check prealbumin on Wednesday
: Excellent diuresis over last 24 hours (-3805), bumex gtt OFF overnight - resumed this AM. Creat 1.92
HEME: Hgb 7.9 (7.8 yesterday); PLT: 167
ID: WBC: 11.2. Afebrile. No ABX
ENDO: BS controlled
FEN: K 2.9 this AM - replaced, will recheck BMP
PROPH: Coumadin for AF - 1mg tonight, SCDs, IS, OOB
DISPO: Eventual BACK
Original Note:
Today's Communication / Plan
-
-No major issues overnight
-On Dobutamine @ 2 mcg/kg/min, and was on Bumex gtt @ 1 mg/hr until last night @ 1999
-Plan is to resume bumex @ 0800
-CI 2.44, MVO2 67.6%, 24hrs u/o 3630 mL
-Underwent right thoracentesis with evacuation of 850 cc of serosanguineous pleural fluid yesterday 02/16. F/u cxr
-Coumadin currently on hold, INR 2.07
-Monitor cr 2.0
-Maintain dozier catheter
-Monitor h/h 7.9/23.8, likely hemodilutional
-OOB into chair/Ambulate/PT-OT f/u
-Eventual acute rehab ([facility]) placement
Assessment / Plan
-
- Acute heart failure with cardiogenic shock, aortic valve stenosis and insufficiency, severe tricuspid valve insufficiency, A-fib with RVR and multivessel coronary disease- s/p Surgical aortic valve replacement [23 mm Andrews Inspira's Resilia
bioprosthesis]; CABG x 2 [ALMANZAR to LAD, RSVG to RPDA]; Simple tricuspid valve repair [32 mm band annuloplasty]; Full left and right atrial maze [combination of RF and cryoablation] plus left atrial appendage exclusion [40 mm device]; Drainage of
bilateral pleural effusions, approximately 250 cc in each chest by Dr. Crouch on 01/31/25, pod #17
- Post cardiotomy cardiogenic shock with escalating inotropic support and vasoactive medication- s/p Reopening of sternotomy; Placement of a direct aortic 5.5 Impella left ventricular assist device
by Dr. Crouch on 01/31/25
- Intraop FRANCISCO JAVIER: LVEF at the start of the surgery was approximately 40% with some regional wall motion abnormalities toward the inferior septal and anterior septal portions of the wall. Following surgery, EF did struggle to approximately 20 to 25%
and she was loaded on 5 dobutamine but had escalating requirements for Levophed. RV function was normal as was RV size and there was only a trace residual amount of tricuspid valve insufficiency.
The left atrial appendage was verified to be free of any thrombus or debris preoperatively and found to be totally occlusive postoperatively. There is no paravalvular leak of the aortic valve prosthesis and the mean gradient across the valve was 3
mmHg. There is essentially no mean gradient across the tricuspid valve. At the conclusion of the case, she did respond to volume loading with blood. Of note she was coagulopathic postoperatively with an elevated ACT despite giving almost double
her protamine dose.
-S/P Stepwise weaning of 5.5 Impella ventricular assist device/Extraction/removal of 5.5 Impella ventricular assist device/ Ligation of sterile portion of 10 mm Hemashield graft using 8 large clips with coverage of the remaining graft with overlying
strap muscles/Local analgesia for pain control, by Dr. Crouch 02/04/25
- Severe aortic valve stenosis
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
- Atrial fibrillation with rapid ventricular response- didn't tolerate Pradaxa in the past d/t vaginal bleed
- Acute respiratory insufficiency
- Significant volume overload requiring diuresis
- HTN/HLD
- PAD
- Nonsmoker
- Acute postop blood loss anemia - s/p total 5 pRBCs
- Acute postop coagulopathy/ thrombocytopenia - s/p 6 unit platelets, 5 FFPs, 2 cryo, 0.5 iv Vit K, DDAVP
- Acute postop 10 beat NSVT on 01/31
- Acute postop junctional rhythm/bradycardia
- Acute postop atelectasis
- Acute postop cardiogenic shock, requiring mechanical cardiac support (Impella 5.5), inotrops and pressors
- Acute postop hypovolemia with subsequent hypervolemia
- Acute postop hypokalemia
- Acute postop Lactic acidosis
- Acute postop TALIB
- Acute postop Epistaxis
- Acute postop hyponatremia
- Acute postop transaminitis
- Acute postop urinary retention, requiring straight caths - Dozier reinserted 02/13/25
- Acute postop cardiogenic shock/ hypothermia- s/p RHC and Cardioversion from a-fib on 02/14/25- Dobutamine resumed
- Acute postop depression
- Acute postop right pleural effusion S/p right thoracentesis (850 cc serosanguineous pleural fluid), 02/16/25
R heart Catherization 02/14/25:
Hemodynamics (mmHg):
RA (m) : 22
RV (s/d,m) : 47/17, 20
PA (s/d, m) : 51/32, 30
PCWP (m) : 34
PA saturation: 58.7% on room air
AO saturation: 100% on room air--obtained noninvasively using pulse oximetry given no arterial access
Cardiac Output : 3.14 L/min by Adam calculation
Cardiac Index : 1.71 L/min/m-2 by Adam calculation
Systemic vascular resistance: [ ] dsc^(-5)
Pulmonary vascular resistance: 1.91 villaseñor unit
Heart rate: 72 bpm in atrial fibrillation
Discussed patient care with: Cardiology, Nursing, Respiratory Therapy, Pharmacy and Care Team
Subjective
Procedure
Aortic valve replacement [23 mm Andrews Inspira's Resilia bioprosthesis]; CABG x 2 [ALMANZAR to LAD, RSVG to RPDA]; Simple tricuspid valve repair [32 mm band annuloplasty]; Full left and right atrial maze [combination of RF and cryoablation] plus left
atrial appendage exclusion [40 mm device]; Drainage of bilateral pleural effusions, approximately 250 cc in each chest by Dr. Crouch on 01/31/25
-
Date of Service: February 17, 2025
No issues overnight
Objective Data
-
PT 28.4 Sec (11.4-14.6) H 02/16/25 03:46
INR 2.62 02/16/25 03:46
APTT 34.8 Sec (23.4-35.0) 02/06/25 03:18
Vital Signs
Vital Signs
Temp Pulse Resp BP Pulse Ox
96.5 F L 80 12 90/41 95
02/17/25 00:00 02/17/25 00:05 02/17/25 00:05 02/17/25 00:00 02/17/25 00:05
CT Intake/Output/Weight
07/18/25 07/18/25 07/19/25
06:59 18:59 06:59
Intake Total 397.6 / 776.0 1426.6 / 1567.8 141.2 / 1567.8
Output Total 2870 / 4205 1875 / 2815 940 / 2815
Balance -2472.4 / -3429.0 -448.4 / -1247.2 -798.8 / -1247.2
SaO2: 95 (RA)
Physical Exam
-
General: Awake, Oriented and AOx3
Cardiovascular: No Murmurs
Respiratory: Decreased Breath Sounds (at bases, otherwise clear)
Sternum: Stable
Incision: Clean, Dry, Intact and Dressing Intact
Extremities: Edema +2
Data Reviewed
-
Lab Results: Results Reviewed
Medications: Active Meds Reviewed
Chest X-Ray: Report Reviewed and Image Reviewed
ECG: Report Reviewed and Image Reviewed
[2025-02-17 04:17] LABS: Hematocrit 23.8 % (37.0-47.0); Hemoglobin 7.9 g/dL (12.0-16.0); Mean Corp Hgb Conc. 33.2 g/dL (33.0-37.0); Mean Corpuscular Volume 91.5 fL (81.0-99.0); Platelet Count 167 10^3/uL (130-400); Red Cell Dist. Width 17.8 % (11.5-14.5)
--- NOTE | 2025-02-17 04:30 | PTCARENOTE ---
no acute changes. AM labs collected and sent. pt assisted to [facility] by 2 RNs. + BM.
[2025-02-17 04:35] LABS: INR 2.07; PT 23.4 Sec (11.4-14.6)
[2025-02-17 04:49] LABS: Blood Urea Nitrogen 92 mg/dl (7-17); Calcium 8.7 mg/dl (8.4-10.2); Carbon Dioxide 33 mmol/L (22-30); Chloride 94 mmol/L (98-107); Estimated Creatinine Clearance 22 ml/min; Glucose 89 mg/dl (70-99); Potassium 2.9 mmol/L (3.5-5.1); Prealbumin (Transthyretin) 14.9 mg/dl (17.6-36.0); Sodium 133 mmol/L (135-145); eGFR 24.79
[2025-02-17 05:03] LABS: Vitamin D, 25-OH*** 15.8 ng/mL (30-80)
[2025-02-17] MEDS: KCL 100 IV ×2 (05:22→13:19)
[2025-02-17 05:49] LABS: Magnesium 2.2 mg/dl (1.6-2.3)
[2025-02-17 05:53] LABS: Folate 9.2 ng/ml (2.76-20); Vitamin B12 652 pg/ml (239-931)
[2025-02-17] MEDS: LIPITOR 80 MG PO (07:54)
[2025-02-17] MEDS: DIAMOX 250 MG PO (07:54)
[2025-02-17] MEDS: LOW STRENGTH ASPIRIN 81 MG PO (07:54)
[2025-02-17] MEDS: PROTONIX 40 MG PO (07:54)
[2025-02-17] MEDS: SENOKOT-S 1 TABLET PO (07:54)
[2025-02-17] MEDS: BUMEX 50 IV ×2 (07:54→15:24)
[2025-02-17] MEDS: VITAMIN C 500 MG PO (07:54)
--- NOTE | 2025-02-17 08:00 | PTCARENOTE ---
Assumed care of patient from cnc machinist 2nd shift RN. AAO x3 . Affect flat but pleasant. Denies pain. SR on monitor w/ PVC's . RT IJ cordis with swan at 49 cm. Leveled, and recalibrated. Dobutamine infusing. Bumex drip restarted per order. Room air
98% . IS to 750. Abdomen wnl, dozier draining clear yellow urine. Plus 3 anasarca remains. Pulses palpable. Plan for day discussed.
[2025-02-17] MEDS: FLEXBUMIN 50 IV ×2 (10:30→22:38)
--- NOTE | 2025-02-17 11:31 | W.PN.CD ---
Today's Communication / Plan
-
PA diastolics remain stable. Patient currently comfortable with SBP remains in the 90s without symptoms
Patient with significant diuresis greater than 2 L down another 2 kg
Continue diuresis with IV Bumex with close monitoring of labs and vitals
Dobutamine was decreased yesterday we will monitor with current dosing and assess output. Will also continue to assess need for PA catheter
Continue to monitor anemia closely to make sure that it is trending upward otherwise may need consideration for PRBC
Impression / Plan
-
Background: 80F with persistent atrial fibrillation (abnormal bleeding on dabigatran), CAD (LAD and RCA medically managed, 2012), PAD (50-60% R ICA), hypertension, dyslipidemia, moderate MR, , moderate pulmonary hypertension, and moderate to
severe TR who presented with shortness of breath for several days found to have reduced LVEF, severe . mod AR and severe TR and multivessel CAD.
Outpatient certified composites technician: Dr. Pinedo
S/p bio-SAVR/CABGx2/TVrepair/Surgical AFib ablation/ANNETTE exclusion 01/31/2025, Crouch
S/p Reopening of sternotomy; Placement of a direct aortic 5.5 Impella left ventricular assist device
- Now back in CVICU for dobutamine assisted diuresis
Heart failure, preop LVEF 40-45%, EF 50-55 postop note patient has been on pressors at times.
- RHC 02/14 with elevated filling pressure and low cardiac output --> patient transferred to the CVICU for dobutamine assisted diuresis.
- Weights are trending down
- still with significant edema upper and lower extremities
- Patient on Bumex drip
- trend CXR, if pleural effusion increase may need tap
TALIB -creatinine 1.9
Monitor with dobutamine and diuresis
Anemia
- 7 Unit PRBC transfused so far in month of January 2025
- Hemoglobin trending down to 7.8 will likely need additional PRBC
Depression. Up in chair cooperative.
-
CAD
Valvular heart disease
Ischemic cardiomyopathy
AFib, in AFib now
- On Eliquis and Amio
- cannot afford eliquis, plan for transition to warfarin
PAD
Mixed hyperlipidemia
Subjective:
No CP or dyspnea
Physical Exam
Vital Signs/Labs
Vital Signs
Temp Pulse Resp BP Pulse Ox
97.2 F 84 14 94/41 97
02/17/25 10:00 02/17/25 10:00 02/17/25 10:00 02/17/25 08:00 02/17/25 10:00
02/16/25 02/17/25 02/18/25
06:59 06:59 06:59
Actual Weight 70.1 kg 68.3 kg
02/17/25 03:58
PT 23.4 Sec (11.4-14.6) H 02/17/25 03:58
INR 2.07 02/17/25 03:58
APTT 34.8 Sec (23.4-35.0) 02/06/25 03:18
Magnesium 2.2 mg/dl (1.6-2.3) 02/17/25 03:58
Triglycerides 66 mg/dl (10-149) 01/25/25 04:53
LDL Cholesterol, Calc 75 mg/dl 01/25/25 04:53
VLDL Cholesterol, Calc 13 mg/dl (0-30) 01/25/25 04:53
HDL Cholesterol 74 mg/dl 01/25/25 04:53
Free T4 1.16 ng/dl (0.78-2.19) 02/17/25 03:58
01/24/25
15:33
Cjb-K-Aijnmvekqyn Pept [id number]
Physical Exam
Constitutional: No acute distress
Cardiovascular: Rhythm & rate is regular
Respiratory: Wheeze Absent and Rhonchi Absent
GI: Soft
Other: Other (Upper and lower extremity edema)
Data Reviewed
-
Date of Service: February 17, 2025
Medical Decision Making: Reviewed Test Results
Medical Tests (PFT, Pathology etc): Report Reviewed by me
Labs: Labs Reviewed by me
--- NOTE | 2025-02-17 12:21 | PTCARENOTE ---
Sitting up in chair, son at bedside. Denies complaint. VSS. Dobutamine previously decreased per MD order. Continues to diurese well. 1200 labs obtained and sent.
[2025-02-17 12:58] LABS: Blood Urea Nitrogen 92 mg/dl (7-17); Calcium 8.9 mg/dl (8.4-10.2); Carbon Dioxide 35 mmol/L (22-30); Chloride 92 mmol/L (98-107); Estimated Creatinine Clearance 22 ml/min; Glucose 97 mg/dl (70-99); Magnesium 2.2 mg/dl (1.6-2.3); Potassium 3.1 mmol/L (3.5-5.1); Sodium 133 mmol/L (135-145); eGFR 24.79
[2025-02-17] MEDS: FEOSOL 325 MG PO (13:19)
--- NOTE | 2025-02-17 14:47 | PTCARENOTE ---
Stood with assist x 2 and rolling walker. Stayed upright for approx 2 minutes. Repositioned in chair after.
--- NOTE | 2025-02-17 15:49 | CHAP ---
Marlin was sitting in the chair, in good spirits, encouraged by the reports she has received. She welcomed prayer. Emotional and spiritual support provided.
--- NOTE | 2025-02-17 16:15 | W.PN.UPDATE ---
Update Note
Progress Note Update
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 There were concerns about depression and Psychiatry has been following. While she is reported to be
doing better each day, on interview today she still at times feels she should not have had the surgery (and therefore ). She is concerned about her slow recovery and recent setback. She is not suicidal now. Her son is visiting from [place], [place] and her onther son lives in [place]. She is inclinded to move closer to them [place] Does not seem motivated to increase her social council.
Slept well, has appetite. Not tearful and able to laugh appropraitely. No signs of psychosis.
Vitamin D very low at 15.8 and I will supplement with D3 4000 IU PO daily. TSH is elevated at 6.17 and will defer to Medicine to determine if this is transient or requires treatment. Both can contribute to depression. Furthermore, Hgb is 7.9 and
electolytes are mildly abnormal and BUN is 92.
Psychiatry will still follow as she can use the emotional support, however, I would not recommend medication treatment. If an antidepressant is considered, bupropion can increase BP and energy and may be a good choice (not likely to affect
coagulation but is a 2D6 inhibitor).
Psychiatry will see her every few days.
--- NOTE | 2025-02-17 16:36 | PTCARENOTE ---
Remains in chair. VSS. Assessment unchanged from prior.
[2025-02-17] MEDS: NSS IV (16:37)
[2025-02-17] MEDS: COUMADIN 1 MG PO (17:36)
--- NOTE | 2025-02-17 19:30 | PTCARENOTE ---
assumed care of pt from previous RN. pt A&Ox4, resting in bed at time of assessment. SR w/ occasional PVCs on tele-monitor. POX 96-98% on RA. abd s/n, +BS. dozier catheter draining pink-tinged urine. all surgical sites stable, CDI. R IJ cordis w/
swan floated to 49cm. all lines leveled, zeroed, flushed. RUE TLC PICC intact. plan of care discussed w/ pt, pt in agreement. see worklist for complete nursing assessment, interventions, gtt titrations, VS, and I&Os.
[2025-02-17 19:49] LABS: Blood Urea Nitrogen 87 mg/dl (7-17); Calcium 8.6 mg/dl (8.4-10.2); Carbon Dioxide 34 mmol/L (22-30); Chloride 92 mmol/L (98-107); Estimated Creatinine Clearance 22 ml/min; Glucose 125 mg/dl (70-99); Potassium 3.2 mmol/L (3.5-5.1); Sodium 133 mmol/L (135-145); eGFR 24.79
[2025-02-17] MEDS: SENOKOT-S PO (20:31)
[2025-02-17] MEDS: KCL 40 MEQ PO (23:11)
[2025-02-18] VITALS (27 sets, daily range): BP systolic 92–133; BP diastolic 45–64; BMI 22.9
--- NOTE | 2025-02-18 | PTCARENOTE ---
dozier catheter draining clear, yellow colored urine now. assessment remains otherwise unchanged.
[2025-02-18] MEDS: DOBUTREX 250 MG IV (01:48)
--- NOTE | 2025-02-18 03:46 | W.PN.CT ---
Addendum entered and electronically signed by Douglas Brunner MD 02/18/25 08:38:
I saw and examined the patient.
The PA's note was reviewed and I agree with the note.
Comment:
No major overnight events. Transfused 1U PRBC for Hgb 7.8, 250mg ALB w/ improvement in Hgb to 8.3. Excellent diuresis (-4L). Tolerating dobutmine at 1 (MvO2 71).
- Dobutamine to 0.5 and HOLD (trend MvO2)
- Bumex gtt to 0.5 today
- OOB/IS/ambulate in room
- K 3.4 - replace
- Eventual [facility] discharge
Original Note:
Documented by User: Stefan Espinoza PA-C 02/18/25 06:33
Today's Communication / Plan
-
-No major issues overnight
-On Dobutamine @ 1 mcg/kg/min, and was on Bumex gtt @ 1 mg/hr until last night @ 1999
-Plan is to resume bumex @ 0800. Replete electrolytes
-CI 2.34, MVO2 71.1%, 24hrs u/o 4440 mL
-Underwent right thoracentesis with evacuation of 850 cc of serosanguineous pleural fluid on 02/16
-Received 1 mg Coumadin yesterday for INR 2.07, INR 1.69 today
-Monitor cr 1.9, was 2.0 yesterday
-Maintain dozier catheter
-Received 1u PRBC yesterday for h/h 7.9/23.8, up to 8.3/24.3 today, likely hemodilutional
-OOB into chair/Ambulate/PT-OT f/u
-Eventual acute rehab ([facility]) placement
Assessment / Plan
-
- Acute heart failure with cardiogenic shock, aortic valve stenosis and insufficiency, severe tricuspid valve insufficiency, A-fib with RVR and multivessel coronary disease- s/p Surgical aortic valve replacement [23 mm Andrews Inspira's Resilia
bioprosthesis]; CABG x 2 [ALMANZAR to LAD, RSVG to RPDA]; Simple tricuspid valve repair [32 mm band annuloplasty]; Full left and right atrial maze [combination of RF and cryoablation] plus left atrial appendage exclusion [40 mm device]; Drainage of
bilateral pleural effusions, approximately 250 cc in each chest by Dr. Crouch on 01/31/25, pod #18
- Post cardiotomy cardiogenic shock with escalating inotropic support and vasoactive medication- s/p Reopening of sternotomy; Placement of a direct aortic 5.5 Impella left ventricular assist device
by Dr. Crouch on 01/31/25
- Intraop FRANCISCO JAVIER: LVEF at the start of the surgery was approximately 40% with some regional wall motion abnormalities toward the inferior septal and anterior septal portions of the wall. Following surgery, EF did struggle to approximately 20 to 25%
and she was loaded on 5 dobutamine but had escalating requirements for Levophed. RV function was normal as was RV size and there was only a trace residual amount of tricuspid valve insufficiency.
The left atrial appendage was verified to be free of any thrombus or debris preoperatively and found to be totally occlusive postoperatively. There is no paravalvular leak of the aortic valve prosthesis and the mean gradient across the valve was 3
mmHg. There is essentially no mean gradient across the tricuspid valve. At the conclusion of the case, she did respond to volume loading with blood. Of note she was coagulopathic postoperatively with an elevated ACT despite giving almost double
her protamine dose.
-S/P Stepwise weaning of 5.5 Impella ventricular assist device/Extraction/removal of 5.5 Impella ventricular assist device/ Ligation of sterile portion of 10 mm Hemashield graft using 8 large clips with coverage of the remaining graft with overlying
strap muscles/Local analgesia for pain control, by Dr. Crouch 02/04/25
- Severe aortic valve stenosis
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
- Atrial fibrillation with rapid ventricular response- didn't tolerate Pradaxa in the past d/t vaginal bleed
- Acute respiratory insufficiency
- Significant volume overload requiring diuresis
- HTN/HLD
- PAD
- Nonsmoker
- Acute postop blood loss anemia - s/p total 5 pRBCs
- Acute postop coagulopathy/ thrombocytopenia - s/p 6 unit platelets, 5 FFPs, 2 cryo, 0.5 iv Vit K, DDAVP
- Acute postop 10 beat NSVT on 01/31
- Acute postop junctional rhythm/bradycardia
- Acute postop atelectasis
- Acute postop cardiogenic shock, requiring mechanical cardiac support (Impella 5.5), inotrops and pressors
- Acute postop hypovolemia with subsequent hypervolemia
- Acute postop hypokalemia
- Acute postop Lactic acidosis
- Acute postop TALIB
- Acute postop Epistaxis
- Acute postop hyponatremia
- Acute postop transaminitis
- Acute postop urinary retention, requiring straight caths - Dozier reinserted 02/13/25
- Acute postop cardiogenic shock/ hypothermia- s/p RHC and Cardioversion from a-fib on 02/14/25- Dobutamine resumed
- Acute postop depression
- Acute postop right pleural effusion S/p right thoracentesis (850 cc serosanguineous pleural fluid), 02/16/25
R heart Catherization 02/14/25:
Hemodynamics (mmHg):
RA (m) : 22
RV (s/d,m) : 47/17, 20
PA (s/d, m) : 51/32, 30
PCWP (m) : 34
PA saturation: 58.7% on room air
AO saturation: 100% on room air--obtained noninvasively using pulse oximetry given no arterial access
Cardiac Output : 3.14 L/min by Adam calculation
Cardiac Index : 1.71 L/min/m-2 by Adam calculation
Systemic vascular resistance: [ ] dsc^(-5)
Pulmonary vascular resistance: 1.91 villaseñor unit
Heart rate: 72 bpm in atrial fibrillation
Discussed patient care with: Cardiology, Nursing, Respiratory Therapy, Pharmacy and Care Team
Subjective
Procedure
Aortic valve replacement [23 mm Andrews Inspira's Resilia bioprosthesis]; CABG x 2 [ALMANZAR to LAD, RSVG to RPDA]; Simple tricuspid valve repair [32 mm band annuloplasty]; Full left and right atrial maze [combination of RF and cryoablation] plus left
atrial appendage exclusion [40 mm device]; Drainage of bilateral pleural effusions, approximately 250 cc in each chest by Dr. Crouch on 01/31/25
-
Date of Service: February 18, 2025
Pt c/o mild incisional pain, in better spirits
Objective Data
-
PT 23.4 Sec (11.4-14.6) H 02/17/25 03:58
INR 2.07 02/17/25 03:58
APTT 34.8 Sec (23.4-35.0) 02/06/25 03:18
Vital Signs
Vital Signs
Temp Pulse Resp BP Pulse Ox
97.8 F 80 11 100/45 95
02/18/25 03:00 02/18/25 03:00 02/18/25 03:00 02/18/25 03:00 02/18/25 03:00
CT Intake/Output/Weight
02/17/25 02/17/25 02/18/25
06:59 18:59 06:59
Intake Total 344.4 / 1771.0 1453.4 / 1902.2 448.8 / 1902.2
Output Total 1930 / 3805 177 / 3850 2074 / 385
Balance -1585.6 / -2034.0 -321.6 / -1947.8 -1626.2 / -1947.8
SaO2: 95 (RA)
Physical Exam
-
General: Awake, Oriented and AOx3
Cardiovascular: Regular rate & rhythm, No Murmurs, No Rub and No Gallop
Respiratory: Decreased Breath Sounds (at bases, otherwise clear)
Incision: Clean, Dry, Intact and Dressing Intact
Extremities: Edema +2
Data Reviewed
-
Lab Results: Results Reviewed
Medications: Active Meds Reviewed
Chest X-Ray: Report Reviewed and Image Reviewed
ECG: Report Reviewed and Image Reviewed

Documented by User: GEOVANI Acuña 02/18/25 08:34
Assessment / Plan
-
- Acute heart failure with cardiogenic shock, aortic valve stenosis and insufficiency, severe tricuspid valve insufficiency, A-fib with RVR and multivessel coronary disease- s/p Surgical aortic valve replacement [23 mm Andrews Inspira's Resilia
bioprosthesis]; CABG x 2 [ALMANZAR to LAD, RSVG to RPDA]; Simple tricuspid valve repair [32 mm band annuloplasty]; Full left and right atrial maze [combination of RF and cryoablation] plus left atrial appendage exclusion [40 mm device]; Drainage of
bilateral pleural effusions, approximately 250 cc in each chest by Dr. Crouch on 01/31/25, pod #18
- Post cardiotomy cardiogenic shock with escalating inotropic support and vasoactive medication- s/p Reopening of sternotomy; Placement of a direct aortic 5.5 Impella left ventricular assist device
by Dr. Crouch on 01/31/25
- Intraop FRANCISCO JAVIER: LVEF at the start of the surgery was approximately 40% with some regional wall motion abnormalities toward the inferior septal and anterior septal portions of the wall. Following surgery, EF did struggle to approximately 20 to 25%
and she was loaded on 5 dobutamine but had escalating requirements for Levophed. RV function was normal as was RV size and there was only a trace residual amount of tricuspid valve insufficiency.
The left atrial appendage was verified to be free of any thrombus or debris preoperatively and found to be totally occlusive postoperatively. There is no paravalvular leak of the aortic valve prosthesis and the mean gradient across the valve was 3
mmHg. There is essentially no mean gradient across the tricuspid valve. At the conclusion of the case, she did respond to volume loading with blood. Of note she was coagulopathic postoperatively with an elevated ACT despite giving almost double
her protamine dose.
-S/P Stepwise weaning of 5.5 Impella ventricular assist device/Extraction/removal of 5.5 Impella ventricular assist device/ Ligation of sterile portion of 10 mm Hemashield graft using 8 large clips with coverage of the remaining graft with overlying
strap muscles/Local analgesia for pain control, by Dr. Crouch 02/04/25
- Severe aortic valve stenosis
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
- Atrial fibrillation with rapid ventricular response- didn't tolerate Pradaxa in the past d/t vaginal bleed
- Acute respiratory insufficiency
- Significant volume overload requiring diuresis
- HTN/HLD
- PAD
- Nonsmoker
- Acute postop blood loss anemia - s/p total 5 pRBCs
- Acute postop coagulopathy/ thrombocytopenia - s/p 6 unit platelets, 5 FFPs, 2 cryo, 0.5 iv Vit K, DDAVP
- Acute postop 10 beat NSVT on 01/31
- Acute postop junctional rhythm/bradycardia
- Acute postop atelectasis
- Acute postop cardiogenic shock, requiring mechanical cardiac support (Impella 5.5), inotrops and pressors
- Acute postop hypovolemia with subsequent hypervolemia
- Acute postop hypokalemia
- Acute postop Lactic acidosis
- Acute postop TALIB
- Acute postop Epistaxis
- Acute postop hyponatremia
- Acute postop transaminitis
- Acute postop urinary retention, requiring straight caths - Dozier reinserted 02/13/25
- Acute postop cardiogenic shock/ hypothermia- s/p RHC and Cardioversion from a-fib on 02/14/25- Dobutamine resumed
- Acute postop depression
- Acute postop right pleural effusion S/p right thoracentesis (850 cc serosanguineous pleural fluid), 02/16/25
- Acute post-op contraction alkalosis
R heart Catherization 02/14/25:
Hemodynamics (mmHg):
RA (m) : 22
RV (s/d,m) : 47/17, 20
PA (s/d, m) : 51/32, 30
PCWP (m) : 34
PA saturation: 58.7% on room air
AO saturation: 100% on room air--obtained noninvasively using pulse oximetry given no arterial access
Cardiac Output : 3.14 L/min by Adam calculation
Cardiac Index : 1.71 L/min/m-2 by Adam calculation
Systemic vascular resistance: [ ] dsc^(-5)
Pulmonary vascular resistance: 1.91 villaseñor unit
Heart rate: 72 bpm in atrial fibrillation
--- NOTE | 2025-02-18 04:00 | PTCARENOTE ---
no acute changes. VSS. AM labs collected and sent.
[2025-02-18 04:14] LABS: Hematocrit 24.3 % (37.0-47.0); Hemoglobin 8.3 g/dL (12.0-16.0); Mean Corp Hgb Conc. 34.2 g/dL (33.0-37.0); Mean Corpuscular Volume 90.7 fL (81.0-99.0); Platelet Count 154 10^3/uL (130-400); Red Cell Dist. Width 17.3 % (11.5-14.5)
[2025-02-18 04:21] LABS: INR 1.69; PT 20.1 Sec (11.4-14.6)
[2025-02-18 04:37] LABS: Blood Urea Nitrogen 91 mg/dl (7-17); Calcium 9.0 mg/dl (8.4-10.2); Carbon Dioxide 35 mmol/L (22-30); Chloride 93 mmol/L (98-107); Estimated Creatinine Clearance 23 ml/min; Glucose 86 mg/dl (70-99); Magnesium 2.2 mg/dl (1.6-2.3); Potassium 3.4 mmol/L (3.5-5.1); Sodium 134 mmol/L (135-145); eGFR 26.36
[2025-02-18] MEDS: CALCIUM GLUCONATE 130 MG IV (05:00)
[2025-02-18] MEDS: KCL 40 MEQ PO ×3 (05:08→19:40)
[2025-02-18 07:19] LABS: Albumin 3.1 g/dl (3.5-5.0)
[2025-02-18] MEDS: VITAMIN C 500 MG PO (07:55)
[2025-02-18] MEDS: FEOSOL 325 MG PO (07:55)
[2025-02-18] MEDS: VITAMIN D3 (cholecalciferol) 100 MCG PO (07:55)
[2025-02-18] MEDS: SENOKOT-S 1 TABLET PO ×2 (07:55→19:40)
[2025-02-18] MEDS: PROTONIX 40 MG PO (07:55)
[2025-02-18] MEDS: LIPITOR 80 MG PO (07:55)
[2025-02-18] MEDS: LOW STRENGTH ASPIRIN 81 MG PO (07:56)
--- NOTE | 2025-02-18 08:00 | PTCARENOTE ---
Assumed care of patient from hospice spiritual care coordinator RN. AAO x 3, SR with first degree AVB with occasional PVC's. Rt IJ swan @ 49 cm. Leveled, and recalibrated. Dobutamine infusing. Room air 95 %, Is to 750. Lungs decreased bilaterally. Abdomen soft and
non tender, passing flatus, appetite improved this am. Chery draining anita urine. Bilateral lowere extremities with plus 3 pitting edema, upper extremities bilaterally plus 2. Pulses palpable. Plan for day discussed.
[2025-02-18] MEDS: DIAMOX 250 MG PO (08:36)
--- NOTE | 2025-02-18 08:41 | W.PN.CD ---
Today's Communication / Plan
-
Weights continue to trend down with diuresis. Patient down 6 kg since 02/15/2025
Appears to have less exhibit edema on exam.
Respiratory status stable.
Mild increase in hemoglobin after PRBCs continue to monitor anemia closely.
Patient still with significant edema would continue with diuresis with close monitoring of labs.
Would consider discontinuation of PA catheter tomorrow.
Impression / Plan
-
Background: 80F with persistent atrial fibrillation (abnormal bleeding on dabigatran), CAD (LAD and RCA medically managed, 2012), PAD (50-60% R ICA), hypertension, dyslipidemia, moderate MR, , moderate pulmonary hypertension, and moderate to
severe TR who presented with shortness of breath for several days found to have reduced LVEF, severe . mod AR and severe TR and multivessel CAD.
Outpatient experience designer: Dr. Pinedo
S/p bio-SAVR/CABGx2/TVrepair/Surgical AFib ablation/ANNETTE exclusion 01/31/2025, Crouch
S/p Reopening of sternotomy; Placement of a direct aortic 5.5 Impella left ventricular assist device
- Transferred back to CVICU last week dobutamine assisted diuresis
Heart failure, preop LVEF 40-45%, EF 50-55 postop note patient has been on pressors at times.
- RHC 02/14 with elevated filling pressure and low cardiac output --> patient transferred to the CVICU for dobutamine assisted diuresis.
- Weights are trending down. Weight decreased from 72 kg on 02/15/25 to 66 kg 02/18/2025
- still with significant edema upper and lower extremities
- Patient on Bumex drip
-
Pleural effusion. Right thoracentesis 02/16/2025
.
TALIB -creatinine 1.9
Monitor with dobutamine and diuresis
Anemia
- 7 Unit PRBC transfused so far in month of January 2025
- Hemoglobin trending down to 7.8 so patient received additional unit of PRBC 02/17/2025
Depression. Up in chair cooperative. Psychiatry following
-
CAD
Valvular heart disease
Ischemic cardiomyopathy
AFib, in AFib now
- On Eliquis and Amio
- cannot afford eliquis, plan for transition to warfarin
PAD
Mixed hyperlipidemia
Subjective:
No CP or dyspnea
Physical Exam
Vital Signs/Labs
Vital Signs
Temp Pulse Resp BP Pulse Ox
96.9 F L 79 11 102/50 95
02/18/25 07:53 02/18/25 08:00 02/18/25 08:00 02/18/25 08:00 02/18/25 08:12
02/17/25 02/18/25 02/19/25
06:59 06:59 06:59
Actual Weight 68.3 kg 66.2 kg
02/18/25 03:43
02/18/25 03:43
PT 20.1 Sec (11.4-14.6) H 02/18/25 03:43
INR 1.69 02/18/25 03:43
APTT 34.8 Sec (23.4-35.0) 02/06/25 03:18
Magnesium 2.2 mg/dl (1.6-2.3) 02/18/25 03:43
Triglycerides 66 mg/dl (10-149) 01/25/25 04:53
LDL Cholesterol, Calc 75 mg/dl 01/25/25 04:53
VLDL Cholesterol, Calc 13 mg/dl (0-30) 01/25/25 04:53
HDL Cholesterol 74 mg/dl 01/25/25 04:53
Free T4 1.16 ng/dl (0.78-2.19) 02/17/25 03:58
01/24/25
15:33
[id number] Pept [id number]
Physical Exam
Constitutional: No acute distress
Cardiovascular: Rhythm & rate is regular
Respiratory: Respiratory effort normal
GI: Soft and Non tender
Neuro/Psych: Alert and Oriented
Data Reviewed
-
Date of Service: February 18, 2025
Medical Decision Making: Reviewed Test Results
Medical Tests (PFT, Pathology etc): Report Reviewed by me
Labs: Labs Reviewed by me
[2025-02-18] MEDS: BUMEX 50 IV (09:28)
--- NOTE | 2025-02-18 09:35 | PTCARENOTE ---
Bumex drip initiated as per order.
[2025-02-18 14:37] LABS: Potassium 3.6 mmol/L (3.5-5.1)
[2025-02-18] MEDS: KCL 270 MEQ IV (15:22)
[2025-02-18] MEDS: NSS IV (15:22)
--- NOTE | 2025-02-18 16:29 | PTCARENOTE ---
Assist x 2 back to bed, did very well this afternoon ambulating with rolling walker from chair to bed. VSS. IV potassium infusing per order for electrolyte replacement. Assessment otherwise unchanged from prior.
[2025-02-18] MEDS: COUMADIN 1 MG PO (17:06)
[2025-02-18] MEDS: TYLENOL 650 MG PO (18:42)
--- NOTE | 2025-02-18 18:44 | PTCARENOTE ---
patient c/o 'my whole body hurts', Tylenol po given as ordered.
--- NOTE | 2025-02-18 19:30 | PTCARENOTE ---
assumed care of pt from previous RN. pt A&Ox4, resting in bed at time of assessment. SR w/ occasional PVCs on tele-monitor. POX 94-97% on RA. abd s/n +BS. dozier catheter draining blood-tinged urine. pt offers no c/o pain r/t catheter. all surgical
sites stable, CDI. R IJ cordis w/ swan floated to 49cm. all lines leveled, zeroed, flushed. RUE TLC PICC intact. see worklist for complete nursing assessment, interventions, gtt titrations, VS, and I&Os.
[2025-02-19] VITALS (28 sets, daily range): BP systolic 92–127; BP diastolic 50–72; PULSE 81–102; O2SAT 99; BMI 22.1
--- NOTE | 2025-02-19 | PTCARENOTE ---
dozier catheter draining clear, yellow colored urine. assessment remains otherwise unchanged.
[2025-02-19 03:43] LABS: Hematocrit 24.8 % (37.0-47.0); Hemoglobin 8.3 g/dL (12.0-16.0); Mean Corp Hgb Conc. 33.5 g/dL (33.0-37.0); Mean Corpuscular Volume 91.9 fL (81.0-99.0); Platelet Count 159 10^3/uL (130-400); Red Cell Dist. Width 17.8 % (11.5-14.5)
[2025-02-19 03:54] LABS: INR 1.59; PT 19.2 Sec (11.4-14.6)
--- NOTE | 2025-02-19 04:00 | PTCARENOTE ---
no acute changes. VSS. AM labs collected and sent.
[2025-02-19 04:08] LABS: Blood Urea Nitrogen 89 mg/dl (7-17); Calcium 9.4 mg/dl (8.4-10.2); Carbon Dioxide 37 mmol/L (22-30); Chloride 94 mmol/L (98-107); Estimated Creatinine Clearance 23 ml/min; Glucose 94 mg/dl (70-99); Magnesium 2.0 mg/dl (1.6-2.3); Potassium 3.7 mmol/L (3.5-5.1); Sodium 135 mmol/L (135-145); eGFR 26.36
--- NOTE | 2025-02-19 04:14 | W.PN.CT ---
Today's Communication / Plan
-
-No major issues overnight
-On Dobutamine @ 0.5 mcg/kg/min, and was on Bumex gtt @ 0.5 mg/hr until last night @ 1999
-Plan is to resume bumex @ 0800. Replete electrolytes
-CI 2.28, MVO2 69.2%, 24hrs u/o 5105 mL
-Underwent right thoracentesis with evacuation of 850 cc of serosanguineous pleural fluid on 02/16
-Received 1 mg Coumadin yesterday for INR 1.69, INR 1.59 today, will likely give 2mg today
-Monitor cr 1.9, was 1.9 yesterday
-Lactic acid 0.8
-Mg 2.0, resumed Mag oxide
-Hyponatremia has resolved, 135, was 134 yesterday
-Maintain dozier catheter
-Received 1u PRBC on 02/17 for h/h 7.9/23.8, up to 8.3/24.8 today, likely hemodilutional
-OOB into chair/Ambulate/PT-OT f/u
-Eventual acute rehab ([facility]) placement
Assessment / Plan
-
- Acute heart failure with cardiogenic shock, aortic valve stenosis and insufficiency, severe tricuspid valve insufficiency, A-fib with RVR and multivessel coronary disease- s/p Surgical aortic valve replacement [23 mm Andrews Inspira's Resilia
bioprosthesis]; CABG x 2 [ALMANZAR to LAD, RSVG to RPDA]; Simple tricuspid valve repair [32 mm band annuloplasty]; Full left and right atrial maze [combination of RF and cryoablation] plus left atrial appendage exclusion [40 mm device]; Drainage of
bilateral pleural effusions, approximately 250 cc in each chest by Dr. Crouch on 01/31/25, pod #19
- Post cardiotomy cardiogenic shock with escalating inotropic support and vasoactive medication- s/p Reopening of sternotomy; Placement of a direct aortic 5.5 Impella left ventricular assist device
by Dr. Crouch on 01/31/25
- Intraop FRANCISCO JAVIER: LVEF at the start of the surgery was approximately 40% with some regional wall motion abnormalities toward the inferior septal and anterior septal portions of the wall. Following surgery, EF did struggle to approximately 20 to 25%
and she was loaded on 5 dobutamine but had escalating requirements for Levophed. RV function was normal as was RV size and there was only a trace residual amount of tricuspid valve insufficiency.
The left atrial appendage was verified to be free of any thrombus or debris preoperatively and found to be totally occlusive postoperatively. There is no paravalvular leak of the aortic valve prosthesis and the mean gradient across the valve was 3
mmHg. There is essentially no mean gradient across the tricuspid valve. At the conclusion of the case, she did respond to volume loading with blood. Of note she was coagulopathic postoperatively with an elevated ACT despite giving almost double
her protamine dose.
-S/P Stepwise weaning of 5.5 Impella ventricular assist device/Extraction/removal of 5.5 Impella ventricular assist device/ Ligation of sterile portion of 10 mm Hemashield graft using 8 large clips with coverage of the remaining graft with overlying
strap muscles/Local analgesia for pain control, by Dr. Crouch 02/04/25
- Severe aortic valve stenosis
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
- Atrial fibrillation with rapid ventricular response- didn't tolerate Pradaxa in the past d/t vaginal bleed
- Acute respiratory insufficiency
- Significant volume overload requiring diuresis
- HTN/HLD
- PAD
- Nonsmoker
- Acute postop blood loss anemia - s/p total 5 pRBCs
- Acute postop coagulopathy/ thrombocytopenia - s/p 6 unit platelets, 5 FFPs, 2 cryo, 0.5 iv Vit K, DDAVP
- Acute postop 10 beat NSVT on 01/31
- Acute postop junctional rhythm/bradycardia
- Acute postop atelectasis
- Acute postop cardiogenic shock, requiring mechanical cardiac support (Impella 5.5), inotrops and pressors
- Acute postop hypovolemia with subsequent hypervolemia
- Acute postop hypokalemia
- Acute postop Lactic acidosis
- Acute postop TALIB
- Acute postop Epistaxis
- Acute postop hyponatremia
- Acute postop transaminitis
- Acute postop urinary retention, requiring straight caths - Dozier reinserted 02/13/25
- Acute postop cardiogenic shock/ hypothermia- s/p RHC and Cardioversion from a-fib on 02/14/25- Dobutamine resumed
- Acute postop depression
- Acute postop right pleural effusion S/p right thoracentesis (850 cc serosanguineous pleural fluid), 02/16/25
- Acute post-op contraction alkalosis
R heart Catherization 02/14/25:
Hemodynamics (mmHg):
RA (m) : 22
RV (s/d,m) : 47/17, 20
PA (s/d, m) : 51/32, 30
PCWP (m) : 34
PA saturation: 58.7% on room air
AO saturation: 100% on room air--obtained noninvasively using pulse oximetry given no arterial access
Cardiac Output : 3.14 L/min by Adam calculation
Cardiac Index : 1.71 L/min/m-2 by Adam calculation
Systemic vascular resistance: [ ] dsc^(-5)
Pulmonary vascular resistance: 1.91 villaseñor unit
Heart rate: 72 bpm in atrial fibrillation
Discussed patient care with: Cardiology, Nursing, Respiratory Therapy, Pharmacy and Care Team
Subjective
Procedure
Aortic valve replacement [23 mm Andrews Inspira's Resilia bioprosthesis]; CABG x 2 [ALMANZAR to LAD, RSVG to RPDA]; Simple tricuspid valve repair [32 mm band annuloplasty]; Full left and right atrial maze [combination of RF and cryoablation] plus left
atrial appendage exclusion [40 mm device]; Drainage of bilateral pleural effusions, approximately 250 cc in each chest by Dr. Crouch on 01/31/25
-
Date of Service: February 19, 2025
Pt offers no complaints
Objective Data
-
Lab Results
02/19/25 03:17
02/19/25 03:17
PT 19.2 Sec (11.4-14.6) H 02/19/25 03:17
INR 1.59 02/19/25 03:17
APTT 34.8 Sec (23.4-35.0) 02/06/25 03:18
Vital Signs
Vital Signs
Temp Pulse Resp BP Pulse Ox
97.2 F 80 13 97/52 96
02/19/25 03:00 02/19/25 03:00 02/19/25 03:00 02/19/25 03:00 02/19/25 03:00
CT Intake/Output/Weight
02/18/25 02/18/25 02/19/25
06:59 18:59 06:59
Intake Total 642.1 / 2106.6 2095.35 / 2251.85 156.5 / 2251.85
Output Total 2665 / 4665 2180 / 4330 2150 / 4330
Balance -2021.9 / -2558.4 -84.65 / -2077.15 -1992.5 / -2077.
SaO2: 96 (RA)
Physical Exam
-
General: Awake, Oriented and AOx3
Cardiovascular: Regular rate & rhythm, No Murmurs, No Rub and No Gallop
Respiratory: Decreased Breath Sounds (at bases, otherwise clear)
Sternum: Stable
Incision: Clean, Dry, Intact and Dressing Intact
Extremities: Edema +2
Data Reviewed
-
Lab Results: Results Reviewed
Medications: Active Meds Reviewed
Chest X-Ray: Report Reviewed and Image Reviewed
ECG: Report Reviewed and Image Reviewed
[2025-02-19] MEDS: KCL 40 MEQ PO ×4 (05:33→20:06)
[2025-02-19] MEDS: VITAMIN C 500 MG PO (08:13)
[2025-02-19] MEDS: PROTONIX 40 MG PO (08:13)
[2025-02-19] MEDS: LIPITOR 80 MG PO (08:13)
[2025-02-19] MEDS: SENOKOT-S 1 TABLET PO ×2 (08:13→20:06)
[2025-02-19] MEDS: FEOSOL 325 MG PO (08:13)
[2025-02-19] MEDS: LOW STRENGTH ASPIRIN 81 MG PO (08:13)
[2025-02-19] MEDS: MAGNESIUM OXIDE 500 MG PO ×2 (08:13→20:06)
[2025-02-19] MEDS: VITAMIN D3 (cholecalciferol) 100 MCG PO (08:13)
[2025-02-19] MEDS: BUMEX 50 IV (08:20)
--- NOTE | 2025-02-19 09:35 | PTCARENOTE ---
Patient received from night worker RN; AAOx3, responds spontaneously to RN and follows commands but slow/delayed responses; Flat, withdrawn affect; NSR on monitor; VSS; +2 generalized edema; +1 DP and +2 radial pulses; Shallow respirations; SpO2
95-98% on RA; Lungs diminished at bases and coarse at left base; Appetite increasing - ate most of breakfast; Chery catheter draining clear, yellow urine at this time; Assist x1 with RW in room; Surgical sites intact, pale skin, pressure injury
dressings changed by prior RN; FRANK Kowalski present with [place]-shin floated to 49 cm - all lines zeroed and level; Right triple lumen PICC line intact; Dobutamine infusion stopped at 0800 as per MD Crouch, Bumex infusion started at 0.5 mg/hour - see
nursing flowsheets for further information; MIGDALIA Santamaria notified regarding CI drop from 2.44 to 2.00 an hour after dobutamine infusion stopped - RN to retake CI at 1000; See nursing documentation for further details
CO: 3.26
CI: 2.00
SVR: 1,594
--- NOTE | 2025-02-19 09:58 | W.PN.CD ---
Today's Communication / Plan
-
Continue diuresis. Aim for goal net neg 1.5-2 L daily.
Aggressive electrolyte repletion.
Wean dobutamine as tolerated.
Impression / Plan
-
Background: 80F with persistent atrial fibrillation (abnormal bleeding on dabigatran), CAD (LAD and RCA medically managed, 2012), PAD (50-60% R ICA), hypertension, dyslipidemia, moderate MR, , moderate pulmonary hypertension, and moderate to
severe TR who presented with shortness of breath for several days found to have reduced LVEF, severe , mod AR and severe TR and multivessel CAD now s/p surgery.
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 Pinedo
S/p bio-SAVR/CABGx2/TVrepair/Surgical AFib ablation/ANNETTE exclusion 01/31/2025, Crouch
S/p Reopening of sternotomy; Placement of a direct aortic 5.5 Impella left ventricular assist device
- Transferred back to CVICU last week for dobutamine assisted diuresis
Heart failure, preop LVEF 40-45%, EF 50-55% postop
- RHC 02/14 with elevated filling pressure and low cardiac output --> patient transferred to the CVICU for dobutamine assisted diuresis.
- Weights are trending down and she is net negative
- still with significant edema upper and lower extremities
- Continue Bumex drip. She is tolerating brisk diuresis. Goal net neg 1.5-2L daily
Paroxysmal AFib
- Amio on hold for concern for hypotension per Dr. Crouch
- cannot afford eliquis, continue warfarin
Pleural effusion. Right thoracentesis 02/16/2025
TALIB
- Baseline Cr 1.1
- Monitor with dobutamine and diuresis
Anemia
- 7 Unit PRBC transfused so far in month of January 2025
- Hemoglobin trending down to 7.8 so patient received additional unit of PRBC 02/17/2025
Depression. Up in chair cooperative. Psychiatry following
CAD
Valvular heart disease
Ischemic cardiomyopathy
PAD
Mixed hyperlipidemia
Subjective:
No CP or dyspnea. Feels great.
Physical Exam
Vital Signs/Labs
Vital Signs
Temp Pulse Resp BP Pulse Ox
97.7 F 76 11 109/56 98
02/19/25 09:00 02/19/25 09:12 02/19/25 09:12 02/19/25 09:00 02/19/25 09:00
02/18/25 02/19/25 02/20/25
06:59 06:59 06:59
Actual Weight 145 lb 15.136 oz 141 lb 1.533 oz
02/19/25 03:17
02/19/25 03:17
PT 19.2 Sec (11.4-14.6) H 02/19/25 03:17
INR 1.59 02/19/25 03:17
APTT 34.8 Sec (23.4-35.0) 02/06/25 03:18
Magnesium 2.0 mg/dl (1.6-2.3) 02/19/25 03:17
Triglycerides 66 mg/dl (10-149) 01/25/25 04:53
LDL Cholesterol, Calc 75 mg/dl 01/25/25 04:53
VLDL Cholesterol, Calc 13 mg/dl (0-30) 01/25/25 04:53
HDL Cholesterol 74 mg/dl 01/25/25 04:53
Free T4 1.16 ng/dl (0.78-2.19) 02/17/25 03:58
01/24/25
15:33
Dof-L-Tjnpswukbnv Pept 62563
Physical Exam
Constitutional: No acute distress and Comfortable
Cardiovascular: Rhythm & rate is regular, Pedal edema present, Systolic murmur present (valve replacement) and S1S2 is normal
Respiratory: Respiratory effort normal and Crackles Present
Neuro/Psych: AO x 3
Data Reviewed
-
Date of Service: February 19, 2025
Medical Decision Making: Reviewed Test Results, Independent Historian Assessment, Test Interpretation and Review of Case with other Provider
EKG: Tracing Personally Visualized and interpreted
Echo: Report Reviewed by me
Labs: Labs Reviewed by me
[2025-02-19] MEDS: NSS 500 IV (10:07)
[2025-02-19] MEDS: BUMEX 1 MG IV ×3 (12:46→21:02)
--- NOTE | 2025-02-19 13:05 | PTCARENOTE ---
Bumex infusion stopped and transitioned to IV Bumex 1 mg TID; Patient ambulated to door threshold of room with PT/OT - patient with some JIMENEZ with ambulation but denies dizziness and lightheadedness; CI improved and dobutamine infusion remains off
CO: 3.78
CI: 2.32
SVR: 1,460
[2025-02-19 13:59] LABS: Blood Urea Nitrogen 80 mg/dl (7-17); Calcium 9.2 mg/dl (8.4-10.2); Carbon Dioxide 34 mmol/L (22-30); Chloride 94 mmol/L (98-107); Estimated Creatinine Clearance 24 ml/min; Glucose 125 mg/dl (70-99); Magnesium 1.9 mg/dl (1.6-2.3); Potassium 3.7 mmol/L (3.5-5.1); Sodium 135 mmol/L (135-145); eGFR 28.13
--- NOTE | 2025-02-19 15:17 | CM ---
CM following for DC planning needs.
Met w/ patient at bedside. RN present, removing SG.
Introduced CM. Reviewed DC plan for Acute Rehab placement. Referral has been made to [facility]/liaison following.
No authorization required for transfer.
Plan remains for [facility] once stable.
--- NOTE | 2025-02-19 16:23 | PTCARENOTE ---
CI remains above 2; Lincoln-shin catheter removed at bedside by RN - VSS and no complications noted; Patient tired and fatigued after walk this afternoon and now resting in bed comfortably
CO: 3.94
CI: 2.42
SVR: 1,360
[2025-02-19] MEDS: COUMADIN 1.5 MG PO (17:57)
--- NOTE | 2025-02-19 20:45 | PTCARENOTE ---
Assumed care of pt from ria RN. Pt AAOx3. Flat affect and slightly slow speech. Pt is SR w/ occasional PVCs on the tele monitor. HR 80s. BP stable. B/L DP pulses weak. B/L radial pulses palpable. +2 LE and UE edema present. Pt is on RA. POX
97-99%. Lung sounds diminished in B/L base. Deep breathing and IS encouraged. Abdomen soft/nontender. Chery catheter intact and draining yellow urine. Right IJ cordis and right upper arm triple lumen PICC intact. All surgical sites stable. Left
buttocks dressing intact. Pt repositioned in bed. See worklist for full nursing assessment and interventions. Call sánchez within reach.
[2025-02-19] MEDS: MELATONIN 5 MG PO (21:02)
[2025-02-20] VITALS (32 sets, daily range): BP systolic 68–122; BP diastolic 41–75; PULSE 80; O2SAT 99; BMI 21.2
--- NOTE | 2025-02-20 00:08 | PTCARENOTE ---
No acute change in assessment. Pt is SR w/ occasional PVCs on the tele monitor. HR 80s. BP stable. Pt is 96% on RA. Chery catheter intact and draining yellow urine. All surgical sites stable. No c/o pain at this time. Pt repositioned in bed. Call
sánchez within reach.
[2025-02-20 03:42] LABS: Hematocrit 26.5 % (37.0-47.0); Hemoglobin 8.9 g/dL (12.0-16.0); Mean Corp Hgb Conc. 33.6 g/dL (33.0-37.0); Mean Corpuscular Volume 92.7 fL (81.0-99.0); Platelet Count 163 10^3/uL (130-400); Red Cell Dist. Width 18.6 % (11.5-14.5)
[2025-02-20 03:55] LABS: INR 1.48; PT 18.2 Sec (11.4-14.6)
--- NOTE | 2025-02-20 03:55 | PTCARENOTE ---
No change in assessment. VSS. Chery catheter intact and draining yellow urine. Pt repositioned in bed. Labs drawn and sent. Call sánchez within reach.
[2025-02-20 04:12] LABS: Blood Urea Nitrogen 86 mg/dl (7-17); Calcium 9.2 mg/dl (8.4-10.2); Carbon Dioxide 37 mmol/L (22-30); Chloride 96 mmol/L (98-107); Estimated Creatinine Clearance 26 ml/min; Glucose 90 mg/dl (70-99); Magnesium 1.9 mg/dl (1.6-2.3); Potassium 4.0 mmol/L (3.5-5.1); Sodium 137 mmol/L (135-145); eGFR 30.13
--- NOTE | 2025-02-20 04:24 | W.PN.CT ---
Today's Communication / Plan
-
-No major issues overnight
-Dobutamine weaned off as of yesterday 02/19. Bumex gtt transitioned to 1mg IV TID
-Replete electrolytes
-24hrs u/o 5095, check wt today
-Underwent right thoracentesis with evacuation of 850 cc of serosanguineous pleural fluid on 02/16
-Received 1.5 mg Coumadin yesterday for INR 1.59, INR 1.48 today, will likely give 2.5mg today
-Monitor cr 1.7, was 1.9 yesterday
-Mg 1.9, resumed Mag oxide
-Hyponatremia has resolved, 137
-Maintain dozier catheter for accurate I/O's
-Received 1u PRBC on 02/17 for h/h 7.9/23.8, up to 8.9/26.5 today, likely hemodilutional
-OOB into chair/Ambulate/PT-OT f/u
-Eventual acute rehab ([facility]) placement
Assessment / Plan
-
- Acute heart failure with cardiogenic shock, aortic valve stenosis and insufficiency, severe tricuspid valve insufficiency, A-fib with RVR and multivessel coronary disease- s/p Surgical aortic valve replacement [23 mm Andrews Inspira's Resilia
bioprosthesis]; CABG x 2 [ALMANZAR to LAD, RSVG to RPDA]; Simple tricuspid valve repair [32 mm band annuloplasty]; Full left and right atrial maze [combination of RF and cryoablation] plus left atrial appendage exclusion [40 mm device]; Drainage of
bilateral pleural effusions, approximately 250 cc in each chest by Dr. Crouch on 01/31/25, pod #20
- Post cardiotomy cardiogenic shock with escalating inotropic support and vasoactive medication- s/p Reopening of sternotomy; Placement of a direct aortic 5.5 Impella left ventricular assist device
by Dr. Crouch on 01/31/25
- Intraop FRANCISCO JAVIER: LVEF at the start of the surgery was approximately 40% with some regional wall motion abnormalities toward the inferior septal and anterior septal portions of the wall. Following surgery, EF did struggle to approximately 20 to 25%
and she was loaded on 5 dobutamine but had escalating requirements for Levophed. RV function was normal as was RV size and there was only a trace residual amount of tricuspid valve insufficiency.
The left atrial appendage was verified to be free of any thrombus or debris preoperatively and found to be totally occlusive postoperatively. There is no paravalvular leak of the aortic valve prosthesis and the mean gradient across the valve was 3
mmHg. There is essentially no mean gradient across the tricuspid valve. At the conclusion of the case, she did respond to volume loading with blood. Of note she was coagulopathic postoperatively with an elevated ACT despite giving almost double
her protamine dose.
-S/P Stepwise weaning of 5.5 Impella ventricular assist device/Extraction/removal of 5.5 Impella ventricular assist device/ Ligation of sterile portion of 10 mm Hemashield graft using 8 large clips with coverage of the remaining graft with overlying
strap muscles/Local analgesia for pain control, by Dr. Crouch 02/04/25
- Severe aortic valve stenosis
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
- Atrial fibrillation with rapid ventricular response- didn't tolerate Pradaxa in the past d/t vaginal bleed
- Acute respiratory insufficiency
- Significant volume overload requiring diuresis
- HTN/HLD
- PAD
- Nonsmoker
- Acute postop blood loss anemia - s/p total 5 pRBCs
- Acute postop coagulopathy/ thrombocytopenia - s/p 6 unit platelets, 5 FFPs, 2 cryo, 0.5 iv Vit K, DDAVP
- Acute postop 10 beat NSVT on 01/31
- Acute postop junctional rhythm/bradycardia
- Acute postop atelectasis
- Acute postop cardiogenic shock, requiring mechanical cardiac support (Impella 5.5), inotrops and pressors
- Acute postop hypovolemia with subsequent hypervolemia
- Acute postop hypokalemia
- Acute postop Lactic acidosis
- Acute postop TALIB
- Acute postop Epistaxis
- Acute postop hyponatremia
- Acute postop transaminitis
- Acute postop urinary retention, requiring straight caths - Dozier reinserted 02/13/25
- Acute postop cardiogenic shock/ hypothermia- s/p RHC and Cardioversion from a-fib on 02/14/25- Dobutamine resumed
- Acute postop depression
- Acute postop right pleural effusion S/p right thoracentesis (850 cc serosanguineous pleural fluid), 02/16/25
- Acute post-op contraction alkalosis
R heart Catherization 02/14/25:
Hemodynamics (mmHg):
RA (m) : 22
RV (s/d,m) : 47/17, 20
PA (s/d, m) : 51/32, 30
PCWP (m) : 34
PA saturation: 58.7% on room air
AO saturation: 100% on room air--obtained noninvasively using pulse oximetry given no arterial access
Cardiac Output : 3.14 L/min by Adam calculation
Cardiac Index : 1.71 L/min/m-2 by Adam calculation
Systemic vascular resistance: [ ] dsc^(-5)
Pulmonary vascular resistance: 1.91 villaseñor unit
Heart rate: 72 bpm in atrial fibrillation
Discussed patient care with: Cardiology, Nursing, Respiratory Therapy, Pharmacy and Care Team
Subjective
Procedure
Aortic valve replacement [23 mm Andrews Inspira's Resilia bioprosthesis]; CABG x 2 [ALMANZAR to LAD, RSVG to RPDA]; Simple tricuspid valve repair [32 mm band annuloplasty]; Full left and right atrial maze [combination of RF and cryoablation] plus left
atrial appendage exclusion [40 mm device]; Drainage of bilateral pleural effusions, approximately 250 cc in each chest by Dr. Crouch on 01/31/25
-
Date of Service: February 20, 2025
Pt c/o incisional pain, otherwise feels well
Objective Data
-
Lab Results
02/20/25 03:09
02/20/25 03:09
PT 18.2 Sec (11.4-14.6) H 02/20/25 03:09
INR 1.48 02/20/25 03:09
APTT 34.8 Sec (23.4-35.0) 02/06/25 03:18
Vital Signs
Vital Signs
Temp Pulse Resp BP Pulse Ox
98.5 F 77 15 93/48 95
02/20/25 04:00 02/20/25 04:00 02/20/25 04:00 02/20/25 04:00 02/20/25 04:00
CT Intake/Output/Weight
02/19/25 02/19/25 02/20/25
06:59 18:59 06:59
Intake Total 218.0 / 2323.85 1509.0 / 1609.0 100 / 1609.0
Output Total 2840 / 5195 2650 / 4805 2155 / 4805
Balance -2622.0 / -2871.15 -1141.0 / -3196.0 -2055 / -3196.0
SaO2: 95 (RA)
Physical Exam
-
General: Awake, Oriented and AOx3
Cardiovascular: Regular rate & rhythm, No Murmurs, No Rub and No Gallop
Respiratory: Decreased Breath Sounds (at bases, otherwise clear)
Sternum: Stable
Incision: Clean, Dry, Intact and Dressing Intact
Extremities: Edema +2
Data Reviewed
-
Lab Results: Results Reviewed
Medications: Active Meds Reviewed
Chest X-Ray: Report Reviewed and Image Reviewed
ECG: Report Reviewed and Image Reviewed
[2025-02-20] MEDS: BUMEX 2 MG PO ×3 (08:38→16:15)
[2025-02-20] MEDS: VITAMIN D3 (cholecalciferol) 100 MCG PO (08:38)
[2025-02-20] MEDS: PROTONIX 40 MG PO (08:38)
[2025-02-20] MEDS: MAGNESIUM OXIDE 500 MG PO ×2 (08:38→20:00)
[2025-02-20] MEDS: FEOSOL 325 MG PO (08:38)
[2025-02-20] MEDS: LIPITOR 80 MG PO (08:38)
[2025-02-20] MEDS: LOW STRENGTH ASPIRIN 81 MG PO (08:38)
[2025-02-20] MEDS: VITAMIN C 500 MG PO (08:39)
[2025-02-20] MEDS: SENOKOT-S 1 TABLET PO ×2 (08:39→20:00)
[2025-02-20] MEDS: KCL 40 MEQ PO (08:39)
[2025-02-20] MEDS: MAGNESIUM SULFATE 100 IV (08:44)
--- NOTE | 2025-02-20 09:00 | PTCARENOTE ---
Patient received from shift superintendent caustic cresylate RN; AAOx3, responds spontaneously to RN and follows commands but slow/delayed responses; Flat affect; SR with PVC's on monitor; VSS; +2 generalized edema; +1 DP and +2 radial pulses; Shallow respirations; SpO2
95-98% on RA; Lungs diminished at bases; IS 500 ml; Chery catheter draining clear, yellow urine at this time; Assist x1 with RW in room; Surgical sites and pressure injury dressings intact; RIJ Cordis present with KVO infusing; Right triple lumen
PICC line intact and flushing well; IV Magnesium Sulfate 1 gm ordered and given; See nursing documentation for further details
--- NOTE | 2025-02-20 11:23 | W.PN.CD ---
Today's Communication / Plan
-
Continue IV Bumex
She is still 10 pounds from dry weight. Would use IV diuresis while she is here.
Will discuss resuming amiodarone with CT surgery.
Impression / Plan
-
Background: 80F with persistent atrial fibrillation (abnormal bleeding on dabigatran), CAD (LAD and RCA medically managed, 2012), PAD (50-60% R ICA), hypertension, dyslipidemia, moderate MR, , moderate pulmonary hypertension, and moderate to
severe TR who presented with shortness of breath for several days found to have reduced LVEF, severe , mod AR and severe TR and multivessel CAD now s/p surgery.
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 Pinedo
S/p bio-SAVR/CABGx2/TVrepair/Surgical AFib ablation/ANNETTE exclusion 01/31/2025, Crouch
S/p Reopening of sternotomy; Placement of a direct aortic 5.5 Impella left ventricular assist device
- Transferred back to CVICU last week for dobutamine assisted diuresis
- Dobutamine stopped 02/19 and IV Bumex switched to intermittent dosing
Heart failure, preop LVEF 40-45%, EF 50-55% postop
- RHC 02/14 with elevated filling pressure and low cardiac output --> patient transferred to the CVICU for dobutamine assisted diuresis.
- Weights are trending down and she is net negative
- still with significant edema upper and lower extremities
- Continue IV Bumex 2 mg twice daily. She is still 10 pounds above dry weight.
Paroxysmal AFib
- Amio on hold for concern for hypotension per Dr. Crouch
- cannot afford eliquis, continue warfarin
Pleural effusion. Right thoracentesis 02/16/2025
TALIB
- Baseline Cr 1.1
- Monitor with diuresis
Anemia
- 7 Unit PRBC transfused so far in month of January 2025
- Hemoglobin trending down to 7.8 so patient received additional unit of PRBC 02/17/2025
Depression. Up in chair cooperative. Psychiatry following
CAD
Valvular heart disease
Ischemic cardiomyopathy
PAD
Mixed hyperlipidemia
Subjective:
No CP or dyspnea. Feels great. Wants to get out of here. Off all drips.
Physical Exam
Vital Signs/Labs
Vital Signs
Temp Pulse Resp BP Pulse Ox
97.8 F 84 16 108/56 97
02/20/25 11:00 02/20/25 11:15 02/20/25 11:00 02/20/25 11:00 02/20/25 11:15
02/19/25 02/20/25 02/21/25
06:59 06:59 06:59
Actual Weight 141 lb 1.533 oz 135 lb 5.821 oz
02/20/25 03:09
02/20/25 03:09
PT 18.2 Sec (11.4-14.6) H 02/20/25 03:09
INR 1.48 02/20/25 03:09
APTT 34.8 Sec (23.4-35.0) 02/06/25 03:18
Magnesium 1.9 mg/dl (1.6-2.3) 02/20/25 03:09
Triglycerides 66 mg/dl (10-149) 01/25/25 04:53
LDL Cholesterol, Calc 75 mg/dl 01/25/25 04:53
VLDL Cholesterol, Calc 13 mg/dl (0-30) 01/25/25 04:53
HDL Cholesterol 74 mg/dl 01/25/25 04:53
Free T4 1.16 ng/dl (0.78-2.19) 02/17/25 03:58
01/24/25
15:33
Lbc-C-Nbjsnkodadn Pept [id number]
Physical Exam
Constitutional: No acute distress and Comfortable
Cardiovascular: Rhythm & rate is regular, Pedal edema present, S1S2 is normal and Murmur/rub/gallop absent
Respiratory: Respiratory effort normal and Other (decreased breath sounds at bilateral bases)
Neuro/Psych: AO x 3
Data Reviewed
-
Date of Service: February 20, 2025
Medical Decision Making: Reviewed Test Results, Independent Historian Assessment, Test Interpretation and Review of Case with other Provider
EKG: Tracing Personally Visualized and interpreted
Echo: Report Reviewed by me
Labs: Labs Reviewed by me
[2025-02-20] MEDS: PACERONE 200 MG PO (12:52)
--- NOTE | 2025-02-20 13:33 | PTCARENOTE ---
RIJ Cordis removed at bedside by RN - VSS and no complication noted throughout; Additional PO Bumex ordered due to decreasing urine output in dozier catheter; Patient now resting comfortably in bed
--- NOTE | 2025-02-20 14:06 | W.PN.UPDATE ---
Update Note
Progress Note Update
Pt seen, chart reviewed. Pt sitting upright in bed, well-groomed, alert, calm, cooperative. Pt states having her son here is very helpful. She denies significant depression or anxiety; she has not needed the prn Xanax that is ordered. Pt
anticipating going to [facility] re[facility].
Imp: Adjustment d/o, with anxiety, improved
Rec: continue Xanax prn; not other intervention indicated. Psychiatry will sign off
[2025-02-20] MEDS: NSS IV (15:27)
[2025-02-20] MEDS: LOPRESSOR 2.5 MG IV (17:14)
[2025-02-20 17:26] LABS: Blood Urea Nitrogen 82 mg/dl (7-17); Calcium 9.3 mg/dl (8.4-10.2); Carbon Dioxide 38 mmol/L (22-30); Chloride 93 mmol/L (98-107); Estimated Creatinine Clearance 26 ml/min; Glucose 149 mg/dl (70-99); Magnesium 2.2 mg/dl (1.6-2.3); Potassium 4.4 mmol/L (3.5-5.1); Sodium 134 mmol/L (135-145); eGFR 30.13
[2025-02-20] MEDS: CORDARONE 103 MG IV (17:31)
[2025-02-20] MEDS: COUMADIN 2.5 MG PO (17:50)
--- NOTE | 2025-02-20 18:22 | PTCARENOTE ---
Patient went into afib with RVR at 1646 while eating dinner; VSS and patient denies any shortness of breath, chest pain, dizziness, or lightheadedness; IV Lopressor 2.5 mg ordered and given; Patient converted to SR with PVC's at 1728 while
ambulating to bed; IV Amiodarone bolus ordered and given - patient hypotensive but asymptomatic following; CVNP Flaca Santamaria notified and PO Toprol XL dose discontinued; At 1800 BP normalized; Patient resting comfortably in bed
[2025-02-20] MEDS: KCL 20 MEQ PO (20:00)
--- NOTE | 2025-02-20 21:00 | PTCARENOTE ---
Assumed care of pt from dayshift RN. Walking rounds completed. Pt is AAOx3. SR w/ occasional PVCs on the tele monitor. HR 70-80s. BP stable. B/L radial pulses palpable. B/L DP pulses weak on palpation. +2 B/L upper/lower extremity edema present. Pt
on RA. POX 96%. Lung sounds diminished B/L. Deep breathing and IS encouraged. Abdomen soft. +BS x4. Pt w/ dozier catheter draining yellow urine. All surgical sites stable. Right upper extremity PICC present. Pt repositioned in bed. No c/o pain at
this time. See worklist for full nursing assessment and interventions. Call sánchez within reach.
[2025-02-20] MEDS: MELATONIN 5 MG PO (22:04)
[2025-02-21] VITALS (12 sets, daily range): BP systolic 90–117; BP diastolic 45–63; PULSE 81; O2SAT 99; BMI 20.8
--- NOTE | 2025-02-21 00:51 | PTCARENOTE ---
No change in assessment. Pt SR w/ occasional PVC's on the tele monitor. HR 70s. BP stable. Pt on RA. POX 96%. Chery catheter intact and draining yellow urine. Pt repositioned in bed. All surgical sites stable. Call sánchez within reach.
[2025-02-21 03:15] LABS: Hematocrit 25.2 % (37.0-47.0); Hemoglobin 8.3 g/dL (12.0-16.0); Mean Corp Hgb Conc. 32.9 g/dL (33.0-37.0); Mean Corpuscular Volume 93.0 fL (81.0-99.0); Platelet Count 130 10^3/uL (130-400); Red Cell Dist. Width 18.5 % (11.5-14.5)
[2025-02-21 03:21] LABS: INR 1.43; PT 17.7 Sec (11.4-14.6)
[2025-02-21 03:37] LABS: Blood Urea Nitrogen 79 mg/dl (7-17); Calcium 8.8 mg/dl (8.4-10.2); Carbon Dioxide 38 mmol/L (22-30); Chloride 94 mmol/L (98-107); Estimated Creatinine Clearance 26 ml/min; Glucose 91 mg/dl (70-99); Magnesium 2.3 mg/dl (1.6-2.3); Potassium 3.5 mmol/L (3.5-5.1); Sodium 135 mmol/L (135-145); eGFR 30.13
--- NOTE | 2025-02-21 03:49 | PTCARENOTE ---
Pt reassessed. VSS. SR on the tele monitor. Labs drawn and sent. Pt assisted OOB to have a BM and then repositioned back into bed. No c/o pain at this time. Call sánchez within reach.
[2025-02-21] MEDS: KCL 40 MEQ PO (04:22)
--- NOTE | 2025-02-21 05:00 | W.PN.CT ---
Today's Communication / Plan
-
-No major issues overnight
-Dobutamine weaned off 02/19. Bumex gtt transitioned to 2mg PO TID in preparation for [facility]
-Replete electrolytes
-24hrs u/o 3470, wt 60.3 kg, down from 61.4 kg yesterday
-Had a brief 45 min a-fib with RVR yesterday 02/20, responded to 2.5 IV lopressor. Amiodarone resumed @ 200 mg QD. Toprol XL placed on hold d/t soft BP
-Underwent right thoracentesis with evacuation of 850 cc of serosanguineous pleural fluid on 02/16
-Received 2.5 mg Coumadin yesterday for INR 1.48, INR 1.43 today
-Monitor cr 1.7, was 1.7 yesterday
-Hyponatremia has resolved, 135
-Maintain dozier catheter for accurate I/O's
-Received 1u PRBC on 02/17 for h/h 7.9/23.8, up to 8.3/25.2 today, likely hemodilutional
-OOB into chair/Ambulate/PT-OT f/u
-[facility] placement in 1-2 days
Assessment / Plan
-
- Acute heart failure with cardiogenic shock, aortic valve stenosis and insufficiency, severe tricuspid valve insufficiency, A-fib with RVR and multivessel coronary disease- s/p Surgical aortic valve replacement [23 mm Andrews Inspira's Resilia
bioprosthesis]; CABG x 2 [ALMANZAR to LAD, RSVG to RPDA]; Simple tricuspid valve repair [32 mm band annuloplasty]; Full left and right atrial maze [combination of RF and cryoablation] plus left atrial appendage exclusion [40 mm device]; Drainage of
bilateral pleural effusions, approximately 250 cc in each chest by Dr. Crouch on 01/31/25, pod #21
- Post cardiotomy cardiogenic shock with escalating inotropic support and vasoactive medication- s/p Reopening of sternotomy; Placement of a direct aortic 5.5 Impella left ventricular assist device
by Dr. Crouch on 01/31/25
- Intraop FRANCISCO JAVIER: LVEF at the start of the surgery was approximately 40% with some regional wall motion abnormalities toward the inferior septal and anterior septal portions of the wall. Following surgery, EF did struggle to approximately 20 to 25%
and she was loaded on 5 dobutamine but had escalating requirements for Levophed. RV function was normal as was RV size and there was only a trace residual amount of tricuspid valve insufficiency.
The left atrial appendage was verified to be free of any thrombus or debris preoperatively and found to be totally occlusive postoperatively. There is no paravalvular leak of the aortic valve prosthesis and the mean gradient across the valve was 3
mmHg. There is essentially no mean gradient across the tricuspid valve. At the conclusion of the case, she did respond to volume loading with blood. Of note she was coagulopathic postoperatively with an elevated ACT despite giving almost double
her protamine dose.
-S/P Stepwise weaning of 5.5 Impella ventricular assist device/Extraction/removal of 5.5 Impella ventricular assist device/ Ligation of sterile portion of 10 mm Hemashield graft using 8 large clips with coverage of the remaining graft with overlying
strap muscles/Local analgesia for pain control, by Dr. Crouch 02/04/25
- Severe aortic valve stenosis
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
- Atrial fibrillation with rapid ventricular response- didn't tolerate Pradaxa in the past d/t vaginal bleed
- Acute respiratory insufficiency
- Significant volume overload requiring diuresis
- HTN/HLD
- PAD
- Nonsmoker
- Acute postop blood loss anemia - s/p total 5 pRBCs
- Acute postop coagulopathy/ thrombocytopenia - s/p 6 unit platelets, 5 FFPs, 2 cryo, 0.5 iv Vit K, DDAVP
- Acute postop 10 beat NSVT on 01/31
- Acute postop junctional rhythm/bradycardia
- Acute postop atelectasis
- Acute postop cardiogenic shock, requiring mechanical cardiac support (Impella 5.5), inotrops and pressors
- Acute postop hypovolemia with subsequent hypervolemia
- Acute postop hypokalemia
- Acute postop Lactic acidosis
- Acute postop TALIB
- Acute postop Epistaxis
- Acute postop hyponatremia
- Acute postop transaminitis
- Acute postop urinary retention, requiring straight caths - Dozier reinserted 02/13/25
- Acute postop cardiogenic shock/ hypothermia- s/p RHC and Cardioversion from a-fib on 02/14/25- Dobutamine resumed
- Acute postop depression
- Acute postop right pleural effusion S/p right thoracentesis (850 cc serosanguineous pleural fluid), 02/16/25
- Acute post-op contraction alkalosis
- Acute postop adjustment disorder
R heart Catherization 02/14/25:
Hemodynamics (mmHg):
RA (m) : 22
RV (s/d,m) : 47/17, 20
PA (s/d, m) : 51/32, 30
PCWP (m) : 34
PA saturation: 58.7% on room air
AO saturation: 100% on room air--obtained noninvasively using pulse oximetry given no arterial access
Cardiac Output : 3.14 L/min by Adam calculation
Cardiac Index : 1.71 L/min/m-2 by Adam calculation
Systemic vascular resistance: [ ] dsc^(-5)
Pulmonary vascular resistance: 1.91 villaseñor unit
Heart rate: 72 bpm in atrial fibrillation
Discussed patient care with: Cardiology, Nursing, Respiratory Therapy, Pharmacy and Care Team
Subjective
Procedure
Aortic valve replacement [23 mm Andrews Inspira's Resilia bioprosthesis]; CABG x 2 [ALMANZAR to LAD, RSVG to RPDA]; Simple tricuspid valve repair [32 mm band annuloplasty]; Full left and right atrial maze [combination of RF and cryoablation] plus left
atrial appendage exclusion [40 mm device]; Drainage of bilateral pleural effusions, approximately 250 cc in each chest by Dr. Crouch on 01/31/25
-
Date of Service: February 21, 2025
Pt offers no complaints, in better spirits
Objective Data
-
Lab Results
02/21/25 03:00
02/21/25 03:00
PT 17.7 Sec (11.4-14.6) H 02/21/25 03:00
INR 1.43 02/21/25 03:00
APTT 34.8 Sec (23.4-35.0) 02/06/25 03:18
Vital Signs
Vital Signs
Temp Pulse Resp BP Pulse Ox
98.1 F 75 17 90/55 97
02/21/25 00:31 02/21/25 04:15 02/21/25 03:30 02/21/25 04:00 02/21/25 01:00
CT Intake/Output/Weight
02/20/25 02/20/25 02/21/25
06:59 18:59 06:59
Intake Total 120 / 1639.0 1280 / 1280
Output Total 2430 / 5230 1820 / 3245 1425 / 3245
Balance -2310 / -3591.0 -540 / -1965 -142 / -1965
SaO2: 97 (6L)
Physical Exam
-
General: Awake, Oriented and AOx3
Cardiovascular: Regular rate & rhythm, No Murmurs and No Gallop
Respiratory: Decreased Breath Sounds (at bases, otherwise clear )
Sternum: Stable
Incision: Clean, Dry, Intact and Dressing Intact
Extremities: Edema +1
Data Reviewed
-
Lab Results: Results Reviewed
Medications: Active Meds Reviewed
Chest X-Ray: Report Reviewed and Image Reviewed
ECG: Report Reviewed and Image Reviewed
[2025-02-21] MEDS: NSS IV (07:23)
--- NOTE | 2025-02-21 08:00 | PTCARENOTE ---
Assumed care of patient. Walking rounds completed. Pt assessed while she was sitting in the chair. Pt alert and oriented x4. Denies pain, shortness of breath, and nausea. ASTORGA with equal weak strength throughout. 1 assist to stand with walker at the
chair to reposition. NSR with occasional PVC on tele with rates in the 70s. BP 99/45. Heart tones audible. Bilateral radial pulses palpable, bilateral DP pulses weakly palpable. Generalized +2 upper & lower extremity edema. POX 97% on RA. Lungs
diminished in the right base. IS encouraged-500mL achieved, needs additional encouragement to do independently. No cough noted. Abdomen soft, round, nontender. +BS. Pt reports BM last night. Chery catheter d/c per orders, previously draining
adequate amounts of clear yellow urine. Sternal incision approximated, scabbed. Left upper chest old impella site, approximated, scabbed. 4 old chest tube sites approximated, scabbed. Right medial knee incision approximated, scabbed. Right and left
groin puncture sites approximated, INSTRUCTIONAL WRITER. Right upper arm 3x PICC intact. See MAR for medication administration. See worklist for complete nursing assessment. Plan of care reviewed and patient in agreement.
[2025-02-21] MEDS: LOW STRENGTH ASPIRIN 81 MG PO (08:17)
[2025-02-21] MEDS: KCL 20 MEQ PO ×2 (08:17→20:39)
[2025-02-21] MEDS: LIPITOR 80 MG PO (08:17)
[2025-02-21] MEDS: PROTONIX 40 MG PO (08:17)
[2025-02-21] MEDS: VITAMIN D3 (cholecalciferol) 100 MCG PO (08:17)
[2025-02-21] MEDS: VITAMIN C 500 MG PO (08:17)
[2025-02-21] MEDS: BUMEX 2 MG PO ×2 (08:17→16:01)
[2025-02-21] MEDS: FEOSOL 325 MG PO (08:17)
[2025-02-21] MEDS: MAGNESIUM OXIDE 500 MG PO (08:17)
[2025-02-21] MEDS: PACERONE PO (08:17)
[2025-02-21] MEDS: SENOKOT-S 1 TABLET PO ×2 (08:18→20:39)
--- NOTE | 2025-02-21 09:19 | W.PN.CD ---
Today's Communication / Plan
-
Beta-jeannie and amiodarone on hold due to hypotension
Continue diuresis
Getting close to discharge to rehab
Impression / Plan
-
Background: 80F with persistent atrial fibrillation (abnormal bleeding on dabigatran), CAD (LAD and RCA medically managed, 2012), PAD (50-60% R ICA), hypertension, dyslipidemia, moderate MR, , moderate pulmonary hypertension, and moderate to
severe TR who presented with shortness of breath for several days found to have reduced LVEF, severe , mod AR and severe TR and multivessel CAD now s/p surgery.
Outpatient sheriff's sergeant: Dr. Pinedo
Heart failure, preop LVEF 40-45%, EF 50-55% postop
- RHC 02/14 with elevated filling pressure and low cardiac output --> patient transferred to the CVICU for dobutamine assisted diuresis. Dobutamine stopped 02/19 and IV Bumex switched to intermittent dosing.
- Weights trending down and she is net negative; still edema but improving
- Continue IV Bumex 2 mg twice daily. Would plan to continue IV diuresis while she is here
- GDMT limited by hypotension; was on low dose BB but currently held for low BPs. Resume as tolerated
S/p bio-SAVR/CABGx2/TVrepair/Surgical AFib ablation/ANNETTE exclusion 01/31/2025, Crouch
S/p Reopening of sternotomy; Placement of a direct aortic 5.5 Impella left ventricular assist device
- Transferred back to CVICU last week for dobutamine assisted diuresis. Dobutamine stopped 02/19 and IV Bumex switched to intermittent dosing
- Continue ASA and statin. BB on hold due to hypotension.
- HF management as above
Paroxysmal AFib
- Amio and BB on hold for hypotension
- cannot afford eliquis, continue warfarin
TALIB
- Baseline Cr 1.1
- Monitor with diuresis
Anemia
- 7 Unit PRBC transfused so far in month of January 2025. Last on 02/17
Pleural effusion. Right thoracentesis 02/16/2025
Depression. Up in chair cooperative. Psychiatry following
CAD
Valvular heart disease
Ischemic cardiomyopathy
PAD
Mixed hyperlipidemia
Subjective:
No complaints. She had an episode of A-fib with RVR yesterday in the evening that lasted about 45 minutes. She was asymptomatic.
Physical Exam
Vital Signs/Labs
Vital Signs
Temp Pulse Resp BP Pulse Ox
97.7 F 80 16 99/45 97
02/21/25 08:00 02/21/25 08:30 02/21/25 08:00 02/21/25 08:06 02/21/25 08:00
02/20/25 02/21/25 02/22/25
06:59 06:59 06:59
Actual Weight 135 lb 5.821 oz 132 lb 15.02 oz
02/21/25 03:00
02/21/25 03:00
PT 17.7 Sec (11.4-14.6) H 02/21/25 03:00
INR 1.43 02/21/25 03:00
APTT 34.8 Sec (23.4-35.0) 02/06/25 03:18
Magnesium 2.3 mg/dl (1.6-2.3) 02/21/25 03:00
Triglycerides 66 mg/dl (10-149) 01/25/25 04:53
LDL Cholesterol, Calc 75 mg/dl 01/25/25 04:53
VLDL Cholesterol, Calc 13 mg/dl (0-30) 01/25/25 04:53
HDL Cholesterol 74 mg/dl 01/25/25 04:53
Free T4 1.16 ng/dl (0.78-2.19) 02/17/25 03:58
01/24/25
15:33
Jrn-A-[id number] Pept [id number]
Physical Exam
Constitutional: No acute distress and Comfortable
Cardiovascular: Rhythm & rate is regular, Pedal edema present, Systolic murmur present and S1S2 is normal
Respiratory: Respiratory effort normal, Wheeze Present and Crackles Present
Neuro/Psych: AO x 3
Data Reviewed
-
Date of Service: February 21, 2025
Medical Decision Making: Reviewed Test Results, Independent Historian Assessment, Test Interpretation and Review of Case with other Provider
EKG: Tracing Personally Visualized and interpreted
Echo: Report Reviewed by me
Labs: Labs Reviewed by me
--- NOTE | 2025-02-21 11:48 | CM ---
CM following for DC planning needs.
Met w/ patient at bedside. She reports that she is feeling well and is hopeful she will be ready for DC soon.
DC plan is transfer to [facility] @ .
I have provided update to adan Alex @ [facility].
No authorization req'd for transfer.
Plan- transfer to [facility] once stable.
--- NOTE | 2025-02-21 12:15 | PTCARENOTE ---
Pt reassessed. NSR with occasional PVC with rates in the 80s. BP 104/53. POX 98% on RA. Surgical sites stable. Reports no urge to void, due for bladder scan at 1430. Sitting up in the chair, eating lunch with son at bedside.
--- NOTE | 2025-02-21 14:15 | PTCARENOTE ---
Pt bladder scanned for >608mL. Pt unable to void, straight cathed for 650mL clear anita urine. Pt tolerated. CT MANUFACTURING ACCOUNTANT notified.
--- NOTE | 2025-02-21 16:15 | PTCARENOTE ---
Pt reassessed. Chery placed as per urology order. Pt tolerated. Updated pt and family on following up with urology as an outpatient. SR with occasional PVCs with rates in the 80s. BP 117/63. pOX 98% on RA. Surgical sites stale. Pt requesting to rest
in bed at this time. Encouraged IS.
[2025-02-21] MEDS: COUMADIN 3 MG PO (17:49)
--- NOTE | 2025-02-21 18:02 | CON.MD ---
Consultation - Medical
-
see dictated note
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
protracted post op course after cardiac surgery
unable to urinate after dozier removal- schedule for discharge to rehab
reviewed with pt
discharge with dozier/leg bag teaching
have rehab contact dr mobley to discuss outpt voiding trial
Consultation
-
Date/Time Consultation Requested: 02/21/25 at 4pm
Date/Time Consultation Performed: 02/21/25 at 6pm
Requesting Provider: CV team
Performing Provider: Dr Mobley
Reason for Consultation: urinary retention
--- NOTE | 2025-02-21 21:00 | PTCARENOTE ---
Assumed care of pt from ria LOPEZ. Pt is AAOx3. SR w/ PVCs on the tele monitor. HR 80s. BP stable. B/L radial pulses palpable. B/L DP pulses weak. +2 UE/LE edema present. Pt is 97% on RA. Right lung diminished at the base. Left lung sounds
audible. Deep breathing and IS encouraged. Abdomen round. Nontender. +BSx4. Chery catheter intact and draining yellow urine. All surgical sites stable. Right upper arm triple lumen PICC intact. Pt repositioned in the bed. Chery care completed. See
worklist for full nursing assessment and interventions. Call sánchez within reach.
[2025-02-22 00:07] VITALS: BP 115/57
--- NOTE | 2025-02-22 00:13 | PTCARENOTE ---
No acute change in assessment. VSS. Pt repositioned in bed. Call sánchez within reach.
--- NOTE | 2025-02-22 02:34 | W.PN.CT ---
Today's Communication / Plan
-
-Remains in NSR
-Dobutamine weaned off 02/19. Bumex gtt transitioned to 2mg PO BID in preparation for [facility]. Target weight <60 kg
-Had a brief 45 min a-fib with RVR 02/20. curently amio/BB held due to soft BB from diuresis. May try restarting BB today
-Underwent right thoracentesis with evacuation of 850 cc of serosanguineous pleural fluid on 02/16
-Received 3 mg Coumadin yesterday for INR 1.43, INR 1.4 today
-Monitor cr, [facility] requested nephro consult prior to DC
-Hyponatremia has resolved
-Maintain dozier catheter for accurate I/O's, voiding trial with urology as outpatient
-OOB into chair/Ambulate/PT-OT f/u
-[facility] placement dispo planning
Assessment / Plan
-
- Acute heart failure with cardiogenic shock, aortic valve stenosis and insufficiency, severe tricuspid valve insufficiency, A-fib with RVR and multivessel coronary disease- s/p Surgical aortic valve replacement [23 mm Andrews Inspira's Resilia
bioprosthesis]; CABG x 2 [ALMANZAR to LAD, RSVG to RPDA]; Simple tricuspid valve repair [32 mm band annuloplasty]; Full left and right atrial maze [combination of RF and cryoablation] plus left atrial appendage exclusion [40 mm device]; Drainage of
bilateral pleural effusions, approximately 250 cc in each chest by Dr. Crouch on 01/31/25, pod #22
- Post cardiotomy cardiogenic shock with escalating inotropic support and vasoactive medication- s/p Reopening of sternotomy; Placement of a direct aortic 5.5 Impella left ventricular assist device
by Dr. Crouch on 01/31/25
- Intraop FRANCISCO JAVIER: LVEF at the start of the surgery was approximately 40% with some regional wall motion abnormalities toward the inferior septal and anterior septal portions of the wall. Following surgery, EF did struggle to approximately 20 to 25%
and she was loaded on 5 dobutamine but had escalating requirements for Levophed. RV function was normal as was RV size and there was only a trace residual amount of tricuspid valve insufficiency.
The left atrial appendage was verified to be free of any thrombus or debris preoperatively and found to be totally occlusive postoperatively. There is no paravalvular leak of the aortic valve prosthesis and the mean gradient across the valve was 3
mmHg. There is essentially no mean gradient across the tricuspid valve. At the conclusion of the case, she did respond to volume loading with blood. Of note she was coagulopathic postoperatively with an elevated ACT despite giving almost double
her protamine dose.
-S/P Stepwise weaning of 5.5 Impella ventricular assist device/Extraction/removal of 5.5 Impella ventricular assist device/ Ligation of sterile portion of 10 mm Hemashield graft using 8 large clips with coverage of the remaining graft with overlying
strap muscles/Local analgesia for pain control, by Dr. Crouch 02/04/25
- Severe aortic valve stenosis
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
- Atrial fibrillation with rapid ventricular response- didn't tolerate Pradaxa in the past d/t vaginal bleed
- Acute respiratory insufficiency
- Significant volume overload requiring diuresis
- HTN/HLD
- PAD
- Nonsmoker
- Acute postop blood loss anemia - s/p total 5 pRBCs
- Acute postop coagulopathy/ thrombocytopenia - s/p 6 unit platelets, 5 FFPs, 2 cryo, 0.5 iv Vit K, DDAVP
- Acute postop 10 beat NSVT on 01/31
- Acute postop junctional rhythm/bradycardia
- Acute postop atelectasis
- Acute postop cardiogenic shock, requiring mechanical cardiac support (Impella 5.5), inotrops and pressors
- Acute postop hypovolemia with subsequent hypervolemia
- Acute postop hypokalemia
- Acute postop Lactic acidosis
- Acute postop TALIB
- Acute postop Epistaxis
- Acute postop hyponatremia
- Acute postop transaminitis
- Acute postop urinary retention, requiring straight caths - Dozier reinserted 02/13/25
- Acute postop cardiogenic shock/ hypothermia- s/p RHC and Cardioversion from a-fib on 02/14/25- Dobutamine resumed
- Acute postop depression
- Acute postop right pleural effusion S/p right thoracentesis (850 cc serosanguineous pleural fluid), 02/16/25
- Acute post-op contraction alkalosis
- Acute postop adjustment disorder
R heart Catherization 02/14/25:
Hemodynamics (mmHg):
RA (m) : 22
RV (s/d,m) : 47/17, 20
PA (s/d, m) : 51/32, 30
PCWP (m) : 34
PA saturation: 58.7% on room air
AO saturation: 100% on room air--obtained noninvasively using pulse oximetry given no arterial access
Cardiac Output : 3.14 L/min by Adam calculation
Cardiac Index : 1.71 L/min/m-2 by Adam calculation
Systemic vascular resistance: [ ] dsc^(-5)
Pulmonary vascular resistance: 1.91 villaseñor unit
Heart rate: 72 bpm in atrial fibrillation
Subjective
Procedure
Aortic valve replacement [23 mm Andrews Inspira's Resilia bioprosthesis]; CABG x 2 [ALMANZAR to LAD, RSVG to RPDA]; Simple tricuspid valve repair [32 mm band annuloplasty]; Full left and right atrial maze [combination of RF and cryoablation] plus left
atrial appendage exclusion [40 mm device]; Drainage of bilateral pleural effusions, approximately 250 cc in each chest by Dr. Crouch on 01/31/25
-
Date of Service: February 22, 2025
Objective Data
-
Lab Results
02/21/25 03:00
PT 17.7 Sec (11.4-14.6) H 02/21/25 03:00
INR 1.43 02/21/25 03:00
APTT 34.8 Sec (23.4-35.0) 02/06/25 03:18
Vital Signs
Vital Signs
Temp Pulse Resp BP Pulse Ox
98 F 83 16 115/57 97
02/22/25 00:07 02/22/25 00:07 02/22/25 00:07 02/22/25 00:07 02/22/25 00:07
CT Intake/Output/Weight
02/21/25 02/21/25 02/22/25
06:59 18:59 06:59
Intake Total 840 / 840
Output Total 1625 / 3545 1470 / 2370 900 / 2370
Balance -1625 / -2265 -630 / -1530 -900 / -1530
SaO2: 97
Physical Exam
-
General: Awake and Oriented
Cardiovascular: Regular rate & rhythm, No Murmurs and No Rub
Respiratory: Clear and Decreased Breath Sounds
Sternum: Stable
Incision: Clean
Extremities: Edema +1
Data Reviewed
-
Lab Results: Results Reviewed
Medications: Active Meds Reviewed
Chest X-Ray: Report Reviewed
ECG: Report Reviewed
[2025-02-22 04:10] VITALS: BP 101/50
--- NOTE | 2025-02-22 04:23 | PTCARENOTE ---
No change in assessment. VSS. Chery catheter draining yellow urine appropriately. Labs sent. Pt repositioned in bed. Call sánchez within reach.
[2025-02-22 04:48] LABS: INR 1.40; PT 17.6 Sec (11.4-14.6)
[2025-02-22 04:54] LABS: Blood Urea Nitrogen 75 mg/dl (7-17); Calcium 9.0 mg/dl (8.4-10.2); Carbon Dioxide 37 mmol/L (22-30); Chloride 96 mmol/L (98-107); Estimated Creatinine Clearance 27 ml/min; Glucose 89 mg/dl (70-99); Magnesium 2.2 mg/dl (1.6-2.3); Potassium 3.6 mmol/L (3.5-5.1); Sodium 137 mmol/L (135-145); eGFR 32.40
[2025-02-22 06:00] VITALS: BMI 20.1
--- NOTE | 2025-02-22 07:36 | W.PN.CD ---
Today's Communication / Plan
-
cont. PO diuresis
increase warfrain dosing
consider BB restart
renal consult per [facility] request
Impression / Plan
-
Background: 80F with persistent atrial fibrillation (abnormal bleeding on dabigatran), CAD (LAD and RCA medically managed, 2012), PAD (50-60% R ICA), hypertension, dyslipidemia, moderate MR, , moderate pulmonary hypertension, and moderate to
severe TR who presented with shortness of breath for several days found to have reduced LVEF, severe , mod AR and severe TR and multivessel CAD now s/p surgery.
Outpatient component technician: Dr. Pinedo
Heart failure, preop LVEF 40-45%, EF 50-55% postop
- RHC 02/14 with elevated filling pressure and low cardiac output --> patient transferred to the CVICU for dobutamine assisted diuresis. Dobutamine stopped 02/19 and IV Bumex switched to PO now.
- Weights trending down and she is net negative; still edema but improving
- GDMT limited by hypotension; was on low dose BB but currently held for low BPs. Resume as tolerated
S/p bio-SAVR/CABGx2/TVrepair/Surgical AFib ablation/ANNETTE exclusion 01/31/2025, Crouch
S/p Reopening of sternotomy; Placement of a direct aortic 5.5 Impella left ventricular assist device
- Transferred back to CVICU last week for dobutamine assisted diuresis. Dobutamine stopped 02/19 and IV Bumex switched to PO, weight continues to imporve and Cr now starting to drop. Would allow weight to continue to come down as long as creatinine
improving. If, Cr bumps, assume dry weight and decrease diuresis to maintain dry weight.
- Continue ASA and statin. BB on hold due to hypotension.
- HF management as above
Paroxysmal AFib
- Amio and BB on hold for hypotension
- can consider restarting low dose beta jeannie
- cannot afford eliquis, continue warfarin (INR has been low, may need to increase dose)
TALIB
- Baseline Cr 1.1, improving down to 1.6 from peak 2.0
- Monitor with diuresis
- renal consult per [facility] request
Urinary retention
- void trial as outpatient
Anemia
- 7 Unit PRBC transfused so far in month of January 2025. Last on 02/17
Pleural effusion. Right thoracentesis 02/16/2025
Depression. Up in chair cooperative. Psychiatry following
CAD
Valvular heart disease
Ischemic cardiomyopathy
PAD
Mixed hyperlipidemia
Subjective:
No complaints. Doing well and looking forward to discharge.
Physical Exam
Vital Signs/Labs
Vital Signs
Temp Pulse Resp BP Pulse Ox
36.6 C 87 15 101/50 96
02/22/25 04:10 02/22/25 06:00 02/22/25 04:10 02/22/25 04:10 02/22/25 04:10
02/21/25 02/22/25 02/23/25
06:59 06:59 06:59
Actual Weight 60.3 kg 58.3 kg
02/21/25 03:00
02/22/25 04:17
PT 17.6 Sec (11.4-14.6) H 02/22/25 04:17
INR 1.40 02/22/25 04:17
APTT 34.8 Sec (23.4-35.0) 02/06/25 03:18
Magnesium 2.2 mg/dl (1.6-2.3) 02/22/25 04:17
Triglycerides 66 mg/dl (10-149) 01/25/25 04:53
LDL Cholesterol, Calc 75 mg/dl 01/25/25 04:53
VLDL Cholesterol, Calc 13 mg/dl (0-30) 01/25/25 04:53
HDL Cholesterol 74 mg/dl 01/25/25 04:53
Free T4 1.16 ng/dl (0.78-2.19) 02/17/25 03:58
01/24/25
15:33
Brr-I-Rzqdotvktfg Pept [id number]
Physical Exam
Constitutional: Comfortable
Cardiovascular: Rhythm & rate is regular
Respiratory: Respiratory effort normal
Neuro/Psych: AO x 3
Data Reviewed
-
Date of Service: February 22, 2025
Medical Decision Making: Reviewed Test Results
Labs: Labs Reviewed by me
[2025-02-22 07:51] VITALS: BP 112/59
[2025-02-22] MEDS: PROTONIX 40 MG PO (07:54)
[2025-02-22] MEDS: KCL 20 MEQ PO (07:55)
[2025-02-22] MEDS: VITAMIN D3 (cholecalciferol) 100 MCG PO (07:55)
[2025-02-22] MEDS: MAGNESIUM OXIDE 500 MG PO (07:55)
[2025-02-22] MEDS: LIPITOR 80 MG PO (07:55)
[2025-02-22] MEDS: SENOKOT-S 1 TABLET PO (07:55)
[2025-02-22] MEDS: LOW STRENGTH ASPIRIN 81 MG PO (07:55)
[2025-02-22] MEDS: VITAMIN C 500 MG PO (07:55)
[2025-02-22] MEDS: BUMEX 2 MG PO (07:55)
[2025-02-22] MEDS: FEOSOL 325 MG PO (07:55)
--- NOTE | 2025-02-22 08:23 | PTCARENOTE ---
Received pt from material handler 1st shift RN; pt AAOx3 and resting comfortably in chair; NSR on monitor and VSS: Right PICC patent; Lungs diminished; IS to 750; positive bowel sounds; Chery catheter draining yellow urine; palpable radial pulses and weak lower
extremity DP; +1 lower extremity edema noted; all surgical sites C/D/I; see nursing documentation for further details.
--- NOTE | 2025-02-22 08:42 | W.CON.NEPH ---
Consultation
-
Date/Time Consultation Requested: 02/21/2025 630 PM
Date/Time Consultation Performed: 02/22/2025 845 AM
Requesting Provider: Dr. Crouch
Performing Provider: Dr. Mtz
Reason for Consultation: Acute kidney injury
Medical History
-
Chief Complaint: Acute kidney injury
History of Present Illness:
Patient is an 80-year-old female with a history of hypertension maintained on amlodipine hydrochlorothiazide metoprolol and lisinopril, dyslipidemia maintained on statin, PAF and ASA presented on 01/24/25 with rapid atrial fibrillation and hypoxic
respiratory failure with new onset of congestive heart failure. Her creatinine was 1.1 on admission which is consistent with her baseline creatinine noted to be 1.1 from May 27, 2024. On 01/31/2025 she underwent S/p
bio-SAVR/CABGx2/TVrepair/Surgical AFib ablation/ANNETTE exclusion 01/31/2025. Postop complications including reopening of sternotomy and placement of Impella left ventricular assist device as well as dobutamine support and aggressive diuresis was
necessitated postoperatively. Dobutamine was stopped on February 19 and her IV Bumex which she had been given for diuresis was changed to now 2 mg po BID dosing. Over the course of her admission she sustained acute kidney injury with her creatinine
peaking around 2, but has subsequently now nadired down to 1.6. Ongoing obstructive uropathy due to urinary retention was also noted and she now has an indwelling Dozier catheter which will be maintained. Although acute kidney injury is improving
[facility] has requested a nephrology consult prior to transfer to rehab.
Past Medical History
Pleural effusion. Right thoracentesis 02/16/2025
Depression
CAD
Valvular heart disease
Ischemic cardiomyopathy
PAD
Mixed hyperlipidemia
CKD with baseline creatinine 1.1
Paroxysmal atrial fibrillation
S/p bio-SAVR/CABGx2/TVrepair/Surgical AFib ablation/ANNETTE exclusion 01/31/2025
Previous CAD and PAD
Pulmonary hypertension
Social History
Tobacco: Non-Smoker
Alcohol: None
Drug: None
Personal: Single
Family History
No CKD
Family History: Not Pertinent
Allergies / Home Medications
Allergy/AdvReac Type Severity Reaction Status Date / Time
No Known Allergies Allergy Verified 05/07/22 12:28
�Medication �Instructions �Recorded �Confirmed �Type
amlodipine 5 mg tablet 5 mg PO DAILY Blood Pressure 01/24/25 01/24/25 History
aspirin 81 mg tablet,delayed 81 mg PO DAILY Blood Clot 01/24/25 01/24/25 History
release Prevention/Tx
coenzyme Q10 100 mg capsule 200 mg PO DAILY Supplement 01/24/25 01/24/25 History
(CoQ-10)
hydrochlorothiazide 25 mg tablet 25 mg PO DAILY Blood Pressure 01/24/25 01/24/25 History
ibuprofen 200 mg tablet (Advil) 200 mg PO BIDPRN PRN mild pain 01/24/25 01/24/25 History
lisinopril 40 mg tablet 40 mg PO DAILY Blood Pressure 01/24/25 01/24/25 History
lovastatin 40 mg tablet 40 mg PO QPM High Cholesterol 01/24/25 01/24/25 History
metoprolol succinate 25 mg 25 mg PO QPM Blood Pressure 01/24/25 01/24/25 History
tablet,extended release 24 hr
therapeutic multivitamin 1 tab PO Q48H Supplement 01/24/25 01/24/25 History
Review of Systems
-
History Source: Patient
All other systems: Negative unless noted
: Other (Indwelling Dozier cath)
Musculoskeletal: Edema
Physical Exam
Vital Signs
Vital Signs
Temp Pulse Resp BP Pulse Ox
98.2 F 86 20 112/59 97
02/22/25 07:41 02/22/25 08:00 02/22/25 07:41 02/22/25 07:51 02/22/25 08:36
Lab Results
02/21/25 03:00
02/22/25 04:17
WBC 6.8 10^3/uL (4.8-10.8) 02/21/25 03:00
RBC 2.71 10^6/uL (4.20-5.40) L 02/21/25 03:00
Hgb 8.3 g/dL (12.0-16.0) L 02/21/25 03:00
Hct 25.2 % (37.0-47.0) L 02/21/25 03:00
Plt Count 130 10^3/uL (130-400) D 02/21/25 03:00
Sodium 137 mmol/L (135-145) 02/22/25 04:17
Potassium 3.6 mmol/L (3.5-5.1) 02/22/25 04:17
Chloride 96 mmol/L (98-107) L 02/22/25 04:17
Carbon Dioxide 37 mmol/L (22-30) H 02/22/25 04:17
BUN 75 mg/dl (7-17) H 02/22/25 04:17
Creatinine 1.6 mg/dL (0.6-1.0) H 02/22/25 04:17
eGFR 32.40 02/22/25 04:17
Glucose 89 mg/dl (70-99) 02/22/25 04:17
Calcium 9.0 mg/dl (8.4-10.2) 02/22/25 04:17
Phosphorus 3.6 mg/dl (2.5-4.5) 02/22/25 04:17
Lsm-C-Nlftkohloos Pept 43241 pg/ml 01/24/25 15:33
Albumin 3.1 g/dl (3.5-5.0) L 02/18/25 03:43
Physical Exam
General: AOx3, Nontoxic , NAD
HEENT: PERRL, EOMI, Anicteric, Conjunctivae Clear, Ear/Nose Intact, Hearing Normal, Oropharynx Clear/Moist, Dentition Intact, Facial Symmetry, Neck Supple, Neck: Trachea Midline, No JVD and No Thyromegaly, no Bruits
Respiratory: Clear lung field on left significant decreased breath sounds in the right lower lung field bilaterally with normal lung exersion
Cardiac: S1/S2 and Regular Rate/Rhythm
Breast: Deferred by me
Abdomen: Soft, Nontender, Nondistended, Normal Bowel Sounds and No Hepatosplenomegaly
Rectal: Deferred by Provider
Genito-urinary: No Costovertebral Tenderness: dozier catheter
Extremities: No Clubbing, No Cyanosis and +1 pitting pretibial edema
Skin: No Rash or open lesions
Neuro: Nonfocal/Grossly Intact, CN II-XII (Intact) and Strength (Musculoskeletal exam 5 out of 5 both upper and lower extremities)
Hematologic/Lymphatic: No Cervical Lymphadenopathy, No Submandibular Lymphadenopathy and No Supraclavicular Lymphadenopathy
Psych: Mood/afflect pleasant, Insight/judgement good and Appropriate
Vascular: plus 1 pedal and radial pulses
Data Reviewed
-
Radiology: Image Personally Visualized and interpreted (Chest x-ray from date 02/17/2025 personally reviewed shows hyperinflated lung blanco mild pulmonary edema obscuring of right lower lung base with opacity)
Labs: Labs Reviewed by me (BMP CBC urinalysis)
Old Records: Reviewed (Old labs reviewed from date 05/27/24: 1.1)
Assessment/Plan
-
Impression:
TALIB
CKD (1.1)
Metabolic alkalosis
S/p bio-SAVR/CABGx2/TVrepair/Surgical AFib ablation/ANNETTE exclusion 01/31/2025, Crouch
S/p Reopening of sternotomy; Placement of a direct aortic 5.5 Impella left ventricular assist device
History of HTN
History of coronary artery disease and peripheral arterial disease
Paroxysmal atrial fibrillation
Urinary retention this admission now requiring Dozier catheter
Heart failure, preop LVEF 40-45%, EF 50-55% postop
Anemia
Right pleural effusion
Valvular heart disease
Known ischemic cardiomyopathy
Plan:
TALIB:
- Patient with prolonged hospitalization of 1 month with multiple postoperative complications including acute kidney injury
- Fortunately creatinine continues to improve now down to 1.6,( baseline 1.1), initial urinalysis from date 01/29/2025 showed a bland urinalysis without evidence of microscopic hematuria or proteinuria
- Maintain Dozier catheter per urology and patient appears to be grossly nonoliguric at current oral Bumex dosage
- Current weight appears to be at admission weight
-I suspect ongoing metabolic alkalosis is secondary to contraction alkalosis from diuresis
- Patient renally stable for transfer to rehab facility
--- NOTE | 2025-02-22 09:35 | WOUNDNOTE ---
R HEEL (BLANCHABLE RED)
--- NOTE | 2025-02-22 09:35 | WOUNDNOTE ---
[facility] RN note: Patient for possible transfer to [facility] today. Patient sitting in recliner chair with foam chair cushion. L buttocks ulcer about 50% healed, pink and epithelial. Appetite fair. Patient stood with walker and minimal assist/supervision.
Sacral shaped silicone border foam on sacrum and L buttocks foam dressing maintained. Skin on heels blanchable mild red and intact. Protective heel foam dressings changed. Patient instructed pressure injury prevention measures.
--- NOTE | 2025-02-22 10:24 | W.DCSUMMARY ---
Discharge Summary
Discharge Data
Date of Admission: 01/24/25
Date of Discharge: 02/22/25
-
Pending Results: No
Hospital Course
Primary care physician: Analia Duron
Outpatient proposal rep: Curtis Bazan
Inpatient consultants: [facility] Cardiology, pulmonary auto club safety program coordinator, urology, nephrology, physiatry
Procedures:
1. AVR, tricuspid repair, CABG x 2 MAZE, clip /)
2. Impella 5.5 (01/31)
3. Right heart cath (02/14)
4. RUE PICC (02/14)
5. Right thoracentesis (02/16)
6. Left thoracentesis (01/25)
7. cardioversion to sinus (02/14)
Primary Diagnosis:
1. critical aortic stenosis with insufficiency
Secondary Diagnoses:
1. Multivessel coronary artery disease
2. Severe tricuspid insufficiency
3. Acute heart failure with cardiogenic shock requiring mechanical cardiac support (Impella 5.5), inotrops and pressors
4. B/L Pleural effusion requiring thoracentesis
5. Chronic atrial fibrillation with acute rapid ventricular response s/p Cardioversion from a-fib on 02/14/25
6. Acute post-op Coagulopathy/thrombocytopenia-6 unit platelets, 5 FFPs, 2 cryo, 0.5 iv Vit K, DDAVP
7. Acute post-op junctional rhythm
8. Acute kidney injury
9. PAD
10. Acute post-op respiratory insufficiency
11. HTN
12. HLD
13. Acute postop blood loss anemia - s/p total 5 pRBCs
14. Acute postop hypokalemia
15. Acute postop Lactic acidosis
16. Acute postop Epistaxis
17. Acute postop hyponatremia
18. Acute postop transaminitis
19. Acute postop urinary retention, requiring straight caths and Chery reinsertion
20. Acute postop depression/adjustment disorder
21. Acute post-op contraction alkalosis
HPI: Marlin Witt is an 80-year-old female with past medical history significant for hypertension, bilateral carotid stenosis, atrial fibrillation off Pradaxa due to vaginal bleeding 4 months ago hyperlipidemia, coronary artery disease,
peripheral arterial disease, who presented to [facility] on with exertional dyspnea x 5 to 6 days with lower extremity edema. Max troponin was 0.104. Patient was noted to have a pulse ox of 90% on room air and chest x-ray reported left pleural
effusion with increased vascular markings consistent with heart failure.
Hospital course: Patient was aggressively diuresed with Lasix 40 mg twice daily and Aldactone 20.5 mg daily. Patient underwent a left thoracentesis on 01/25/2025 with resultant 850 cc of serous fluid a TTE was completed on 01/25 which reported a
newly reduced EF of 40-45% from 60-65% with critical aortic stenosis (AV gradients of 53/29 mmHg, CHARLY 0.5cm sq, LVOT of 1.8cm. , moderate AI, and severe TR. Patient underwent right and left heart cath on 01/26/2025 which reported severe LAD
stenosis and chronic total occlusion of the RPDA. Patient experienced preoperative rapid atrial fibrillation. Cardiac surgery was consulted to evaluate patient for TAVR/PCI. Coronary anatomy was not amenable to PCI, therefore patient was offered
and agreed to surgical option. Patient is brought to the operating room on 01/31/2025 and underwent aortic valve replacement [#23 mm bioprosthesis], tricuspid valve repair [#32 mm band annuloplasty], CABG x [LAMANZAR to LAD, RSVG to RPDA], full left and
right atrial maze [combination of RF and cryoablation], left atrial appendage exclusion [#40 mm device], and drainage of bilateral pleural effusions, (approximately 250 cc in each chest), by Dr. Carson Crouch. For further details please see
operative note. Patient required 3 PRBCs, 3 platelet, 2 cryo, 2 FFP, vitamin K 0.5 mg IV, and DDAVP for postop coagulopathy. Postprocedure FRANCISCO JAVIER reported an EF�25-30%. patient brought to lab analyst for attempted Impella CP placement. Stenosis of
femoral vessels precluded insertion. Patient brought back to operating room for insertion of Impella 5.5. Patient was extubated on postoperative day #1, Impella was added. Patient was extubated on postoperative day #1 and Levophed de-escalated
from 7 to 3 mcg/min. Vasopressin and dobutamine continued. Heparin was initiated for chronic atrial fibrillation. On postoperative day #3, patient continued with low MAP's, and coagulopathy persisted. Patient was transfused 2 FFP and 1 platelet
after epistaxis. Patient is to receive 60 mg of IV Lasix with mediocre response. Midodrine started for postoperative hypotension. On postoperative day #4, Impella was removed at bedside. Bumex drip was initiated. A repeat TTE on postoperative
day #5 reported hyperdynamic left ventricle and dobutamine was weaned from 5-4 mcg/kg/min. Epicardial atrial and ventricular wires were cut on postoperative day #7. Dobutamine was discontinued and patient declined on postoperative day #8 Chery was
discontinued and patient transferred to telemetry status. Eliquis was initiated on postoperative day #9 and physiatry consulted. Patient continued to receive IV Bumex. Right IJ cordis was removed on postoperative day #11. On postoperative day
12, patient was noted to have increasing bilateral upper and lower extremity edema and extremities Adria wrapped. Systolic blood pressure remained in the 90s and Bumex was converted to oral dosing. Patient was transitioned to warfarin due to
prohibitive cost of Eliquis. A repeat TTE reported EF of 50-55%, AV gradients of 11/5 mmHg, and moderate TR. Patient required straight cath on postoperative day 12 and 13 and Chery was reinserted. Creatinine plateaued at 2. Right heart cath was
performed on postoperative day #14 with RA of 22; PA 51/32; wedge 34; cardiac output 3.1/cardiac index 1.71. Patient was cardioverted to sinus rhythm and right IJ with [place] was placed in Property [employer]. Dobutamine was at 2. And a right upper extremity
PICC line was placed for continued diuresis. Interventional radiology was consulted for thoracentesis. Due to INR of 3.2 on postoperative day #15, procedure was postponed and Coumadin held. On postoperative day #16, patient underwent a right
thoracentesis for 850 cc fluid. Patient was seen by psychiatry for situational depression and deemed not a candidate for medication at this point. It was resumed. Patient continued to receive daily Bumex infusions with gradual weight decreasing
from a max of 73 kg to 58 kg. Baseline weight is 57 kg. Patient received 1 PRBC for hemoglobin of 7.9 on postoperative day #17. Dobutamine was discontinued and patient declined on postoperative day #19. Bumex was transitioned to oral form.
Patient continued to diurese well. Patient developed rapid A-fib on postoperative day 20 and patient received an amnio bolus x 1 with Lopressor 2.5 mg which decreased systolic pressure. Amiodarone and beta-jeannie were discontinued. Chery was
discontinued on postoperative day #21 and patient developed urinary retention. Urology was consulted and Chery replaced with instructions to follow-up as outpatient if unable to discontinue in rehab. Per physiatry request, nephrology was consulted
to comment on decreasing creatinine. Nephrology cleared patient for discharge to [facility]. On postoperative day #21, weight was 58 kg. PICC line was discontinued by PICC team and patient discharged to [facility] in good condition with +1 bilateral lower
extremity edema. Low-dose beta-jeannie may be reinstituted as systolic blood pressure improves. Coumadin to continue for atrial fibrillation with goal INR of 2�3. Bumex may be tapered as patient achieves baseline weight. Supplemental potassium
ordered while patient on Bumex.
Home medication changes:
Stop Amiodarone, beta-jeannie, lisinopril, HCTZ, amlodipine
Discharge Plan
-
Patient Disposition: Acute Rehab Facility
Discharge Diagnosis/Procedures: Aortic valve replacement, tricuspid valve repair, CABG x 2, MAZE, left atrial appendage clip, central Impella 5.5 mechanical cardiac support
Condition: Fair
Diet: 2 Gram Sodium and Restrict fluids to 48 oz
Activity: No strenuous activity
Driving Restrictions: Not until seen by your Dr
Bathing Restrictions: OK to Shower
Specialty Instructions: Weigh Daily- Call MD for wt gain/loss 3 lbs overnight/5 lbs in 1 week
Activity Restrictions/Additional Instructions:
Wound Care Instructions
Sacrum, L buttocks-clean with saline or soap and water, silicone border foam, change every 3 days and as needed for loosened dressing.
air mattress
Turning schedule
Elevate heels off bed with pillow/s
Pressure redistributing chair cushion (i.e. Air, foam or gel chair cushion).
Follow up with CT Surgeon.
Follow up at wound care center call for an appointment.
Instructions: *CBC Heart Failure Instructions
Stand Alone Forms: DC Instructions- Cath/EP Lab
Referrals:
[facility], acute rehab [Other]
[facility] [Outside] - 03/14/25 1:00 pm
Referral Note: Cardiac Rehab Orientation appointment is on March 14 at 1pm.
The Cardiac Rehab gym is located on the first floor of the [facility].
Radha Combs MD [Active, Pulmonary Medicine] - in one to two months
Referral Note: Evaluation for sleep apnea
Mee Ross NP [Specified Professional Personl, Cardiology] - 03/22/25 11:00 am
Analia Duron PA-C [Family Provider, Internal Medicine]
Armand Pinedo MD [Active, Cardiology]
Sana Renae CRNP [Specified Professional Personl, Cardiac Surgery] - 03/21/25 10:00 am
Prescriptions:
New
atorvastatin 80 mg Tablet
80 mg PO DAILY Qty: 0 0RF
acetaminophen 325 mg Tablet
650 mg PO Q4HPRN PRN (Reason: mild pain,headache,temp >101F ) Qty: 0 0RF
bumetanide 2 mg Tablet
2 mg PO BID AT 0800,1600 Qty: 0 0RF
alprazolam 0.25 mg Tablet
0.25 mg PO HSPRN PRN (Reason: insomnia) Qty: 0 0RF
potassium chloride 20 mEq Tablet,Er Particles/Crystals
20 meq PO BID Qty: 0 0RF
pantoprazole 40 mg Tablet,Delayed Release (Dr/Ec)
40 mg PO DAILY Qty: 0 0RF
ferrous sulfate [FeroSul] 325 mg (65 mg iron) Tablet
325 mg PO DAILY Qty: 0 0RF
melatonin 5 mg Tablet
5 mg PO HSPRN PRN (Reason: insomnia) Qty: 0 0RF
cholecalciferol (vitamin D3) 50 mcg (2,000 unit) Tablet
100 mcg PO DAILY Qty: 0 0RF
warfarin 4 mg tablet
4 mg PO DAILY Qty: 30 0RF
Continued
coenzyme Q10 [CoQ-10] 100 mg Capsule
200 mg PO DAILY
therapeutic multivitamin Tablet
1 tab PO Q48H Qty: 0 0RF
aspirin 81 mg Tablet,Delayed Release (Dr/Ec)
81 mg PO DAILY Qty: 0 0RF
Discontinued
lovastatin 40 mg Tablet
40 mg PO QPM
amlodipine 5 mg Tablet
5 mg PO DAILY
ibuprofen [Advil] 200 mg Tablet
200 mg PO BIDPRN PRN (Reason: mild pain)
hydrochlorothiazide 25 mg Tablet
25 mg PO DAILY
metoprolol succinate 25 mg Tablet Extended Release 24 Hr
25 mg PO QPM
lisinopril 40 mg Tablet
40 mg PO DAILY
Discharge Orders:
Discharge Patient (As Directed); Ordered 02/22/25
Ordered By: Erica Barbour
Care Plan Goals
Care Plan Goals:
Problem: Readiness for enhanced knowledge related to diagnosis and treatment plan
Goal: Understand your diagnosis and treatment plan needs, including medications if applicable.
Instructions: Know your diagnosis, underlying causes and treatment plan options, including medications if applicable. Consult with your health care team to learn about your diagnosis and treatment plan, including medications if applicable.
Discharge Date and Time
Print Language: SINHALA
--- NOTE | 2025-02-22 11:16 | PTCARENOTE ---
pt received from JESSICA chau, pt is aaox4, transfer back to bed for picc line to be removed by IV team, pt is getting transfer to [facility] this afternoon. Pending DC instructions and RN will call [facility] for report for transfer.
--- NOTE | 2025-02-22 11:16 | CM ---
CM following for DC planning needs.
DC plan is for [facility] @ . Bed available today. Pt. is medically stable for DC per CT Surg team.
Plan- Transfer to [facility] @
Report# [phone]
[2025-02-22 12:28] VITALS: BP 122/68
--- NOTE | 2025-02-22 12:57 | PTCARENOTE ---
Pt dced to [facility]. transfer via stretcher and transporter, all belongings from the room given to pt son for transfer. Pt PICC line dced by IV nurse, tele pack removed from pt. Pt dc with tasia to facility.
== END 2025-02-22 13:05 | DRG 1 ==
LOC: CVICU 17:16
PROVIDERS: Anesthesiology; Clinical Nurse Specialist Family Health; Emergency Medicine; Hospitalist; Internal Medicine Interventional Cardiology; Nurse Practitioner; Physician Assistant Medical; Radiology Diagnostic Radiology; Radiology Vascular & Interventional Radiology; Student in an Organized Health Care Education/Training Program; ADMITTING PHYSICIAN Internal Medicine; ATTENDING PHYSICIAN Thoracic Surgery (Cardiothoracic Vascular Surgery); CONSULT PHYSICIAN Internal Medicine; CONSULT PHYSICIAN Internal Medicine Critical Care Medicine; CONSULT PHYSICIAN Physical Medicine & Rehabilitation; CONSULT PHYSICIAN Specialist; EMERGENCY PHYSICIAN Emergency Medicine; FAMILY PHYSICIAN Physician Assistant; OTHER PHYSICIAN Psychiatry & Neurology Psychiatry
PROC: 0W9B3ZZ Drainage of Left Pleural Cavity, Percutaneous Approach (ICD-10-PCS; 2025-01-25)
PROC: 4A023N8 Measurement of Cardiac Sampling and Pressure, Bilateral, Percutaneous Approach (ICD-10-PCS; 2025-01-26)
PROC: B2111ZZ Fluoroscopy of Multiple Coronary Arteries using Low Osmolar Contrast (ICD-10-PCS; 2025-01-26)
PROC: 06BP4ZZ Excision of Right Saphenous Vein, Percutaneous Endoscopic Approach (ICD-10-PCS; 2025-01-31)
PROC: 0B9N0ZZ Drainage of Right Pleura, Open Approach (ICD-10-PCS; 2025-01-31)
PROC: 30233N1 Transfusion of Nonautologous Red Blood Cells into Peripheral Vein, Percutaneous Approach (ICD-10-PCS; 2025-01-31)
PROC: 02580ZZ Destruction of Conduction Mechanism, Open Approach (ICD-10-PCS; 2025-01-31)
PROC: X2HX0F9 Insertion of Conduit to Short-term External Heart Assist System into Thoracic Aorta, Ascending, Open Approach, New Technology Group 9 (ICD-10-PCS; 2025-01-31)
PROC: 0BNL0ZZ Release Left Lung, Open Approach (ICD-10-PCS; 2025-01-31)
PROC: 5A2204Z Restoration of Cardiac Rhythm, Single (ICD-10-PCS; 2025-01-31)
PROC: 03HY32Z Insertion of Monitoring Device into Upper Artery, Percutaneous Approach (ICD-10-PCS; 2025-01-31)
PROC: 30233M1 Transfusion of Nonautologous Plasma Cryoprecipitate into Peripheral Vein, Percutaneous Approach (ICD-10-PCS; 2025-01-31)
PROC: 02HA0RZ Insertion of Short-term External Heart Assist System into Heart, Open Approach (ICD-10-PCS; 2025-01-31)
PROC: 5A1221Z Performance of Cardiac Output, Continuous (ICD-10-PCS; 2025-01-31)
PROC: 30233K1 Transfusion of Nonautologous Frozen Plasma into Peripheral Vein, Percutaneous Approach (ICD-10-PCS; 2025-01-31)
PROC: B24BZZ4 Ultrasonography of Heart with Aorta, Transesophageal (ICD-10-PCS; 2025-01-31)
PROC: 02100Z9 Bypass Coronary Artery, One Artery from Left Internal Mammary, Open Approach (ICD-10-PCS; 2025-01-31)
PROC: 30233R1 Transfusion of Nonautologous Platelets into Peripheral Vein, Percutaneous Approach (ICD-10-PCS; 2025-01-31)
PROC: 0B9P0ZZ Drainage of Left Pleura, Open Approach (ICD-10-PCS; 2025-01-31)
PROC: 02UJ0JZ Supplement Tricuspid Valve with Synthetic Substitute, Open Approach (ICD-10-PCS; 2025-01-31)
PROC: 5A0221D Assistance with Cardiac Output using Impeller Pump, Continuous (ICD-10-PCS; 2025-01-31)
PROC: 02L70CK Occlusion of Left Atrial Appendage with Extraluminal Device, Open Approach (ICD-10-PCS; 2025-01-31)
PROC: 021009W Bypass Coronary Artery, One Artery from Aorta with Autologous Venous Tissue, Open Approach (ICD-10-PCS; 2025-01-31)
PROC: 02RF08Z Replacement of Aortic Valve with Zooplastic Tissue, Open Approach (ICD-10-PCS; 2025-01-31)
PROC: B41D1ZZ Fluoroscopy of Aorta and Bilateral Lower Extremity Arteries using Low Osmolar Contrast (ICD-10-PCS; 2025-01-31)
PROC: 02PW3RZ Removal of Short-term External Heart Assist System from Thoracic Aorta, Descending, Percutaneous Approach (ICD-10-PCS; 2025-02-04)
PROC: 4A023N6 Measurement of Cardiac Sampling and Pressure, Right Heart, Percutaneous Approach (ICD-10-PCS; 2025-02-14)
PROC: 0W993ZZ Drainage of Right Pleural Cavity, Percutaneous Approach (ICD-10-PCS; 2025-02-16)
DX: I08.3 Combined rheumatic disorders of mitral, aortic and tricuspid valves (principal); I50.41 Acute combined systolic (congestive) and diastolic (congestive) heart failure; T81.11XA Postprocedural cardiogenic shock, initial encounter; I48.19 Other persistent atrial fibrillation; J91.8 Pleural effusion in other conditions classified elsewhere; D68.8 Other specified coagulation defects; N17.9 Acute kidney failure, unspecified; D62 Acute posthemorrhagic anemia; E87.4 Mixed disorder of acid-base balance; E87.1 Hypo-osmolality and hyponatremia; I5A Non-ischemic myocardial injury (non-traumatic); I47.20 Ventricular tachycardia, unspecified; J98.11 Atelectasis; I25.10 Atherosclerotic heart disease of native coronary artery without angina pectoris; D69.59 Other secondary thrombocytopenia; R33.8 Other retention of urine; E87.6 Hypokalemia; R00.1 Bradycardia, unspecified; Y83.8 Other surgical procedures as the cause of abnormal reaction of the patient, or of later complication, without mention of misadventure at the time of the procedure; E83.42 Hypomagnesemia; R04.0 Epistaxis; I11.0 Hypertensive heart disease with heart failure; R74.01 Elevation of levels of liver transaminase levels; F43.23 Adjustment disorder with mixed anxiety and depressed mood; R68.0 Hypothermia, not associated with low environmental temperature; I48.0 Paroxysmal atrial fibrillation; I70.203 Unspecified atherosclerosis of native arteries of extremities, bilateral legs; N13.9 Obstructive and reflux uropathy, unspecified; R09.02 Hypoxemia; I27.20 Pulmonary hypertension, unspecified; I25.82 Chronic total occlusion of coronary artery; I70.8 Atherosclerosis of other arteries; J98.4 Other disorders of lung; I25.5 Ischemic cardiomyopathy; E78.2 Mixed hyperlipidemia; N93.9 Abnormal uterine and vaginal bleeding, unspecified; I65.23 Occlusion and stenosis of bilateral carotid arteries; Z79.82 Long term (current) use of aspirin; Z11.52 Encounter for screening for COVID-19
CPT/HCPCS: 32555; 36200; 70355; 71045; 71046; 75572; 75630; 80048; 80053; 80061; 80076; 81003; 81015; 82040; 82150; 82248; 82306; 82330; 82565; 82607; 82746; 82805; 82810; 82945; 82947; 82962; 83036; 83605; 83615; 83735; 83880; 83930; 83935; 83986; 84100; 84132; 84134; 84155; 84157; 84300; 84302; 84439; 84443; 84478; 84484; 84520; 85014; 85018; 85025; 85027; 85049; 85379; 85384; 85610; 85730; 86850; 86900; 86901; 86920; 87015; 87070; 87086; 87102; 87116; 87205; 87206; 87502; 87811; 88112; 88305; 88311; 89051; 92960; 93005; 93306; 93308; 93312; 93320; 93321; 93325; 93451; 93460; 93650; 93880; 93971; 94002; 94003; 97110; 97116; 97163; 97164; 97166; 97168; 97530; 97535; 99152; 99153; 99285; C1760; C1768; C1769; C1894; J2597; J2916; P9012; P9016; P9045; P9047; P9059; P9073; Q9967

== ENCOUNTER 2025-03-14 10:49 | Inpatient (IN) | payer MEDICARE, SELFPAY ==
[2025-03-14] VITALS (17 sets, daily range): BP systolic 89–137; BP diastolic 29–76; BMI 20.4; BMI 20.3
--- NOTE | 2025-03-14 06:39 | ED.GENMED ---
History of Present Illness
General
Chief Complaint: Musculo-Skeletal Complaint
Source: patient and family
Exam Limitations: none
Time Seen by Provider: 03/14/25 06:13
Nursing documentation reviewed up to this point in time: agreed with
History of Present Illness
History of Present Illness:
Patient is an 89-year-old female status post AVR tricuspid parent CABG x 2, AVR tricuspid repair and maze procedure in December on Coumadin presents to the ER for evaluation of fall. Patient reports she missed her footing while reaching for something
and fell landing on her left hip. She complains of left hip pain. She denies hitting her head denies any other injuries.
She denies any back pain. She is on Coumadin. Son at bedside reports patient recently being treated for UTI last dose of Augmentin scheduled today
Past History
Past History
ED Past Medical History: HTN and Hypercholesterolemia
ED Past Surgical History: Orthopedic
Social History
Tobacco: Non-smoker
Alcohol: None
Drug: None
Living: alone
Employment: Employed ([employer])
Phy Exam
General Physical Exam
General Presentation: well appearing
General Skin: warm and dry
General Habitus: elderly
General Mental: alert
Cardiovascular Exam
Cardiovascular Exam: regular rate/rhythm, no murmur and normal peripheral pulses
Pulmonary Exam
Pulmonary Exam: lungs clear and no respiratory distress
Neurological Exam
Neurological Exam: alert, oriented x3, no motor deficits, no sensory deficits and speech normal
Musculoskeletal Exam
Musculoskeletal Exam: other (Normal inspection to left lower extremity pain with any range of motion to left hip ; positive distal pulses normal distal sensation hematoma to left lateral hip; no bony cervical thoracic or lumbar tenderness no head
injury)
Skin Exam
Skin Exam: normal color and warm/dry
Psychiatric Exam
Psychiatric Exam: normal mood/affect
Course
Orders/Labs/Results
Orders:
Orders
03/14/25 02:45
Hip, Left 2-3 Views [CR Hip - LT w/wo Pel 2-3 Vw*] Urgent
Comment:
Reason For Exam: FALL
Include a pelvis x-ray?: Yes
03/14/25 06:41
IV Insert/Care/Rem.- Treatment PRN
Morphine Sulfate 2 mg IV NOW STA
Ondansetron Injectable [Zofran] 4 mg IV NOW STA
03/14/25 06:42
Electrocardiogram (*1) Stat
Reason for Study: Other
Other Reason for Exam: chest pain
Cardiac Monitoring- Treatment ONCE
EKG- Treatment ONCE
03/14/25 06:49
Basic Metabolic Panel Urgent
Complete Blood Count/With Diff Urgent
PTT Urgent
Prothrombin Time Urgent
03/14/25 07:27
Physical Therapy Consult [Pt Eval And Treat] Urgent
Treatment: ambulate with pubic fracture w/ walker
Activity Level: Ambulate
03/14/25 08:31
Straight cath- Treatment ONCE
Abnormal Lab Results
03/14/25
06:49
RBC 2.61 L 10^6/uL
(4.20-5.40)
Hgb 8.4 L g/dL
(12.0-16.0)
Hct 24.6 L %
(37.0-47.0)
MCH 32.2 H pg
(27.0-31.0)
RDW 20.2 H %
(11.5-14.5)
MPV 11.0 H fL
(7.4-10.4)
Abs Immat Gran (auto) 0.1 H 10^3/uL
(0-0.05)
Absolute Neuts (auto) 7.0 H 10^3/uL
(1.4-6.5)
Absolute Lymphs (auto) 0.7 L 10^3/uL
(1.2-3.4)
Immature Gran % 1.0 H %
(0-0.5)
Neutrophils % 83.3 H %
(42.2-75.2)
Lymphocytes % 8.2 L %
(20.5-51.1)
PT 23.4 H Sec
(11.4-14.6)
BUN 39 H mg/dl
(7-17)
Glucose 102 H mg/dl
(70-99)
03/14/25 06:49
03/14/25 06:49
Vital Signs
Initial and Last Documented VS:
Initial Vital Signs
Temp Pulse Resp BP Pulse Ox
97.6 F 112 20 106/58 94
03/14/25 02:39 03/14/25 02:39 03/14/25 02:39 03/14/25 02:39 03/14/25 02:39
Last Documented Vital Signs
Temp Pulse Resp BP Pulse Ox
97.6 F 103 16 130/71 94
03/14/25 02:39 03/14/25 06:00 03/14/25 06:00 03/14/25 06:00 03/14/25 06:41
Channel Rougher consulted with Physician
Channel Rougher consulted with physician?: Yes (Stevan )
MDM/Problems Addressed
Differential Diagnosis Includes:
Not limited to fracture, dislocation hip
MDM/Problems Addressed:
As documented patient is a 80-year-old female status post CABG AVR tricuspid valve replacement and maze procedure on 625 here at [facility] on Coumadin presents to the ER after mechanical fall. She has a left pubic fracture on x-ray requiring
narcotics. She is very uncomfortable even with sitting up. She has no neurological deficits no numbness tingling weakness however was found also be in urinary retention for 500 cc of urine. Straight cath ordered. Patient recently treated for UTI
has ordered last dose of Augmentin today.. She does have a small hematoma to left lateral hip INR is 2.03. Patient will require mission may also likely need rehab prior to discharge home. Case reviewed with orthopedics who reviewed x-rays via
[place] text.
*Pulse Oximetry
SaO2: 94
Patient hypoxic: no
*Critical Care Note
Total Time (30-74mins, 75-104mins- exclusive of procedures): Not Applicable
Patient Management
Discussion with other providers: Contact Acid Plant Operator (ortho Dr Haley )
ED Attending Note
-
Portions of this chart may have been created with voice recognition software.� Occasional wrong word or��sound alike� substitutions may have occurred due to the inherent limitations of voice recognition software.
Discharge Plan
Departure
Patient Disposition: Admit
Date of Disposition: 03/14/25
Time of Disposition: 09:21
Admit to: Med/Surg
Admit to doctor: hospitalist
Presentation/result/management discussed w/ accepting MD/DO: Hospitalist
Patient with high blood pressure during this ER visit?: No
Condition: Fair
Covid-19: Not Applicable
Discharge Problem:
Fracture of left pubis, Hematoma of left hip, urination retention
Prescriptions:
No Action
coenzyme Q10 [CoQ-10] 100 mg Capsule
200 mg PO DAILY
aspirin 81 mg Tablet,Delayed Release (Dr/Ec)
81 mg PO DAILY Qty: 0 0RF
ferrous sulfate [FeroSul] 325 mg (65 mg iron) Tablet
325 mg PO DAILY Qty: 0 0RF
melatonin 5 mg Tablet
5 mg PO HSPRN PRN (Reason: insomnia) Qty: 0 0RF
cholecalciferol (vitamin D3) 50 mcg (2,000 unit) Tablet
100 mcg PO DAILY Qty: 0 0RF
docusate sodium 100 mg Capsule
100 mg PO BID 30 Days Qty: 60 0RF
bumetanide 1 mg Tablet
1 mg PO BID@0800,1500 30 Days Qty: 60 0RF
Desitin 40 % Paste
1 applic topical BID PRN (Reason: skin irritation) 15 Days Qty: 28 0RF
tamsulosin 0.4 mg Capsule
0.4 mg PO HS 30 Days Qty: 30 0RF
pantoprazole 40 mg Tablet,Delayed Release (Dr/Ec)
40 mg PO DAILY 30 Days Qty: 30 0RF
warfarin [Jantoven] 1 mg Tablet
1 mg PO QPM 30 Days Qty: 30 0RF
escitalopram oxalate 5 mg Tablet
5 mg PO DAILY 30 Days Qty: 30 0RF
potassium chloride 20 mEq Tablet,Er Particles/Crystals
40 meq PO BID 30 Days Qty: 120 0RF
acetaminophen 325 mg Tablet
650 mg PO Q4HPRN PRN (Reason: mild pain,headache) Qty: 0 0RF
atorvastatin 80 mg Tablet
80 mg PO DAILY 30 Days Qty: 30 0RF
amoxicillin-pot clavulanate [Augmentin] 500-125 mg tablet
1 tab PO Q12H 6 Days Qty: 12 0RF
Referrals:
Analia Duron PA-C [Family Provider, Internal Medicine]
Interventions
Interventions:
*Risk Screen - Suicide Last Done: 03/14/25 02:39
*Neglect/Abuse Screening Last Done: 03/14/25 02:39
ED-Musculoskeletal Assessment Last Done: 03/14/25 05:20
ED- Neurological Assessment Last Done: 03/14/25 05:20
ED-Skin Assessment Last Done: 03/14/25 05:20
Discharge Date and Time
Print Language: CYMRAES
[2025-03-14] MEDS: MORPHINE SULFATE 2 MG IV (06:49)
[2025-03-14] MEDS: ZOFRAN 4 MG IV (06:50)
[2025-03-14 07:05] LABS: Hematocrit 24.6 % (37.0-47.0); Hemoglobin 8.4 g/dL (12.0-16.0); Mean Corp Hgb Conc. 34.1 g/dL (33.0-37.0); Mean Corpuscular Volume 94.3 fL (81.0-99.0); Nucleated Red Blood Cells % 0 %; Platelet Count 143 10^3/uL (130-400); Red Cell Dist. Width 20.2 % (11.5-14.5)
[2025-03-14 07:14] LABS: INR 2.03; PT 23.4 Sec (11.4-14.6)
[2025-03-14 07:15] LABS: APTT 32.5 Sec (23.4-35.0)
[2025-03-14 07:24] LABS: Blood Urea Nitrogen 39 mg/dl (7-17); Calcium 8.6 mg/dl (8.4-10.2); Carbon Dioxide 26 mmol/L (22-30); Chloride 105 mmol/L (98-107); Estimated Creatinine Clearance 42 ml/min; Glucose 102 mg/dl (70-99); Sodium 136 mmol/L (135-145); eGFR 56.95
--- NOTE | 2025-03-14 09:37 | HPS.HSE ---
Addendum entered and electronically signed by Nellie Maldonado MD 03/19/25 13:22:
Correction to H/P:
This is a 80-year-old female.
Original Note:
Family Physician
-
Family Physician: Analia Duron
Chief Complaint
-
fall with L hip pain
History of Present Illness
HPI: 89-year-old female with PMH of recent AVR/tricuspid repair/CABG x 2 MAZE/clip (01/31) on Coumadin; p/w mechanical fall. She fell due to missed her step while trying to reach for something. She fell and landed on her left hip. She complains of
left hip pain. Denies to hitting her head, denies other injuries. No back pain etc.
Son at bedside reports that patient recently being treated for UTI (last dose of Augmentin 03/14).
Medical History
Past Medical History
Past Medical History: Reports Other
Additional Past Medical History:
Paroxysmal A-fib
HTN
HLD
valvular heart disease
peripheral edema
vaginal bleeding secondary to Pradaxa
Past Surgical History: Reports Other
Additional Past Surgical History:
Left wrist repair
Social History
Tobacco: Non-smoker
Alcohol: None
Drug: None
Personal: Single
Living: Alone
Employment: Retired
Family History
Family History: Not pertinent
Allergies / Home Medications
Allergies reflects when Allergies were last updated in [employer].
Home Medications with original date entered in [employer]
Allergy/Medication List:
Allergies
Allergy/AdvReac Type Severity Reaction Status Date / Time
No Known Allergies Allergy Verified 03/14/25 02:45
Home Medications
coenzyme Q10 100 mg capsule (CoQ-10) 200 mg PO DAILY Supplement 01/24/25
aspirin 81 mg tablet,delayed release 81 mg PO DAILY Blood clot prevention/tx #0 tabs 02/07/25
cholecalciferol (vitamin D3) 50 mcg (2,000 unit) tablet 100 mcg (2 x 50 mcg (2,000 unit)) PO DAILY Supplement #0 tabs 02/22/25
ferrous sulfate 325 mg (65 mg iron) tablet (FeroSul) 325 mg PO DAILY anemia #0 tabs 02/22/25
melatonin 5 mg tablet 5 mg PO HSPRN PRN insomnia #0 tabs 02/22/25
bumetanide 1 mg tablet 1 mg PO BID@0800,1500 Heart Failure 30 days #60 tabs 03/08/25
docusate sodium 100 mg capsule 100 mg PO BID Constipation 30 days #60 caps 03/08/25
escitalopram oxalate 5 mg tablet 5 mg PO DAILY Mental Health/Anxiety 30 days #30 tabs 03/08/25
pantoprazole 40 mg tablet,delayed release 40 mg PO DAILY Gastrointestinal issue 30 days #30 tabs 03/08/25
tamsulosin 0.4 mg capsule 0.4 mg PO HS Urinary issue 30 days #30 caps 03/08/25
warfarin 1 mg tablet (Jantoven) 1 mg PO QPM A-fib, CABG 30 days #30 tabs 03/08/25
acetaminophen 325 mg tablet 650 mg (2 x 325 mg) PO Q4HPRN PRN mild pain,headache #0 tabs 03/09/25
amoxicillin 500 mg-potassium clavulanate 125 mg tablet (Augmentin) 1 tab PO Q12H Urinary issue 6 days #12 tabs 03/09/25
atorvastatin 80 mg tablet 80 mg PO DAILY High cholesterol 30 days #30 tabs 03/09/25
potassium chloride 20 mEq tablet,extended release(part/cryst) 40 meq (2 x 20 mEq) PO BID Supplement 30 days #120 tabs 03/09/25
zinc oxide-cod liver oil 40 % topical paste (Desitin) 1 applic topical BIDPRN PRN skin irritation 03/14/25
Review of Systems
-
Musculoskeletal: Reports See HPI
Physical Exam
Vital Signs
Vital Signs
Temp Pulse Resp BP Pulse Ox
36.4 C 93 11 97/58 100
03/14/25 02:39 03/14/25 09:15 03/14/25 09:15 03/14/25 09:00 03/14/25 09:15
Physical Exam
General: Well Developed, Well Nourished, No Apparent Distress, Comfortable and Conversant
HEENT: NormoCephalic, Moist mucous membranes and Atraumatic
Respiratory: Clear and Non Labored Respirations; No Accessory Resp Muscle Use
Cardiac: S1/S2 and Regular Rhythm; No Murmur or Rub
GI: Soft, Non Tender, Non Distended, Normal Bowel Sounds and Organomegaly
Rectal: Deferred by Provider
Musculoskeletal: No Clubbing, No Cyanosis and No Edema
Skin: Warm and Dry; No Rash
Neuro: Awake and Alert
Psych: Calm and Intact Judgment/Insight
Laboratory Results
-
03/14/25 06:49
03/14/25 06:49
Laboratory Results
PT 23.4 Sec (11.4-14.6) H 03/14/25 06:49
INR 2.03 03/14/25 06:49
APTT 32.5 Sec (23.4-35.0) 03/14/25 06:49
Total Bilirubin Cancelled 03/14/25 06:49
AST Cancelled 03/14/25 06:49
ALT Cancelled 03/14/25 06:49
Alkaline Phosphatase Cancelled 03/14/25 06:49
Data Reviewed
-
Lab Data: Labs Reviewed by me
Old Records: Reviewed
Impression/Plan
-
HPI: 89-year-old female with PMH of recent AVR/tricuspid repair/CABG x 2 MAZE/clip (01/31) on Coumadin; p/w mechanical fall. She fell due to missed her step while trying to reach for something. She fell and landed on her left hip. She complains of
left hip pain. Denies to hitting her head, denies other injuries. No back pain etc.
Son at bedside reports that patient recently being treated for UTI (last dose of Augmentin 03/14).
A/P:
# Mechanical fall with L pubic fracture
Pain control with IV morphine PRN, add bowel regimen Senokot-S BID while on opiate
PT OT eval
For now, would cont CLAY BURNER Coumadin with complex cardiac history
Ortho consulted by ED
Can check vit D level (noted pt on low dose vit D CLAY BURNER)
# Possible acute urinary retention, ?from opiate S/E
Cont bladder scan and straight cath PRN
# recent UTI
Complete last dose of Augmentin 03/14
Monitor for urinary symptoms
Other medical conditions:
# Recent AVR/tricuspid repair/CABG x 2 MAZE/clip (01/31)
# Paroxysmal atrial fibrillation
Cont CLAY BURNER Coumadin with daily INR
# Multivessel coronary artery disease
# Chronic heart failure
Cont CLAY BURNER bumex with K supplement
Daily weight
# PAD
# HTN
# HLD
DVT ppx: CLAY BURNER Coumadin, daily INR
FC
--- NOTE | 2025-03-14 11:28 | CM ---
CM reviewed chart and met with pt bedside in ED. Lives alone in first floor apartment, [address]. Son from [place] has been staying with her since discharge from [facility].
Independent in ADLs, personal care and ambulation at baseline, has walker and SPC.
Discharged from [facility] 03/09 following admission 01/24 to 02/22.
Current with [facility], I notified Teodora of plan for admission
PCP: Analia Duron
Pharmacy: [facility] in [place] in [place]
CM will continue to follow for all discharge planning needs.
--- NOTE | 2025-03-14 11:45 | VNURNOTE ---
Chart reviewed. Patient is current with [facility]. Will continue to follow hospital course and DC plans.
[2025-03-14] MEDS: AUGMENTIN 500 MG/125 MG 1 TABLET PO ×2 (13:06→19:40)
[2025-03-14] MEDS: MORPHINE SULFATE 1 MG IV (13:09)
[2025-03-14 14:08] LABS: Vitamin D, 25-OH*** 31.9 ng/mL (30-80)
[2025-03-14] MEDS: BUMEX 1 MG PO (16:22)
[2025-03-14] MEDS: COUMADIN 1 MG PO (19:40)
[2025-03-14] MEDS: KCL 40 MEQ PO (19:41)
[2025-03-14] MEDS: SENOKOT-S 1 TABLET PO (19:41)
[2025-03-14] MEDS: FLOMAX 0.4 MG PO (20:14)
[2025-03-14] MEDS: TYLENOL 650 MG PO (20:14)
[2025-03-15] MEDS: MORPHINE SULFATE 1 MG IV ×5 (01:17→20:14)
--- NOTE | 2025-03-15 02:11 | PTCARENOTE ---
pt abdomen distended bladder [id number]. pt voided and rescanned for 460ml. pt given Flomax.
later pt scan again for 500ml. pt states she doesn't feel like she needs to void. pt straight cath for 550ml.
--- NOTE | 2025-03-15 05:08 | CON.ORTHO ---
Consultation
-
Date/Time Consultation Requested: 03/14/2025
Date/Time Consultation Performed: 03/15/2025
Requesting Provider: Dr. Maldonado
Performing Provider: Shiela Gutiérrez PA-C, for Dr. Tigre Haley
Reason for Consultation: Left pelvis fracture
Consultation - Orthopedics
History
HPI: 80-year-old female with PMH of recent AVR/tricuspid repair/CABG x 2 MAZE/clip (01/31) on Coumadin who sustained fall after missing a step while reaching for something. She landed on her left hip, experiencing immediate pain and inability to
ambulate. She was brought to [facility] ED, where x-rays demonstrated a mildly displaced superior pubic rami fracture. She had significant discomfort at rest, which led to her admission. Our orthopedic specialty was consulted to discuss
manaement of her left pelvis fracture. She denies to hitting her head, denies other injuries. No back pain, n/t, or radiation of pain down the lower extremity.
Of note, patient recently being treated for UTI and was noted to have urinary retention on admission.
Medical History
Past Medical History
Past Medical History: Reports Other
Additional Past Medical History:
Paroxysmal A-fib
HTN
HLD
valvular heart disease
peripheral edema
vaginal bleeding secondary to Pradaxa
Past Surgical History:
Left wrist repair
AVR, tricuspid repair, CABG x 2
Social History
Tobacco: Non-smoker
Alcohol: None
Drug: None
Personal: Single
Living: Alone
Employment: Retired
Family History
Family History: Not pertinent
Review of systems: all systems reviewed and negative except for those mentioned in HPI.
Allergies / Home Medications
Allergy/AdvReac Type Severity Reaction Status Date / Time
No Known Allergies Allergy Verified 03/14/25 02:45
�Medication �Instructions �Recorded
coenzyme Q10 100 mg capsule 200 mg PO DAILY Supplement 01/24/25
(CoQ-10)
aspirin 81 mg tablet,delayed 81 mg PO DAILY Blood clot 02/07/25
release prevention/tx #0 tabs
cholecalciferol (vitamin D3) 50 100 mcg (2 x 50 mcg (2,000 unit)) 02/22/25
mcg (2,000 unit) tablet PO DAILY Supplement #0 tabs
ferrous sulfate 325 mg (65 mg 325 mg PO DAILY anemia #0 tabs 02/22/25
iron) tablet (FeroSul)
melatonin 5 mg tablet 5 mg PO HSPRN PRN insomnia #0 tabs 02/22/25
bumetanide 1 mg tablet 1 mg PO BID@0800,1500 Heart 03/08/25
Failure 30 days #60 tabs
docusate sodium 100 mg capsule 100 mg PO BID Constipation 30 days 03/08/25
#60 caps
escitalopram oxalate 5 mg tablet 5 mg PO DAILY Mental 03/08/25
Health/Anxiety 30 days #30 tabs
pantoprazole 40 mg tablet,delayed 40 mg PO DAILY Gastrointestinal 03/08/25
release issue 30 days #30 tabs
tamsulosin 0.4 mg capsule 0.4 mg PO HS Urinary issue 30 days 03/08/25
#30 caps
warfarin 1 mg tablet (Jantoven) 1 mg PO QPM A-fib, CABG 30 days 03/08/25
#30 tabs
acetaminophen 325 mg tablet 650 mg (2 x 325 mg) PO Q4HPRN PRN 03/09/25
mild pain,headache #0 tabs
amoxicillin 500 mg-potassium 1 tab PO Q12H Urinary issue 6 days 03/09/25
clavulanate 125 mg tablet #12 tabs
(Augmentin)
atorvastatin 80 mg tablet 80 mg PO DAILY High cholesterol 30 03/09/25
days #30 tabs
potassium chloride 20 mEq 40 meq (2 x 20 mEq) PO BID 03/09/25
tablet,extended release(part/cryst) Supplement 30 days #120 tabs
zinc oxide-cod liver oil 40 % 1 applic topical BIDPRN PRN skin 03/14/25
topical paste (Desitin) irritation
Vital Signs / Lab Results
Temp Pulse Resp BP Pulse Ox
98.6 F 99 18 104/59 95
03/14/25 22:56 03/14/25 22:56 03/14/25 22:56 03/14/25 22:56 03/14/25 22:56
Physical Exam
General: Well Developed, Well Nourished, No Apparent Distress, Comfortable and Conversant
HEENT: NormoCephalic, Moist mucous membranes and Atraumatic
Respiratory: Clear and Non Labored Respirations; No Accessory Resp Muscle Use
Cardiac: S1/S2 and Regular Rhythm; No Murmur or Rub
GI: Soft, Non Tender, Non Distended, Normal Bowel Sounds and Organomegaly
Rectal: Deferred by Provider
Skin: Warm and Dry; No Rash
Neuro: Awake and Alert
Psych: Calm and Intact Judgment/Insight
Musculoskeletal: left hip with ecchymosis about lateral soft tissues. Gentle ROM hip elicits discomfort in the groin. [place] with minimal discomfort. No deformities. Calf soft and non tender to palpation. N/v intact distally.
Radiographic Studies:
AP pelvis and x-rays of the left hip demonstrate a mildly displaced superior pubic ramus fracture with mild comminution.
Assessment / Plan
Assessment: Left pelvic fracture.
Plan: Ms. Witt sustained a midlly displaced superior pubic rami fracture during her fall. This is amenable to non surgical intervention.
-PT/OT with WBAT with walker.
-Rest from higher levels of activity until pain improves.
-Pain control with medications, ice, and activity modification.
-May require SNF/Rehab depending on level of independence as fracture heals and pain control obtained.
-F/u in outpatient office in 4 weeks for repeat x-rays.
-Ortho to sign off for now. Please re-engage with further questions/concerns prior to discharge.
[2025-03-15 07:28] VITALS: BP 121/62
[2025-03-15] MEDS: TYLENOL 650 MG PO (08:23)
[2025-03-15] MEDS: KCL 40 MEQ PO ×2 (08:26→19:50)
[2025-03-15] MEDS: AUGMENTIN 500 MG/125 MG 1 TABLET PO ×2 (08:27→19:50)
[2025-03-15] MEDS: BUMEX 1 MG PO ×2 (08:27→15:14)
[2025-03-15] MEDS: FEOSOL 325 MG PO (08:27)
[2025-03-15 08:29] LABS: Hematocrit 25.5 % (37.0-47.0); Hemoglobin 8.2 g/dL (12.0-16.0); INR 1.91; Mean Corp Hgb Conc. 32.2 g/dL (33.0-37.0); Mean Corpuscular Volume 99.6 fL (81.0-99.0); PT 22.4 Sec (11.4-14.6); Platelet Count 128 10^3/uL (130-400); Red Cell Dist. Width 20.7 % (11.5-14.5)
[2025-03-15] MEDS: ASPIR LOW (ENTERIC COATED) 81 MG PO (08:30)
[2025-03-15] MEDS: VITAMIN D3 (cholecalciferol) 100 MCG PO (08:30)
[2025-03-15] MEDS: LIPITOR 80 MG PO (08:30)
[2025-03-15] MEDS: PROTONIX 40 MG PO (08:30)
[2025-03-15] MEDS: SENOKOT-S 1 TABLET PO ×2 (08:31→19:50)
[2025-03-15 09:02] LABS: Blood Urea Nitrogen 35 mg/dl (7-17); Calcium 8.9 mg/dl (8.4-10.2); Carbon Dioxide 29 mmol/L (22-30); Chloride 102 mmol/L (98-107); Estimated Creatinine Clearance 35 ml/min; Glucose 87 mg/dl (70-99); Magnesium 1.3 mg/dl (1.6-2.3); Potassium 4.5 mmol/L (3.5-5.1); Sodium 137 mmol/L (135-145); eGFR 45.76
[2025-03-15 09:42] VITALS: BP 131/63; PULSE 102; O2SAT 93
[2025-03-15 09:43] VITALS: BP 131/63; PULSE 102; O2SAT 92
[2025-03-15] MEDS: LEXAPRO 5 MG PO (10:16)
[2025-03-15 11:03] VITALS: BP 106/55
--- NOTE | 2025-03-15 14:14 | W.PN.HOSP.TC ---
Today's Communication/Plan
-
Referral for SNF
Assessment / Plan
Assessment / Plan
89-year-old female with PMH of recent AVR/tricuspid repair/CABG x 2 MAZE/clip (01/31) on Coumadin; p/w mechanical fall, and found to have left pubic fracture.
A/P:
# Mechanical fall with L pubic fracture
Pain control with IV morphine PRN, add bowel regimen Senokot-S BID while on opiate
PT OT eval recommendation is SNF
For now, would cont CL[facility] [employer] EXAMINER Coumadin with complex cardiac history
Ortho consulted by ED -they rec WBAT with walker
F/u in outpatient office in 4 weeks for repeat x-rays.
# recent UTI
Completed last dose of Augmentin 03/14
Monitor for urinary symptoms
Other medical conditions:
# Recent AVR/tricuspid repair/CABG x 2 MAZE/clip (01/31)
# Paroxysmal atrial fibrillation
Cont [employer] EX[employer]INER Coumadin with daily INR
# Multivessel coronary artery disease
# Chronic heart failure
Cont [employer] EXAMINER bumex with K supplement
Daily weight
# HTN-BP control
DVT ppx: Coumadin
Anticipated Discharge: Within 24 hours
Subjective/Interval History
-
Date of Service: March 15, 2025
Patient was able to walk with physical therapy, denies acute issues overnight
Objective Data
-
Labs:
Laboratory Results
03/15/25
06:34
WBC 8.0
Hgb 8.2 L
Hct 25.5 L
Plt Count 128 L
PT 22.4 H
INR 1.91
Sodium 137
Potassium 4.5
Chloride 102
Carbon Dioxide 29
BUN 35 H
Creatinine 1.2 H
Glucose 87
Calcium 8.9
Vital Signs:
Vital Signs
Temp Pulse Resp BP Pulse Ox
98.1 F 100 18 106/55 91
03/15/25 11:03 03/15/25 11:03 03/15/25 11:03 03/15/25 11:03 03/15/25 11:03
I&O
03/14/25 03/15/25 03/16/25
06:59 06:59 06:59
Intake Total 480 / 480
Output Total 1150 / 1150
Balance -670 / -670
Review of Systems
-
All other systems: Reviewed and negative
Physical Exam
-
General: No Apparent Distress
HEENT: Moist Mucous Membranes, Anicteric and PERRLA
Respiratory: Clear to Auscultation; Negative Wheezes, Rales or Rhonchi
Cardiac: Regular Rhythm and S1/S2; Negative Murmur, Rub or Gallop
GI: Soft, Nontender, Nondistended and Normal Bowel Sounds
Musculoskeletal: No Edema
Skin: Warm and Dry; Negative Rash, Ulcers or Lesions
Neuro: Awake and AO x 3
Hematologic / Lymphatic: No Lymphadenopathy
Psych: Calm
Data Reviewed
-
Diagnostic Radiology: Report Reviewed by me
Labs: Labs Reviewed by me
[2025-03-15 15:03] VITALS: BP 108/57
--- NOTE | 2025-03-15 15:59 | CM ---
PT indicated SNF and OT indicated Snf VS VN .
Reviewed with pt who said she wanted [facility] .
Spoke with son Hernando who wants pt to go to SNF at dc.
PAC DATA given to son Hernando he will reviewed with his mom.
Advanced directive given to pt .
PLAN Will depend on hospital course of care
[2025-03-15] MEDS: COUMADIN 1 MG PO (17:19)
[2025-03-15] MEDS: FLOMAX 0.4 MG PO (19:50)
[2025-03-15] MEDS: ZOFRAN 4 MG IV (22:53)
[2025-03-15] MEDS: MAGNESIUM SULFATE 50 IV (23:00)
[2025-03-15 23:22] VITALS: BP 132/72
[2025-03-16] MEDS: LIPITOR 80 MG PO (07:25)
[2025-03-16] MEDS: KCL 40 MEQ PO (07:26)
[2025-03-16] MEDS: VITAMIN D3 (cholecalciferol) 100 MCG PO (07:26)
[2025-03-16] MEDS: BUMEX 1 MG PO (07:26)
[2025-03-16] MEDS: PROTONIX 40 MG PO (07:26)
[2025-03-16] MEDS: AUGMENTIN 500 MG/125 MG 1 TABLET PO (07:26)
[2025-03-16] MEDS: LEXAPRO 5 MG PO (07:26)
[2025-03-16] MEDS: SENOKOT-S 1 TABLET PO (07:26)
[2025-03-16] MEDS: ASPIR LOW (ENTERIC COATED) 81 MG PO (07:27)
[2025-03-16] MEDS: FEOSOL 325 MG PO (07:27)
[2025-03-16] MEDS: TYLENOL 650 MG PO (07:29)
[2025-03-16 07:55] VITALS: BP 112/62
[2025-03-16 08:05] LABS: INR 2.06; PT 23.4 Sec (11.4-14.6)
[2025-03-16 08:21] LABS: Blood Urea Nitrogen 39 mg/dl (7-17); Calcium 8.7 mg/dl (8.4-10.2); Carbon Dioxide 30 mmol/L (22-30); Chloride 102 mmol/L (98-107); Estimated Creatinine Clearance 32 ml/min; Glucose 89 mg/dl (70-99); Magnesium 1.8 mg/dl (1.6-2.3); Potassium 4.6 mmol/L (3.5-5.1); Sodium 136 mmol/L (135-145); eGFR 41.57
--- NOTE | 2025-03-16 10:11 | VNURNOTE ---
Rec'ed update from ABELARDO Lauren. Plan is now for DC to home. Patient current with [facility] and resumption referral placed in [facility].
--- NOTE | 2025-03-16 10:13 | CM ---
Spoke with Hernando son . Pt and son decided for pt to go home with [facility] and private care givers.
[facility] notified of referral Pt is a resumption.
Pt has [facility] care givers MWF for 4 hr daily .
Sons will be staying with her after dc in home.
PLAN Home with [facility]
[2025-03-16] MEDS: PERCOCET 5/325 1 TABLET PO (10:24)
[2025-03-16 11:24] VITALS: BP 114/57; PULSE 97; O2SAT 93
[2025-03-16 12:54] VITALS: BP 104/56; PULSE 98; O2SAT 93
--- NOTE | 2025-03-16 13:14 | W.DCSUMMARY ---
Discharge Summary
Discharge Data
Date of Admission: 03/14/25
Date of Discharge: 03/16/25
Total time spent discharging patient (in min): 35
-
Pending Results: No
Hospital Course
Disposition :
Home with home health care
Principal Discharge diagnosis :
Left pelvic fracture
Hospital Course :
89-year-old female with AVR/tricuspid repair/CABG on Coumadin presenting with mechanical fall, found to have left pelvic fracture at the pubic ramus. She was seen by orthopedic surgery who deemed her nonoperative candidate, and recommended physical
therapy, weightbearing as tolerated, supportive care. She received narcotic medication for pain control. She was evaluated by physical therapy and found to be appropriate for SNF versus home health PT and OT, joint decision between her and her son
was to go home with VN.
Physical Exam:
General: No Apparent Distress
HEENT: Moist Mucous Membranes, Anicteric and PERRLA
Respiratory: Clear to Auscultation; Negative Wheezes, Rales or Rhonchi
Cardiac: Regular Rhythm and S1/S2; Negative Murmur, Rub or Gallop
GI: Soft, Nontender, Nondistended and Normal Bowel Sounds
Musculoskeletal: No Edema
Skin: Warm and Dry; Negative Rash, Ulcers or Lesions
Neuro: Awake and AO x 3
Hematologic / Lymphatic: No Lymphadenopathy
Psych: Calm
Discharge Plan
-
Patient Disposition: Home (Routine Discharge)
Discharge Diagnosis/Procedures: Fracture medial left pubic bones
Diet: Regular
Activity: As tolerated
Bathing Restrictions: None
Other Services: VN, PT and OT
Activity Restrictions/Additional Instructions:
You were seen by orthopedic surgery for your mildly displaced superior part pubic rami fracture due to your fall. They felt that they was amenable to conservative treatment.
-PT/OT with weightbearing as tolerated with walker.
-Rest from higher levels of activity until pain improves.
-Pain control with medications, ice, and activity modification.
-F/u in outpatient office in 4 weeks for repeat x-rays.
Instructions: Pelvic fracture
Referrals:
Analia Duron PA-C [Family Provider, Internal Medicine]
Tigre Haley MD [Active, Orthopedics] - in three to four weeks
Prescriptions:
New
oxycodone-acetaminophen 5-325 mg Tablet
1 tab PO Q6HPRN PRN (Reason: severe pain) Qty: 12 0RF
Continued
coenzyme Q10 [CoQ-10] 100 mg Capsule
200 mg PO DAILY
aspirin 81 mg Tablet,Delayed Release (Dr/Ec)
81 mg PO DAILY Qty: 0 0RF
ferrous sulfate [FeroSul] 325 mg (65 mg iron) Tablet
325 mg PO DAILY Qty: 0 0RF
melatonin 5 mg Tablet
5 mg PO HSPRN PRN (Reason: insomnia) Qty: 0 0RF
cholecalciferol (vitamin D3) 50 mcg (2,000 unit) Tablet
100 mcg PO DAILY Qty: 0 0RF
Desitin 40 % paste
1 applic topical BIDPRN PRN (Reason: skin irritation)
docusate sodium 100 mg Capsule
100 mg PO BID 30 Days Qty: 60 0RF
bumetanide 1 mg Tablet
1 mg PO BID@0800,1500 30 Days Qty: 60 0RF
tamsulosin 0.4 mg Capsule
0.4 mg PO HS 30 Days Qty: 30 0RF
pantoprazole 40 mg Tablet,Delayed Release (Dr/Ec)
40 mg PO DAILY 30 Days Qty: 30 0RF
warfarin [Jantoven] 1 mg Tablet
1 mg PO QPM 30 Days Qty: 30 0RF
Patient Comments:
inr on 03/12/25 28mg per a week or 4mg per a day but patient states she only takes on tablet a day
escitalopram oxalate 5 mg Tablet
5 mg PO DAILY 30 Days Qty: 30 0RF
potassium chloride 20 mEq Tablet,Er Particles/Crystals
40 meq PO BID 30 Days Qty: 120 0RF
acetaminophen 325 mg Tablet
650 mg PO Q4HPRN PRN (Reason: mild pain,headache) Qty: 0 0RF
atorvastatin 80 mg Tablet
80 mg PO DAILY 30 Days Qty: 30 0RF
Discontinued
amoxicillin-pot clavulanate [Augmentin] 500-125 mg tablet
1 tab PO Q12H 6 Days Qty: 12 0RF
Rx Instructions:
for 6 days starting 03/09/25
Discharge Orders:
Discharge Patient (As Directed); Ordered 03/16/25
Ordered By: Asuncion Lance
Discharge Date and Time
Print Language: GREENLANDIC
[2025-03-16 15:20] VITALS: BP 113/61
== END 2025-03-16 15:55 | disposition home health service (06) | DRG 536 ==
LOC: 4 EAST ACU 10:49
PROVIDERS: Nurse Practitioner; Nurse Practitioner Family; ADMITTING PHYSICIAN Internal Medicine; ATTENDING PHYSICIAN Internal Medicine; CONSULT PHYSICIAN Student in an Organized Health Care Education/Training Program; EMERGENCY PHYSICIAN Student in an Organized Health Care Education/Training Program; FAMILY PHYSICIAN Physician Assistant
DX: S32.592A Other specified fracture of left pubis, initial encounter for closed fracture (principal); N39.0 Urinary tract infection, site not specified; E78.00 Pure hypercholesterolemia, unspecified; I50.9 Heart failure, unspecified; I11.0 Hypertensive heart disease with heart failure; I48.0 Paroxysmal atrial fibrillation; I25.10 Atherosclerotic heart disease of native coronary artery without angina pectoris; I73.9 Peripheral vascular disease, unspecified; S70.02XA Contusion of left hip, initial encounter; W01.0XXA Fall on same level from slipping, tripping and stumbling without subsequent striking against object, initial encounter; Y93.9 Activity, unspecified; Y92.9 Unspecified place or not applicable; Z60.2 Problems related to living alone; Z79.01 Long term (current) use of anticoagulants; Z95.1 Presence of aortocoronary bypass graft; Z95.2 Presence of prosthetic heart valve; Z79.82 Long term (current) use of aspirin
CPT/HCPCS: 73502; 80048; 82306; 83735; 85025; 85027; 85610; 85730; 93005; 96374; 96375; 97116; 97163; 97167; 97535; 99285

== ENCOUNTER → 2025-03-26 18:22 | Outpatient (REF) | payer MEDICARE, SELFPAY ==
[2025-03-26 20:00] LABS: Hematocrit 28.4 % (37.0-47.0); Hemoglobin 8.7 g/dL (12.0-16.0); Mean Corp Hgb Conc. 30.6 g/dL (33.0-37.0); Mean Corpuscular Volume 104.0 fL (81.0-99.0); Nucleated Red Blood Cells % 0 %; Platelet Count 293 10^3/uL (130-400); Red Cell Dist. Width 21.0 % (11.5-14.5)
[2025-03-26 20:18] LABS: ALT (SGPT) 25 U/L (0-35); AST (SGOT) 36 U/L (14-36); Albumin 3.6 g/dl (3.5-5.0); Alkaline Phosphatase 204 U/L (38-126); Blood Urea Nitrogen 42 mg/dl (7-17); Calcium 9.4 mg/dl (8.4-10.2); Carbon Dioxide 27 mmol/L (22-30); Chloride 103 mmol/L (98-107); Glucose 93 mg/dl (70-99); Iron 61 ug/dl (37-170); Potassium 3.8 mmol/L (3.5-5.1); Sodium 137 mmol/L (135-145); Total Protein 7.2 g/dl (6.3-8.2); eGFR 56.95
[2025-03-26 20:27] LABS: Total Iron Binding Capacity 238 ug/dl (265-497)
[2025-03-26 20:53] LABS: Ferritin 306.0 ng/ml (11.1-264.0)
== END ==
LOC: CLAB 18:22
PROVIDERS: ATTENDING PHYSICIAN Physician Assistant
DX: R00.0 Tachycardia, unspecified (principal); D64.9 Anemia, unspecified; Z09 Encounter for follow-up examination after completed treatment for conditions other than malignant neoplasm; Z95.2 Presence of prosthetic heart valve; Z98.890 Other specified postprocedural states; Z95.1 Presence of aortocoronary bypass graft; W19.XXXD Unspecified fall, subsequent encounter
CPT/HCPCS: 36415; 80053; 82728; 83540; 83550; 85025

== ENCOUNTER → 2025-03-27 16:11 | Outpatient (REF) | payer MEDICARE, SELFPAY ==
[2025-03-27 17:27] LABS: INR 1.79; PT 21.0 Sec (11.4-14.6)
== END ==
LOC: CLAB 16:11
PROVIDERS: ATTENDING PHYSICIAN Student in an Organized Health Care Education/Training Program; FAMILY PHYSICIAN Physician Assistant
DX: I48.19 Other persistent atrial fibrillation (principal); Z95.2 Presence of prosthetic heart valve
CPT/HCPCS: 36415; 85610

== ENCOUNTER → 2025-04-05 12:22 | Outpatient (REF) | payer MEDICARE, SELFPAY ==
[2025-04-05 13:44] LABS: Hematocrit 27.9 % (37.0-47.0); Hemoglobin 8.8 g/dL (12.0-16.0); Mean Corp Hgb Conc. 31.5 g/dL (33.0-37.0); Mean Corpuscular Volume 99.6 fL (81.0-99.0); Nucleated Red Blood Cells % 0 %; Platelet Count 286 10^3/uL (130-400); Red Cell Dist. Width 18.9 % (11.5-14.5)
[2025-04-05 13:55] LABS: INR 1.72; PT 20.7 Sec (11.4-14.6)
== END ==
LOC: REG 12:22
PROVIDERS: ATTENDING PHYSICIAN Nurse Practitioner; FAMILY PHYSICIAN Physician Assistant; OTHER PHYSICIAN Student in an Organized Health Care Education/Training Program
DX: I25.10 Atherosclerotic heart disease of native coronary artery without angina pectoris (principal); Z95.2 Presence of prosthetic heart valve; I48.19 Other persistent atrial fibrillation; D64.9 Anemia, unspecified
CPT/HCPCS: 36415; 85025; 85610; 93306

== ENCOUNTER → 2025-04-09 15:35 | Outpatient (REF) | payer MEDICARE, SELFPAY ==
[2025-04-09 16:44] LABS: INR 1.89; PT 21.8 Sec (11.4-14.6)
== END ==
LOC: REG 15:35
PROVIDERS: ATTENDING PHYSICIAN Student in an Organized Health Care Education/Training Program; FAMILY PHYSICIAN Physician Assistant
DX: I48.19 Other persistent atrial fibrillation (principal); Z95.2 Presence of prosthetic heart valve
CPT/HCPCS: 36415; 85610

== ENCOUNTER → 2025-04-17 16:05 | Outpatient (REF) | payer MEDICARE, SELFPAY ==
[2025-04-17 17:49] LABS: INR 1.72; PT 20.3 Sec (11.4-14.6)
[2025-04-17 17:54] LABS: Blood Urea Nitrogen 52 mg/dl (7-17); Calcium 9.1 mg/dl (8.4-10.2); Carbon Dioxide 28 mmol/L (22-30); Chloride 100 mmol/L (98-107); Glucose 102 mg/dl (70-99); Potassium 4.2 mmol/L (3.5-5.1); Sodium 138 mmol/L (135-145); eGFR 56.95
== END ==
LOC: REG 16:05
PROVIDERS: ATTENDING PHYSICIAN Student in an Organized Health Care Education/Training Program; FAMILY PHYSICIAN Physician Assistant
DX: I36.1 Nonrheumatic tricuspid (valve) insufficiency (principal); I48.19 Other persistent atrial fibrillation; Z95.2 Presence of prosthetic heart valve
CPT/HCPCS: 36415; 80048; 85610

== ENCOUNTER → 2025-04-23 13:38 | Outpatient (REF) | payer MEDICARE, SELFPAY ==
[2025-04-23 14:28] LABS: INR 2.43; PT 26.5 Sec (11.4-14.6)
[2025-04-23 14:48] LABS: Blood Urea Nitrogen 35 mg/dl (7-17); Calcium 9.4 mg/dl (8.4-10.2); Carbon Dioxide 27 mmol/L (22-30); Chloride 103 mmol/L (98-107); Glucose 120 mg/dl (70-99); Potassium 4.5 mmol/L (3.5-5.1); Sodium 138 mmol/L (135-145); eGFR 56.95
== END ==
LOC: REG 13:38
PROVIDERS: ATTENDING PHYSICIAN Student in an Organized Health Care Education/Training Program; FAMILY PHYSICIAN Physician Assistant
DX: Z95.2 Presence of prosthetic heart valve (principal); I48.19 Other persistent atrial fibrillation
CPT/HCPCS: 36415; 80048; 85610

== ENCOUNTER → 2025-04-30 13:17 | Outpatient (REF) | payer MEDICARE, SELFPAY ==
[2025-04-30 14:52] LABS: Hematocrit 31.8 % (37.0-47.0); Hemoglobin 10.2 g/dL (12.0-16.0); Mean Corp Hgb Conc. 32.1 g/dL (33.0-37.0); Mean Corpuscular Volume 95.8 fL (81.0-99.0); Nucleated Red Blood Cells % 0 %; Platelet Count 299 10^3/uL (130-400); Red Cell Dist. Width 16.6 % (11.5-14.5)
[2025-04-30 15:01] LABS: INR 3.54; PT 35.2 Sec (11.4-14.6)
[2025-04-30 15:05] LABS: ALT (SGPT) 38 U/L (0-35); AST (SGOT) 48 U/L (14-36); Albumin 3.7 g/dl (3.5-5.0); Alkaline Phosphatase 173 U/L (38-126); Blood Urea Nitrogen 26 mg/dl (7-17); Calcium 9.3 mg/dl (8.4-10.2); Carbon Dioxide 26 mmol/L (22-30); Chloride 100 mmol/L (98-107); Glucose 97 mg/dl (70-99); Iron 46 ug/dl (37-170); Potassium 4.1 mmol/L (3.5-5.1); Sodium 136 mmol/L (135-145); Total Protein 7.4 g/dl (6.3-8.2); eGFR > 60.00
[2025-04-30 15:14] LABS: Total Iron Binding Capacity 255 ug/dl (265-497)
[2025-04-30 15:40] LABS: Ferritin 161.0 ng/ml (11.1-264.0)
== END ==
LOC: REG 13:17
PROVIDERS: ATTENDING PHYSICIAN Student in an Organized Health Care Education/Training Program; FAMILY PHYSICIAN Physician Assistant
DX: I48.19 Other persistent atrial fibrillation (principal); Z95.2 Presence of prosthetic heart valve; I25.10 Atherosclerotic heart disease of native coronary artery without angina pectoris; D64.9 Anemia, unspecified; Z98.890 Other specified postprocedural states
CPT/HCPCS: 36415; 80053; 82728; 83540; 83550; 85025; 85610

== ENCOUNTER → 2025-05-07 12:44 | Outpatient (REF) | payer MEDICARE, SELFPAY ==
[2025-05-07 13:37] LABS: INR 4.07; PT 39.1 Sec (11.4-14.6)
== END ==
LOC: REG 12:44
PROVIDERS: ATTENDING PHYSICIAN Student in an Organized Health Care Education/Training Program; FAMILY PHYSICIAN Physician Assistant
DX: I48.19 Other persistent atrial fibrillation (principal); Z95.2 Presence of prosthetic heart valve
CPT/HCPCS: 36415; 85610

== ENCOUNTER → 2025-05-11 12:31 | Outpatient (REF) | payer MEDICARE, SELFPAY ==
[2025-05-11 13:07] LABS: INR 3.12; PT 32.0 Sec (11.4-14.6)
== END ==
LOC: REG 12:31
PROVIDERS: ATTENDING PHYSICIAN Student in an Organized Health Care Education/Training Program; FAMILY PHYSICIAN Physician Assistant
DX: I48.19 Other persistent atrial fibrillation (principal); Z95.2 Presence of prosthetic heart valve
CPT/HCPCS: 36415; 85610

== ENCOUNTER → 2025-05-21 11:03 | Outpatient (REF) | payer MEDICARE, SELFPAY ==
[2025-05-21 12:14] LABS: INR 2.86; PT 29.9 Sec (11.4-14.6)
== END ==
LOC: REG 11:03
PROVIDERS: ATTENDING PHYSICIAN Student in an Organized Health Care Education/Training Program; FAMILY PHYSICIAN Physician Assistant
DX: I48.19 Other persistent atrial fibrillation (principal); Z95.2 Presence of prosthetic heart valve
CPT/HCPCS: 36415; 85610

== ENCOUNTER 2025-06-01 16:05 | Outpatient (RCR) | payer MEDICARE, SELFPAY | END 2025-06-01 23:59 | disposition home or self-care (01) | LOC: CRHB 16:05 | PROVIDERS: ATTENDING PHYSICIAN Student in an Organized Health Care Education/Training Program | DX: I25.10 Atherosclerotic heart disease of native coronary artery without angina pectoris (principal); Z95.1 Presence of aortocoronary bypass graft (principal); Z95.2 Presence of prosthetic heart valve | CPT/HCPCS: 36415; 85610; G0422; G0423 ==

== ENCOUNTER → 2025-06-07 12:58 | Outpatient (REF) | payer MEDICARE, SELFPAY | LOC: RAD 12:58 | PROVIDERS: ATTENDING PHYSICIAN Orthopaedic Surgery; FAMILY PHYSICIAN Physician Assistant | DX: M25.559 Pain in unspecified hip (principal); M84.452S Pathological fracture, left femur, sequela; Z78.0 Asymptomatic menopausal state | CPT/HCPCS: 77080 ==

== ENCOUNTER → 2025-06-11 10:52 | Outpatient (REF) | payer MEDICARE, SELFPAY ==
[2025-06-11 12:18] LABS: INR 2.15; PT 24.1 Sec (11.4-14.6)
== END ==
LOC: REG 10:52
PROVIDERS: ATTENDING PHYSICIAN Student in an Organized Health Care Education/Training Program; FAMILY PHYSICIAN Physician Assistant
DX: I48.19 Other persistent atrial fibrillation (principal); Z95.2 Presence of prosthetic heart valve
CPT/HCPCS: 36415; 85610

== ENCOUNTER → 2025-06-18 10:42 | Outpatient (REF) | payer MEDICARE, SELFPAY ==
[2025-06-18 11:33] LABS: INR 1.87; PT 21.7 Sec (11.4-14.6)
== END ==
LOC: REG 10:42
PROVIDERS: ATTENDING PHYSICIAN Student in an Organized Health Care Education/Training Program; FAMILY PHYSICIAN Physician Assistant
DX: I48.19 Other persistent atrial fibrillation (principal); Z95.2 Presence of prosthetic heart valve
CPT/HCPCS: 36415; 85610

== ENCOUNTER → 2025-06-25 11:03 | Outpatient (REF) | payer MEDICARE, SELFPAY ==
[2025-06-25 11:58] LABS: INR 2.61; PT 28.0 Sec (11.4-14.6)
== END ==
LOC: REG 11:03
PROVIDERS: ATTENDING PHYSICIAN Student in an Organized Health Care Education/Training Program
DX: I48.19 Other persistent atrial fibrillation (principal); Z95.2 Presence of prosthetic heart valve
CPT/HCPCS: 36415; 85610

== ENCOUNTER 2025-06-29 13:20 | Outpatient (RCR) | payer MEDICARE, SELFPAY | END 2025-06-29 23:59 | disposition home or self-care (01) | LOC: CRHB 13:20 | PROVIDERS: ATTENDING PHYSICIAN Student in an Organized Health Care Education/Training Program | DX: Z95.1 Presence of aortocoronary bypass graft (principal); I25.10 Atherosclerotic heart disease of native coronary artery without angina pectoris (principal); Z95.2 Presence of prosthetic heart valve | CPT/HCPCS: 36415; 85610; G0422; G0423 ==

== ENCOUNTER → 2025-07-09 11:04 | Outpatient (REF) | payer MEDICARE, SELFPAY ==
[2025-07-09 12:33] LABS: INR 3.28; PT 33.6 Sec (11.4-14.6)
== END ==
LOC: REG 11:04
PROVIDERS: ATTENDING PHYSICIAN Student in an Organized Health Care Education/Training Program; FAMILY PHYSICIAN Physician Assistant
DX: I48.19 Other persistent atrial fibrillation (principal)
CPT/HCPCS: 36415; 85610

== ENCOUNTER → 2025-07-16 11:02 | Outpatient (REF) | payer MEDICARE, SELFPAY ==
[2025-07-16 12:23] LABS: INR 2.52; PT 27.4 Sec (11.4-14.6)
== END ==
LOC: REG 11:02
PROVIDERS: ATTENDING PHYSICIAN Student in an Organized Health Care Education/Training Program; FAMILY PHYSICIAN Physician Assistant
DX: I48.19 Other persistent atrial fibrillation (principal)
CPT/HCPCS: 36415; 85610

== ENCOUNTER → 2025-07-23 11:16 | Outpatient (REF) | payer MEDICARE, SELFPAY ==
[2025-07-23 13:28] LABS: INR 2.60; PT 28.1 Sec (11.4-14.6)
== END ==
LOC: REG 11:16
PROVIDERS: ATTENDING PHYSICIAN Student in an Organized Health Care Education/Training Program
DX: I48.19 Other persistent atrial fibrillation (principal)
CPT/HCPCS: 36415; 85610

== ENCOUNTER → 2025-07-30 11:21 | Outpatient (REF) | payer MEDICARE, SELFPAY ==
[2025-07-30 12:14] LABS: INR 3.12; PT 32.4 Sec (11.4-14.6)
== END ==
LOC: REG 11:21
PROVIDERS: ATTENDING PHYSICIAN Student in an Organized Health Care Education/Training Program; FAMILY PHYSICIAN Physician Assistant
DX: I48.19 Other persistent atrial fibrillation (principal)
CPT/HCPCS: 36415; 85610

== ENCOUNTER 2025-07-31 13:00 | Outpatient (RCR) | payer MEDICARE, SELFPAY | END 2025-07-31 23:59 | disposition home or self-care (01) | LOC: CRHB 13:00 | PROVIDERS: ATTENDING PHYSICIAN Student in an Organized Health Care Education/Training Program | DX: I25.10 Atherosclerotic heart disease of native coronary artery without angina pectoris (principal); Z95.1 Presence of aortocoronary bypass graft; Z95.2 Presence of prosthetic heart valve | CPT/HCPCS: 36415; 85610; G0422; G0423 ==